=== PATIENT | male | born 1945 | race Caucasian/White ===

== ENCOUNTER 2017-03-16 13:03 | Inpatient (IN) | payer OTHER, MEDICARE ==
[~2017-03-16] VITALS: Ht 172.7 cm; Wt 113.4 kg
[~2017-03-16 13:03] MED LIST: AMARYL 2 MG2 MG PO; ASPIRIN81 M4 PO; COZAAR 100MG T100 MG PO; LANTUS100 U/ML SC; LASIX20 MG PO; LEVEMIR 10100 UNITS/ SC; LEVEMIR FL100 UNIT/1 SC; LIPITOR80 M1 PO; LOPRESSOR 25MG25 MG PO; NOVOLOG100 U/ML SC; PERCOCET 5-3251 EACH PO; PLAVIX 75MG TAB75 MG PO; VANCOMYCIN HCL1 G1 IV
[2017-03-16 14:06] LABS: ABSOLUTE BASOPHIL COUNT 0 /CUMM (0.0-0.2); ABSOLUTE EOSINOPHIL COUNT 0.3 /CUMM (0.0-0.7); ABSOLUTE GRANULOCYTE CT 6.7 /CUMM (1.4-6.5); ABSOLUTE LYMPH COUNT 1.5 /CUMM (1.2-3.4); ABSOLUTE MONOCYTE COUNT 0.6 /CUMM (0.10-0.60); BASOPHIL % 0.2 % (0.0-2.0); EOSINOPHIL % 2.9 % (0-5); GRANULOCYTE % 74.4 % (42.2-75.2); HEMATOCRIT 38.2 % (42-52); MEAN CORPUSCULAR HGB 30.2 PG (27.0-31.0); MEAN CORPUSCULAR HGB CONC 33.9 G/DL (33.0-37.0); MEAN CORPUSCULAR VOLUME 89.2 FL (80.0-94.0); MEAN PLATELET VOLUME 7.7 FL (7.4-10.4); PLATELET COUNT 267 /CUMM (130-400); RBC DISTRIBUTION WIDTH 13.3 % (11.5-14.5); RED BLOOD CELL CT 4.28 /CUMM (4.70-6.10); WHITE BLOOD CELL COUNT 9.1 /CUMM (4.8-10.8)
--- NOTE | 2017-03-16 14:11 | RADIOLOGY REPORT ---
EXAMINATION: XR PORTABLE CHEST CLINICAL INFORMATION: 71-year-old male with hyperglycemia. COMPARISON: Chest radiograph 07/23/2015 TECHNIQUE: Portable frontal view of the chest was obtained. FINDINGS: Cardiac silhouette is borderline enlarged, unchanged. There are low lung volumes. No focal consolidation, pleural effusion or pneumothorax. No acute osseous abnormality. IMPRESSION: No radiographic evidence of acute pulmonary disease.
--- NOTE | 2017-03-16 14:49 | CT SCAN REPORT ---
EXAMINATION: CT HEAD WITHOUT CONTRAST CLINICAL INFORMATION: Headache and hypertension. COMPARISON: 07/23/2015 TECHNIQUE: Contiguous axial imaging was performed from the skull base to vertex without intravenous administration of contrast. DLP: 621 mGy-cm FINDINGS: There is no hemorrhage. An oval 1.3 x 0.8 cm hypoattenuating structure is seen within the periventricular white matter adjacent to the frontal horn of the right lateral ventricle, new from prior. There is no significant mass effect. This may reflect a subacute to chronic area of ischemia. There is moderate generalized prominence of the ventricles, sulci, and extra-axial CSF spaces. There is a chronic infarct in the right basal ganglia with ex vacuo dilatation of the frontal horn of the right lateral ventricle, findings which have developed in the interval since the prior. Mild to moderate periventricular hypoattenuation compatible with chronic microangiopathy. Bilateral punctate chronic lacunar infarcts in the periventricular white matter adjacent to the body of the lateral ventricles. Chronic infarct in the right periventricular matter white matter adjacent to the third ventricle with mild ex vacuo dilatation of the third ventricle. Some of the smaller findings are difficult to compare to the prior due to the extensive motion on the 2014 study. No extra-axial collections. No mass effect or shift the normally midline structures. No acute osseous abnormalities. There is a retention cyst in a posterior left ethmoid air cell. The mastoid air cells and middle ear cavities are clear. There is a thick-walled subcutaneous fluid collection measuring 1.8 x 0.9 cm in the right parasagittal suboccipital region with associated skin thickening and some surrounding stranding. This appears to reflect a sebaceous cyst and is decreased in size from the prior with increased stranding. There may have been an interval procedure or this may have decompressed spontaneously. Correlation with exam is suggested. IMPRESSION: 1. An oval 1.3 x 0.8 cm hypoattenuating focus is seen within the right frontal periventricular white matter without mass effect. This is nonspecific and may reflect a subacute to chronic area of ischemia given attenuation. 2. Chronic infarct in the right basal ganglia with ex vacuo dilatation of the frontal horn of the right lateral ventricle, which has developed in the interval from the prior study. 3. No intracranial hemorrhage is visualized. 4. Decreased size of a subcutaneous cystic structure in the right suboccipital subcutaneous tissues with increased surrounding stranding. This is suspected to reflect a sebaceous cyst status post partial decompression. Correlation with exam is suggested.
--- NOTE | 2017-03-16 15:17 | ED GENERAL ADULT ---
History of Present Illness General Chief Complaint: General Adult Stated Complaint: SIB FOR HIGH BP Source: patient, old records Exam Limitations: poor historian Vital Signs & Intake/Output Vital Signs & Intake/Output Vital Signs Date Time Temp Pulse Resp B/P B/P Pulse O2 O2 Flow FiO2 Mean Ox Delivery Rate 03/16 1639 97.6 65 18 159/85 98 Room Air 03/16 1453 66 18 152/69 94 Room Air 03/16 1416 69 18 149/71 99 Room Air 03/16 1407 69 209/98 03/16 1313 98.2 78 20 193/99 7 Room Air Allergies Coded Allergies: NO KNOWN ALLERGIES (07/23/15) Reconcile Medications Aspirin (Aspirin*) 81 MG TAB.CHEW 1 TAB PO DAILY HEART HEALTH (Reported) Atorvastatin Calcium (Lipitor) 80 MG TABLET 1 TAB PO QPM CHOLESTEROL ( Reported) Clopidogrel Bisulfate (Plavix) 75 MG TAB 1 TAB PO DAILY CARDIAC STENTS ( Reported) Furosemide (Lasix) 20 MG TAB 1 TAB PO DAILY \? CHF (Reported) Insulin Aspart, Recombinant (Novolog) 100 U/ML OMID 1 UNITS SC SEE ADMIN CRITERIA Diabetes Before each meal blood sugar units <80mg -0 units 80-150 - 5units 151-200 -7 units 201-250- 9units 251-300 - 11 units 301-350 - 13 units 351-400 - 15 >400- 17 units Bedtime 80-150 -0 units 251-300- 2 units 301-350- 3units 351-400 - 4 units >400 - 5 units Insulin Detemir (Levemir Flextouch) 100 UNIT/1 ML INSULN.PEN 28 U SC QPM DIABETES (Reported) Losartan (Cozaar) 100 MG TAB 1 TAB PO DAILY HTN (Reported) Metoprolol Tartrate (Lopressor) 25 MG TAB 1 TAB PO BID B/P (Reported) Core Measure Meds Pre-Hospital aspirin Triage Note: SIB DR LE FOR HYPERTENSION. BP 193/99 IN TRIAGE. PT DENIES H/A. STATES DIZZY WHEN WALKING Triage Nurses Notes Reviewed? yes Onset: Just prior to arrival Duration: continues in ED Timing: recent history Injury Environment: home Severity: mild No Modifying Factors: none HPI: Patient reports running out of his meds 3 months prior to admission. He visited PMD for a refills and was found to be hyperglycemic with high blood pressure. He complains of headache and dizziness for an unspecified duration. He denies fever chills nausea vomiting diarrhea abdominal pain chest pain shortness of breath dysuria rash bleeding. Past History Travel History Traveled to [place] past 21 day No Medical History Any Pertinent Medical History? 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 No Review of Systems Review of Systems Constitutional: Reports: see HPI, malaise. EENTM: Reports: no symptoms. Respiratory: Reports: no symptoms. Cardiovascular: Reports: no symptoms. GI: Reports: no symptoms. Genitourinary: Reports: no symptoms. Musculoskeletal: Reports: no symptoms. Skin: Reports: no symptoms. Neurological/Psychological: Reports: see HPI, headache. Hematologic/Endocrine: Reports: no symptoms. Immunologic/Allergic: Reports: no symptoms. All Other Systems: Reviewed and Negative Physical Exam Physical Exam General Appearance: well developed/nourished, alert, awake, anxious, obese Head: atraumatic, normal appearance Eyes: Bilateral: normal appearance, PERRL, EOMI, other (nystagmus). Ears, Nose, Throat: normal pharynx, normal ENT inspection Neck: normal inspection, supple, full range of motion, no midline tenderness Respiratory: normal breath sounds, chest non-tender, no respiratory distress, quiet respiration, lungs clear Cardiovascular: regular rate/rhythm, normal peripheral pulses, norml femoral pulses equa Peripheral Pulses: 4+ carotid (R), 4+ carotid (L) Gastrointestinal: normal bowel sounds, soft, non-tender, no organomegaly Back: normal inspection, normal range of motion, no vertebral tenderness Extremities: normal inspection, normal capillary refill, normal range of motion, no edema Neurologic/Psych: no motor/sensory deficits, awake, alert, oriented x 3, normal gait, normal mood/affect, 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 Skin: intact, normal color, right foot amputation site well-healed, chronic nail changes Lymphatic: no anterior cervical cami Core Measures ACS in differential dx? No CVA/TIA Diagnosis: Yes NIH Stroke Scale: Total 0 Dt/Tm Last Known Well: No Neurological S/S of CVA: Dizziness Reason tPA not ordered: Medical Contraindication Severe Sepsis Present: No Septic Shock Present: No Progress Differential Diagnoses I considered the following diagnoses in my evaluation of the patient: Hypertensive crisis DKA Plan of Care: Orders Procedure Date/time Status MRI-HEAD W/O KATHLEEN 03/17 0800 Active CBC WITHOUT DIFFERENTIAL 03/17 0600 Active BASIC ELECTROLYTES PLUS BUN&CR 03/17 0600 Active Consistent Carbohydrate 2 03/16 D Active TROPONIN LEVEL 03/16 1900 Active Pathway - chart 03/16 1606 Active House Staff 03/16 1606 Active Code Status 03/16 1606 Active Patient Data 03/16 1602 Active COMPREHENSIVE METABOLIC PANEL 03/16 1549 Complete OXYGEN SETUP (GEN) 03/16 1524 Active Saline Lock 03/16 1524 Active Admit to inpatient 03/16 1524 Active Vital Signs 03/16 1524 Active Activity/Ambulation 03/16 1524 Active Code Status 03/16 1524 Complete Intake & Output 03/16 1456 Active FingerStick- Glucose 03/16 1352 Active URINALYSIS 03/16 1347 Complete GLYCOSYLATED HGB 03/16 1347 Active MIXED VENOUS BLOOD GAS (GEN) 03/16 1343 Active TROPONIN LEVEL 03/16 1343 Active LIPASE 03/16 1343 Active COMPREHENSIVE METABOLIC PANEL 03/16 1343 Active CBC WITHOUT DIFFERENTIAL 03/16 1343 Complete ACETONE 03/16 1343 Active EKG 03/16 1343 Active Lab Add-on Test 03/16 UNK Active VTE Mechanical Prophylaxis 03/16 UNK Active FingerStick- Glucose 03/16 UNK Active CMS- Neurovascular Checks 03/16 UNK Active Current Medications Sig/Anna Start time Last Medication Dose Stop Time Status Admin Aspirin 81 MG DAILY 03/17 1000 AC (Aspirin) Clopidogrel Bisulfate 75 MG DAILY 03/17 1000 AC (Plavix) Losartan Potassium 100 MG DAILY 03/17 1000 AC (Cozaar) Atorvastatin Calcium 80 MG QPM 03/16 2200 AC (Lipitor) Heparin Sodium 5,000 UNIT Q8 03/16 2200 UNVr (Porcine) Insulin Detemir 10 UNITS BID 03/16 2200 AC (Levemir) Metoprolol Tartrate 25 MG BID 03/16 2200 UNVr (Lopressor) Insulin Aspart 0 TIDAC 03/16 1700 AC 03/16 (NovoLOG) 1647 Acetaminophen 650 MG Q6P PRN 03/16 161 AC (Tylenol) Acetaminophen 1,000 MG Q6P PRN 03/16 1615 AC (Ofirmev) Laboratory Tests 03/16/17 1603: Urinalysis LIGHT H, Urine Color YEL, Urine Clarity CLEAR, Urine pH 6.0, Ur Specific [place] 1.020, Urine Protein 100 H, Urine Ketones NEG, Urine Nitrite NEG, Urine Bilirubin NEG, Urine Urobilinogen 0.2, Ur Leukocyte Esterase NEG, Ur Microscopic SEDIMENT EXAMINED, Urine RBC RARE, Ur Epithelial Cells RARE, Urine Mucus RARE, Urine Hemoglobin SMALL H, Urine Glucose >=1000 H 03/16/17 1544: Anion Gap 11, Estimated GFR 50 L, BUN/Creatinine Ratio 17.1, Glucose 268 H, Calcium 9.1, Total Bilirubin 0.4, AST 11 L, ALT 29, Alkaline Phosphatase 93, Total Protein 6.4, Albumin 3.6, Globulin 2.8, Albumin/Globulin Ratio 1.3 03/16/17 1541: Glucose Cancelled 03/16/17 1537: Glucose Cancelled 03/16/17 1347: Anion Gap 13, Estimated GFR 50 L, BUN/Creatinine Ratio 19.3, Glucose 544 *H, Hemoglobin A1c Pending, Calcium 8.9, Total Bilirubin 0.4, AST 12 L, ALT 21, Alkaline Phosphatase 103, Troponin I < 0.01, Total Protein 6.5, Albumin 3.7, Globulin 2.8, Albumin/Globulin Ratio 1.3, Lipase 366 H, CBC w Diff NO MAN DIFF REQ, RBC 4.28 L, MCV 89.2, MCH 30.2, RDW 13.3, MPV 7.7, Gran % 74.4, Lymphocytes % 16.1 L, Monocytes % 6.4, Eosinophils % 2.9, Basophils % 0.2, Absolute Granulocytes 6.7 H, Absolute Lymphocytes 1.5, Absolute Monocytes 0.6, Absolute Eosinophils 0.3, Absolute Basophils 0, PUBS MCHC 33.9, Acetone Level NEGATIVE Diagnostic Imaging: Viewed by Me: CT Scan. Discussed w/RAD: CT Scan. Radiology Impression: 1. An oval 1.3 x 0.8 cm hypoattenuating focus is seen within the right frontal periventricular white matter without mass effect. This is nonspecific and may reflect a subacute to chronic area of ischemia given attenuation. 2. Chronic infarct in the right basal ganglia with ex vacuo dilatation of the frontal horn of the right lateral ventricle, which has developed in the interval from the prior study. 3. No intracranial hemorrhage is visualized. 4. Decreased size of a subcutaneous cystic structure in the right suboccipital subcutaneous tissues with increased surrounding stranding. This is suspected to reflect a sebaceous cyst status post partial decompression. Correlation with exam is suggested. CXR Impression: no acute abnormality Initial ED EKG: normal axis, normal intervals, normal p-waves, normal QRS complex, nonspecific ST T wave chg Prior EKG: changed Rhythm Strip: normal sinus rhythm Departure Departure Time of Disposition: 1527 Disposition: STILL A PATIENT Condition: Stable Clinical Impression Primary Impression: Hypertension Qualifiers: Hypertension type: essential hypertension Qualified Code: I10 - Essential (primary) hypertension Secondary Impressions: CVA (cerebral vascular accident) Qualifiers: CVA mechanism: unspecified Qualified Code: I63.9 - Cerebral infarction, unspecified Hyperglycemia Referrals: DOMINIC CAMARA,LEAH Johns (PCP/Family) Departure Forms: Customer Survey General Discharge Information Admission Note Spoke With: EDUARDO CAMARA,SHABBIR Hurd Documentation of Exam: Documentation of any treatments & extenuating circumstances including Concerns Regarding Discharge (functional status, medication knowledge or non-compliance, living conditions, etc.) that warrant an admission rather than observation: Serial lab exam cardiac monitoring serial neurological exam endocrinology evaluation urology evaluation medication adjustment physical therapy continuing care discharge planning Critical Care Note Critical Care Note Critical Care Time: 30-74 min (40)
--- NOTE | 2017-03-16 16:05 | History & Physical ---
DAVID CAMARA,CHERYL 03/16/17 4954: General Information and HPI MD Statement: I have seen and personally examined JOVAN MACEDO and documented this H&P. The patient is a 71 year old M who presented with a patient stated chief complaint of [referred by the primary care physician for hypertension]. 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 after being referred by her primary care physician for essential hypertension. Patient's blood pressure was elevated to 198/100 at the physician's office. A per the patient he was asymptomatic and had no complaints. He has not been taking his home medications for the last 1-1/2 month due to insurance problems. He denied any chest pain palpitations weakness lethargic. He went to his primary care physician for his regular routine office visit. The patient also had a fall 1 week back which he attributes as his knee gave away and he stumbled on the kitchen floor but he did not hit his head. He normally ambulates with a cane since the amputation of the third and the fourth right foot toe. The patient had some mild blurring of vision and mild headache. No palpitations or shortness of breath. Allergies/Medications Allergies: Coded Allergies: NO KNOWN ALLERGIES (07/23/15) Home Med list Aspirin (Aspirin*) 81 MG TAB.CHEW 1 TAB PO DAILY HEART HEALTH (Reported) Atorvastatin Calcium (Lipitor) 80 MG TABLET 1 TAB PO QPM CHOLESTEROL ( Reported) Clopidogrel Bisulfate (Plavix) 75 MG TAB 1 TAB PO DAILY CARDIAC STENTS ( Reported) Furosemide (Lasix) 20 MG TAB 1 TAB PO DAILY \? CHF (Reported) Insulin Aspart, Recombinant (Novolog) 100 U/ML OMID 1 UNITS SC SEE ADMIN CRITERIA Diabetes Before each meal blood sugar units <80mg -0 units 80-150 - 5units 151-200 -7 units 201-250- 9units 251-300 - 11 units 301-350 - 13 units 351-400 - 15 >400- 17 units Bedtime 80-150 -0 units 251-300- 2 units 301-350- 3units 351-400 - 4 units >400 - 5 units Insulin Detemir (Levemir Flextouch) 100 UNIT/1 ML INSULN.PEN 28 U SC QPM DIABETES (Reported) Losartan (Cozaar) 100 MG TAB 1 TAB PO DAILY HTN (Reported) Metoprolol Tartrate (Lopressor) 25 MG TAB 1 TAB PO BID B/P (Reported) Past History Travel History Traveled to [place] past 21 day No Medical History Neurological: AMS EENT: NONE Cardiovascular: hyperlipidemia Respiratory: NONE Gastrointestinal: NONE Hepatic: NONE Renal: NONE Musculoskeletal: MUSCLE WEAKNESS Psychiatric: NONE Endocrine: diabetes Blood Disorders: NONE Cancer(s): NONE 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 spouse, child Services at Home: None Primary Language: Luxembourger Smoking Status: Former Smoker ETOH Use: denies use Illicit Drug Use: denies illicit drug use Review of Systems Review of Systems Constitutional: Reports: see HPI. Cardiovascular: Denies: chest pain, edema, orthopena, palpitations. GI: Denies: abdominal pain, bloating, constipation, distention, bowel incontinence. Genitourinary: Denies: discharge, dysuria, frequency, hematuria. Exam & Diagnostic Data Last 24 Hrs of Vital Signs/I&O Vital Signs Date Time Temp Pulse Resp B/P B/P Pulse O2 O2 Flow FiO2 Mean Ox Delivery Rate 03/16 1639 97.6 65 18 159/85 98 Room Air 03/16 1453 66 18 152/69 94 Room Air 03/16 1416 69 18 149/71 99 Room Air 03/16 1407 69 209/98 03/16 1313 98.2 78 20 193/99 7 Room Air Intake & Output 03/16 1600 03/16 0800 03/16 0000 Intake Total 1000 Output Total Balance 1000 Intake, IV 1000 Patient 215 lb Weight Weight Reported by Patient Measurement Method Physical Exam General Appearance Alert, Oriented X3, Cooperative Skin No Rashes, No Breakdown Skin Temp/Moisture Exam: Warm/Dry Sepsis Skin Exam (color): Normal for Ethnicity, Cyanotic HEENT Atraumatic, PERRLA Neck Supple, No JVD Lymphatic Axillary nl, Cervical nl Cardiovascular Normal S1, Normal S2 Lungs Clear to Auscultation, Normal Air Movement Abdomen Soft, No Tenderness Neurological Normal Speech, Strength at 5/5 X4 Ext, Normal Tone, Sensation Intact, Cranial Nerves 3-12 NL, Reflexes 2+ Extremities No Cyanosis, No Edema, THE STUMP OF THE THIRD AND THE FOURTH TOE LOOKS CLEAN WITH NO DISCHARGE (.) Assessment/Plan Assessment: This is a 71-year-old male with a past medical history of essential hypertension coronary artery disease insulin-dependent diabetes mellitus hyperlipidemia ostium mellitus of the third and the fourth toe in the last year status post debridement to present to the [facility] after being referred by the primary care physician for hypertension Vitals at the time of admission showed Blood pressure of Blood pressure of 159/81, respiration rate of 18, pulse rate of 69, saturation of 99% on room air Labs shows WBC of 12,000, normal hemoglobin and hematocrit, Blood glucose of 544, normal anion gap, slightly elevated creatinine of 1.5 with a baseline of 1.4, no ketones in the urine EKG shows normal sinus rhythm Chest x-ray was negative for any intrapulmonary process Head CT showed acute or subacute infarcts Assessment 1. Hypertensive urgency secondary to noncompliance with the medications(he takes losartan 100 mg and metoprolol 25 mg twice a day) 2. Hyperglycemia in the absence of any anion gap or ketosis(again most likely secondary to noncompliance and not taking any insulin therapy at home) 3. History of Coronary artery disease involving inupiat coronary artery of inupiat heart without angina pectoris the patient is on dual antiplatelet therapy but no documentation of any cardiac stent placement in the electronic medical records. Patient has seen Bird Galloway in the past. 4. History of hyperlipidemia 5. 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 Plan Admit to telemetry floor Neurochecks every 4 hours Accu-Cheks every 4 hours For the patient's blood pressure we will resume his home meds of losartan 100 mg and metoprolol 25 mg twice a day We can check another set of troponins in the later tonight, at this point I don' t think that the patient has any end organ damage Cardiology consult with the [facility](Brad Serrano MD ) Last echo was reviewed from July 2016 which showed an EF of 55% and no wall motion abnormality. 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 We will hold the Lasix dose until kidney function normalizes. DVT prophylaxis with subcutaneous heparin Patient is full code As Ranked By This Provider Problem List: 1. Hypertension Qualifiers Hypertension type: essential hypertension Qualified Code: I10 - Essential ( primary) hypertension 2. Full code status 3. DVT prophylaxis Core Measures/Miscellaneous Acute Coronary Syndrome ACS Diagnosis: No Cerebrovascular Accident CVA/TIA Diagnosis: No Congestive Heart Failure CHF Diagnosis: No Venous Thromboembolism VTE Risk Factors: Acute medical illness, Age > 40 [facility] prophylaxis d/t: VTE low risk, No contraindications No VTE Pharm Prophylaxis d/t: VTE low risk, No contraindications VTE Diagnosis: No VTE Type: NONE VTE Confirmed by (Test): NONE Severe Sepsis Severe Sepsis Present: No Septic Shock Septic Shock Present: No Miscellaneous Documentation Attending Case Discussed With: SHABBIR CLARK MD Primary Care Physician: LEAH ALFARO MD Patient sees these Specialists dr de jesus Level of Patient Care: Telemetry SHABBIR CLARK MD 03/16/17 1724: Attending Review Statement Attending Statement Attending MD Statement: examined this patient, discuss w/resident/PA/KIESELGUHR REGENERATOR OPERATOR, agreed w/resident/PA/KIESELGUHR REGENERATOR OPERATOR, reviewed EMR data (avail), reviewed images Attending Assessment/Plan: See medical brief addendum note
--- NOTE | 2017-03-16 16:43 | PN- Att Addend ---
Attending Addendum Attending Brief Note 71-year-old male with past medical history of diabetes, CAD, hyperlipidemia and gout. The patient ran out of all of his medications a few months ago and showed up at his PCP Mimi Rosales MD's office today where he was found to have a sugar in the 500s and a blood pressure 190/90 and was sent to the emergency room. He is not very reliable informant and its unclear how and why he stopped taking his medications. His med list from his previous admission includes aspirin and Plavix, statin, insulin etc. In the ER he was found to be calm and cooperative but mildly confused and weak. No obvious focality on exam and no obvious evidence of infection. Labs were notable for a glucose of 544 with negative acetone and no anion gap. In addition his CT head showed more than 1 probable subacute area of ischemia. He got IV labetalol in the ER and his pressure has responded very nicely with to 150/70. He is also treated with fluids and insulin and his repeat metabolic panel is pending. Given the stroke of subacute nature will bring him into telemetry. He is alert, oriented and passed a bedside swallow. He's not really an aspirin failure as he hasn't taken his medication so we'll give him the aspirin and statin and control the sugars with subcutaneous insulin long-acting and short- acting. He will need an echocardiogram to make sure there is no LV thrombus with the stroke and will need an MRI to better define the areas on the CT. We will also need to talk to his son and get more information of the home situation and what caused him to stop his medications. We'll put him on DVT prophylaxis and follow closely. PT tim
[2017-03-16 17:50] VITALS: BP 110/80
[2017-03-17 01:00] VITALS: BP 138/80
--- NOTE | 2017-03-17 05:45 | PN- Housestaff ---
See Addendum Subjective Follow-up For: Hypertensive urgency Tele-Events Since Last Visit: SB in high 50s Subjective: Patient seen and examined at bedside. Resting comfortably in bed. Alert, awake and oriented x 3. He reports headache has resolved but still has blurry vision which has been ongoing for 3-4 months. Feeling well otherwise. Denies any dyspnea, chest pain, palpitations, lightheadedness, dizziness, abdominal pain, n /v/c/d. No events reported overnight. Review of Systems Constitutional: Reports: see HPI. Objective Last 24 Hrs of Vital Signs/I&O Vital Signs Date Time Temp Pulse Resp B/P B/P Pulse O2 O2 Flow FiO2 Mean Ox Delivery Rate 03/17 1140 61 142/78 03/17 1140 61 142/78 03/17 0805 98.4 61 18 142/78 94 Room Air 03/17 0100 98.1 62 18 138/80 96 Room Air 03/16 2106 166/82 03/16 1750 98.5 68 18 110/80 98 03/16 1639 97.6 65 18 159/85 98 Room Air 03/16 1453 66 18 152/69 94 Room Air 03/16 1416 69 18 149/71 99 Room Air 03/16 1407 69 209/98 03/16 1313 98.2 78 20 193/99 7 Room Air Intake & Output 03/17 1600 03/17 0800 03/17 0000 Intake Total 600 120 Output Total 175 200 Balance 425 -80 Intake, IV 600 Intake, Oral 120 Number 1 Bowel Movements Output, Urine 175 200 Patient 113.398 kg Weight Weight Reported by Patient Measurement Method Physical Exam General Appearance: Alert, Oriented X3, Cooperative, No Acute Distress Other Physical Findings: Skin No Rashes, No Breakdown Skin Temp/Moisture Exam: Warm/Dry Sepsis Skin Exam (color): Normal for Ethnicity, Cyanotic HEENT Atraumatic, PERRLA Neck Supple, No JVD Lymphatic Axillary nl, Cervical nl Cardiovascular Normal S1, Normal S2 Lungs Clear to Auscultation, Normal Air Movement Abdomen Soft, No Tenderness Neurological Normal Speech, Strength at 5/5 X4 Ext, Normal Tone, Sensation Intact, Cranial Nerves 3-12 NL, Reflexes 2+ Extremities No Cyanosis, No Edema, THE STUMP OF THE THIRD AND THE FOURTH TOE LOOKS CLEAN WITH NO DISCHARGE Current Medications: Current Medications Sig/Anna Start time Last Medication Dose Route Stop Time Status Admin Acetaminophen 650 MG Q6P PRN 03/16 1615 AC PO Acetaminophen 1,000 MG Q6P PRN 03/16 1615 AC IV Aspirin 81 MG DAILY 03/17 1000 AC 03/17 PO 1140 Atorvastatin Calcium 80 MG QPM 03/16 2200 AC 03/16 PO 2106 Clopidogrel Bisulfate 75 MG DAILY 03/17 1000 AC 03/17 PO 1140 Heparin Sodium 5,000 UNIT Q8 03/16 220 AC 03/17 (Porcine) SC 0559 Insulin Aspart 0 TIDAC 03/16 1700 AC 03/17 SC 0903 Insulin Detemir 10 UNITS BID 03/16 2200 AC 03/17 SC 1140 Insulin Human Regular 5 UNITS ONCE ONE 03/16 1430 DC 03/16 IV 03/16 1431 1503 Insulin Human Regular 5 UNITS ONCE ONE 03/16 1400 DC 03/16 IV 03/16 1401 1400 Labetalol HCl 10 MG ONCE ONE 03/16 1400 DC 03/16 IV 03/16 1401 1407 Labetalol HCl 0 .STK-MED ONE 03/16 1359 DC IV Losartan Potassium 100 MG DAILY 03/17 1000 AC 03/17 PO 1140 Metoprolol Tartrate 25 MG BID 03/16 2200 AC 03/17 PO 1140 Sodium Chloride 1,000 ML ONCE ONE 03/16 1730 DC 03/16 IV 03/17 0649 1753 Sodium Chloride 1,000 ML BOLUS ONE 03/16 1400 DC 03/16 IV 03/16 1459 1400 Last 24 Hrs of Lab/Kj Results Last 24 Hrs of Labs/Mics: Laboratory Tests 03/17/17 0616: Anion Gap 9, Estimated GFR 55 L, BUN/Creatinine Ratio 18.5, CBC w Diff NO MAN DIFF REQ, RBC 3.75 L, MCV 87.8, MCH 30.4, RDW 13.5, MPV 8.1, Gran % 69.4, Lymphocytes % 19.0 L, Monocytes % 7.4, Eosinophils % 3.7, Basophils % 0.5, Absolute Granulocytes 6.8 H, Absolute Lymphocytes 1.9, Absolute Monocytes 0.7 H, Absolute Eosinophils 0.4, Absolute Basophils 0, PUBS MCHC 34.5 03/16/17 1900: Troponin I 0.01 03/16/17 1603: Urinalysis LIGHT H, Urine Color YEL, Urine Clarity CLEAR, Urine pH 6.0, Ur Specific [employer] 1.020, Urine Protein 100 H, Urine Ketones NEG, Urine Nitrite NEG, Urine Bilirubin NEG, Urine Urobilinogen 0.2, Ur Leukocyte Esterase NEG, Ur Microscopic SEDIMENT EXAMINED, Urine RBC RARE, Ur Epithelial Cells RARE, Urine Mucus RARE, Urine Hemoglobin SMALL H, Urine Glucose >=1000 H 03/16/17 1544: Anion Gap 11, Estimated GFR 50 L, BUN/Creatinine Ratio 17.1, Glucose 268 H, Calcium 9.1, Total Bilirubin 0.4, AST 11 L, ALT 29, Alkaline Phosphatase 93, Total Protein 6.4, Albumin 3.6, Globulin 2.8, Albumin/Globulin Ratio 1.3 03/16/17 1541: Glucose Cancelled 03/16/17 1537: Glucose Cancelled 03/16/17 1347: Anion Gap 13, Estimated GFR 50 L, BUN/Creatinine Ratio 19.3, Glucose 544 *H, Hemoglobin A1c 13.1 H, Calcium 8.9, Total Bilirubin 0.4, AST 12 L, ALT 21, Alkaline Phosphatase 103, Troponin I < 0.01, Total Protein 6.5, Albumin 3.7, Globulin 2.8, Albumin/Globulin Ratio 1.3, Lipase 366 H, CBC w Diff NO MAN DIFF REQ, RBC 4.28 L, MCV 89.2, MCH 30.2, RDW 13.3, MPV 7.7, Gran % 74.4, Lymphocytes % 16.1 L, Monocytes % 6.4, Eosinophils % 2.9, Basophils % 0.2, Absolute Granulocytes 6.7 H, Absolute Lymphocytes 1.5, Absolute Monocytes 0.6, Absolute Eosinophils 0.3, Absolute Basophils 0, PUBS MCHC 33.9, Acetone Level NEGATIVE Assessment/Plan Assessment: 71-year-old male with a past medical history of essential hypertension coronary artery disease insulin-dependent diabetes mellitus hyperlipidemia ostium mellitus of the third and the fourth toe in the last year status post debridement to present to the [facility] after being referred by the primary care physician for hypertension # Hypertensive urgency Secondary to noncompliance with the medications. * Cont tele monitoring * Neurochecks every 4 hours * Accu-Cheks every 4 hours * Cont his home antihypertensives losartan 100 mg and metoprolol 25 mg BID # JARETT The patient is on 20 mg of Lasix at home. * Hold Lasix dose until kidney function normalizes * Check BEP daily, trend Cr - improving # Acute on subacute infarcts Head CT on admission shows an oval 1.3 x 0.8 cm hypoattenuating focus within the right frontal periventricular white matter without mass effect. This is nonspecific and may reflect a subacute to chronic area of ischemia given attenuation. * Further evaluation with MRI * If concerning, consult neuro depending on MRI results # Hyperglycemia in the absence of any anion gap or ketosis Also likely secondary to noncompliance and not taking any insulin therapy at home * Novolog SSI with accuchecks # History of CAD and HLD Patient carries a h/o coronary artery disease involving [place] coronary artery of [place] heart without angina pectoris. The patient is currently on dual antiplatelet therapy but no documentation of any cardiac stent placement in the electronic medical records. Patient has seen Bird Galloway in the past. * Appreciate cardio recs * Recheck HbA1c - Diabetic diet - Mild pain pathway - DVTppx with SQH - Full code. Problem List: 1. Hypertension 2. Full code status 3. Hyperglycemia Pain Ratin Pain Location: 0 Pain Goal: Remain pain free Pain Plan: Mild pathway Tomorrow's Labs & Rationales: CBC BEP
[2017-03-17 08:05] VITALS: BP 142/78
[2017-03-17 08:09] LABS: ABSOLUTE BASOPHIL COUNT 0 /CUMM (0.0-0.2); ABSOLUTE EOSINOPHIL COUNT 0.4 /CUMM (0.0-0.7); ABSOLUTE GRANULOCYTE CT 6.8 /CUMM (1.4-6.5); ABSOLUTE LYMPH COUNT 1.9 /CUMM (1.2-3.4); ABSOLUTE MONOCYTE COUNT 0.7 /CUMM (0.10-0.60); BASOPHIL % 0.5 % (0.0-2.0); EOSINOPHIL % 3.7 % (0-5); GRANULOCYTE % 69.4 % (42.2-75.2); MEAN CORPUSCULAR HGB 30.4 PG (27.0-31.0); MEAN CORPUSCULAR HGB CONC 34.5 G/DL (33.0-37.0); MEAN CORPUSCULAR VOLUME 87.8 FL (80.0-94.0); MEAN PLATELET VOLUME 8.1 FL (7.4-10.4); PLATELET COUNT 244 /CUMM (130-400); RBC DISTRIBUTION WIDTH 13.5 % (11.5-14.5); RED BLOOD CELL CT 3.75 /CUMM (4.70-6.10); WHITE BLOOD CELL COUNT 9.8 /CUMM (4.8-10.8)
[2017-03-17 08:40] LABS: HEMATOCRIT 32.9 % (42-52)
--- NOTE | 2017-03-17 11:34 | MRI REPORT ---
EXAMINATION: MR BRAIN WITHOUT CONTRAST CLINICAL INFORMATION: Hypertension. Question stroke. COMPARISON: Head CT from 03/16/2017. TECHNIQUE: Multiplanar, multisequence imaging of the brain was performed without contrast. FINDINGS: No diffusion abnormalities are identified to suggest an acute infarct. There is suspected T2 shine through phenomenon in the periventricular white matter from chronic microangiopathy. Generalized parenchymal volume loss is noted. There is a focal area of encephalomalacia in the body of the corpus callosum. There is a chronic infarct in the right basal ganglia with mild ex vacuo dilatation of the right lateral ventricle. There is no hydrocephalus. No mass effect or midline shift is seen. Scattered subcentimeter foci of T2 hyperintense signal change in the cerebral white matter are most indicative for chronic microangiopathic changes. No extra-axial fluid collections are seen. Mild chronic small vessel ischemic changes noted in the brainstem with mild right-sided Wallerian degeneration. There is a small chronic lacunar infarct in the left cerebellar hemisphere. A mild amount of hemosiderin staining is noted in the right basal ganglia facet of the chronic infarct on the gradient acquisition. The craniovertebral junction, marrow signal, and midline structures are normal. The major intracranial flow voids at the level of the [place] of [place] are preserved. The dural venous sinus flow voids are maintained. There is a small 1.1 cm proteinaceous retention cyst in one of the posterior left ethmoid air cells. The mastoid air cells are well aerated. On the sagittal T1-weighted acquisition, there is a 2.5 x 2 cm rounded, homogeneous hyperintense lesion along the undersurface of the anterior oral tongue which is not included on imaging for the additional sequences. IMPRESSION: No acute infarct. Moderate chronic white matter microangiopathy. 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 Generalized parenchymal volume loss. Indeterminate 2.5 cm rounded T1 hyperintensity along the anterior undersurface of the oral tongue which may represent an incidental lipoma or epidermoid cyst. Correlate with direct visual inspection.
--- NOTE | 2017-03-17 11:40 | Cons- Cardiology ---
General Information and HPI Consulting Request Date of Consult: 03/17/17 Requested By: MANDI BENNETT MD Reason for Consult: Coronary artery disease, hypertension Source of Information: patient, old records Exam Limitations: poor historian History of Present Illness: The patient is a 71-year-old gentleman with a past medical history of coronary artery disease (prior stenting; however, not had regular cardiology follow-up), hypertension, his mellitus, hyperlipidemia and poor medication compliance. He was referred to our emergency room following presentation to a care physician's office with severe hypertension and hyperglycemia following several weeks of medication noncompliance. The patient states he has been not taking his medication regimen over a period of approximately 1-1-1/2 months, and upon presentation to his primary care physician's office was noted to have a blood pressure of 198/100. On arrival to the emergency room, the patient complained of symptoms of mild blurred vision mild headache. He denied acute symptoms of chest discomfort, palpitations or shortness of breath. He was noted to be severely hyperglycemic at that time as well IV labetalol for blood pressure control. Of note, the patient does however state having occasional symptoms of chest discomfort which occur on an irregular basis and be correlated to physical activity. The discomfort is described as a mild substernal pressure nonradiating, and not associated with dyspnea nor palpitations. No clear alleviating or exacerbating factors are noted. Allergies/Medications Allergies: Coded Allergies: NO KNOWN ALLERGIES (07/23/15) Home Med List: Aspirin (Aspirin*) 81 MG TAB.CHEW 1 TAB PO DAILY HEART HEALTH (Reported) Atorvastatin Calcium (Lipitor) 80 MG TABLET 1 TAB PO QPM CHOLESTEROL ( Reported) Clopidogrel Bisulfate (Plavix) 75 MG TAB 1 TAB PO DAILY CARDIAC STENTS ( Reported) Furosemide (Lasix) 20 MG TAB 1 TAB PO DAILY \? CHF (Reported) Insulin Aspart, Recombinant (Novolog) 100 U/ML OMID 1 UNITS SC SEE ADMIN CRITERIA Diabetes Before each meal blood sugar units <80mg -0 units 80-150 - 5units 151-200 -7 units 201-250- 9units 251-300 - 11 units 301-350 - 13 units 351-400 - 15 >400- 17 units Bedtime 80-150 -0 units 251-300- 2 units 301-350- 3units 351-400 - 4 units >400 - 5 units Insulin Detemir (Levemir Flextouch) 100 UNIT/1 ML INSULN.PEN 28 U SC QPM DIABETES (Reported) Losartan (Cozaar) 100 MG TAB 1 TAB PO DAILY HTN (Reported) Metoprolol Tartrate (Lopressor) 25 MG TAB 1 TAB PO BID B/P (Reported) Current Medications: Current Medications Sig/Anna Start time Last Medication Dose Route Stop Time Status Admin Acetaminophen 650 MG Q6P PRN 03/16 1615 AC PO Acetaminophen 1,000 MG Q6P PRN 03/16 1615 AC IV Aspirin 81 MG DAILY 03/17 1000 AC PO Atorvastatin Calcium 80 MG QPM 03/16 2200 AC 03/16 PO 2106 Clopidogrel Bisulfate 75 MG DAILY 03/17 1000 AC PO Heparin Sodium 5,000 UNIT Q8 03/16 2200 AC 03/17 (Porcine) SC 0559 Insulin Aspart 0 TIDAC 03/16 1700 AC 03/17 SC 0903 Insulin Detemir 10 UNITS BID 03/16 2200 AC 03/16 SC 2106 Insulin Human Regular 5 UNITS ONCE ONE 03/16 1430 DC 03/16 IV 03/16 1431 1503 Insulin Human Regular 5 UNITS ONCE ONE 03/16 1400 DC 03/16 IV 03/16 1401 1400 Labetalol HCl 10 MG ONCE ONE 03/16 1400 DC 03/16 IV 03/16 1401 1407 Labetalol HCl 0 .STK-MED ONE 03/16 1359 DC IV Losartan Potassium 100 MG DAILY 03/17 1000 AC PO Metoprolol Tartrate 25 MG BID 03/16 2200 AC 03/16 PO 2106 Sodium Chloride 1,000 ML ONCE ONE 03/16 1730 DC 03/16 IV 03/17 0649 1753 Sodium Chloride 1,000 ML BOLUS ONE 03/16 1400 DC 03/16 IV 03/16 1459 1400 Review of Systems Review of Systems: The review of systems is negative for chest pains, palpitations nor lightheadedness. The remainder of the 14 point review of systems is noncontributory with the exception of above. Past History Travel History Traveled to [place] past 21 day No Medical History Blood Transfusion Hx: No Neurological: AMS EENT: NONE Cardiovascular: CAD, hypertension, hyperlipidemia, NE 12YRS AGO Respiratory: NONE Gastrointestinal: NONE Hepatic: NONE Renal: NONE Musculoskeletal: BACK SURGERY Psychiatric: NONE Endocrine: diabetes Blood Disorders: NONE Cancer(s): NONE HAM SMOKER/Reproductive: NONE Surgical History Surgical History: RIGHT FOOT 4/5 TOE AMP BACK SURGERIES CYST REMOVAL Family History Relations & Conditions If Any: MOTHER Psychosocial History Where Do You Live? Home Who Do You Live With? spouse, child Services at Home: None Primary Language: Spanish Smoking Status: Former Smoker ETOH Use: denies use Illicit Drug Use: denies illicit drug use Exam & Diagnostic Data Vital Signs and I&O Vital Signs Date Time Temp Pulse Resp B/P B/P Pulse O2 O2 Flow FiO2 Mean Ox Delivery Rate 03/17 08 98.4 61 18 142/78 94 Room Air 03/17 0100 98.1 62 18 138/80 96 Room Air 03/16 2106 166/82 03/16 1750 98.5 68 18 110/80 98 03/16 1639 97.6 65 18 159/85 98 Room Air 03/16 1453 66 18 152/69 94 Room Air 03/16 1416 69 18 149/71 99 Room Air 03/16 1407 69 209/98 03/16 1313 98.2 78 20 193/99 7 Room Air Intake & Output 03/17 1600 03/17 0800 03/17 0000 03/16 1600 03/16 0800 03/16 0000 Intake Total 837 107 0361 Output Total 175 200 Balance 425 -80 1000 Intake, IV 600 1000 Intake, Oral 120 Number 1 Bowel Movements Output, Urine 175 200 Patient 250 lb 215 lb Weight Weight Reported by Patient Reported by Patient Measurement Method Physical Exam: General: Nontoxic, no apparent distress. HEENT: Sclera and conjunctiva within normal limits, without xanthelasmas. Neck: Carotids 2+ without bruits. Respiratory: Scattered rhonchi, air movement is good, without accessory respiratory muscle use. Heart: Regular rate and rhythm, without murmurs, without JVD. Abdomen: Soft, nontender, no masses, normoactive bowel sounds. Extremities: Without clubbing, cyanosis, without edema. Neuro: Nonfocal exam, strength, 5 out of 5 Skin: Within normal limits without lesions. Psych: Mood and affect: Normal Labs/Kj Results: Laboratory Tests 03/17 03/16 0616 1900 Chemistry Sodium (137 - 145 mmol/L) 140 Potassium (3.5 - 5.1 mmol/L) 3.8 Chloride (98 - 107 mmol/L) 108 H Carbon Dioxide (22 - 30 mmol/L) 23 Anion Gap (5 - 16) 9 BUN (9 - 20 mg/dL) 24 H Creatinine (0.7 - 1.2 mg/dL) 1.3 H Estimated GFR (>60 ml/min) 55 L BUN/Creatinine Ratio (7 - 25 %) 18.5 Troponin I (<0.11 ng/ml) 0.01 Hematology CBC w Diff NO MAN DIFF REQ WBC (4.8 - 10.8 /CUMM) 9.8 RBC (4.70 - 6.10 /CUMM) 3.75 L Hgb (14.0 - 18.0 G/DL) 11.4 L Hct (42 - 52 %) 32.9 L MCV (80.0 - 94.0 FL) 87.8 MCH (27.0 - 31.0 PG) 30.4 RDW (11.5 - 14.5 %) 13.5 Plt Count (130 - 400 /CUMM) 244 MPV (7.4 - 10.4 FL) 8.1 Gran % (42.2 - 75.2 %) 69.4 Lymphocytes % (20.5 - 51.1 %) 19.0 L Monocytes % (1.7 - 9.3 %) 7.4 Eosinophils % (0 - 5 %) 3.7 Basophils % (0.0 - 2.0 %) 0.5 Absolute Granulocytes (1.4 - 6.5 /CUMM) 6.8 H Absolute Lymphocytes (1.2 - 3.4 /CUMM) 1.9 Absolute Monocytes (0.10 - 0.60 /CUMM) 0.7 H Absolute Eosinophils (0.0 - 0.7 /CUMM) 0.4 Absolute Basophils (0.0 - 0.2 /CUMM) 0 PUBS MCHC (33.0 - 37.0 G/DL) 34.5 05/16 05/16 05/16 1603 1544 1541 Chemistry Sodium (137 - 145 mmol/L) 139 Potassium (3.5 - 5.1 mmol/L) 3.6 Chloride (98 - 107 mmol/L) 107 Carbon Dioxide (22 - 30 mmol/L) 20 L Anion Gap (5 - 16) 11 BUN (9 - 20 mg/dL) 24 H Creatinine (0.7 - 1.2 mg/dL) 1.4 H Estimated GFR (>60 ml/min) 50 L BUN/Creatinine Ratio (7 - 25 %) 17.1 Glucose (65 - 99 mg/dL) 268 H Cancelled Calcium (8.4 - 10.2 mg/dL) 9.1 Total Bilirubin (0.2 - 1.3 mg/dL) 0.4 AST (17 - 59 U/L) 11 L ALT (21 - 72 U/L) 29 Alkaline Phosphatase (< 127 U/L) 93 Total Protein (6.3 - 8.2 g/dL) 6.4 Albumin (3.5 - 5.0 g/dL) 3.6 Globulin (1.9 - 4.2 gm/dL) 2.8 Albumin/Globulin Ratio (1.1 - 2.2 %) 1.3 Urines Urinalysis LIGHT H Urine Color (YEL,AMB,STR) YEL Urine Clarity (CLEAR) CLEAR Urine pH (5.0 - 8.0) 6.0 Ur Specific [place] (1.001 - 1.035) 1.020 Urine Protein (NEG,<30 MG/DL) 100 H Urine Ketones (NEG) NEG Urine Nitrite (NEG) NEG Urine Bilirubin (NEG) NEG Urine Urobilinogen (0.1 - 1.0 EU/dl) 0.2 Ur Leukocyte Esterase (NEG) NEG Ur Microscopic SEDIMENT EXAMINED Urine RBC (0 - 5 /HPF) RARE Ur Epithelial Cells (NONE,FEW) RARE Urine Mucus (FEW,NONE) RARE Urine Hemoglobin (NEG) SMALL H Urine Glucose (N MG/DL) >=1000 H 03/16 03/16 1537 1347 Chemistry Sodium (137 - 145 mmol/L) 135 L Potassium (3.5 - 5.1 mmol/L) 4.1 Chloride (98 - 107 mmol/L) 102 Carbon Dioxide (22 - 30 mmol/L) 20 L Anion Gap (5 - 16) 13 BUN (9 - 20 mg/dL) 27 H Creatinine (0.7 - 1.2 mg/dL) 1.4 H Estimated GFR (>60 ml/min) 50 L BUN/Creatinine Ratio (7 - 25 %) 19.3 Glucose (65 - 99 mg/dL) Cancelled 544 *H Hemoglobin A1c (4.2 - 5.8 %) 13.1 H Calcium (8.4 - 10.2 mg/dL) 8.9 Total Bilirubin (0.2 - 1.3 mg/dL) 0.4 AST (17 - 59 U/L) 12 L ALT (21 - 72 U/L) 21 Alkaline Phosphatase (< 127 U/L) 103 Troponin I (<0.11 ng/ml) < 0.01 Total Protein (6.3 - 8.2 g/dL) 6.5 Albumin (3.5 - 5.0 g/dL) 3.7 Globulin (1.9 - 4.2 gm/dL) 2.8 Albumin/Globulin Ratio (1.1 - 2.2 %) 1.3 Lipase (23 - 300 U/L) 366 H Hematology CBC w Diff NO MAN DIFF REQ WBC (4.8 - 10.8 /CUMM) 9.1 RBC (4.70 - 6.10 /CUMM) 4.28 L Hgb (14.0 - 18.0 G/DL) 12.9 L Hct (42 - 52 %) 38.2 L MCV (80.0 - 94.0 FL) 89.2 MCH (27.0 - 31.0 PG) 30.2 RDW (11.5 - 14.5 %) 13.3 Plt Count (130 - 400 /CUMM) 267 MPV (7.4 - 10.4 FL) 7.7 Gran % (42.2 - 75.2 %) 74.4 Lymphocytes % (20.5 - 51.1 %) 16.1 L Monocytes % (1.7 - 9.3 %) 6.4 Eosinophils % (0 - 5 %) 2.9 Basophils % (0.0 - 2.0 %) 0.2 Absolute Granulocytes (1.4 - 6.5 /CUMM) 6.7 H Absolute Lymphocytes (1.2 - 3.4 /CUMM) 1.5 Absolute Monocytes (0.10 - 0.60 /CUMM) 0.6 Absolute Eosinophils (0.0 - 0.7 /CUMM) 0.3 Absolute Basophils (0.0 - 0.2 /CUMM) 0 PUBS MCHC (33.0 - 37.0 G/DL) 33.9 Toxicology Acetone Level (NEGATIVE) NEGATIVE Assessment/Plan Assessment/Plan 71-year-old gentleman with a past medical history of coronary artery disease ( prior stenting; however, not had regular cardiology follow-up), hypertension, his mellitus, hyperlipidemia and poor medication compliance. He was referred to our emergency room following presentation to a care physician's office with severe hypertension and hyperglycemia following several weeks of medication noncompliance. Coronary artery disease: The patient has known coronary artery disease and has been noncompliant with cardiology follow-up. He has somewhat atypical chest discomfort; however, given his risk factors and history, follow-up stress testing prior to discharge would prove beneficial. Further education for the need for compliance will be continued. Hypertension: Exacerbated secondary to medication noncompliance. His blood pressure has had a remarkable control following resumption of his regimen. We'll continue with the same. Diabetes mellitus: Continue follow-up as per hospital team. Education as to the need for compliance will continue. Thank you for allowing us to participate in the care of your patient. Please do not hesitate to contact us further with any questions. Sincerely, Zafar Saez MD [facility] Consult Acknowledgment - Thank you for your consult request.
--- NOTE | 2017-03-17 13:12 | ULTRASOUND REPORT ---
EXAMINATION: DUPLEX BILATERAL CAROTID ULTRASOUND CLINICAL INFORMATION: Subacute infarct COMPARISON: None. TECHNIQUE: Duplex bilateral carotid US was performed using real-time ultrasound and Doppler techniques (integrating B-mode 2D vascular images, Doppler spectral analysis and color flow Doppler imaging). These techniques were utilized to interrogate the extracranial carotid and vertebral arteries bilaterally. The degree of stenosis is based off criteria similar to NASCET. FINDINGS: 1. On the right: Plaque is present at the carotid bifurcation but velocity measurements are normal and do not suggest a stenosis of greater than 50% diameter reduction in the right ICA. The right external carotid artery shows no significant stenosis. The vertebral artery is patent demonstrating antegrade flow. 2. On the left: Plaque is present at the carotid bifurcation but velocity measurements are normal and do not suggest a stenosis of greater than 50% diameter reduction in the left ICA. The left ECA demonstrates a mild stenosis with peak systolic velocity of under 200 cm/s. The vertebral artery is patent demonstrating antegrade flow. IMPRESSION: Plaque is present in the internal carotid arteries but velocity measurements are normal and there is no evidence to suggest a hemodynamically significant stenosis of greater than 50% diameter reduction.
[2017-03-17 16:15] VITALS: BP 150/70
[2017-03-17 23:00] VITALS: BP 138/78
--- NOTE | 2017-03-18 06:52 | PN- Housestaff ---
See Addendum Subjective Follow-up For: Hypertensive urgency Tele-Events Since Last Visit: NSR Subjective: Patient seen and examined. Remains alert, awake and oriented x 3. Resting comfortably in bed with no new complaints. Patient remains pain free with no headache. Denies any dyspnea, chest pain, palpitations, lightheadedness, dizziness, abdominal pain, n/v/c/d. No events reported overnight. Review of Systems Constitutional: Reports: see HPI. Objective Last 24 Hrs of Vital Signs/I&O Vital Signs Date Time Temp Pulse Resp B/P B/P Pulse O2 O2 Flow FiO2 Mean Ox Delivery Rate 03/18 08 97.6 68 20 130/70 98 Room Air 03/18 0000 Room Air 03/17 2300 98.3 62 22 138/78 96 Room Air 03/17 2113 62 138/78 03/17 1615 98.1 58 14 150/70 96 Room Air 03/17 1140 61 142/78 03/17 1140 61 142/78 Intake & Output 03/18 1600 03/18 0800 03/18 0000 Intake Total 400 500 Output Total Balance 400 500 Intake, IV 0 0 Intake, Oral 400 500 Number 0 0 Bowel Movements Physical Exam General Appearance: Alert, Oriented X3, Cooperative, No Acute Distress Other Physical Findings: Skin No Rashes, No Breakdown Skin Temp/Moisture Exam: Warm/Dry Sepsis Skin Exam (color): Normal for Ethnicity, Cyanotic HEENT Atraumatic, PERRLA Neck Supple, No JVD Lymphatic Axillary nl, Cervical nl Cardiovascular Normal S1, Normal S2 Lungs Clear to Auscultation, Normal Air Movement Abdomen Soft, No Tenderness Neurological Normal Speech, Strength at 5/5 X4 Ext, Normal Tone, Sensation Intact, Cranial Nerves 3-12 NL, Reflexes 2+ Extremities No Cyanosis, No Edema, no erythema or active drainage in the toes Current Medications: Current Medications Sig/Anna Start time Last Medication Dose Route Stop Time Status Admin Acetaminophen 650 MG Q6P PRN 03/16 161 AC PO Acetaminophen 1,000 MG Q6P PRN 03/16 1615 AC IV Aspirin 81 MG DAILY 03/17 1000 AC 03/17 PO 1140 Atorvastatin Calcium 80 MG QPM 03/16 2200 AC 03/17 PO 2106 Clopidogrel Bisulfate 75 MG DAILY 03/17 1000 AC 03/17 PO 1140 Heparin Sodium 5,000 UNIT Q8 03/16 2200 AC 03/18 (Porcine) SC 0616 Insulin Aspart 0 TIDAC 03/16 1700 AC 03/17 SC 1710 Insulin Detemir 12 UNITS BID 03/18 1000 UNVr SC Insulin Detemir 10 UNITS BID 03/16 2200 DC 03/17 SC 2106 Losartan Potassium 100 MG DAILY 03/17 1000 AC 03/17 PO 1140 Metoprolol Tartrate 25 MG BID 03/16 2200 AC 03/17 PO 2113 Nystatin 1 DANNY TID 03/17 1753 AC 03/17 [facility] 210 Last 24 Hrs of Lab/Kj Results Last 24 Hrs of Labs/Mics: Laboratory Tests 03/18/17 0635: Anion Gap 9, Estimated GFR 50 L, BUN/Creatinine Ratio 15.7, Magnesium 1.7, CBC w Diff Pending, WBC Pending, RBC Pending, Hgb Pending, Hct Pending, MCV Pending, MCH Pending, RDW Pending, Plt Count Pending, MPV Pending, PUBS MCHC Pending Assessment/Plan Assessment: 71-year-old male with a past medical history of essential hypertension coronary artery disease insulin-dependent diabetes mellitus hyperlipidemia ostium mellitus of the third and the fourth toe in the last year status post debridement to present to the [facility] after being referred by the primary care physician for hypertension # Hypertensive urgency - resolved Secondary to noncompliance with meds at home. * Cont tele monitoring * Neurochecks every 4 hours * Accu-Cheks every 4 hours * Cont his home antihypertensives losartan 100 mg and metoprolol 25 mg BID * Holding Lasix in the setting of JARETT # JARETT His last creatinine priot to this admission was 1.2 in Jul 2016. However his creatinine has been consistently elevated at 1.3-1.4 so far this admission. This may be his new baseline as it is not improving despite receiving 2 liters of IVF on admission. Of note the patient is on 20 mg of Lasix at home. * Keep holding Lasix dose until kidney function normalizes * Check BEP daily, trend Cr - elevated back to 1.4 # Acute on subacute infarcts Head CT on admission shows an oval 1.3 x 0.8 cm hypoattenuating focus within the right frontal periventricular white matter without mass effect. This is nonspecific and may reflect a subacute to chronic area of ischemia given attenuation. * Further evaluation with MRI - no acute infarcts * If concerning, consult neuro depending on MRI results # Hyperglycemia in the absence of any anion gap or ketosis Also likely secondary to noncompliance and not taking any insulin therapy at home. HbA1C in March 2017 was 13.1. * Novolog SSI with accuchecks * Increase Levemir 10U BID to 12U BID. * F/u with endo following discharge # History of CAD and HLD Patient carries a h/o coronary artery disease involving [place] coronary artery of [place] heart without angina pectoris. The patient is currently on dual antiplatelet therapy but no documentation of any cardiac stent placement in the electronic medical records. Patient has seen Bird Galloway in the past. * Cont home med Plavix 75mg PO QD and ASA 81mg QD * Appreciate cardio recs * Consider stress test prior to discharge for his previous atypical chest pain in the setting of extensvie cardiac hx - Diabetic diet - Mild pain pathway - DVTppx with SQ[facility] - Full code. Problem List: 1. Hypertension 2. Hyperglycemia 3. Gout 4. Diabetes mellitus 5. Hypertensive urgency, malignant Pain Ratin Pain Location: 0 Pain Goal: Remain pain free Pain Plan: Mild pathway Tomorrow's Labs & Rationales: CBC - anemia BEP - hypokalemia
[2017-03-18 08:00] VITALS: BP 130/70
[2017-03-18 08:08] LABS: ABSOLUTE BASOPHIL COUNT 0 /CUMM (0.0-0.2); ABSOLUTE EOSINOPHIL COUNT 0.4 /CUMM (0.0-0.7); ABSOLUTE MONOCYTE COUNT 0.8 /CUMM (0.10-0.60); BASOPHIL % 0.3 % (0.0-2.0); EOSINOPHIL % 4.6 % (0-5); GRANULOCYTE % 64.7 % (42.2-75.2); HEMATOCRIT 33.4 % (42-52); MEAN CORPUSCULAR HGB 30.4 PG (27.0-31.0); MEAN CORPUSCULAR HGB CONC 34.9 G/DL (33.0-37.0); MEAN CORPUSCULAR VOLUME 87.3 FL (80.0-94.0); PLATELET COUNT 232 /CUMM (130-400); RBC DISTRIBUTION WIDTH 12.9 % (11.5-14.5); RED BLOOD CELL CT 3.82 /CUMM (4.70-6.10); WHITE BLOOD CELL COUNT 9.3 /CUMM (4.8-10.8)
--- NOTE | 2017-03-18 11:15 | Discharge Summary ---
Visit Information Visit Dates Admission Date: 03/16/17 Discharge Date: 03/19/17 Hospital Course Course Attending Physician: MANDI BENNETT MD Primary Care Physician: LEAH ALFARO MD Hospital Course: 71-year-old male with a past medical history of essential hypertension coronary artery disease insulin-dependent diabetes mellitus hyperlipidemia ostium mellitus of the third and the fourth toe in the last year status post debridement to present to the [facility] after being referred by the primary care physician for hypertension # Hypertensive urgency Patient's blood pressure was reportedly elevated to 198/100 at the physician's office [employer]. Secondary to noncompliance with meds at home. Patient was kept on home antihypertensives losartan 100 mg and metoprolol 25 mg BID with an improvement in his BP. Lasix was discontinued in the setting of JARETT. Patient was instructed to follow up with his primary care provider and pelt grader with regard to monitoring kidney function and discuss resuming diuretics. # Acute renal failure His most recent creatinine prior to this admission was 1.2 in Jul 2016. It was noted taht his creatinine has been consistently elevated at 1.3-1.4 since this admission. This may be his new baseline as it is not improving despite adequate IV hydration. Of note the patient was on 20 mg of Lasix at home. We discontinued Lasix as discussed above. # Acute on subacute infarcts Head CT on admission shows an oval 1.3 x 0.8 cm hypoattenuating focus within the right frontal periventricular white matter without mass effect. This is nonspecific and may reflect a subacute to chronic area of ischemia given attenuation. Further evaluation with MRI showed no acute infarcts # Hyperglycemia in the absence of any anion gap or ketosis Also likely secondary to noncompliance and not taking any insulin therapy at home. HbA1C in March 2017 was 13.1. Patient was kept on Novolog SSI with accuchecks. 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 # History of CAD and HLD Patient carries a h/o coronary artery disease involving [place] coronary artery of [place] heart without angina pectoris. The patient is currently on dual antiplatelet therapy but no documentation of any cardiac stent placement in the electronic medical records. Per records patient has seen Bird Galloway in the past but per Dr. Liriano the patient followed up with him recently. Patient was kept on home meds Plavix 75mg PO QD, ASA 81mg QD and Lipitor 80mg QD. He was instructed to follow up with Dr. Liriano within 1 week for catherization. - Diabetic diet - Mild pain pathway - DVTppx with [facility] - Full code. Allergies: Coded Allergies: NO KNOWN ALLERGIES (07/23/15) Disposition Summary Disposition Principal Diagnosis: Hypertensive urgency Additional Diagnosis: Hyperglycemia Discharge Disposition: home health services Discharge Instructions General Discharge Information Code Status: Full Code Patient's Diet: Diabetic Patient's Activity: As tolerated Follow-Up Instructions/Appts: Please follow up with your pelt grader Dr. Liriano within 1 week for catherization. Please follow up with your primary care provider within 1-2 weeks of discharge. Medications at Discharge Discharge Medications: Stop taking the following medications: Furosemide (Lasix) 20 MG TAB ORAL DAILY Continue taking these medications: Atorvastatin Calcium (Lipitor) 80 MG TABLET 1 Tablet ORAL Every night Comments: Last Taken: 03/18/17 Time: 9:00 PM Clopidogrel Bisulfate (Plavix) 75 MG TAB 1 Tablet ORAL DAILY Comments: Last Taken: 07/26/15 Time: 1000AM Losartan (Cozaar) 100 MG TAB 1 Tablet ORAL DAILY Comments: Last Taken: 07/26/15 Time: 1000AM Metoprolol Tartrate (Lopressor) 25 MG TAB 1 Tablet ORAL TWICE DAILY Comments: Last Taken: 07/26/15 Time: 1000AM Insulin Aspart, Recombinant (Novolog) 100 U/ML OMID 1 Units Inject into fatty tissue SEE INSTRUCTIONS Qty = 1 Instructions: Before each meal blood sugar units <80mg -0 units 80-150 - 5units 151-200 -7 units 201-250- 9units 251-300 - 11 units 301-350 - 13 units 351-400 - 15 >400- 17 units Bedtime 80-150 -0 units 251-300- 2 units 301-350- 3units 351-400 - 4 units >400 - 5 units Comments: Last Taken: 07/26/15 Time: 1200PM Aspirin (Aspirin*) 81 MG TAB.CHEW 1 Tablet ORAL DAILY Comments: Last Taken: 03/19/17 Time: 10:30 AM Insulin Detemir (Levemir Flextouch) 100 UNIT/1 ML INSULN.PEN 28 Units Inject into fatty tissue Every night Qty = 15 Comments: Last Taken: 03/19/17 Time: 10:30 AM Start taking the following new medications: Nitroglycerin (Nitroglycerin Patch) 0.4 MG/HOUR PATCH.TD24 0.4 Milligram On the skin DAILY as needed for CHEST PAIN Qty = 5 No Refills Instructions: Apply one patch a day for 12 hours for chest pain. Comments: Last Taken: 03/19/17 Time: 5:00 PM Copies To: CUONG CAMARA PhD,NETO Johns; DOMINIC CAMARA,LEAH Johns Attending MD Review Statement Documenting Attending: MANDI BENNETT MD Other Findings: The patient was seen and agree with plan of care upon discharge.
--- NOTE | 2017-03-18 15:11 | PN- Cardiology ---
Subjective Subjective: * Patient is more lucid today. He has noted intermittent chest discomfort and had a stress test this year that disclosed inferior ischemia. Objective Vital Signs and I&Os Vital Signs Date Time Temp Pulse Resp B/P B/P Pulse O2 O2 Flow FiO2 Mean Ox Delivery Rate 03/18 0857 68 130/70 03/18 0856 68 130/70 03/18 0800 97.6 68 20 130/70 98 Room Air 03/18 0000 Room Air 03/17 2300 98.3 62 22 138/78 96 Room Air 03/17 2113 62 138/78 03/17 1615 98.1 58 14 150/70 96 Room Air Intake & Output 03/18 1600 03/18 0800 / 0000 03/17 1600 03/17 0800 03/17 0000 Intake Total 400 500 480 600 120 Output Total 600 175 200 Balance 400 500 -120 425 -80 Intake, IV 0 0 600 Intake, Oral 400 500 480 120 Number 0 0 1 Bowel Movements Output, Urine 600 175 200 Patient 250 lb Weight Weight Reported by Patient Measurement Method Physical Exam: General: WD/ WN male in NAD; awake and responsive with decreased memory Neck: no JVD Lungs: clear bilaterally Heart: Regular rate and rhythm, without murmurs Extremities: No edema Assessment/Plan Assessment/Plan * This patient has known coronary artery disease affecting his RCA and inferior wall. This has been treated medically up to this point in time. In consideration of his repeated symptoms of chest discomfort and abnormal stress test we will consider an outpatient cardiac catheterization. For now, I would add a NTG patch at 0.4mg/hr for 12 hours daily. Continue his other cardiac medications including aspirin, Plavix, his ARB, beta [place] and statin. He is stable for discharge from a cardiac standpoint with follow up in the office in one week. Continue telemetry? No
--- NOTE | 2017-03-18 15:57 | Patient Discharge Instructions ---
Discharge Instructions General Discharge Information You were seen/treated for: Hypertensive urgency Special Instructions: Please follow up with your driver courier Dr. Liriano within 1 week for catherization. Please follow up with your primary care provider within 1-2 weeks of discharge. Diet Continue normal diet: Yes Activity Full Activity/No Limits: Yes (as tolerated) Acute Coronary Syndrome Inclusion Criteria At DC or during hospital stay patient has or had the following: ACS DIAGNOSIS No Discharge Core Measures Meds if any: Prescribed or Continued at Discharge Meds if any: NOT Prescribed or Continued at Discharge Congestive Heart Failure Inclusion Criteria At DC or during hospital stay patient has or had the following: CHF DIAGNOSIS No Discharge Core Measures Meds if any: Prescribed or Continued at Discharge Meds if any: NOT Prescribed or Continued at Discharge Cerebrovascular accident Inclusion Criteria At DC or during hospital stay patient has or had the following: CVA/TIA Diagnosis Yes Discharge Core Measures Meds if any: Prescribed or Continued at Discharge Meds if any: NOT Prescribed or Continued at Discharge Venous thromboembolism Inclusion Criteria VTE Diagnosis No VTE Type NONE VTE Confirmed by (Test) NONE Discharge Core Measures - Per Current guidelines, there needs to be overlap - treatment for the first 5 days of Warfarin therapy. - If discharged on Warfarin prior to 5 days of - overlap therapy, the patient will need to be - assessed for post discharge needs including - *Post discharge parental anticoagulation - *Warfarin and/or parental anticoagulation education - *Follow up date to check INR post discharge At least 5 days overlap therapy as Inpatient No Meds if any: Prescribed or Continued at Discharge Note: Overlap Therapy is Warfarin and Anticoagulant Meds if any: NOT Prescribed or Continued at Discharge
[2017-03-18 16:11] VITALS: BP 138/80
[2017-03-18 23:40] VITALS: BP 130/72
--- NOTE | 2017-03-19 06:49 | PN- Housestaff ---
See Addendum Subjective Follow-up For: Hypertensive urgency Tele-Events Since Last Visit: Off tele Subjective: Patient seen and examined. Remains alert, awake and oriented x 3. Resting comfortably in bed with no new complaints. Patient remains pain free with no headache. Denies any dyspnea, chest pain, palpitations, lightheadedness, dizziness, abdominal pain, n/v/c/d. No events reported overnight. Review of Systems Constitutional: Reports: see HPI. Objective Last 24 Hrs of Vital Signs/I&O Vital Signs Date Time Temp Pulse Resp B/P B/P Pulse O2 O2 Flow FiO2 Mean Ox Delivery Rate 03/18 2340 98.0 55 18 130/72 93 Room Air 03/18 2125 66 144/88 03/18 1611 98.6 60 18 138/80 96 Room Air 03/18 0857 68 130/70 03/18 0856 68 130/70 03/18 0800 97.6 68 20 130/70 98 Room Air Intake & Output 03/19 0800 03/19 0000 03/18 1600 Intake Total 240 720 800 Output Total 350 600 Balance -110 720 200 Intake, Oral 240 720 800 Output, Urine 350 600 Physical Exam General Appearance: Alert, Oriented X3, Cooperative, No Acute Distress Other Physical Findings: Skin No Rashes, No Breakdown Skin Temp/Moisture Exam: Warm/Dry Sepsis Skin Exam (color): Normal for Ethnicity, Cyanotic HEENT Atraumatic, PERRLA Neck Supple, No JVD Lymphatic Axillary nl, Cervical nl Cardiovascular Normal S1, Normal S2 Lungs Clear to Auscultation, Normal Air Movement Abdomen Soft, No Tenderness Neurological Normal Speech, Strength at 5/5 X4 Ext, Normal Tone, Sensation Intact, Cranial Nerves 3-12 NL, Reflexes 2+ Extremities No Cyanosis, No Edema, no erythema or active drainage in the toes Current Medications: Current Medications Sig/Anna Start time Last Medication Dose Route Stop Time Status Admin Acetaminophen 650 MG Q6P PRN 03/16 1615 AC PO Acetaminophen 1,000 MG Q6P PRN 03/16 161 AC IV Aspirin 81 MG DAILY 03/17 1000 AC 03/18 PO 0856 Atorvastatin Calcium 80 MG QPM 03/16 2200 AC 03/18 PO 2114 Clopidogrel Bisulfate 75 MG DAILY 03/17 1000 AC 03/18 PO 0857 Heparin Sodium 5,000 UNIT Q8 03/16 2200 AC 03/19 (Porcine) NC 0519 Insulin Aspart 0 TIDAC 03/16 1700 AC 03/18 SC 1814 Insulin Detemir 12 UNITS BID 03/18 1000 AC 03/18 SC 2114 Insulin Detemir 10 UNITS BID 03/16 2200 DC 03/17 SC 2106 Losartan Potassium 100 MG DAILY 03/17 1000 AC 03/18 PO 0856 Magnesium Chloride 64 MG ONCE ONE 03/18 0915 DC 03/18 PO 03/18 0916 1357 Metoprolol Tartrate 25 MG BID 03/16 2200 AC 03/18 PO 2125 Nitroglycerin 0.4 MG DAILY 03/18 1554 AC 03/18 TOP 1814 Nystatin 1 DANNY TID 03/17 1753 03/18 TOP 2114 Patient Medication 1 ED .STK-MED ONE 03/18 1432 IN Teaching ED 03/18 1433 Potassium Chloride 40 MEQ ONCE ONE 03/18 0915 DC 03/18 PO 03/18 0916 1357 Last 24 Hrs of Lab/Kj Results Last 24 Hrs of Labs/Mics: Laboratory Tests 03/19/17 0620: Sodium Pending, Potassium Pending, Chloride Pending, Carbon Dioxide Pending, Anion Gap Pending, BUN Pending, Creatinine Pending, BUN/Creatinine Ratio Pending , Magnesium Pending Assessment/Plan Assessment: 71-year-old male with a past medical history of essential hypertension coronary artery disease insulin-dependent diabetes mellitus hyperlipidemia ostium mellitus of the third and the fourth toe in the last year status post debridement to present to the [facility] after being referred by the primary care physician for hypertension # Hypertensive urgency - resolved Secondary to noncompliance with meds at home. * Cont tele monitoring * Neurochecks every 4 hours * Accu-Cheks every 4 hours * Cont his home antihypertensives losartan 100 mg and metoprolol 25 mg BID * Holding Lasix in the setting of JARETT # JARETT His last creatinine priot to this admission was 1.2 in Jul 2016. However his creatinine has been consistently elevated at 1.3-1.4 so far this admission. This may be his new baseline as it is not improving despite receiving 2 liters of IVF on admission. Of note the patient is on 20 mg of Lasix at home. * Keep holding Lasix dose until kidney function normalizes * Check BEP daily, trend Cr - elevated back to 1.4 # Acute on subacute infarcts Head CT on admission shows an oval 1.3 x 0.8 cm hypoattenuating focus within the right frontal periventricular white matter without mass effect. This is nonspecific and may reflect a subacute to chronic area of ischemia given attenuation. * Further evaluation with MRI - no acute infarcts * If concerning, consult neuro depending on MRI results # Hyperglycemia in the absence of any anion gap or ketosis Also likely secondary to noncompliance and not taking any insulin therapy at home. HbA1C in March 2017 was 13.1. * Novolog SSI with accuchecks * Increase Levemir 10U BID to 12U BID. * F/u with endo following discharge # History of CAD and HLD Patient carries a h/o coronary artery disease involving [place] coronary artery of [place] heart without angina pectoris. The patient is currently on dual antiplatelet therapy but no documentation of any cardiac stent placement in the electronic medical records. Patient has seen Bird Galloway in the past. * Cont home med Plavix 75mg PO QD and ASA 81mg QD * Appreciate cardio recs * Consider stress test prior to discharge for his previous atypical chest pain in the setting of extensvie cardiac hx - Diabetic diet - Mild pain pathway - DVTppx with [facility] - Full code. Problem List: 1. Hypertensive urgency, malignant 2. Hypertension Pain Ratin Pain Location: 0 Pain Goal: Remain pain free Pain Plan: Mild pathway Tomorrow's Labs & Rationales: None - d/c
[2017-03-19 08:00] VITALS: BP 130/80
--- NOTE | 2017-03-19 12:12 | PN- Cardiology ---
Subjective Subjective: * No complaints * creatinine increased to 1.4 Objective Vital Signs and I&Os Vital Signs Date Time Temp Pulse Resp B/P B/P Pulse O2 O2 Flow FiO2 Mean Ox Delivery Rate 03/19 1031 64 124/88 03/19 1031 64 124/88 03/19 0800 98.0 66 20 130/80 97 Room Air 03/18 2340 98.0 55 18 130/72 93 Room Air 03/18 2125 66 144/88 03/18 1611 98.6 60 18 138/80 96 Room Air Intake & Output 03/19 1600 03/19 0800 03/19 0000 03/18 1600 03/18 0800 03/18 0000 Intake Total 240 720 800 400 500 Output Total 350 600 Balance -110 720 200 400 500 Intake, IV 0 0 Intake, Oral 240 720 800 400 500 Number 0 0 Bowel Movements Output, Urine 350 600 Physical Exam: General: WD/ WN male in NAD; awake and responsive with decreased memory Neck: no JVD Lungs: clear bilaterally Heart: Regular rate and rhythm, without murmurs Extremities: No edema Assessment/Plan Assessment/Plan * This patient has known coronary artery disease affecting his RCA and inferior wall. This has been treated medically up to this point in time. In consideration of his repeated symptoms of chest discomfort and abnormal stress test we will consider an outpatient cardiac catheterization. For now, I would add a NTG patch at 0.4mg/hr for 12 hours daily. Continue his other cardiac medications including aspirin, Plavix, his ARB, beta [place] and statin. He is stable for discharge from a cardiac standpoint with follow up in the office in one week. Continue telemetry? No
--- NOTE | 2017-03-19 13:38 | PN- Student ---
Subjective Subjective: Patient was seen and examined this morning. He was resting comfortably with with this breakfast at bedside. Recalls getting up once during the night to use the bathroom however does not recall his last bowel movement. Patient had no other overnight complaints. He currently feels a little "chilly" but otherwise denies any fever, headache, nausea, vomiting, diarrhea, SOB, chest pain, palpitations, numbness or tingling. Objective Objective: Vital Signs Date Time Temp Pulse Resp B/P B/P Pulse O2 O2 Flow FiO2 Mean Ox Delivery Rate 03/19 1031 64 124/88 03/19 1031 64 124/88 03/19 0800 98.0 66 20 130/80 97 Room Air 03/18 2340 98.0 55 18 130/72 93 Room Air 03/18 2125 66 144/88 03/18 1611 98.6 60 18 138/80 96 Room Air Intake & Output 03/19 1600 03/19 0800 03/19 0000 Intake Total 240 720 Output Total 350 Balance -110 720 Intake, Oral 240 720 Output, Urine 350 Physical Exam: General- well-appearing, well-nourished elderly male in no acute distress HEENT- NCAT, PERRL, EOMI Cardio- Normal S1 & S2 with no M/G/R Respiratory- Clear to auscultations bilaterally Abdomen- Soft, non-distended, non-tender with no organomegaly Extremities- no erythema/cyanosis or signs of infection Results Results: Laboratory Tests 03/19/17 0620: Anion Gap 8, Estimated GFR 46 L, BUN/Creatinine Ratio 16.0, Magnesium 1.8 03/18/17 0635: Anion Gap 9, Estimated GFR 50 L, BUN/Creatinine Ratio 15.7, Magnesium 1.7, CBC w Diff NO MAN DIFF REQ, RBC 3.82 L, MCV 87.3, MCH 30.4, RDW 12.9, MPV 8.0, Gran % 64.7, Lymphocytes % 21.4, Monocytes % 9.0, Eosinophils % 4.6, Basophils % 0.3, Absolute Granulocytes 6.0, Absolute Lymphocytes 2.0, Absolute Monocytes 0.8 H, Absolute Eosinophils 0.4, Absolute Basophils 0, PUBS MCHC 34.9 03/17/17 0616: Anion Gap 9, Estimated GFR 55 L, BUN/Creatinine Ratio 18.5, CBC w Diff NO MAN DIFF REQ, RBC 3.75 L, MCV 87.8, MCH 30.4, RDW 13.5, MPV 8.1, Gran % 69.4, Lymphocytes % 19.0 L, Monocytes % 7.4, Eosinophils % 3.7, Basophils % 0.5, Absolute Granulocytes 6.8 H, Absolute Lymphocytes 1.9, Absolute Monocytes 0.7 H, Absolute Eosinophils 0.4, Absolute Basophils 0, PUBS MCHC 34.5 03/16/17 1900: Troponin I 0.01 03/16/17 1603: Urinalysis LIGHT H, Urine Color YEL, Urine Clarity CLEAR, Urine pH 6.0, Ur Specific [place] 1.020, Urine Protein 100 H, Urine Ketones NEG, Urine Nitrite NEG, Urine Bilirubin NEG, Urine Urobilinogen 0.2, Ur Leukocyte Esterase NEG, Ur Microscopic SEDIMENT EXAMINED, Urine RBC RARE, Ur Epithelial Cells RARE, Urine Mucus RARE, Urine Hemoglobin SMALL H, Urine Glucose >=1000 H 03/16/17 1544: Anion Gap 11, Estimated GFR 50 L, BUN/Creatinine Ratio 17.1, Glucose 268 H, Calcium 9.1, Total Bilirubin 0.4, AST 11 L, ALT 29, Alkaline Phosphatase 93, Total Protein 6.4, Albumin 3.6, Globulin 2.8, Albumin/Globulin Ratio 1.3 03/16/17 1541: Glucose Cancelled 03/16/17 1537: Glucose Cancelled 03/16/17 1347: Anion Gap 13, Estimated GFR 50 L, BUN/Creatinine Ratio 19.3, Glucose 544 *H, Hemoglobin A1c 13.1 H, Calcium 8.9, Total Bilirubin 0.4, AST 12 L, ALT 21, Alkaline Phosphatase 103, Troponin I < 0.01, Total Protein 6.5, Albumin 3.7, Globulin 2.8, Albumin/Globulin Ratio 1.3, Lipase 366 H, CBC w Diff NO MAN DIFF REQ, RBC 4.28 L, MCV 89.2, MCH 30.2, RDW 13.3, MPV 7.7, Gran % 74.4, Lymphocytes % 16.1 L, Monocytes % 6.4, Eosinophils % 2.9, Basophils % 0.2, Absolute Granulocytes 6.7 H, Absolute Lymphocytes 1.5, Absolute Monocytes 0.6, Absolute Eosinophils 0.3, Absolute Basophils 0, PUBS MCHC 33.9, Acetone Level NEGATIVE Assessment/Plan Assessment: 71-year-old male with a past medical history of essential hypertension, coronary artery disease, insulin-dependent diabetes mellitus, hyperlipidemia, 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 Consider increasing long- lasting insulin another 2-3 more units. -Sugars decreased from 250-260 to 138 this morning. Continue monitoring until discharge Hypertension -Continue home meds losartan 100 mg and metoprolol 25 mg BID -Follow up with PCP in a week following discharge later today Coronary Artery Disease and Hyperlipidemia -Continue home meds Plavix 75mg PO QD and Aspirin 81mg QD -Recommend stress test with Change Analyst in outpatient setting considering extensive cardiac history DVT ppx- SC Heparin Code status- Full code
[2017-03-19] MEDS ORDERED: NITROGLYCERIN1 EACH TOP ×2 (13:44→13:46)
[2017-03-19 16:12] VITALS: BP 132/70
== END 2017-03-19 19:20 | disposition home health service (06) | DRG 305 ==
LOC: ERH 13:03 → ERHI 15:24 → 1NO 15:24 → ENRESERV 16:11 → 1NO 17:40 → ENPENDDIS 03-19 15:46 → 1NO 03-19 19:20
PROVIDERS: Emergency Medicine; Internal Medicine Nephrology; ADMIT Internal Medicine
DX: I16.0 Hypertensive urgency (principal); E11.65 Type 2 diabetes mellitus with hyperglycemia; I25.10 Atherosclerotic heart disease of native coronary artery without angina pectoris; E78.5 Hyperlipidemia, unspecified; Z87.891 Personal history of nicotine dependence; Z91.14 Patient's other noncompliance with medication regimen; Z79.4 Long term (current) use of insulin; I25.2 Old myocardial infarction; I10 Essential (primary) hypertension; E66.9 Obesity, unspecified; Z68.38 Body mass index [BMI] 38.0-38.9, adult; M10.9 Gout, unspecified
CPT/HCPCS: 1NSP; 70551; 36415; 81001; 82436; 93005; 93010; 96374; 96375; 96376; 97116-GO; 97161-GP; 97530-GO; 99291; J0131; J1644; J3490

== ENCOUNTER 2017-03-26 17:24 | Emergency (ER) | payer OTHER, MEDICARE ==
[~2017-03-26] VITALS: Ht 172.7 cm; Wt 115.7 kg
[~2017-03-26 17:24] MED LIST changes: +NITROGLYCERIN1 EACH TOP
--- NOTE | 2017-03-26 17:59 | ED GENERAL ADULT ---
History of Present Illness General Chief Complaint: General Adult Stated Complaint: HIGH B/P Source: patient, old records Exam Limitations: poor historian Vital Signs & Intake/Output Vital Signs & Intake/Output Vital Signs Date Time Temp Pulse Resp B/P B/P Pulse O2 O2 Flow FiO2 Mean Ox Delivery Rate 03/26 2127 96.3 61 16 172/70 97 Room Air 03/26 2045 97 Room Air 03/26 2011 97.4 65 18 176/88 97 Room Air 03/26 1856 97.1 77 18 220/112 03/26 1856 97.1 77 18 220/112 03/26 1736 97.1 77 18 98 Room Air ED Intake and Output 03/27 0000 03/26 1200 Intake Total 120 Output Total Balance 120 Intake, IV 0 Intake, Oral 120 Patient 255 lb Weight Allergies Coded Allergies: NO KNOWN ALLERGIES (07/23/15) Reconcile Medications Aspirin (Aspirin*) 81 MG TAB.CHEW 1 TAB PO DAILY HEART HEALTH (Reported) Atorvastatin Calcium (Lipitor) 80 MG TABLET 1 TAB PO QPM CHOLESTEROL ( Reported) Cephalexin (Keflex) 500 MG CAPSULE 1 CAP PO Q6H ANTIBIOTIC (Reported) Clopidogrel Bisulfate (Clopidogrel) 75 MG TABLET 1 TAB PO DAILY BLOOD THINNER (Reported) Gabapentin (Neurontin) 300 MG CAPSULE 1 CAP PO QPM UNKNOWN (Reported) Insulin Glargine,Hum.rec.anlog (Lantus Solostar) 100 UNIT/ML (3 ML) INSULN.PEN 20 UNIT SC QPM DM (Reported) Losartan (Cozaar) 100 MG TABLET 1 TAB PO DAILY BP (Reported) Metoprolol Tartrate 25 MG TABLET 1 TAB PO BID HEART/BP (Reported) Nitroglycerin (Nitroglycerin Patch) 0.4 MG/HOUR PATCH.TD24 0.4 MG TOP DAILY PRN CHEST PAIN Apply one patch a day for 12 hours for chest pain. Terbinafine HCl (Lamisil) 250 MG TABLET 1 TAB PO DAILY UNKNOWN (Reported) Triage Note: PT HERE FOR HTN, HAS NOT HAD HIS MEDS IN 3 WEEKS, BP 220/116 MANUAL AT TRIAGE. PT ALSO STATES THAT HE HAS NOT HAD HIS INSULIN, FS 427.PT ALSO STATES THAT HE HAS BEEN HAVING L SIDE CP, NON RADIATING X 2 WEEKS Triage Nurses Notes Reviewed? yes Onset: Gradual Duration: worse persistent since (2-3 WEEKS) Timing: recent history Injury Environment: home Severity: moderate No Modifying Factors: none HPI: Patient is a 71-year-old male with history of hypertension, coronary artery disease, diabetes, insulin-dependent resenting to the emergency department she complaint of hypertension. He states that he was seen and evaluated here about a week and a half ago for hypertension, admitted and discharged and was told to picker and sorter load and unload a bunch of medications. Patient reports he was unable to pick them up and has been without medications for the past week. He reports intermittent in frontal throbbing headaches. Last night he noticed some blurred vision he was watching the television, no current symptoms of blurred vision at this moment. Patient also reports yesterday he had left-sided chest pressure that lasted a few minutes and then resolved on its own. Patient denies any abdominal pain. No nausea or vomiting. Denies any urinary frequency urgency or dysuria. He does report increased thirst over the past couple weeks. He has also been without his insulin. He is not sure what he is supposed to be taking for his high blood pressure, his son manages his medications. Patient came back in today because he cannot afford to picker and sorter load and unload the medications that he was prescribed on discharge. Case management is involved and will provide free medications to this patient. He also reports that he's been off of his Plavix as well. Denies any overt confusion but does feel like he is "OUT OF IT" at times. Nothing seems to make the symptoms worse, patient currently asymptomatic. (BENITO CAMARGO) Past History Travel History Traveled to [place] past 21 day No Medical History Any Pertinent Medical History? see below for history Neurological: AMS EENT: NONE Cardiovascular: CAD, hypertension, hyperlipidemia, [place] 12YRS AGO Respiratory: NONE Gastrointestinal: NONE Hepatic: NONE Renal: NONE Musculoskeletal: BACK SURGERY Psychiatric: NONE Endocrine: diabetes Blood Disorders: NONE Cancer(s): NONE SHOT BLASTER/Reproductive: NONE History of MRSA: No History of VRE: No History of CDIFF: No Surgical History Surgical History: RIGHT FOOT 4/5 TOE AMP BACK SURGERIES CYST REMOVAL Psychosocial History Who do you live with Son Services at Home None What is your primary language Liberian Tobacco Use: Never used ETOH Use: denies use Illicit Drug Use: denies illicit drug use Family History Family History, If Any: MOTHER Hx Contributory? No (BENITO CAMARGO) Review of Systems Review of Systems Constitutional: Reports: no symptoms. Comments Review of systems: See HPI, All other systems negative. Constitutional, no chills fever or weight loss HEENT: No visual changes no sore throat no congestion Cardiovascular: No palpitation , orthopnea or ankle swelling Skin, no jaundice no rashes Respiratory: No dyspnea cough sputum or hemoptysis GI: No nausea no vomiting : No dysuria No hematuria Muscle skeletal: no back pain, no neck pain, Neurologic: No numbness Psych: No stress anxiety or depression,. Heme/endocrine: No bruising no bleeding no polyuria or polydipsia Immunology: No splenectomy or history of AIDS (BENITO CAMARGO) Physical Exam Physical Exam General Appearance: alert, awake, comfortable, obese Comments: Well-developed well-nourished person in no acute distress HEENT: Normal EENT exam, extraocular motion intact, no nystagmus. Pupils equally round and reactive to light and accommodation. Nose is atraumatic. External auditory canal and Tympanic membranes clear. Pharynx normal. No swelling or edema. There appears to be a mass on the left side of the tongue left nontender approximately 2 cm in size. Funduscopic exam is somewhat limited secondary to no dilation prior to exam. There does appear to be cataracts bilaterally that are obstructing vision to the posterior aspect of the eye. Poor dentition. Dry oral mucosa. Neck: Supple, no lymphadenopathy, normal range of motion without pain or tenderness Back: Nontender Cardiovascular: Regular rate and rhythms no murmurs rubs or gallops, normal JVP Respiratory: Chest nontender. No respiratory distress.breath sounds clear to auscultation bilaterally Abdomen: Soft, obese, slightly distended, nontender, no appreciable organomegaly. Normal bowel sounds. Extremity: No edema, no calf tenderness to palpation, normal and equal pulses. Neuro: Alert oriented x3, motor sensory normal, cranial nerves II through XII grossly intact. Cerebellar testing is unremarkable. Able to perform finger to nose testing without difficulty. Skin: No appreciable rash on exposed skin, skin is warm and dry. Psych: Mood and affect is normal, memory and judgment is normal. Core Measures ACS in differential dx? Yes CVA/TIA Diagnosis: No Severe Sepsis Present: No Septic Shock Present: No (BENITO CAMARGO) Progress Differential Diagnoses I considered the following diagnoses in my evaluation of the patient: Medication noncompliance, uncontrolled diabetes, hypertensive urgency, hypertensive crisis, intracranial hemorrhage, ACS DKA, hyperglycemia, intracranial hemorrhage Plan of Care: Orders Procedure Date/time Status Add-on Test (ER Only) 03/26 1817 Active SERUM OSMOLALITY 03/26 1810 Active LIPID PANEL 03/26 1810 Active ACETONE 03/26 1810 Active Add-on Test (ER Only) 03/26 1804 Active Telemetry/Electric Mule Operator 03/26 1804 Active URINE LYTES, SPOT 03/26 1804 Complete URINALYSIS 03/26 1804 Complete TROPONIN LEVEL 03/26 174 Active GLYCOSYLATED HGB 03/26 1742 Active COMPREHENSIVE METABOLIC PANEL 03/26 1742 Active CBC WITHOUT DIFFERENTIAL 03/26 1742 Complete EKG 03/26 1742 Active Current Medications Sig/Anna Start time Last Medication Dose Stop Time Status Admin Hydralazine HCl 10 MG ONCE ONE 03/26 1945 CAN (Apresoline) 03/26 1946 Sodium Chloride 1,000 ML BOLUS ONE 03/26 1830 CAN (Normal Saline 0.9%) 03/26 2029 Laboratory Tests 03/26/172041: Urinalysis LIGHT H, Urine Color YEL, Urine Clarity CLEAR, Urine pH 6.0, Ur Specific [place] 1.020, Urine Protein 100 H, Urine Ketones NEG, Urine Nitrite NEG, Urine Bilirubin NEG, Urine Urobilinogen 0.2, Ur Leukocyte Esterase NEG, Ur Microscopic SEDIMENT EXAMINED, Urine RBC RARE, Urine Hemoglobin TRACE-INTACT H, Urine Glucose >=1000 H 03/26/172041: Ur Random Creatinine 39.4, Ur Random Sodium 107 H, Ur Random Potassium 17.9, Fraction Sodium Excret 3.4 H 03/26/171809: Anion Gap 13, Estimated GFR 40 L, BUN/Creatinine Ratio 13.5, Glucose 410 H, Hemoglobin A1c Pending, Serum Osmolality 308 H, Calcium 8.6, Total Bilirubin 0.4, AST 13 L, ALT 29, Alkaline Phosphatase 102, Troponin I < 0.01, Total Protein 6.5, Albumin 3.8, Globulin 2.7, Albumin/Globulin Ratio 1.4, Triglycerides 345 H, Cholesterol 187, LDL Cholesterol, Calc 83, HDL Cholesterol 35 L, Cholesterol/HDL Ratio 5 H, CBC w Diff NO MAN DIFF REQ, RBC 4.11 L, MCV 88.9, MCH 30.2, RDW 13.3, MPV 7.6, Gran % 67.8, Lymphocytes % 20.3 L, Monocytes % 7.8, Eosinophils % 3.6, Basophils % 0.5, Absolute Granulocytes 5.8, Absolute Lymphocytes 1.7, Absolute Monocytes 0.7 H, Absolute Eosinophils 0.3, Absolute Basophils 0, PUBS MCHC 33.9, Acetone Level NEGATIVE 03/26/17 1804: Serum Osmolality Cancelled, Acetone Level Cancelled Diagnostic Imaging: Viewed by Me: Radiology Read, CT Scan. Discussed w/RAD: Radiology Read, CT Scan. Radiology Impression: PATIENT: JOVAN MACEDO PRESENT AGE: 71 PATIENT ACCOUNT NO: [id number] : 47 LOCATION: [facility] ORDERING PHYSICIAN: BENITO RODRÍGUEZ SERVICE DATE: 03/26/17-1814 EXAM TYPE: CAT - CT HEAD WO IV CONTRAST EXAMINATION: CT HEAD WITHOUT CONTRAST CLINICAL INFORMATION: Headaches. COMPARISON: Brain MRI from 03/17/2017. Head CT from 03/16/2017. TECHNIQUE: Contiguous axial imaging was performed from the skull base to vertex without intravenous administration of contrast. DLP: 805.6 mGy-cm FINDINGS: There is no evidence of acute intracranial hemorrhage or territorial infarction. No abnormal mass effect or midline shift is seen. Arnold to white matter differentiation is well preserved. No extra-axial fluid collections are identified. Moderate chronic white matter microangiopathic changes are again noted with diffuse parenchymal volume loss. There is a chronic right basal ganglia infarct. A small chronic lacunar infarct is noted in the left kapoor radiata. The osseous structures are normal. The mastoid air cells are well aerated. There is a 1 cm retention cyst in the posterior left ethmoid sinus air cells. An ovoid 2.3 x 0.8 cm cystic focus in the right suboccipital soft tissues has decreased in size when compared to the prior study, possibly representing a large sebaceous cyst. IMPRESSION: No acute intracranial hemorrhage or interval change. Chronic right basal ganglia infarct and moderate chronic white matter microangiopathy with generalized parenchymal volume loss. DICTATED BY: SAULO LEHMAN MD DATE/TIME DICTATED:03/26/171852 SENIOR WEB DEVELOPER:ALICIA DATE/TIME TRANSCRIBED:03/26/171852 CONFIDENTIAL, DO NOT COPY WITHOUT APPROPRIATE AUTHORIZATION. <Electronically signed in Other Vendor System> SIGNED BY: SAULO LEHMAN MD 03/26/17 190 CXR Impression: ATIENT: JOVAN MACEDO PRESENT AGE: 71 PATIENT ACCOUNT NO: [id number] : 47 LOCATION: [facility] ORDERING PHYSICIAN: BENITO RODRÍGUEZ SERVICE DATE: 03/26/17 EXAM TYPE: RAD - XRY- PORTABLE CHEST XRAY EXAMINATION: XR PORTABLE CHEST CLINICAL INFORMATION: Cardiomegaly. COMPARISON: Chest x-ray 03/16/2017, 05/24/2017 chest TECHNIQUE: Portable frontal view of the chest was obtained. 6:19 PM FINDINGS: Cardiac size not optimally assessed on portable radiographs. PA lateral view of chest would be better to assess cardiac size. The heart size does appear to be top normal to mildly enlarged. No acute mallet. No pulmonary vascular congestion. Lungs are clear. No pleural effusion or pneumothorax. Small electronic device seen over the cardiac silhouette. IMPRESSION: Top normal to mildly enlarged cardiac silhouette. A PA lateral view of chest not be helpful for further assessment. No acute change of the chest. DICTATED BY: PETTY DELACRUZ MD DATE/TIME DICTATED:03/26 SENIOR WEB DEVELOPER:ALICIA DATE/TIME TRANSCRIBED:03/26/171845 CONFIDENTIAL, DO NOT COPY WITHOUT APPROPRIATE AUTHORIZATION. <Electronically signed in Other Vendor System> SIGNED BY: PETTY DELACRUZ MD 03/26/171851 Initial ED EKG: SINUS RHYTHM AT 75 BPM, NONSPECIFIC INTERVENTRICULAR CONDUCTION DELAY, INFERIOR INFARCT AGE-INDETERMINATE Prior EKG: unchanged Comments: Arrival patient in hypertensive urgency. Patient has been off meds for the past week and a half. He is neurologically intact no focal deficits. Patient not having any chest pain or shortness of breath. No current headache but does report recent headaches. Patient also has hyperglycemia at this time. We'll assess CBC, CMP ensure that patient is not in DKA. We will get an EKG and troponin. Patient will be medicated with by mouth antihypertensive medications, metoprolol and losartan for which she specific daily. Patient seems to be responding to by mouth antihypertensive medications. Repeat blood pressure is 172/70. We do not want to lower blood pressure fasts as this can cause patient to become lightheaded and passed out. Patient will continue taking his daily medications to help lower her blood pressure and follow up with a primary care physician early next week to recheck blood pressure. EKG is unchanged. Head CT is negative for any acute process. Chest x-ray is unchanged. Patient is not in DKA. Her sugar seems to be responding to subcutaneous insulin given. He will continue medication at home and monitor his blood glucose daily. Son was updated with all information, he will help provide care to this patient and help administer medications. Discussed with Dr. Wilson and he agrees with plan. (BENITO CAMARGO) Departure Departure Time of Disposition: 2140 Disposition: HOME OR SELF CARE Condition: Stable Clinical Impression Primary Impression: Hypertension Qualifiers: Hypertension type: essential hypertension Qualified Code: I10 - Essential (primary) hypertension Secondary Impressions: Hyperglycemia, Noncompliance w/medication treatment due to intermit use of medication Referrals: LEAH ALFARO MD (PCP/Family) Additional Instructions: Follow-up with your primary care physician call to make an appointment for early next week. Take medications as prescribed daily as it is very important to have your blood pressure maintained under control as well as her blood glucose level. take all other medications as prescribed. Return for any worsening symptoms, headaches, confusion or concerns. Departure Forms: Customer Survey General Discharge Information (BENITO CAMARGO) PA/[facility] Co-Sign Statement Statement: ED Attending supervision documentation- [] I saw and evaluated the patient. I have also reviewed all the pertinent lab results and diagnostic results. I agree with the findings and the plan of care as documented in the PA's/[employer]'s documentation. [x] I have reviewed the ED Record and agree with the PA's/[employer]'s documentation. [] Additions or exceptions (if any) to the PAs/[employer]'s note and plan are summarized below: [] (SHELBY CAMARA,DARYA Ospina) Critical Care Note Critical Care Note Critical Care Time: 30-74 min (BENITO CAMARGO)
[2017-03-26 18:36] LABS: ABSOLUTE BASOPHIL COUNT 0 /CUMM (0.0-0.2); ABSOLUTE EOSINOPHIL COUNT 0.3 /CUMM (0.0-0.7); ABSOLUTE GRANULOCYTE CT 5.8 /CUMM (1.4-6.5); ABSOLUTE LYMPH COUNT 1.7 /CUMM (1.2-3.4); ABSOLUTE MONOCYTE COUNT 0.7 /CUMM (0.10-0.60); BASOPHIL % 0.5 % (0.0-2.0); EOSINOPHIL % 3.6 % (0-5); GRANULOCYTE % 67.8 % (42.2-75.2); HEMATOCRIT 36.5 % (42-52); MEAN CORPUSCULAR HGB 30.2 PG (27.0-31.0); MEAN CORPUSCULAR HGB CONC 33.9 G/DL (33.0-37.0); MEAN CORPUSCULAR VOLUME 88.9 FL (80.0-94.0); MEAN PLATELET VOLUME 7.6 FL (7.4-10.4); PLATELET COUNT 271 /CUMM (130-400); RBC DISTRIBUTION WIDTH 13.3 % (11.5-14.5); RED BLOOD CELL CT 4.11 /CUMM (4.70-6.10); WHITE BLOOD CELL COUNT 8.6 /CUMM (4.8-10.8)
--- NOTE | 2017-03-26 18:52 | RADIOLOGY REPORT ---
EXAMINATION: XR PORTABLE CHEST CLINICAL INFORMATION: Cardiomegaly. COMPARISON: Chest x-ray 03/16/2017, 05/24/2017 chest TECHNIQUE: Portable frontal view of the chest was obtained. 6:19 PM FINDINGS: Cardiac size not optimally assessed on portable radiographs. PA lateral view of chest would be better to assess cardiac size. The heart size does appear to be top normal to mildly enlarged. No acute mallet. No pulmonary vascular congestion. Lungs are clear. No pleural effusion or pneumothorax. Small electronic device seen over the cardiac silhouette. IMPRESSION: Top normal to mildly enlarged cardiac silhouette. A PA lateral view of chest not be helpful for further assessment. No acute change of the chest.
--- NOTE | 2017-03-26 19:03 | CT SCAN REPORT ---
EXAMINATION: CT HEAD WITHOUT CONTRAST CLINICAL INFORMATION: Headaches. COMPARISON: Brain MRI from 03/17/2017. Head CT from 03/16/2017. TECHNIQUE: Contiguous axial imaging was performed from the skull base to vertex without intravenous administration of contrast. DLP: 805.6 mGy-cm FINDINGS: There is no evidence of acute intracranial hemorrhage or territorial infarction. No abnormal mass effect or midline shift is seen. Arnold to white matter differentiation is well preserved. No extra-axial fluid collections are identified. Moderate chronic white matter microangiopathic changes are again noted with diffuse parenchymal volume loss. There is a chronic right basal ganglia infarct. A small chronic lacunar infarct is noted in the left kapoor radiata. The osseous structures are normal. The mastoid air cells are well aerated. There is a 1 cm retention cyst in the posterior left ethmoid sinus air cells. An ovoid 2.3 x 0.8 cm cystic focus in the right suboccipital soft tissues has decreased in size when compared to the prior study, possibly representing a large sebaceous cyst. IMPRESSION: No acute intracranial hemorrhage or interval change. Chronic right basal ganglia infarct and moderate chronic white matter microangiopathy with generalized parenchymal volume loss.
[2017-03-26] MEDS ORDERED: LANTUS SOL100 UNIT/1 SC (19:27)
[2017-03-26] MEDS ORDERED: NEURONTIN300 M1 PO (19:28)
[2017-03-26] MEDS ORDERED: COZAAR100 M1 PO (19:29)
[2017-03-26] MEDS ORDERED: KEFLEX500 M1 PO (19:29)
[2017-03-26] MEDS ORDERED: LAMISIL250 M1 PO (19:30)
[2017-03-26] MEDS ORDERED: METOPROLOL TART25 M1 PO (19:30)
[2017-03-26] MEDS ORDERED: CLOPIDOGREL75 M1 PO (19:30)
[2017-03-26 21:27] VITALS: BP 172/70
== END 2017-03-26 22:54 ==
LOC: ERH 17:24
PROVIDERS: Emergency Medicine
DX: I10 Essential (primary) hypertension (principal); E11.65 Type 2 diabetes mellitus with hyperglycemia; Z91.14 Patient's other noncompliance with medication regimen; Z79.4 Long term (current) use of insulin; R51 Headache
CPT/HCPCS: 84133; 84300; 81001; 82570; 93005; 93010; 96372; J1815; J3490

== ENCOUNTER 2017-04-08 14:59 | Emergency (ER) | payer OTHER, MEDICARE ==
[~2017-04-08 14:59] MED LIST changes: +CLOPIDOGREL75 M1 PO; +COZAAR100 M1 PO; +KEFLEX500 M1 PO; +LAMISIL250 M1 PO; +LANTUS SOL100 UNIT/1 SC; +METOPROLOL TART25 M1 PO; +NEURONTIN300 M1 PO
[2017-04-08 15:41] LABS: ABSOLUTE BASOPHIL COUNT 0 /CUMM (0.0-0.2); ABSOLUTE EOSINOPHIL COUNT 0.3 /CUMM (0.0-0.7); ABSOLUTE GRANULOCYTE CT 7.3 /CUMM (1.4-6.5); ABSOLUTE LYMPH COUNT 1.3 /CUMM (1.2-3.4); ABSOLUTE MONOCYTE COUNT 0.7 /CUMM (0.10-0.60); BASOPHIL % 0.3 % (0.0-2.0); EOSINOPHIL % 3.1 % (0-5); GRANULOCYTE % 76.1 % (42.2-75.2); HEMATOCRIT 35.8 % (42-52); MEAN CORPUSCULAR HGB 30.4 PG (27.0-31.0); MEAN CORPUSCULAR HGB CONC 33.8 G/DL (33.0-37.0); MEAN CORPUSCULAR VOLUME 90.1 FL (80.0-94.0); MEAN PLATELET VOLUME 8.1 FL (7.4-10.4); PLATELET COUNT 252 /CUMM (130-400); RBC DISTRIBUTION WIDTH 13.2 % (11.5-14.5); RED BLOOD CELL CT 3.98 /CUMM (4.70-6.10); WHITE BLOOD CELL COUNT 9.6 /CUMM (4.8-10.8)
--- NOTE | 2017-04-08 17:05 | ED GENERAL ADULT ---
History of Present Illness General Chief Complaint: General Adult Stated Complaint: BIBA FOR HYPERGLYCEMIA Source: patient, old records, EMS Exam Limitations: no limitations Vital Signs & Intake/Output Vital Signs & Intake/Output Vital Signs Date Time Temp Pulse Resp B/P B/P Pulse O2 O2 Flow FiO2 Mean Ox Delivery Rate 04/08 1914 97.5 69 20 155/86 98 Room Air Room Air 04/08 1748 97.8 52 178/92 97 04/08 1507 97.8 92 22 159/89 96 Allergies Coded Allergies: NO KNOWN ALLERGIES (07/23/15) Reconcile Medications Aspirin (Aspirin*) 81 MG TAB.CHEW 1 TAB PO DAILY HEART HEALTH (Reported) Atorvastatin Calcium (Lipitor) 80 MG TABLET 1 TAB PO QPM CHOLESTEROL ( Reported) Cephalexin (Keflex) 500 MG CAPSULE 1 CAP PO Q6H ANTIBIOTIC (Reported) Clopidogrel Bisulfate (Clopidogrel) 75 MG TABLET 1 TAB PO DAILY BLOOD THINNER (Reported) Gabapentin (Neurontin) 300 MG CAPSULE 1 CAP PO QPM UNKNOWN (Reported) Insulin Glargine,Hum.rec.anlog (Lantus Solostar) 100 UNIT/ML (3 ML) INSULN.PEN 20 UNIT SC QPM DM (Reported) Losartan (Cozaar) 100 MG TABLET 1 TAB PO DAILY BP (Reported) Metoprolol Tartrate 25 MG TABLET 1 TAB PO BID HEART/BP (Reported) Nitroglycerin (Nitroglycerin Patch) 0.4 MG/HOUR PATCH.TD24 0.4 MG TOP DAILY PRN CHEST PAIN Apply one patch a day for 12 hours for chest pain. Terbinafine HCl (Lamisil) 250 MG TABLET 1 TAB PO DAILY UNKNOWN (Reported) Triage Note: PER EMS BROUGHT FOR HYPERGLYCEMIA GLUCOSE 512 PT WITHOUT SYMPTOMS. PT TOOK REPORTED AMT OF INSULIN BUT HAD PANCAKES AND SYRUP FOR BREAKFAST. Triage Nurses Notes Reviewed? yes Onset: Abrupt Duration: day(s): (1), constant Timing: recent history Injury Environment: home Severity: mild Severity Numbers: 1 No Modifying Factors: none Associated Symptoms: DENIES HPI: 71 year old male with past medical history of essential hypertension coronary artery disease insulin-dependent diabetes mellitus hyperlipidemia presents to ER for evaluation after his visiting nurse found that his blood sugar was greater than 500 earlier this morning. The patient on arrival offers no complaints. He states for breakfast prior to having his blood sugar checked he had pancakes and syrup. He denies any chest pain abdominal pain nausea vomiting. No vision changes numbness tingling nausea vomiting. He states that he did take his insulin and other medications this morning however does not know on the unitS he took. (TACOS KEY) Past History Travel History Traveled to [place] past 21 day No Medical History Any Pertinent Medical History? 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 No (TACOS KEY) Review of Systems Review of Systems Constitutional: Reports: see HPI. All Other Systems: Reviewed and Negative Comments Review of systems: See HPI, All other systems negative. Constitutional, no chills no fever, no malaise no weight loss HEENT: no sore throat no congestion Cardiovascular: No chest pain , no palpitation Skin: no rashes, no change in skin Respiratory: No dyspnea no cough no sputum no hemoptysis GI: No nausea no vomiting, no diarrhea, no bloating/constipation : No dysuria No hematuria, no frequency Muscle skeletal: No joint pain, no joint swelling, no back pain, no neck pain, Neurologic: No numbness, no headache Psych: No stress Heme/endocrine: No bruising Immunology: No lymphadenopathy (TACOS KEY) Physical Exam Physical Exam General Appearance: well developed/nourished, no apparent distress, alert, awake , comfortable Comments: Well-developed well-nourished person in no acute distress HEENT: Normal EENT exam; PERRL, EOMI,HEAD is atraumatic. moist mucous membranes. Neck: Supple, no lymphadenopathy, normal range of motion Back: Nontender, no CVA tenderness. Full range of motion Cardiovascular: Regular rate and rhythms no murmurs rubs or gallops, normal JVP Respiratory: Chest nontender.There were no bony deformities, no asymmetry. No respiratory distress. Patient speaking in full complete sentences. Breath sounds clear to auscultation bilaterally: NO W/R/R Abdomen: Soft, nontender nondistended, no appreciable organomegaly. Normal bowel sounds. No rebound/guarding, No ascites. Extremity: No edema, full range of motion of extremities, Neuro: Alert oriented x3, motor sensory normal,There were no obvious focal neurologic abnormalities. Skin: No appreciable rash on exposed skin, skin is warm and dry. Psych: Mood and affect is normal, memory and judgment is normal. Core Measures ACS in differential dx? Yes CVA/TIA Diagnosis: No Severe Sepsis Present: No Septic Shock Present: No (GERA RODRÍGUEZ,TACOS) Progress Differential Diagnoses I considered the following diagnoses in my evaluation of the patient: uncontrolled dm, dka, hhs, electrolyte abnoramlity, dehydration, AMI, infection Plan of Care: Orders Procedure Date/time Status Add-on Test (ER Only) 04/08 1736 Active EKG 04/08 1736 Active TROPONIN LEVEL 04/08 1529 Complete MIXED VENOUS BLOOD GAS (GEN) 04/08 1509 Active COMPREHENSIVE METABOLIC PANEL 04/08 1509 Complete CBC WITHOUT DIFFERENTIAL 04/08 1509 Complete ACETONE 04/08 1509 Complete Laboratory Tests 04/08/17 1529: Bicarbonate Actual 27 H, Mixed VBG pH 7.36, Mixed VBG pCO2 49, Mixed VBG O2 Saturation 29 L, Carboxyhemoglobin 1.2 L, O2 Concentration % R/A, Anion Gap 12 , Estimated GFR 46 L, BUN/Creatinine Ratio 23.3, Glucose 475 H, Calcium 9.5, Total Bilirubin 0.5, AST 16 L, ALT 29, Alkaline Phosphatase 106, Troponin I 0.01, Total Protein 6.2 L, Albumin 3.5, Globulin 2.7, Albumin/Globulin Ratio 1.3, CBC w Diff NO MAN DIFF REQ, RBC 3.98 L, MCV 90.1, MCH 30.4, RDW 13.2, MPV 8.1, Gran % 76.1 H, Lymphocytes % 13.6 L, Monocytes % 6.9, Eosinophils % 3.1, Basophils % 0.3, Absolute Granulocytes 7.3 H, Absolute Lymphocytes 1.3, Absolute Monocytes 0.7 H, Absolute Eosinophils 0.3, Absolute Basophils 0, PUBS MCHC 33.8, Phlebotomy Draw Site VENOUS, Acetone Level NEGATIVE Patient offers no complaints labs ordered from triage case was discussed with Dr. devine PT SEEN and eval by dr devine agrees with plan, PT HAS been asymptomatic throughout er stay, repeat sugar 344, pt requesting to go home. I discussed with the patient at length all of their results. I had an extensive conversation regarding need for close follow up with their primary care physician this week as well as return precautions I discussed with him the harms of elevated blood sugar he is been admitted recently for noncompliance with his blood pressure medication and at the time his blood sugars were elevated as well. The symptoms of his elevated blood sugar were found to be after eating pinky consider this morning. I answered all of their questions, they feel comfortable with the plan and follow-up care. 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 Follow-up with her primary care physician tomorrow. He may need adjustment in her medications. Return to ER anytime sooner if any concerns. Departure Forms: Customer Survey General Discharge Information (TACOS KEY) PA/DERMATOLOGICAL SURGEON Co-Sign Statement Statement: ED Attending supervision documentation- [] I saw and evaluated the patient. I have also reviewed all the pertinent lab results and diagnostic results. I agree with the findings and the plan of care as documented in the PA's/DERMATOLOGICAL SURGEON's documentation. [X] I have reviewed the ED Record and agree with the PA's/DERMATOLOGICAL SURGEON's documentation. [] Additions or exceptions (if any) to the PAs/DERMATOLOGICAL SURGEON's note and plan are summarized below: [] (ANA CRISTINA DEVINE DO) Critical Care Note Critical Care Note Critical Care Time: non-applicable (TACOS KEY)
[2017-04-08 19:14] VITALS: BP 155/86
== END 2017-04-08 19:15 ==
LOC: ERH 14:59
PROVIDERS: Emergency Medicine
DX: E11.65 Type 2 diabetes mellitus with hyperglycemia (principal); Z79.4 Long term (current) use of insulin
CPT/HCPCS: 93005; 93010; 96372; J1815

== ENCOUNTER 2018-01-08 06:51 | Inpatient (IN) | payer OTHER, MEDICARE ==
[~2018-01-08] VITALS: Ht 172.7 cm; Wt 102.2 kg
--- NOTE | 2018-01-08 06:57 | ED GENERAL ADULT ---
History of Present Illness General Chief Complaint: General Adult Stated Complaint: MULTIPLE COMPAINTS.HIGH BLOOD SUGAR Source: patient, EMS Exam Limitations: no limitations Vital Signs & Intake/Output Vital Signs & Intake/Output Vital Signs Date Time Temp Pulse Resp B/P B/P Pulse O2 O2 Flow FiO2 Mean Ox Delivery Rate 01/09 0818 82 20 122/75 98 Room Air 01/08 0750 64 116/55 01/08 0746 120 20 112/70 01/08 0740 120 112/70 01/08 0702 98.3 120 19 156/81 98 Room Air Allergies Coded Allergies: NO KNOWN ALLERGIES (07/23/15) Reconcile Medications Aspirin (Aspirin*) 81 MG TAB.CHEW 1 TAB PO DAILY HEART HEALTH (Reported) Atorvastatin Calcium (Lipitor) 80 MG TABLET 1 TAB PO QPM CHOLESTEROL ( Reported) Cephalexin (Keflex) 500 MG CAPSULE 1 CAP PO Q6H ANTIBIOTIC (Reported) Clopidogrel Bisulfate (Clopidogrel) 75 MG TABLET 1 TAB PO DAILY BLOOD THINNER (Reported) Gabapentin (Neurontin) 300 MG CAPSULE 1 CAP PO QPM UNKNOWN (Reported) Insulin Glargine,Hum.rec.anlog (Lantus Solostar) 100 UNIT/ML (3 ML) INSULN.PEN 20 UNIT SC QPM DM (Reported) Losartan (Cozaar) 100 MG TABLET 1 TAB PO DAILY BP (Reported) Metoprolol Tartrate 25 MG TABLET 1 TAB PO BID HEART/BP (Reported) Nitroglycerin (Nitroglycerin Patch) 0.4 MG/HOUR PATCH.TD24 0.4 MG TOP DAILY PRN CHEST PAIN Apply one patch a day for 12 hours for chest pain. Terbinafine HCl (Lamisil) 250 MG TABLET 1 TAB PO DAILY UNKNOWN (Reported) Triage Nurses Notes Reviewed? yes Onset: Gradual Injury Environment: home Severity: mild, moderate Associated Symptoms: cough HPI: 72 yo gentleman h/o diabetes, s/p toe amputations, h/o cad, mi presents with several issues. He states he felt short of breath for the past several hours, with a mild, dry cough. He states he feels constipated. His last bowel movement was yesterday. He has difficulty urinating. He has a new heel ulcer and recently started a new antibiotics which he doesn't recall. The medics note that his pulse was in the 120's, "and it looked like afib." They also note that his home was very disheveled. He denies chest pain, fever, dizziness, syncopal symptoms. (Lawrence Wilson MD) Past History Travel History Traveled to [place] past 21 day No Medical History Any Pertinent Medical History? 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 No (Lawrence Wilson MD) Review of Systems Review of Systems Constitutional: Reports: no symptoms. EENTM: Reports: no symptoms. Respiratory: Reports: no symptoms. Cardiovascular: Reports: no symptoms. GI: Reports: no symptoms. Genitourinary: Reports: no symptoms. Musculoskeletal: Reports: no symptoms. Skin: Reports: no symptoms. Neurological/Psychological: Reports: no symptoms. Hematologic/Endocrine: Reports: no symptoms. Immunologic/Allergic: Reports: no symptoms. All Other Systems: Reviewed and Negative (Steve CAMARA,Lawrence Ospina) Physical Exam Physical Exam General Appearance: well developed/nourished, no apparent distress Head: atraumatic, normal appearance Eyes: Bilateral: normal appearance. Ears, Nose, Throat: normal pharynx, normal ENT inspection Neck: normal inspection Respiratory: normal breath sounds, chest non-tender Cardiovascular: irregularly irregular Gastrointestinal: normal bowel sounds, soft, non-tender Rectal: normal exam, normal rectal tone, heme negative stool Back: normal inspection, normal range of motion Extremities: right heel with ulceration, no sign of active infection right 4th, 5th digits amputated, w/ clean incisions. left foot is without infection Neurologic/Psych: no motor/sensory deficits, awake, alert, oriented x 3 Skin: intact, normal color, warm/dry Core Measures ACS in differential dx? No CVA/TIA Diagnosis: No Sepsis Present: No Sepsis Focused Exam Completed? No ([place] MD,Lawrence R.) Progress Differential Diagnoses I considered the following diagnoses in my evaluation of the patient: Plan of Care: Orders Procedure Date/time Status Heart Healthy Diet 01/08 L Active ED Holding Orders 01/08 834 Active Admit to inpatient 01/08 834 Active Vital Signs 01/09 0834 Active Code Status 01/09 0834 Active EKG 01/08 0752 Active URINALYSIS 01/09 712 Active TROPONIN LEVEL 01/09 712 Complete LIPASE 01/09 712 Complete HEPATIC FUNCTION PANEL 01/09 712 Complete D-DIMER 01/09 712 Complete CBC WITHOUT DIFFERENTIAL 01/09 712 Active BASIC METABOLIC PANEL 01/09 712 Complete AMYLASE 01/09 712 Complete EKG 01/08 07 Active Current Medications Sig/Anna Start time Last Medication Dose Stop Time Status Admin Heparin Sodium 25,000 UNIT Q24H 01/08 715 UNVr 01/08 (Porcine) 725 (Heparin) Sodium Chloride 500 ML Laboratory Tests 01/08/18 0745: Anion Gap 12, Estimated GFR 55 L, BUN/Creatinine Ratio 24.6, Glucose 347 H, Calcium 8.9, Total Bilirubin 0.7, Direct Bilirubin 0.3, AST 18, ALT 26, Alkaline Phosphatase 117, Troponin I 0.41 *H, Total Protein 5.7 L, Albumin 3.0 L, Amylase 48, Lipase 209, D-Dimer High Sensitivty < 200, CBC w Diff MAN DIFF ORDERED, RBC 4.28 L, MCV 89.3, MCH 29.6, MCHC 33.2, RDW 13.1, MPV 8.2, Gran % 84.0 H, Lymphocytes % 7.0 L, Monocytes % 7.5, Eosinophils % 1.2, Basophils % 0.3, Absolute Granulocytes 10.9 H, Segmented Neutrophils Pending, Absolute Lymphocytes 0.9 L, Absolute Monocytes 1.0 H, Absolute Eosinophils 0.2, Absolute Basophils 0 labs pending, Diagnostic Imaging: Viewed by Me: Radiology Read. Discussed w/RAD: Radiology Read. Initial ED EKG: afib w/ rvr Hand-Off Endorsed To: Kristopher CAMARA,Darian Hernandez Endorsed Time: 709 Pending: labs, Xray (Steve CAMARA,Lawrence Ospina) Initial ED EKG: A FIB AT 115 WITH NSSTT CHANGES WHICH ARE NEW SINCE PRIOR EKG Prior EKG: changed Repeat EKG: unchanged (A FLUTTER, RATE CONTROLLED) Rhythm Strip: atrial fibrillation Comments: DR. HUTCHINS'S NOTE FROM PATIENT'S LAST ADMISSION STATES THAT HE HAD AN ABNORMAL STRESS TEST WITH ISCHEMIC CHANGES TO THE INFERIOR WALL. THE RECOMENDATION WAS TO HAVE A CARDIAC CATH. THE PATIENT STATES THAT HE REFUSED TO HAVE THAT DONE. D/W DR. QUIROZ,RATE CONTROL, ANTICOAGULATION, ADMIT, (Kristopher CAMARA,Darian Hernandez) Departure Departure Disposition: STILL A PATIENT Condition: Stable Referrals: Mango Abdi MD (PCP/Family) Departure Forms: Customer Survey General Discharge Information (Steve CAMARA,Lawrence Ospina) Departure Clinical Impression Primary Impression: Atrial fibrillation Secondary Impressions: ACS (acute coronary syndrome) Admission Note Spoke With: Vincent Yuan MD Documentation of Exam: Documentation of any treatments & extenuating circumstances including Concerns Regarding Discharge (functional status, medication knowledge or non-compliance, living conditions, etc.) that warrant an admission rather than observation: [ TELE ADMISSION, ANTICOAGULATION, RATE CONTROL, CARDIOLOGY EVALUATION (DR. HUTCHINS AWARE), MAY REQUIRE CARDIAC CATH IN SETTING OF POSITIVE TROPONIN AND ISCHEMIC CHANGES TO INFERIOR WALL ON PRIOR STRESS.] (Kristopher CAMARA,Darian Hernandez) Critical Care Note Critical Care Note Critical Care Time: 30-74 min (Steve CAMARA,Lawrence Ospina)
[2018-01-08 08:03] LABS: ABSOLUTE BASOPHIL COUNT 0 /CUMM (0.0-0.2); ABSOLUTE EOSINOPHIL COUNT 0.2 /CUMM (0.0-0.7); ABSOLUTE GRANULOCYTE CT 10.9 /CUMM (1.4-6.5); ABSOLUTE LYMPH COUNT 0.9 /CUMM (1.2-3.4); BASOPHIL % 0.3 % (0.0-2.0); EOSINOPHIL % 1.2 % (0-5); HEMATOCRIT 38.3 % (42-52); MEAN CORPUSCULAR HGB 29.6 PG (27.0-31.0); MEAN CORPUSCULAR HGB CONC 33.2 G/DL (33.0-37.0); MEAN CORPUSCULAR VOLUME 89.3 FL (80.0-94.0); MEAN PLATELET VOLUME 8.2 FL (7.4-10.4); PLATELET COUNT 237 /CUMM (130-400); RBC DISTRIBUTION WIDTH 13.1 % (11.5-14.5); RED BLOOD CELL CT 4.28 /CUMM (4.70-6.10)
--- NOTE | 2018-01-08 08:28 | RADIOLOGY REPORT ---
EXAMINATION: XR PORTABLE CHEST CLINICAL INFORMATION: Palpitations COMPARISON: Portable chest 03/26/2017, 03/16/2017, 07/23/2015. TECHNIQUE: Portable upright AP view of the chest was obtained. FINDINGS: There are low lung volumes with inspiration to the eighth posterior intercostal spaces. Heart is within limits of normal size. The vascularity is normal. There is no airspace consolidation or visible effusion. The hilar and mediastinal contours and bony structures are unremarkable. IMPRESSION: Lungs clear.
--- NOTE | 2018-01-08 09:06 | History & Physical ---
Primitivo CAMARA,[facility] 01/08/18 0905: General Information and HPI MD Statement: I have seen and personally examined BRANDO MACEDO and documented this H&P. The patient is a 72 year old M who presented with a patient stated chief complaint of []. 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 The patient is a poor historian and some of the clinical history had to be obtained from the patient's son Brando ([phone]). This morning patient awoke his son and stated that he did not feel well prompting EMS to be called. Once EMS arrived, they found the patient to be in Atrial Fibrillation. He recently saw the leadership program associate Dr. Ayon on 01/04/2017. It was reported that the patient was started on Cefadroxil 500 mg twice a day for an infection of his right heel. Patient's son stated that he took his first pill on the evening of 01/07/2018. Apart from recent visit to the leadership program associate, the patient son reports that Mr Macedo has been in his normal state of health. During our clinical interaction he was comfortable and did not endorse any chest pain, palpiations or weakness. States that he feels that he is constipated and has not had a bowel movement since yesterday. States that he is poorly compliant on medications and rarely checks finger stick glucose.He also endorses some right vision abnormalities, states that his vision looks "blurry" and this has been going on for may weeks. He denies any fever, chills, nausea, vomiting. Patient's primary care physician is Mimi Rosales MD. Patient's leadership program associate Dr. Ayon. Patient's podiatry teacher is Dr. Hall. Allergies/Medications Allergies: Coded Allergies: NO KNOWN ALLERGIES (07/23/15) Home Med list Ampicillin Sodium/Sulbactam Na (Unasyn 1.5 Gm Vial) 1.5 GRAM VIAL 1.5 GM IV Q6 diabetic foot ulcer Aspirin (Aspirin*) 81 MG TAB.CHEW 1 TAB PO DAILY HEART HEALTH (Reported) Atorvastatin Calcium (Lipitor) 80 MG TABLET 1 TAB PO QPM CHOLESTEROL ( Reported) Clopidogrel Bisulfate (Clopidogrel) 75 MG TABLET 1 TAB PO DAILY BLOOD THINNER (Reported) Gabapentin (Neurontin) 300 MG CAPSULE 1 CAP PO QPM UNKNOWN (Reported) Heparin Sod,Pork in 0.45% NaCl (Heparin-1/2NS 25,000 Units/250) 25,000 UNIT/250 ML (100 UNIT/ML) IV.SOLN 0 IV CONTINOUS INFUSION atrial fibrillation as per heparin protocol. 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 Home Who Do You Live With? spouse, child Services at Home: None Primary Language: Tamazight Smoking Status: Former Smoker ETOH Use: occasional use Illicit Drug Use: denies illicit drug use Living Will? unknown Power of Curriculum And Instruction Specialist/HCP? no Functional Ability ADLs Independent: dressing, eating, toileting, bathing. Ambulation: cane, walker IADLs Independent: shopping, housework, finances, food prep, telephone, transportation , medication admin. Review of Systems Review of Systems Constitutional: Reports: see HPI, chills. Cardiovascular: Denies: chest pain, edema, orthopena, palpitations, peripheral edema, syncope. Respiratory: Denies: cough, hemoptysis, orthopnea, short of breath, sputum production. GI: Reports: constipation. Denies: bloating, diarrhea, distention. Genitourinary: Denies: discharge, dysuria, frequency, hematuria. Musculoskeletal: Denies: back pain, gout, joint pain, joint swelling. Skin: Reports: change in hair/nails. Neurological/Psychological: Denies: anxiety, ataxia, cognitive dysfunction, confusion, depressed, dementia. Exam & Diagnostic Data Last 24 Hrs of Vital Signs/I&O Vital Signs Date Time Temp Pulse Resp B/P B/P Pulse O2 O2 Flow FiO2 Mean Ox Delivery Rate 01/08 1051 97.6 113 20 124/70 97 Room Air 01/08 0907 98.0 90 20 121/84 98 Room Air 01/08 0830 98 Room Air 01/08 0818 82 20 122/75 98 Room Air 01/08 0750 64 116/55 01/08 0746 120 20 112/70 01/08 0740 120 112/70 01/08 0702 98.3 120 19 156/81 98 Room Air Intake & Output 01/08 1600 01/08 0800 01/08 0000 Intake Total Output Total Balance Patient 108.862 kg Weight Weight Reported by Patient Measurement Method Physical Exam General Appearance Alert, Cooperative, Mild Distress Skin Temp/Moisture Exam: Warm/Dry Sepsis Skin Exam (color): Normal for Ethnicity HEENT Mucous membranes dry Neck Supple Lymphatic Cervical nl Cardiovascular Irregularly Irregular Lungs Clear to Auscultation, Normal Air Movement Abdomen Normal Bowel Sounds, Soft, No Tenderness, Distended Neurological Strength at 5/5 X4 Ext Extremities Cold Extremities. Foot Ulcer, Right Heel: 3.5 cm X 3.5 cm Vascular Normal Pulses Body Front and Back (Adult) 1) Foot ulcer. 3.5 cm X 3.5 cm. Discharge present. Non foul smelling. Erythema Noted. No necrosis. Last 24 Hrs of Labs/Kj: Laboratory Tests 01/08/18 0745: Anion Gap 12, Estimated GFR 55 L, BUN/Creatinine Ratio 24.6, Glucose 347 H, Hemoglobin A1c Pending, Calcium 8.9, Phosphorus 3.8, Magnesium 1.5 L, Total Bilirubin 0.7, Direct Bilirubin 0.3, AST 18, ALT 26, Alkaline Phosphatase 117, Troponin I 0.41 *H, Total Protein 5.7 L, Albumin 3.0 L, Amylase 48, Lipase 209 , D-Dimer High Sensitivty < 200, CBC w Diff MAN DIFF ORDERED, RBC 4.28 L, MCV 89.3, MCH 29.6, MCHC 33.2, RDW 13.1, MPV 8.2, Gran % 84.0 H, Lymphocytes % 7.0 L, Monocytes % 7.5, Eosinophils % 1.2, Basophils % 0.3, Absolute Granulocytes 10.9 H, Absolute Lymphocytes 0.9 L, Absolute Monocytes 1.0 H, Absolute Eosinophils 0.2, Absolute Basophils 0, Platelet Estimate VERIFIED BY SMEAR, Normocytic RBCs VERIFIED, Normochromic RBCs VERIFIED Diagnostic Data EKG Results Atrial Flutter Rate 115. W[place]: 165. 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 While in the emergency department the patient was given Cardizem 10 mg IV push and started on IV heparin. His initial troponin was elevated to 0.41. #New onset A Fib #Type II [place] #Right foot ulcer, rule out osteomylitis vs necrotic heel #History of Hypertension #Hyperglycemia, no evidence of AG or ketosis. #HLD # Constipation #New onset A FiB Obtain formal cardiology consultation. If patient endorses any chest pain, may consider cath. May consider anticoagulation as an outpatient (CHADVASC score of 4, Stroke risk 4.8%) Continue metoprolol 100 mg twice a day. #Type II [place] Initial Troponin 0.41. Serial Troponins and EKG. If patient endorses any chest pain, may consider cath. Continue aspirin. #Right foot ulcer, rule out osteomylitis vs necrotic heel Formal podiatry consultation obtained. Right foot x-ray to rule out osteomyelitis. IV Unasyn 3000 Q 6. Follow up blood cultures. #History of Hypertension Continue Losartan 100 mg. #Hyperglycemia, no evidence of AG or ketosis. Fingersticks and sliding scale NovoLog. Administer Levemir 25 units every p.m. Hold off on endocrinology consultation amount. Hemoglobin A1c pending. If elevated above 12.1 consider endocrinology consultation. #HLD Continue Lipitor for now. Follow-up with those outpatient. DVT prophylaxis with ALP S and heparin drip for now. Consistent carbohydrate diet. Full code. As Ranked By This Provider Problem List: 1. ACS (acute coronary syndrome) 2. Atrial fibrillation Core Measures/Misc (07/18) Acute Coronary Syndrome ACS Diagnosis: No Congestive Heart Failure Congestive Heart Failure Diagnosis No Cerebrovascular Accident CVA/TIA Diagnosis: No VTE (View Protocol) VTE Risk Factors Age>40 No Mechanical VTE Prophylaxis d/t N/A MechProphylax Ordered No VTE Pharm Prophylaxis d/t NA PharmProphylax ordered Sepsis (View protocol) Sepsis Present: No Vincent Yuan 01/08/18 1314: Attending MD Review Statement Attending Statement Attending MD Statement: examined this patient, discuss w/resident/PA/BUSINESS STRATEGIST, agreed w/resident/PA/BUSINESS STRATEGIST, discussed with family, reviewed EMR data (avail), discussed with nursing, discussed with case mgmt, reviewed images, amended to note Attending Assessment/Plan: 72 o/m with pmh of vasculopathy, CAD comes with new onset afib with RVR with NSTEMI type 2 r/o ACS started on anticoagulation possible cellultiis rule out osteomyelitis and necrotic ulcer at right foot. Patient is admitted to telemetry monitoring. Obtain serial cardiac enzymes, Anticoagulation as per cardiology, antiplatelet therapy, iv antibiotics, send cultures, xray r foot ankle. Podaitry and cardiology consult. gi/dvt prophyalxis full code. plan of care dwed patient bedside.
[2018-01-08] MEDS ORDERED: LOPRESSOR100 M1 PO (09:58)
[2018-01-08 10:51] VITALS: BP 124/70
--- NOTE | 2018-01-08 14:46 | Cons- Cardiology ---
General Information and HPI Consulting Request Date of Consult: 01/08/18 Requested By: Heri CAMARA PHD,Oumar Johns History of Present Illness: Brando is a 72 year old male with history of hypertension, dyslipidemia, diabetes and coronary artery disease status post angioplasty. 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 At the time of his last hospital admission he had inferior ischemia as documanted by a stress test but refused a cardiac catheterization and has not followed up. This patient typically has mild and non-radiating chest pressure that is exacerbated by physical activity. He was brought to the ER for evaluation of nausea and abdominal discomfort as well as general weakness and debilitation. He also reports an inability to void or have bowel movements although his creatinine is only mildly elevated and is improved compared with some prior measurements. Finally, this patient has some poorly healing lower extremity lesions. He denies shortness of breath, lightheadedness or palpitations but is a very poor historian. In the ER this patient was found to be in atrial fibrillation with increased heart rate and has a mildly increased troponin of 0.41. Allergies/Medications Allergies: Coded Allergies: NO KNOWN ALLERGIES (07/23/15) Home Med List: Aspirin (Aspirin*) 81 MG TAB.CHEW 1 TAB PO DAILY HEART HEALTH (Reported) Atorvastatin Calcium (Lipitor) 80 MG TABLET 1 TAB PO QPM CHOLESTEROL ( Reported) Clopidogrel Bisulfate (Clopidogrel) 75 MG TABLET 1 TAB PO DAILY BLOOD THINNER (Reported) Gabapentin (Neurontin) 300 MG CAPSULE 1 CAP PO QPM UNKNOWN (Reported) Insulin Glargine,Hum.rec.anlog (Lantus Solostar) 100 UNIT/ML (3 ML) INSULN.PEN 50 UNIT SC QPM DM (Reported) Losartan (Cozaar) 100 MG TABLET 1 TAB PO DAILY BP (Reported) Metoprolol Tartrate (Lopressor) 100 MG TABLET 1 TAB PO BID htn (Reported) Nitroglycerin (Nitroglycerin Patch) 0.4 MG/HOUR PATCH.TD24 0.4 MG TOP DAILY PRN CHEST PAIN Apply one patch a day for 12 hours for chest pain. 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 Home Who Do You Live With? spouse, child Services at Home: None Primary Language: French Smoking Status: Former Smoker ETOH Use: occasional use Illicit Drug Use: denies illicit drug use Living Will? unknown Power of Outboard Motor Assembler/HCP? no Functional Ability ADLs Independent: dressing, eating, toileting, bathing. Ambulation: cane, walker IADLs Independent: shopping, housework, finances, food prep, telephone, transportation , medication admin. Exam & Diagnostic Data Vital Signs and I&O Vital Signs Date Time Temp Pulse Resp B/P B/P Pulse O2 O2 Flow FiO2 Mean Ox Delivery Rate 01/08 1051 97.6 113 20 124/70 97 Room Air 01/08 0907 98.0 90 20 121/84 98 Room Air 01/08 0830 98 Room Air 01/08 0818 82 20 122/75 98 Room Air 01/08 0750 64 116/55 01/08 0746 120 20 112/70 01/08 0740 120 112/70 01/08 0702 98.3 120 19 156/81 98 Room Air Intake & Output 01/08 1600 01/08 0800 01/08 0000 / 1600 01/07 0800 01/07 0000 Intake Total 340 Output Total Balance 340 Intake, IV 100 Intake, Oral 240 Patient 228 lb 240 lb Weight Weight Bed scale Reported by Patient Measurement Method Physical Exam: General: WD/ obese male in NAD; awake and responsive with decreased memory HEENT: NC/AT, PERRL, EOMI Neck: no JVD, no carotid bruit Lungs: clear bilaterally Heart: irregularly irregular without murmurs Abdomen: soft, obese, NT, +ve bowel sounds Extremities: No edema Assessment/Plan Assessment/Plan * This patient has atrial fibrillation with rapid heart rate. In consideration of his positive cardiac enyzmes we will anticoagulate with IV heparin since it is possible that he may end up needing an urgent cardiac catheterization. The patient will continue on Metoprolol 100mg BID and we will begin Cardizem 30mg TID for better rate control. Check a TSH, free T4 and obtain an echocardigoram. * This patient has known coronary artery disease. In the setting of his rapid heart rate he has brought out this ischemia and ruled in for a type 2 [place]. We will control his heart rate and continue aspirin 81mg daily, Plavix 75mg daily, Lipitor, Losartan and beta [place]. Begin NTG paste 1/2 inch Q 6 hours. Follow cardiac enzymes until they peak. We will treat his underlying issus of poorly controlled diabetes and possible infection and will consider a cardiac cath when more stable. Obtain an endocrinology consult. Consult Acknowledgment - Thank you for your consult request.
[2018-01-08 14:52] VITALS: BP 110/62; BP 112/78
[2018-01-08 15:13] LABS: PTT 29 SEC (25-37)
--- NOTE | 2018-01-08 17:00 | RADIOLOGY REPORT ---
EXAMINATION: XR FOOT, RIGHT CLINICAL INFORMATION: Rule out acute pathology versus osteomyelitis. Evidence of foot ulcer. Recent the started on antibiotics. COMPARISON: Right foot films dated 04/04/2007. TECHNIQUE: AP, lateral, and oblique views of the right foot. FINDINGS: The patient has undergone transmetatarsal amputations of the fourth and fifth digits and phalanges. There is deformity of the third toe with probable partial resection of the distal third metatarsal head and the third proximal phalanx. No definite focal lytic or destructive bone lesion is seen. No acute fracture or dislocation is seen. There is diffuse osteopenia and moderate degenerative change at the first metatarsophalangeal joint and mild degenerative changes in the intertarsal joints. No ankle joint effusion is seen. Prominent plantar calcaneal spur is seen. There is flattening of the plantar arch. Extensive arterial calcifications are seen in the soft tissues of the ankle and foot. IMPRESSION: 1. Deformity of the foot related to prior amputations seen. No definite plain film evidence of osteomyelitis. 2. No acute fracture or dislocation. 3. Mild to moderate degenerative changes in the foot as discussed above. 4. Extensive peripheral vascular atherosclerotic disease.
--- NOTE | 2018-01-08 18:21 | Cons- Podiatry ---
General Information and HPI Consulting Request Date of Consult: 01/08/18 Requested By: Heri CAMARA PHD,Oumar Johns History of Present Illness: Brando is a 72-year-old diabetic male with an extensive past medical history including insulin-dependent diabetes, who was admitted after complaining of weakness and abdominal pain. The patient was noted to admission to the in atrial fibrillation and is being followed on the telemetry floor. Patient is also noted on physical exam to have an ulceration at the plantar right heel. The patient states that he has had the lesion since August and has been undergoing local wound care, however the patient is unsure of what precisely has been done. He is also unable to recall who he sees for his foot lesion. Denies any specific complaints associated with the right heel. Allergies/Medications Allergies: Coded Allergies: NO KNOWN ALLERGIES (07/23/15) Home Med List: Aspirin (Aspirin*) 81 MG TAB.CHEW 1 TAB PO DAILY HEART HEALTH (Reported) Atorvastatin Calcium (Lipitor) 80 MG TABLET 1 TAB PO QPM CHOLESTEROL ( Reported) Clopidogrel Bisulfate (Clopidogrel) 75 MG TABLET 1 TAB PO DAILY BLOOD THINNER (Reported) Gabapentin (Neurontin) 300 MG CAPSULE 1 CAP PO QPM UNKNOWN (Reported) Insulin Glargine,Hum.rec.anlog (Lantus Solostar) 100 UNIT/ML (3 ML) INSULN.PEN 50 UNIT SC QPM DM (Reported) Losartan (Cozaar) 100 MG TABLET 1 TAB PO DAILY BP (Reported) Metoprolol Tartrate (Lopressor) 100 MG TABLET 1 TAB PO BID htn (Reported) Nitroglycerin (Nitroglycerin Patch) 0.4 MG/HOUR PATCH.TD24 0.4 MG TOP DAILY PRN CHEST PAIN Apply one patch a day for 12 hours for chest pain. 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 Home Who Do You Live With? spouse, child Services at Home: None Primary Language: Lebanese Smoking Status: Former Smoker ETOH Use: occasional use Illicit Drug Use: denies illicit drug use Living Will? unknown Power of Customer Experience Analyst/HCP? no Functional Ability ADLs Independent: dressing, eating, toileting, bathing. Ambulation: cane, walker IADLs Independent: shopping, housework, finances, food prep, telephone, transportation , medication admin. Review of Systems Review of Systems: Unremarkable except noted history patient is Exam & Diagnostic Data Vital Signs and I&O Vital Signs Date Time Temp Pulse Resp B/P B/P Pulse O2 O2 Flow FiO2 Mean Ox Delivery Rate 01/08 1633 90 126/80 01/08 1452 97.8 118 20 110/62 97 Room Air 01/08 1051 97.6 113 20 124/70 97 Room Air 01/08 0907 98.0 90 20 121/84 98 Room Air 01/08 0830 98 Room Air 01/08 0818 82 20 122/75 98 Room Air 01/08 0750 64 116/55 01/08 0746 120 20 112/70 01/08 0740 120 112/70 01/08 0702 98.3 120 19 156/81 98 Room Air Intake & Output 01/08 1600 01/08 0800 / 0000 / 1600 01/07 0800 01/07 0000 Intake Total 340 Output Total Balance 340 Intake, IV 100 Intake, Oral 240 Patient 228 lb 240 lb Weight Weight Bed scale Reported by Patient Measurement Method Physical Exam: 2 discrete areas of necrotic eschar noted to the plantar aspect of the right heel measuring 2 cm x 0.5 cm. There is an area of desquamated skin around the plantar heel pad. No probing identified. No undermining. No fluctuance or crepitus identified. There is an area of erythema extending about the lesions by 2-3 cm. Some serous drainage noted. Assessment/Plan Assessment/Plan Diabetic ulcer right heel. Recommend a routine heel x-ray to rule out any deep infection infectious process. For now, Xeroform and dry sterile dressing both lesions. X-rays negative, recommend continuing his local wound care as an outpatient. Consult Acknowledgment - Thank you for your consult request. Attending MD Review Statement Attending Statement Attending MD Statement: examined this patient
[2018-01-08 22:10] LABS: PTT 29 SEC (25-37)
[2018-01-08 22:34] VITALS: BP 118/72
--- NOTE | 2018-01-09 01:07 | Event Note ---
Event Note Event Note: Baldemar note- 1st call: trops elevated @ 7.32. Originally informed Dr. Liriano that the EKG for 8pm looked similar to the one done at 2pm. Assessed patient who was asymptomatic. Aox2 (but not to time) and knew president was [place]. Had senior resident relook at EKG who thought lead III, AVF had worsening ST elevations. Dr. Liriano recontacted at 12:15AM with concerns of worsening ST elevation. Faxed'ed Dr. Liriano the EKGs. Also informed him that the patient's BP was 82/[address] Liriano recommended giving the patient fluids due to concerns of RV infarct. Arijeet follow up: Called and informed the family that he will be monitored in the ICU. Discussed w / Dr. Liriano. Disconttinued NTG, Morphine, cardizem and beta-[place]. Reassess in the am, and restart. 330 AM- notified weakness of LUE. Unsure duration, as per the nurses which could be before 11 PM. No aphasia, or drooping of face noticed. On examination, he had weakness in LUE, strength 4/5 LUE, with 5/5 in other extremities. Cranial nerves exam wnl. He appeared lethargic which has been an ongoing concern. Plantars downgoing. RUE seemed swolled compared to the left, which is not new. No erythema noted. Stroke alert called, and discussed the examination findings w/ Dr. Muniz who did not think this could be ischemic stroke w/ NIHSS < 2. Since she was on anticoagulation, which is contraindication no tpa was to be administered. Received a phone call from the radiologist that a possible infarct was seen in left cerebellar area which could be acute versus subacute. Discussed the CAT scan findings with Dr. Muniz, who could not comment on these neurological findings based on CAT scan results. These CAT scan findings could just be an incidental findings, and currently no TPA is indicated. Plan to supportively treat him, and continue IV heparin. MRI to be obtained in the a.m. Discussed with them, if he would need neuro ICU care, since this could be a left cerebellar stroke, and since he is not convinced that this is a stroke, he did not feel that he should be transferred to a higher center. Also discussed these findings with Dr. Liriano. As per Dr. Muniz, he is not able to make any recommendations for whether he can get cardiac cath or not based on these neurological findings until he sees the patient in the next 24 hours.
[2018-01-09 03:50] LABS: ABSOLUTE BASOPHIL COUNT 0 /CUMM (0.0-0.2); ABSOLUTE EOSINOPHIL COUNT 0.2 /CUMM (0.0-0.7); ABSOLUTE GRANULOCYTE CT 8.8 /CUMM (1.4-6.5); ABSOLUTE MONOCYTE COUNT 1.2 /CUMM (0.10-0.60); BASOPHIL % 0.3 % (0.0-2.0); EOSINOPHIL % 1.8 % (0-5); GRANULOCYTE % 71.4 % (42.2-75.2); MEAN CORPUSCULAR HGB 30.3 PG (27.0-31.0); MEAN CORPUSCULAR HGB CONC 33.9 G/DL (33.0-37.0); MEAN CORPUSCULAR VOLUME 89.5 FL (80.0-94.0); MEAN PLATELET VOLUME 7.9 FL (7.4-10.4); PLATELET COUNT 267 /CUMM (130-400); RBC DISTRIBUTION WIDTH 13.2 % (11.5-14.5); RED BLOOD CELL CT 3.66 /CUMM (4.70-6.10); WHITE BLOOD CELL COUNT 12.3 /CUMM (4.8-10.8)
[2018-01-09 03:55] LABS: PTT 58 SEC (25-37)
[2018-01-09 04:00] LABS: HEMATOCRIT 32.7 % (42-52)
--- NOTE | 2018-01-09 04:47 | CT SCAN REPORT ---
EXAMINATION: CT HEAD WITHOUT CONTRAST CLINICAL INFORMATION: Left upper extremity weakness COMPARISON: 03/26/2017 TECHNIQUE: Contiguous axial imaging was performed from the skull base to vertex without intravenous administration of contrast. DLP: 647.92 mGy-cm FINDINGS: There is no evidence of acute intracranial hemorrhage. There is a region of hypoattenuation in the inferior left cerebellar hemisphere which appears new from prior, raising concern for acute to subacute infarct in the proper clinical setting. No abnormal mass effect or midline shift is seen. Arnold to white matter differentiation is well preserved. No extra-axial fluid collections are identified. The ventricles are normal in size. There is moderate periventricular white matter hypoattenuation consistent with chronic small vessel ischemic disease. Chronic lacunar infarcts are noted in the right basal ganglia and thalamus as well as the left kapoor radiata. Mild volume loss is noted. The osseous structures and soft tissues are normal. Mucous retention cysts are noted in the posterior left ethmoid air cells and left maxillary sinus. The mastoid air cells are well aerated. IMPRESSION: 1. Region of hypoattenuation in the inferior left cerebellar hemisphere is concerning for acute to subacute infarct in the proper clinical setting; this would be best further assessed with MRI. 2. Chronic changes including small vessel ischemic disease, volume loss, and chronic lacunar infarcts. These chronic findings limit assessment for subtle acute pathology in the cerebral hemispheres. This critical result was discussed with zAiza Walker on 01/09/2018 4:41 AM, and it was ascertained that the content and urgency of the report was understood at the time of direct communication.
--- NOTE | 2018-01-09 06:39 | Patient Discharge Instructions ---
Discharge Instructions General Discharge Information You were seen/treated for: Chest pain, altered mental status Special Instructions: #1 please follow up with her primary care provider within a week of discharge #2 please follow-up with your freight router within a week of discharge. Acute Coronary Syndrome Inclusion Criteria At DC or during hospital stay patient has or had the following: ACS DIAGNOSIS Yes Discharge Core Measures Meds if any: Prescribed or Continued at Discharge FRANNIE/ARB if EF <40% Yes (Parminderzaar a) Meds if any: NOT Prescribed or Continued at Discharge Congestive Heart Failure Inclusion Criteria At DC or during hospital stay patient has or had the following: CHF DIAGNOSIS No Discharge Core Measures Meds if any: Prescribed or Continued at Discharge Meds if any: NOT Prescribed or Continued at Discharge Cerebrovascular accident Inclusion Criteria At DC or during hospital stay patient has or had the following: CVA/TIA Diagnosis No Discharge Core Measures Meds if any: Prescribed or Continued at Discharge Meds if any: NOT Prescribed or Continued at Discharge Venous thromboembolism Inclusion Criteria VTE Diagnosis No VTE Type NONE VTE Confirmed by (Test) NONE Discharge Core Measures - Per Current guidelines, there needs to be overlap - treatment for the first 5 days of Warfarin therapy. - If discharged on Warfarin prior to 5 days of - overlap therapy, the patient will need to be - assessed for post discharge needs including - *Post discharge parental anticoagulation - *Warfarin and/or parental anticoagulation education - *Follow up date to check INR post discharge At least 5 days overlap therapy as Inpatient No Meds if any: Prescribed or Continued at Discharge Note: Overlap Therapy is Warfarin and Anticoagulant Meds if any: NOT Prescribed or Continued at Discharge
--- NOTE | 2018-01-09 07:08 | Discharge Summary ---
Visit Information Visit Dates Admission Date: 01/08/18 Discharge Date: 01/09/17 Hospital Course Course Attending Physician: Heri CAMARA PHD,Oumar Johns Primary Care Physician: Mango Abdi MD Hospital Course: Mr Ulloa is a 72-year-old gentleman with a past medical history of essential hypertension, diabetes mellitus, insulin-dependent, coronary artery disease ( prior PCI does not follow up with the clinical laboratory science professor), hyperlipidemia, right foot toe amputations (?2016), diabetic ulcer right heel who was brought in by ambulance and early childhood coordinator of 01/08/2018 with a chief concern of weakness, inability to void and abdominal pain in the last few days prior to admission. He was found to be in atrial fibrillation, at the time of admission. He did not have any chest pain, shortness of breath, palpitations prior to admission. On examination at the time of admission, he was alert, Cooperative, Mild Distress;Skin Temp/Moisture Exam: Warm/Dry;Sepsis Skin Exam (color): Normal for Ethnicity;HEENT Mucous membranes dry;Neck Supple;Lymphatic Cervical nl; Cardiovascular Irregularly Irregular ;Lungs Clear to Auscultation, Normal Air Movement;Abdomen Normal Bowel Sounds, Soft, No Tenderness, Distended;; Neurological Strength at 5/5 X4 Ext ;Extremities Cold Extremities. Foot Ulcer, Right Heel: 3.5 cm X 3.5 cm ;Vascular Normal Pulses EKG revealed Atrial Flutter Rate 115, QTC 460. Pertinent lab findings: WBC 13.0, hemoglobin 12.7, hematocrit 38.3, sodium 138, potassium 4.4, bicarbonate 21, BUN 32, serum creatinine 1.3, magnesium 1.5. Cardiac enzymes-troponin I: 0.41--> 3.76--> 7.32--> 8.99. He was initially admitted to cardiology floor for the treatment of new onset atrial fibrillation, cardiac enzymes were trended while in monitoring EKG changes. Problem list: #1 atrial fibrillation-new onset #2 elevated cardiac enzymes #3 inferior wall KS #4 diabetes #5 diabetic foot ulcer #6 electrolyte abnormalities #7 acute/subacute cerebellar infarct #1 atrial fibrillation-new onset: He was started on adequate ventilation- intravenous heparin. He was rate controlled while he was monitored on cardiology floor. He did not have any chest pain or shortness of breath, but EKG revealed worsening elevation of ST in inferior leads. He also had an episode of hypotension after which she was transferred to intensive care unit for monitoring his blood pressure closely. #2 inferior wall KS-which could be worsening. Since his blood pressure was low, he was started on intravenous fluids. The plan was to start Francis-Synephrine, but since her blood pressure remained in systolic 100 to 110s, pressors were not started. The plan was to do a cardiac catheterization emergently. #3 acute/subacute cerebellar infarct-as per the history, the patient had pain in his left upper extremity for the last 4-5 days. He did not have any neurological symptoms at the time of admission. A CAT scan had revealed acute/ subacute cerebellar infarct, after which the neurologist was consulted for advice. As per the neurologist, there was no indication for TPA since he has been on intravenous heparin. An MRI was indicated for further diagnosis. He was to be transferred to intensive care/neuro ICU at a higher center. #4 diabetes-continued on NovoLog sliding scale, and monitor closely in ICU. He was continued on Unasyn for diabetic foot ulcer. Allergies: Coded Allergies: NO KNOWN ALLERGIES (07/23/15) Pertinent Lab Results: RAD - XRY-FOOT COMPLETE, R 1. Deformity of the foot related to prior amputations seen. No definite plain film evidence of osteomyelitis. 2. No acute fracture or dislocation. 3. Mild to moderate degenerative changes in the foot as discussed above. 4. Extensive peripheral vascular atherosclerotic disease. CAT - CT HEAD WO IV CONTRAST 1. Region of hypoattenuation in the inferior left cerebellar hemisphere is concerning for acute to subacute infarct in the proper clinical setting; this would be best further assessed with MRI. 2. Chronic changes including small vessel ischemic disease, volume loss, and chronic lacunar infarcts. These chronic findings limit assessment for subtle acute pathology in the cerebral hemispheres. RAD - XRY-PORTABLE CHEST XRAY Lungs clear. Disposition Summary Disposition Principal Diagnosis: Inferior wall KS Additional Diagnosis: Subacute/acute cerebellar infarct Discharge Disposition: other general hospital Discharge Instructions General Discharge Information Code Status: Full Code Patient's Diet: Nothing by mouth Patient's Activity: Bedrest Follow-Up Instructions/Appts: Please follow up with her primary care provider within the week of discharge. Medications at Discharge Discharge Medications: Stop taking the following medications: Nitroglycerin (Nitroglycerin Patch) 0.4 MG/HOUR PATCH.TD24 On the skin DAILY as needed for CHEST PAIN Qty = 5 Losartan (Cozaar) 100 MG TABLET ORAL DAILY Metoprolol Tartrate (Lopressor) 100 MG TABLET ORAL TWICE DAILY Continue taking these medications: Atorvastatin Calcium (Lipitor) 80 MG TABLET 1 Tablet ORAL Every night Comments: Last Taken: 03/18/17 Time: 9:00 PM Aspirin (Aspirin*) 81 MG TAB.CHEW 1 Tablet ORAL DAILY Comments: Last Taken: 03/19/17 Time: 10:30 AM Insulin Glargine,Hum.rec.anlog (Lantus Solostar) 100 UNIT/ML (3 ML) INSULN.PEN 50 Unit Inject into fatty tissue Every night Gabapentin (Neurontin) 300 MG CAPSULE 1 Capsule ORAL Every night Clopidogrel Bisulfate (Clopidogrel) 75 MG TABLET 1 Tablet ORAL DAILY Terbinafine HCl (Lamisil) 250 MG TABLET 1 Tablet ORAL DAILY Start taking the following new medications: Heparin Sod,Pork in 0.45% NaCl (Heparin-1/2NS 25,000 Units/250) 25,000 UNIT/250 ML (100 UNIT/ML) IV.SOLN 0 INTRAVEN CONTINUOUS INFUSION Qty = 30 No Refills Instructions: as per heparin protocol. Ampicillin Sodium/Sulbactam Na (Unasyn 1.5 Gm Vial) 1.5 GRAM VIAL 1.5 Gram INTRAVEN EVERY SIX HOURS Qty = 14 No Refills Copies To: Heri CAMARA,Jimbo Gallagher MD Review Statement Documenting Attending: Heri CAMARA PHD,Oumar Johns
[2018-01-09] MEDS ORDERED: HEPARIN-1/25000 UNIT IV (07:34)
[2018-01-09] MEDS ORDERED: UNASYN 1.5 GM1.5 GM IV (07:36)
--- NOTE | 2018-01-09 08:17 | PN- Cardiology ---
Subjective Subjective: * Patient is obtunded but responds appropriately for a few seconds after painful stimuli. No reported chest discomfort. * Atrial fibrillation * head CT showing acute to subacute cerebellar infarct with additional lacunar infarcts * Intermittently hypotensive overnight with response to saline * acutely increased creatinine of 2.2 (up from 1.3) * Increasing troponin up to 8.99 * On Unasyn for osteomyelitis with increased WBC count Objective Vital Signs and I&Os Vital Signs Date Time Temp Pulse Resp B/P B/P Pulse O2 O2 Flow FiO2 Mean Ox Delivery Rate 01/084 98.8 129 20 118/72 96 Room Air 01/08 2126 129 118/72 01/08 1633 90 126/80 01/08 1452 97.8 118 20 110/62 97 Room Air 01/08 1051 97.6 113 20 124/70 97 Room Air 01/08 0907 98.0 90 20 121/84 98 Room Air 01/08 0830 98 Room Air 01/08 0818 82 20 122/75 98 Room Air Intake & Output 01/09 0800 01/09 0000 01/08 1600 01/08 0800 01/08 0000 01/07 1600 Intake Total 325 340 Output Total Balance 325 340 Intake, IV 225 100 Intake, Oral 100 240 Patient 232 lb 228 lb 240 lb Weight Weight Bed scale Bed scale Reported by Patient Measurement Method Physical Exam: General: WD/obese male in NAD; obtunded HEENT: NC/AT, PERRL, right sided cataract, EOMI Neck: no obvious JVD, no carotid bruit Heart: irregularly irregular w/o murmur Lungs: clear bilaterally Abdomen: soft, obese, NT, +ve bowel sounds Extremities: 1+ leg edema bilaterally, right heel eschar Assessment/Plan Assessment/Plan * 1) Cardiac. This patient has known myocardial ischemia affecting the inferior wall as per a stress test but had refused a cardiac cath recommended in March 2017. He has not followed up with office visits and has been non-compliant with medications. His ECG shows chronic inferior ST elevations with Q waves. The patient presented to the ER with nausea, weakness and abdominal discomfort and was found to be in newly discovered atrial fibrillation with increased heart rate with a mildly elevated troponin and no complaints of chest pain. He was rate controlled and anticoagulated. Overnight he was noted to be hypotensive with increasing troponin but no chest pain. It was felt that he had RV dysfunction although sepsis could not be excluded considering an increased WBC count and osteomyelitis which could be a source of infection. He was thought to most likely have an RV infarction and was given IV fluids which his BP responded to. Antibiotics had already been started earlier in the day. Due to a rising troponin an emergent cardiac cath was contemplated but the patient was noted to be obtunded, with evidence of acute to subacute stroke and his creatinine had risen from 1.3 to 2.2, presumably due to hypotension induced ATN. In consideration of these factors and his being pain free and with Q waves inferiorly an urgent cath was cancelled. He remains on anticoagulation. * 2) Renal. Baseline renal insufficiency. He has an acutely increased creatinine that is likely related to ATN from transient hypotension overnight. * 3) Neurology. Acute to subacute infact likely related to his atrial fibrillation. * ID. On unasyn as recommended by podiatry for his osteomyelitis. Continue telemetry? Yes
== END 2018-01-09 08:32 | disposition short-term general hospital (02) | DRG 280 ==
LOC: ERH 06:51 → ERHI 08:34 → ENRESERV 09:25 → ENTRNSPT 09:49 → EDTRNSPT 09:52 → EDTRNSPTSTS 09:52 → CRI 10:09 → 1NO 10:10 → CMPTRNSPT 10:15 → CRI 01-09 01:45
PROVIDERS: Internal Medicine Endocrinology, Diabetes & Metabolism; Internal Medicine Interventional Cardiology; Pediatrics; Student in an Organized Health Care Education/Training Program
DX: I21.A1 Myocardial infarction type 2 (principal); I63.9 Cerebral infarction, unspecified; E11.621 Type 2 diabetes mellitus with foot ulcer; E11.65 Type 2 diabetes mellitus with hyperglycemia; E87.8 Other disorders of electrolyte and fluid balance, not elsewhere classified; M86.9 Osteomyelitis, unspecified; I48.91 Unspecified atrial fibrillation; I10 Essential (primary) hypertension; E78.5 Hyperlipidemia, unspecified; K59.00 Constipation, unspecified; I25.10 Atherosclerotic heart disease of native coronary artery without angina pectoris; Z98.61 Coronary angioplasty status; Z79.4 Long term (current) use of insulin; L89.619 Pressure ulcer of right heel, unspecified stage; Z89.421 Acquired absence of other right toe(s)
CPT/HCPCS: 1NP; 36415; 36592; 71045; 73630-RT; 82436; 87040; 87086; 93005; 93010; 96374; 96375; 99291; J1644; J3490; J7040

== ENCOUNTER 2018-04-03 11:00 | Inpatient (IN) | payer OTHER, MEDICARE ==
[~2018-04-03] VITALS: Ht 172.7 cm; Wt 114.1 kg
[~2018-04-03 11:00] MED LIST changes: +HEPARIN-1/25000 UNIT IV; +LOPRESSOR100 M1 PO; +UNASYN 1.5 GM1.5 GM IV
[2018-04-03 12:46] LABS: ABSOLUTE BASOPHIL COUNT 0 /CUMM (0.0-0.2); ABSOLUTE EOSINOPHIL COUNT 0 /CUMM (0.0-0.7); ABSOLUTE GRANULOCYTE CT 31.1 /CUMM (1.4-6.5); ABSOLUTE LYMPH COUNT 0.5 /CUMM (1.2-3.4); ABSOLUTE MONOCYTE COUNT 1.2 /CUMM (0.10-0.60); BASOPHIL % 0 % (0.0-2.0); EOSINOPHIL % 0 % (0-5); GRANULOCYTE % 94.9 % (42.2-75.2); HEMATOCRIT 30.8 % (42-52); MEAN CORPUSCULAR HGB 29.4 PG (27.0-31.0); MEAN CORPUSCULAR HGB CONC 33.5 G/DL (33.0-37.0); MEAN CORPUSCULAR VOLUME 87.8 FL (80.0-94.0); MEAN PLATELET VOLUME 7.6 FL (7.4-10.4); PLATELET COUNT 317 /CUMM (130-400); RBC DISTRIBUTION WIDTH 15.4 % (11.5-14.5); RED BLOOD CELL CT 3.51 /CUMM (4.70-6.10)
[2018-04-03 12:47] LABS: PT 18.7 SEC (9.4-12.5); PTT 32 SEC (25-37)
--- NOTE | 2018-04-03 12:51 | ED GENERAL ADULT ---
History of Present Illness General Chief Complaint: Altered Mental Status Stated Complaint: BIBA, AMS Source: patient, family, old records Exam Limitations: clinical condition Vital Signs & Intake/Output Vital Signs & Intake/Output Vital Signs Date Time Temp Pulse Resp B/P B/P Pulse O2 O2 Flow FiO2 Mean Ox Delivery Rate 04/03 1439 97 24 103/57 97 Nasal 2.0L Cannula 04/03 1407 97.1 100 22 99/62 98 Nasal 2.0L Cannula / 1404 99.0 102 20 103/56 99 Nasal 3.0L Cannula / 1304 99.2 126 22 116/51 97 Nasal 2.0L Cannula / 1252 128 78/58 95 Nasal 2.0L Cannula / 1243 96 Nasal 2.0L Cannula 04/03 1237 100.6 130 22 77/52 94 Nasal 2.0L Cannula / 1227 100.3 130 20 141/68 95 Nasal 3.0L Cannula /03 1200 101.6 / 1118 101.6 137 22 141/68 95 Nasal 3.0L Cannula Allergies Coded Allergies: NO KNOWN ALLERGIES (07/23/15) Reconcile Medications Ampicillin Sodium/Sulbactam Na (Unasyn 1.5 Gm Vial) 1.5 GRAM VIAL 1.5 GM IV Q6 diabetic foot ulcer Aspirin (Aspirin*) 81 MG TAB.CHEW 1 TAB PO DAILY HEART HEALTH (Reported) Atorvastatin Calcium (Lipitor) 80 MG TABLET 1 TAB PO QPM CHOLESTEROL ( Reported) Clopidogrel Bisulfate (Clopidogrel) 75 MG TABLET 1 TAB PO DAILY BLOOD THINNER (Reported) Gabapentin (Neurontin) 300 MG CAPSULE 1 CAP PO QPM UNKNOWN (Reported) Heparin Sod,Pork in 0.45% NaCl (Heparin-1/2NS 25,000 Units/250) 25,000 UNIT/250 ML (100 UNIT/ML) IV.SOLN 0 IV CONTINOUS INFUSION atrial fibrillation as per heparin protocol. Insulin Glargine,Hum.rec.anlog (Lantus Solostar) 100 UNIT/ML (3 ML) INSULN.PEN 50 UNIT SC QPM DM (Reported) Terbinafine HCl (Lamisil) 250 MG TABLET 1 TAB PO DAILY UNKNOWN (Reported) Core Measure Meds Pre-Hospital coumadin Triage Note: 72 YEAR OLD MALE TO ER VIA AMBULANCE FROM HIS HOME FOR AMS, ON ARRIVAL STRONG URINE ODOR NOTED, PT MOANS WITH ANY MOVEMENT , PT OPENS EYES TO LOUD VERBAL STIMULI, PER MEDIC THEY WERE CALLED TO HOME BY AND EDGE STAINER MACHINE TO TO PTS MENTAL STATUS, STATED THAT PT WAS OK YESTERDAY AND THIS AM HE WAS FOUND TO BE CONFUSED, EMS STATES THAT THEY WERE TOLD THAT PT WAS JUST DISCHARGED FROM [facility] 5 DAYS AGO AND HAS BEEN OK UP TO THIS AM . PT FEBRILE TEMP OF 101.6, NOTED TO BE SOAKED WITH URINE UP HIS BACK, SINUS TACH ON MONITOR HR 138, PER MEDIC ON THERE ARRIVAL O2 SAT FOUND TO BE 88 % ON RA AND THEY PLACED HIM ON NON REBREATHER 15L AND O2 SAT 100 % , PT PLACED ON NC 3L PT 95 % AT THIS TIME. ABG COMPLETED . PRESSLEY PLACED BY RN SUMMER DRAINED OF THICK YELLOW URINE. Triage Nurses Notes Reviewed? yes Onset: Just prior to arrival Duration: minute(s):, constant, continues in ED Timing: recent history Injury Environment: home Severity: severe No Modifying Factors: none HPI: 4 days prior to admission the patient was discharged from short-term rehabilitation reportedly still weak unable to walk without assistance. Several reports he fell last week 3 times. 3 days prior to admission he was able to complete physical therapy. After this time is remained bedridden sleeping without appetite. Prior to admission he was extremely weak with difficulty arousing with shortnes of breath so EMS was called. There's been no fever chills nausea vomiting diarrhea chest pain cough headache dysuria rash bleeding noted. Past History Travel History Traveled to [place] past 21 day No Medical History Any Pertinent Medical History? see below for history Neurological: AMS EENT: NONE Cardiovascular: CAD, hypertension, hyperlipidemia, [place] 12YRS AGO Respiratory: NONE Gastrointestinal: NONE Hepatic: NONE Renal: NONE Musculoskeletal: BACK SURGERY Psychiatric: NONE Endocrine: diabetes Blood Disorders: NONE Cancer(s): NONE LOAN DOCUMENTS CLOSER/Reproductive: NONE History of MRSA: Yes History of VRE: No History of CDIFF: No Surgical History Surgical History: RIGHT FOOT 4/5 TOE AMP BACK SURGERIES CYST REMOVAL Psychosocial History Who do you live with Son Services at Home None What is your primary language Russian Tobacco Use: Never used ETOH Use: denies use Illicit Drug Use: denies illicit drug use Family History Family History, If Any: MOTHER Hx Contributory? No Review of Systems Review of Systems Constitutional: Reports: see HPI, fever (In ED), weakness. EENTM: Reports: no symptoms. Respiratory: Reports: see HPI, short of breath. Cardiovascular: Reports: no symptoms. GI: Reports: no symptoms. Genitourinary: Reports: no symptoms. Musculoskeletal: Reports: no symptoms. Skin: Reports: no symptoms. Neurological/Psychological: Reports: see HPI, cognitive dysfunction, weakness. Hematologic/Endocrine: Reports: no symptoms. Immunologic/Allergic: Reports: no symptoms. All Other Systems: Reviewed and Negative Physical Exam Physical Exam General Appearance: well developed/nourished, lethargic, severe distress, obese Head: atraumatic, normal appearance Eyes: Bilateral: normal appearance, PERRL, EOMI. Ears, Nose, Throat: normal pharynx, dry mucous membranes Neck: normal inspection, supple, full range of motion, no midline tenderness Respiratory: chest non-tender, decreased breath sounds, accessory muscle use, crackles Cardiovascular: normal peripheral pulses, tachycardia, irregularly irregular, norml femoral pulses equa Peripheral Pulses: 4+ carotid (R), 4+ carotid (L) Gastrointestinal: normal bowel sounds, soft, non-tender, no organomegaly Back: normal inspection Extremities: normal range of motion, slow capillary refill Neurologic/Psych: food service specialist II-XII nml as tested, depressed affect, disoriented x 3, motor weakness Reflexes: 2+: bicep (R), bicep (L). Skin: intact, normal color, warm/dry Lymphatic: no anterior cervical cami Core Measures ACS in differential dx? Yes No ASA d/t Pharmacological CI CVA/TIA Diagnosis: No Sepsis Present: Yes Sepsis Focused Exam Completed? Yes Progress Differential Diagnoses I considered the following diagnoses in my evaluation of the patient: Pneumonia UTI sepsis pyelonephritis bacteremia Plan of Care: Orders Procedure Date/time Status Consistent Carbohydrate 2 04/03 D Active Patient Data 04/03 1414 Active LACTIC ACID 04/03 1408 Active OXYGEN SETUP (GEN) 04/03 1403 Active Saline Lock 04/03 1403 Active Admit to inpatient 04/03 1403 Active Vital Signs 04/03 1403 Active Activity/Ambulation 04/03 1403 Active Code Status 04/03 1403 Active FingerStick- Glucose 04/03 1252 Active Intake & Output 04/03 1240 Active URINALYSIS 04/03 1112 Complete ARTERIAL BLOOD GAS (GEN) 04/03 1108 Complete [place], Insertion/Removal/Asses 04/03 1108 Active CULTURE,URINE 04/03 1108 Active BLOOD CULTURE 04/03 1108 Active TROPONIN LEVEL 04/03 1108 Complete PARTIAL THROMBOPLASTIN TIME 04/03 1108 Complete PROTHROMBIN TIME 04/03 1108 Complete LACTIC ACID 04/03 1108 Complete COMPREHENSIVE METABOLIC PANEL 04/03 1108 Complete CBC WITHOUT DIFFERENTIAL 04/03 1108 Complete ACETONE 04/03 1108 Complete EKG 04/03 1101 Active Laboratory Tests 04/03/18 1210: Anion Gap 13, Estimated GFR 30 L, BUN/Creatinine Ratio 15.9, Glucose 135 H, Lactic Acid 3.6 H, Calcium 8.5, Total Bilirubin 0.7, AST 19, ALT 25, Alkaline Phosphatase 94, Troponin I 0.08, Total Protein 6.2 L, Albumin 2.7 L, Globulin 3.5, Albumin/Globulin Ratio 0.8 L, PT 18.7 H, INR 1.71 H, APTT 32, CBC w Diff MAN DIFF ORDERED, RBC 3.51 L, MCV 87.8, MCH 29.4, MCHC 33.5, RDW 15.4 H, MPV 7.6, Gran % 94.9 H, Lymphocytes % 1.5 L, Monocytes % 3.6, Eosinophils % 0, Basophils % 0, Absolute Granulocytes 31.1 H, Segmented Neutrophils 77 H, Band Neutrophils 19 H, Absolute Lymphocytes 0.5 L, Lymphocytes 2 L, Monocytes 2, Absolute Monocytes 1.2 H, Absolute Eosinophils 0, Absolute Basophils 0, Platelet Estimate VERIFIED BY SMEAR, Polychromasia 1+, Poikilocytosis 1+, Anisocytosis 1+, Clendenin Cells 1+, Acetone Level NEGATIVE 04/03/18 1114: Urine Color YEL, Urine Clarity CLDY H, Urine pH 6.0, Ur Specific [place] 1.020, Urine Protein 100 H, Urine Ketones NEG, Urine Nitrite NEG, Urine Bilirubin NEG, Urine Urobilinogen 0.2, Ur Leukocyte Esterase LARGE H, Ur Microscopic SEDIMENT EXAMINED, Urine RBC 3-5, Urine WBC PACKD H, Urine Bacteria MANY H, Urine Hemoglobin MOD H, Urine Glucose NEG 04/03/18 1110: pH 7.52 H, pCO2 26 L, pO2 66 L, HCO3 21, ABG O2 Sat (Measured) 93.0 L, Carboxyhemoglobin 0.4 L, O2 Concentration % 3L, O2 Delivery Method NC, Phlebotomy Draw Site RIGHT RADIAL Microbiology 04/03 1200 BLOOD: Blood Culture - RECD 04/03 1150 BLOOD: Blood Culture - RECD 04/03 1114 URINE ROUT: Urine Culture - RECD Diagnostic Imaging: Viewed by Me: Radiology Read. Discussed w/RAD: Radiology Read. Radiology Impression: No acute intracranial hemorrhage or territorial infarction. Chronic lacunar infarcts and small vessel ischemic changes in the cerebral white matter with parenchymal volume loss. CXR Impression: Limited study. Low lung volumes with hypoventilatory changes. Mild bibasilar opacities may be due to subsegmental atelectasis. Initial ED EKG: AFIB, nonspecific ST T wave chg, ST elevation Prior EKG: unchanged Rhythm Strip: atrial fibrillation Comments: Prognosis and diagnostics discussed with son. He reports that his father did not want to live like this and was decided that no heroic intervention would be used to prolong his life such as CPR intubation pressors. Departure Departure Time of Disposition: 1316 Disposition: STILL A PATIENT Condition: Stable Clinical Impression Primary Impression: Sepsis Secondary Impressions: Acute kidney injury, Atrial fibrillation with rapid ventricular response, Leukocytosis, Pneumonia Referrals: Mimi Rosales MD (PCP/Family) Departure Forms: Customer Survey General Discharge Information Admission Note Spoke With: Avani Hall MD Documentation of Exam: Documentation of any treatments & extenuating circumstances including Concerns Regarding Discharge (functional status, medication knowledge or non-compliance, living conditions, etc.) that warrant an admission rather than observation: IV fluids IV antibiotics serial lab exams follow cultures renal evaluation Pressley catheter physical therapy cardiac monitoring medication adjustment continuing care discharge planning ED Sepsis Exam Date of Focused Sepsis Exam: 04/03/18 Time of Focused Sepsis Exam: 1526 Sepsis Cardiac Exam: irregularly irregular Sepsis Resp Exam: Rales Sepsis Cap Refill Exam: >2 sec Sepsis Peripheral Pulse Exam: Normal Sepsis Peripheral Pulse Location: Radial Sepsis Skin Color Exam: Pale Skin Temp/Moisture Exam: Warm/Dry Critical Care Note Critical Care Note Critical Care Time: 30-74 min (45)
[2018-04-03 13:01] LABS: WHITE BLOOD CELL COUNT 32.8 /CUMM (4.8-10.8)
--- NOTE | 2018-04-03 13:23 | RADIOLOGY REPORT ---
EXAMINATION: XR PORTABLE CHEST CLINICAL INFORMATION: Hypoxia and fever. Altered mental status. COMPARISON: Chest x-ray from 01/08/2018. TECHNIQUE: Portable frontal view of the chest was obtained. FINDINGS: Low lung volumes limit assessment. Mild right basilar opacities may be due to subsegmental atelectasis. Evaluation of the cardiomediastinal silhouette is also limited due to patient head positioning, lordotic technique, and low lung volumes. No definite pleural effusions are seen. The mid and upper lungs are clear. No acute osseous abnormality is seen. IMPRESSION: Limited study. Low lung volumes with hypoventilatory changes. Mild bibasilar opacities may be due to subsegmental atelectasis.
--- NOTE | 2018-04-03 14:52 | CT SCAN REPORT ---
EXAMINATION: CT HEAD WITHOUT CONTRAST CLINICAL INFORMATION: Fall and weakness. Rule out intracranial hemorrhage. COMPARISON: Head CT from 01/09/2018. TECHNIQUE: Contiguous axial imaging was performed from the skull base to vertex without intravenous administration of contrast. DLP: 698.5 mGy-cm FINDINGS: There is no evidence of acute intracranial hemorrhage or territorial infarction. No abnormal mass effect or midline shift is seen. Arnold to white matter differentiation is well preserved. No extra-axial fluid collections are identified. Diffuse parenchymal volume loss noted. Small vessel ischemic changes are present throughout the cerebral white matter, as previously noted. There are multiple small chronic-appearing infarcts in the right basal ganglia, right thalamus, and left kapoor radiata also visible on the previous examination. There is ex vacuo dilatation of the right lateral ventricle. No hydrocephalus is evident. The osseous structures and soft tissues are normal. The mastoid air cells are well aerated. There are a few scattered retention cysts in the maxillary and left ethmoid sinuses. IMPRESSION: No acute intracranial hemorrhage or territorial infarction. Chronic lacunar infarcts and small vessel ischemic changes in the cerebral white matter with parenchymal volume loss.
--- NOTE | 2018-04-03 15:08 | Admission Certification ---
Admission Certification Certification Statement - As attending physician, I certify that at the time of - admission, based on clinical presentation, severity of - symptoms, need for further diagnostic testing and - therapeutic interventions, and risk of adverse outcomes - without in-hospital treatment, in my clinical assessment, - this patient requires an acute hospital stay for a minimum - of two nights or longer. I have also considered psychsocial - factors such as support system, advanced age, financial - issues, cognitive issues, and failed out-patient treatments, - past re-admission history, safety of patient, and lack of - compliance as applicable. Specific rationale supporting this admission is: Sepsis of urological origin, infectious encephalopathy, AJRETT and dehydration
--- NOTE | 2018-04-03 15:11 | PN- Att Addend ---
Attending Addendum Attending Brief Note 72-year-old male multiple comorbidities including diabetes, hypertension, CKD, CAD and previous strokes. He was recently here earlier this year and was transferred after he made positive troponin and had an acute to subacute cerebellar infarct for PCI and intervention. Most of the history is obtained from the chart and the patient's son. Patient apparently went to rehabilitation from [facility] initially followed by [facility]re[facility] for STR and has only been home for the last few days. At home he's been getting progressively weak, with inability to walk around, poor by mouth intake and lethargy. He comes in today with what appears to be septic shock as evidenced by a fever 101.6, hypotension, tachycardia and leukocytosis of 32,000. When he was catheterized there was derrell pus in the urine as per the ED staff so I think the source is his urine although I can't rule out a pneumonia as well. The patient's son is explicitly clear that the patient is DNR/DNI, doesn't want central line or pressors. At this point will bring him into telemetry and treat him with broad-spectrum antibiotics. Given his recent hospitalization and the pus in the urine I would favor giving him Vanco, ceftaz to cover for the possibility of MRSA and Pseudomonas and Azithro for the possibility of an atypical pneumonia. Will hydrate him aggressively, he is lethargic and I think this is all an infectious and metabolic encephalopathy given the sepsis and Bridget with CKD. We'll keep him nothing by mouth for now, hold all of his medications, check fingersticks with regular insulin sliding scale and follow closely. The patient's son clearly understands that the patient is critically ill and prognosis is poor.
--- NOTE | 2018-04-03 15:36 | History & Physical ---
Fred CAMARA,Leo 04/03/18 1534: General Information and HPI MD Statement: I have seen and personally examined JOVAN MACEDO and documented this H&P. The patient is a 72 year old M who BIBA for FEVER, AMS. Source of Information: family (Son named Quinten), friend (named Quinten as well) Exam Limitations: clinical condition History of Present Illness: 72 yo M who has HTN, IDDM, CAD s/p PCI, HLD, Right toe amputations for osteomyelitis, diabetic ulcer of rt heel, recent admission at [facility] from till 01/09/18 for new onset afib, and was found to have an inferior wall MT and stroke (cerebellar), and was sent for catheterization to [facility], from where he was sent to [facility], was discharged to acute rehab and an STR. He was recently discharged to his home and was appearantly walking with his walker and speaking without any difficulty, carrying out his daily activities until yesterday when he expressed that he was tired and felt that he had "lived enough, and wanted to ", after which since this morning, his visiting nurse saw him with urinary incontinence, foul smelling urine, febrile, and lethargic. He was brought to the ED then and was foudn to be minimally responsive to verbal commands. According to family members and his nurse, patient did not have any fever, and his vitals were normal yesterday, was responding well, did not complain of any pain abdomen, urinary problems, constipation/diarrhea, chest pain, shortness of breath, chest heaviness/tightness, headache, dizziness, confusion, sick contacts , and he did not have any recent long distance travel. In the ED, he was found to be in severe sepsis, and thus received aggressive IV fluid resuscitation 4L NS, IV antibiotics azithromycin and ceftriaxone, as a Garcia was placed which drained purulent urine (low amount). He was found to be tachycardic, tachypneic, hypotensive, febrile, had leukocytosis, making less urine, and minimally responsive. His family is his son also name Quinten who makes decisions for patient's behalf, and a family friend also named Quinten who helps in decision-making appearantly. We had a detailed conversation about patient's history, current condition, and goals of care in the ED and in the family room in conference call as well (tele floor). [see A&P note below]. Allergies/Medications Allergies: Coded Allergies: NO KNOWN ALLERGIES (07/23/15) Home Med list Amlodipine Besylate 5 MG TABLET 1 TAB PO DAILY BP (Reported) Aspirin (Aspirin*) 81 MG TAB.CHEW 1 TAB PO DAILY HEART HEALTH (Reported) Atorvastatin Calcium (Lipitor) 80 MG TABLET 1 TAB PO QPM CHOLESTEROL ( Reported) Furosemide 20 MG TABLET 1 TAB PO DAILY DIURETIC (Reported) Gabapentin (Neurontin) 300 MG CAPSULE 1 CAP PO BID UNKNOWN (Reported) Insulin Aspart (Novolog) 100 UNIT/ML VIAL 5 UNITS SC TIDAC DM (Reported) Insulin Aspart (Novolog) 100 UNIT/ML VIAL DM (Reported) Insulin Glargine,Hum.rec.anlog (Lantus Solostar) 100 UNIT/ML (3 ML) INSULN.PEN 24 UNIT SC QPM DM (Reported) Lisinopril 20 MG TABLET 1 TAB PO DAILY BP (Reported) Metoprolol Succinate 200 MG TAB.ER.24H 1 TAB PO DAILY HEART/BP (Reported) Polyethylene Glycol 3350 (Miralax) 17 GRAM POWD.PACK 1 PAC PO Q12H PRN GI ( Reported) dissolve in water Warfarin Sodium 3 MG TABLET 1 TAB PO DAILY BLOOD THINNER (Reported) Compliance With Home Meds: UNKNOWN Past History Travel History Traveled to [place] past 21 day No Medical History Neurological: AMS EENT: NONE Cardiovascular: CAD, hypertension, hyperlipidemia, MT 12YRS AGO Respiratory: NONE Gastrointestinal: NONE Hepatic: NONE Renal: NONE Musculoskeletal: BACK SURGERY Psychiatric: NONE Endocrine: diabetes Blood Disorders: NONE Cancer(s): NONE SOAP WORKER/Reproductive: NONE History of MRSA: Yes History of VRE: No History of CDIFF: No Surgical History Surgical History: RIGHT FOOT 4/5 TOE AMP BACK SURGERIES CYST REMOVAL Past Family/Social History Family History Relations & Conditions if any MOTHER Psychosocial History Where do you live? Home Who Do You Live With? spouse, child Services at Home: None Primary Language: Uzbek Smoking Status: Former Smoker ETOH Use: occasional use Illicit Drug Use: denies illicit drug use Living Will? unknown Power of Procedure Manager/HCP? no Other Social History: Son Quinten makes decisions for him on his [facility] Functional Ability ADLs Independent: dressing, eating, toileting, bathing. Ambulation: cane, walker IADLs Independent: shopping, housework, finances, food prep, telephone, transportation , medication admin. Review of Systems Review of Systems Constitutional: Reports: no symptoms. EENTM: Reports: no symptoms. Cardiovascular: Reports: no symptoms. Respiratory: Reports: no symptoms. GI: Reports: no symptoms. Genitourinary: Reports: no symptoms. Musculoskeletal: Reports: no symptoms. Skin: Reports: no symptoms. Neurological/Psychological: Reports: no symptoms. Hematologic/Endocrine: Reports: no symptoms. All Other Systems: Reviewed and Negative Exam & Diagnostic Data Last 24 Hrs of Vital Signs/I&O Vital Signs Date Time Temp Pulse Resp B/P B/P Pulse O2 O2 Flow FiO2 Mean Ox Delivery Rate 04/03 1439 97 24 103/57 97 Nasal 2.0L Cannula 04/03 1407 97.1 100 22 99/62 98 Nasal 2.0L Cannula 04/03 1404 99.0 102 20 103/56 99 Nasal 3.0L Cannula 04/03 1304 99.2 126 22 116/51 97 Nasal 2.0L Cannula 04/03 1252 128 78/58 95 Nasal 2.0L Cannula 04/03 1243 96 Nasal 2.0L Cannula 04/03 1237 100.6 130 22 77/52 94 Nasal 2.0L Cannula / 1227 100.3 130 20 141/68 95 Nasal 3.0L Cannula /03 1200 101.6 /03 1118 101.6 137 22 141/68 95 Nasal 3.0L Cannula Intake & Output 04/03 1600 06/03 0800 06/03 0000 Intake Total 1000 Output Total 300 Balance 700 Intake, IV 1000 Output, Urine 300 Patient 108.862 kg Weight Physical Exam General Appearance Mild Distress, Moderate Distress, patient is minimally responsive on loud verbal instructions like "opening eyes", or "opening mouth" ", obese, ALL EXAMINATION FINDINGS BELOW ARE AFTER 4 L OF NORMAL SALINE RESUSCITATION Skin No Rashes, Left 3rd toe has scab Skin Temp/Moisture Exam: Warm/Dry Sepsis Skin Exam (color): Normal for Ethnicity HEENT Mucous Membr. moist/pink, rt cornea is partially clouded ?old Neck Supple, No JVD Lymphatic Cervical nl Cardiovascular Normal S1, Normal S2, irregular HR Lungs decreased breath sounds heard b/l Abdomen Normal Bowel Sounds, Soft, No Tenderness, abd appeared bloated Neurological not fully assessed due to clinical condition, pupils b/l reactive, not following command so power assessment is difficult Extremities No Clubbing, No Cyanosis, No Edema Vascular pulses are sluggish Sepsis Peripheral Pulse Location: Dorsalis Pedis Sepsis Peripheral Pulse Exam: Weak Sepsis Cap Refill Exam: <2 Sec Last 24 Hrs of Labs/Kj: Laboratory Tests 04/03/18 1210: Anion Gap 13, Estimated GFR 30 L, BUN/Creatinine Ratio 15.9, Glucose 135 H, Lactic Acid 3.6 H, Calcium 8.5, Total Bilirubin 0.7, AST 19, ALT 25, Alkaline Phosphatase 94, Troponin I 0.08, Total Protein 6.2 L, Albumin 2.7 L, Globulin 3.5, Albumin/Globulin Ratio 0.8 L, PT 18.7 H, INR 1.71 H, APTT 32, CBC w Diff MAN DIFF ORDERED, RBC 3.51 L, MCV 87.8, MCH 29.4, MCHC 33.5, RDW 15.4 H, MPV 7.6, Gran % 94.9 H, Lymphocytes % 1.5 L, Monocytes % 3.6, Eosinophils % 0, Basophils % 0, Absolute Granulocytes 31.1 H, Segmented Neutrophils 77 H, Band Neutrophils 19 H, Absolute Lymphocytes 0.5 L, Lymphocytes 2 L, Monocytes 2, Absolute Monocytes 1.2 H, Absolute Eosinophils 0, Absolute Basophils 0, Platelet Estimate VERIFIED BY SMEAR, Polychromasia 1+, Poikilocytosis 1+, Anisocytosis 1+, Sanjeev Cells 1+, Acetone Level NEGATIVE 04/03/18 1114: Urine Color YEL, Urine Clarity CLDY H, Urine pH 6.0, Ur Specific [place] 1.020, Urine Protein 100 H, Urine Ketones NEG, Urine Nitrite NEG, Urine Bilirubin NEG, Urine Urobilinogen 0.2, Ur Leukocyte Esterase LARGE H, Ur Microscopic SEDIMENT EXAMINED, Urine RBC 3-5, Urine WBC PACKD H, Urine Bacteria MANY H, Urine Hemoglobin MOD H, Urine Glucose NEG 04/03/18 1110: pH 7.52 H, pCO2 26 L, pO2 66 L, HCO3 21, ABG O2 Sat (Measured) 93.0 L, Carboxyhemoglobin 0.4 L, O2 Concentration % 3L, O2 Delivery Method NC, Phlebotomy Draw Site RIGHT RADIAL Microbiology 06/03 1200 BLOOD: Blood Culture - RECD 04/03 1150 BLOOD: Blood Culture - RECD 04/03 1114 URINE ROUT: Urine Culture - RECD Assessment/Plan Assessment: 72 yo M who has HTN, IDDM, CAD s/p PCI, HLD, Right toe amputations for osteomyelitis, diabetic ulcer of rt heel, recent admission at [facility] from till 01/09/18 for new onset afib, and was found to have an inferior wall MT and stroke (cerebellar), and was sent for catheterization to [facility] from where he was sent to [facility], was discharged to acute rehab and an STR. He comes in via ambulance for lethargy, fever, and altered mental status. He had temperature of 101.6, was tachycardic at 137, tachypneic at 22, blood pressure initially was 141/68 which later dropped to 77/52, saturation 95% at 2 L/m oxygen, with leukocytosis at 32,800 with bandemia at 19, derrell pus out of the Garcia catheter/packed WBC in UA, but her mentation, and a worsened kidney function with creatinine of 2.2, lactic acid of 3.6. With all this, he clearly has severe sepsis of urologic origin. GOALS OF CARE DISCUSSION: Given his condition of severe sepsis with organ failure, his prognosis is poor ( as of now), as we consider his wishes that he had expressed to his son and his friend to DO NOT RESUSCITATE or DO NOT INTUBATE, if he were to have any cardiopulmonary failure. I had an extensive conversation with his family members and family friends together, and later over conference call with patient 's son (Akhil turner) in presence of patient's family members regarding patient's current medical condition, his prognosis, treatment options, and its foreseeable consequences, to which point, the patient's son clearly mentioned that the patient would not have wanted any escalation of care given his current condition and prognosis. To clarify it further, he clearly mentioned, that if patient's clinical condition were to deteriorate, do not transfer to the ICU, do not place a central line, no IV pressors, DO NOT RESUSCITATE, and DO NOT INTUBATE. These techical terms were all explained in simple words as well. Essentially, if his clinical condition worsens, he (the son) needs to be called and would explore options regarding comfort measures only/hospice at that point of time. But as of now, we are admitting him in telemetry for the management of following issues: # Severe sepsis, secondary to urologic origin The patient will be taking care in the telemetry floor, and IV fluids resuscitation will be continued, while watching for fluid overload. Broad- spectrum IV antibiotics has been started including azithromycin, vancomycin, ceftaz edema, to cover Pseudomonas as well as MRSA and atypical organisms. Will wait for cultures to narrow down on the antibiotics. In case patient's condition deteriorates, will inform family members and discuss about goals of care regarding comfort measures only for hospice, else we will continue as mentioned above. # Diabetes mellitus Patient is currently nothing by mouth, and after his fluid resuscitation we plan to start him on IV fluids with dextrose, and Accu-Cheks every 6 hours, Insulin R q6h #We are holding rest of his PO meds for now. #Diet: NPO #DVT ppx: ALPS and SQ Heparin #Code status: DNR/DNI As Ranked By This Provider Problem List: 1. Severe sepsis 2. UTI (urinary tract infection) Core Measures/Misc (07/18) Acute Coronary Syndrome ACS Diagnosis: No Congestive Heart Failure Congestive Heart Failure Diagnosis No Cerebrovascular Accident CVA/TIA Diagnosis: No VTE (View Protocol) VTE Risk Factors Age>40 No Mechanical VTE Prophylaxis d/t N/A MechProphylax Ordered No VTE Pharm Prophylaxis d/t NA PharmProphylax ordered Sepsis (View protocol) Sepsis Present: Yes If YES complete Sepsis Event Note If YES complete Sepsis Event Note Rafael CAMARA,Avani 04/04/18 0753: Core Measures/Misc (07/18) Sepsis (View protocol) If YES complete Sepsis Event Note If YES complete Sepsis Event Note Attending MD Review Statement Attending Statement Attending MD Statement: examined this patient, discuss w/resident/PA/ROTARY HELPER, agreed w/resident/PA/ROTARY HELPER, discussed with family, reviewed EMR data (avail), discussed with nursing, reviewed images Attending Assessment/Plan: See medical brief addendum note dated 04/03/18
--- NOTE | 2018-04-03 15:38 | Sepsis Event Note ---
Sepsis Event Note Severe Sepsis Severe Sepsis Present: Yes Severe Sepsis Actions Taken: Blood Cultures x2, Lactic Acid x2, IV Broad Spectrum Abx, IV Fluids- NS or LR Septic Shock Septic Shock Present: No (BP IMPROVED WITH IV FLUIDS) Event Note Event Note: Patient had a temperature of 101.6, was tachycardic at 137, tachypneic at 22, blood pressure initially was 141/68 which later dropped to 77/52, saturation 95% at 2 L/m oxygen, with leukocytosis at 32,800 with bandemia at 19, derrell pus out of the Garcia catheter/packed WBC in UA, but her mentation, and a worsened kidney function with creatinine of 2.2, lactic acid of 3.6. With all this, he clearly has severe sepsis of urologic origin. He received IV fluids aggressively in the ED, and is still getting IV fluids. He received IV antibiotics in the ED, which has now been broadened to cover more bacteria, i.e. IV Vancomycin, IV Ceftazidime, IV Azithromycin. Blood and urine cultures have been sent, and results pending. Lactic acid trending until it normalizes. Sepsis Focused Exam Sepsis Cardiac Exam: Tachycardia Sepsis Resp Exam: crackles b/l, low BS b/l Sepsis Cap Refill Exam: <2 Sec Sepsis Peripheral Pulse Exam: Weak Sepsis Peripheral Pulse Location: Dorsalis Pedis Sepsis Skin Exam (color): Normal for Ethnicity Skin Temp/Moisture Exam: Warm/Dry (upto feet, distal feet cool)
[2018-04-03] MEDS ORDERED: FUROSEMIDE20 M1 PO (17:38)
[2018-04-03] MEDS ORDERED: AMLODIPINE BESYL5 M1 PO (17:39)
[2018-04-03] MEDS ORDERED: METOPROLOL SUC200 M2 PO (17:39)
[2018-04-03] MEDS ORDERED: LISINOPRIL20 M1 PO (17:39)
[2018-04-03] MEDS ORDERED: NOVOLOG100 UNIT/2 SC ×2 (17:40)
[2018-04-03] MEDS ORDERED: WARFARIN SODIUM3 M1 PO (17:40)
[2018-04-03] MEDS ORDERED: MIRALAX17 G1 PO (17:41)
[2018-04-03 20:00] VITALS: BP 102/60
[2018-04-04] VITALS: BP 90/60
[2018-04-04 05:45] LABS: ABSOLUTE BASOPHIL COUNT 0 /CUMM (0.0-0.2); ABSOLUTE EOSINOPHIL COUNT 0 /CUMM (0.0-0.7); ABSOLUTE MONOCYTE COUNT 1.2 /CUMM (0.10-0.60); BASOPHIL % 0 % (0.0-2.0); EOSINOPHIL % 0 % (0-5); MEAN CORPUSCULAR HGB 29.6 PG (27.0-31.0); RED BLOOD CELL CT 2.89 /CUMM (4.70-6.10)
[2018-04-04 05:50] LABS: ABSOLUTE GRANULOCYTE CT 32.1 /CUMM (1.4-6.5); GRANULOCYTE % 93.7 % (42.2-75.2); MEAN CORPUSCULAR HGB CONC 33.3 G/DL (33.0-37.0); MEAN CORPUSCULAR VOLUME 88.8 FL (80.0-94.0); MEAN PLATELET VOLUME 7.7 FL (7.4-10.4); PLATELET COUNT 195 /CUMM (130-400); RBC DISTRIBUTION WIDTH 16.2 % (11.5-14.5)
[2018-04-04 05:54] LABS: HEMATOCRIT 25.7 % (42-52); WHITE BLOOD CELL COUNT 34.3 /CUMM (4.8-10.8)
--- NOTE | 2018-04-04 07:01 | PN- Housestaff ---
See Addendum Subjective Follow-up For: Sepsis of urological origin History of CAD Subjective: Seen and examined at bedside. Even though patient is awake he appears disoriented, minimally verbal and not able to follow commands other than opening his eyes when prompted verbally. He remained afebrile overnight, last MAXIMUM TEMPERATURE was 100.6. No Acute telemetry event reported. Review of Systems Constitutional: Reports: see HPI. Objective Last 24 Hrs of Vital Signs/I&O Vital Signs Date Time Temp Pulse Resp B/P B/P Pulse O2 O2 Flow FiO2 Mean Ox Delivery Rate 04/04 0800 99 Nasal 2.0L Cannula 04/04 08 98.4 127 18 100/68 100 Nasal 2.0L Cannula 04/04 0000 96 Nasal 2.0L Cannula 04/04 0000 98.2 123 22 90/60 96 Nasal 2.0L Cannula 04/03 2019 97 Nasal 2.0L Cannula 04/03 2000 97 Nasal 2.0L Cannula 04/03 2000 98.6 122 20 102/60 97 Nasal 2.0L Cannula 04/03 1829 99.4 / 1829 99.4 / 1812 99.4 117 24 84/60 100 Nasal 2.0L Cannula / 1730 118 22 84/40 100 Nasal 2.0L Cannula / 1635 100.6 126 26 86/40 97 Nasal 2.0L Cannula / 1633 100.6 06/03 1607 99.1 100 24 97 Nasal 2.0L Cannula / 1439 97 24 103/57 97 Nasal 2.0L Cannula / 1407 97.1 100 22 99/62 98 Nasal 2.0L Cannula / 1404 99.0 102 20 103/56 99 Nasal 3.0L Cannula /03 1304 99.2 126 22 116/51 97 Nasal 2.0L Cannula /03 1252 128 78/58 95 Nasal 2.0L Cannula Intake & Output / 1600 /04 0800 04/04 0000 Intake Total 300 6956 Output Total 250 150 Balance 50 6806 Intake, IV 300 6956 Intake, Oral 0 Output, Urine 250 150 Patient 112.491 kg Weight Physical Exam General Appearance: awake, disoriented and minimally verbal, appears in moderate distress Skin: No Significant Lesion Neck: Supple, No JVD Lymphatic: Cervical nl Lungs: crackles heard b/l Abdomen: Normal Bowel Sounds, Soft Extremities: No Edema Current Medications: Current Medications Sig/Anna Start time Last Medication Dose Route Stop Time Status Admin Acetaminophen 0 .STK-MED ONE 04/03 1633 DC IV Acetaminophen 650 MG Q6P PRN 04/03 1600 DC PO Acetaminophen 1,000 MG Q6P PRN / 1600 AC 04/03 IV 1633 Azithromycin 500 MG DAILY@1500 / 1500 CAN Sodium Chloride 250 ML IV Azithromycin 500 MG ONCE ONE 04/03 1345 DC 06 Sodium Chloride 250 ML IV 04/03 1444 1451 Ceftazidime 2,000 MG Q12H 04/04 0630 DC 04/04 IV 0608 Ceftazidime 0 .STK-MED ONE 04/03 1823 DC .ROUTE Ceftazidime 2,000 MG Q12 04/03 1745 DC 04/03 IV 1829 Ceftriaxone Sodium 1,000 MG DAILY 04/05 0900 AC IV Insulin Human Regular 4 UNITS .STK-MED ONE 04/04 0039 DC IV 04/04 0040 Insulin Human Regular 0 Q6 / 2359 AC 04/04 SC 1244 Lactated Ringer's 1,000 ML ONCE ONE 04/04 0745 AC / IV / 2104 0801 Magnesium Sulfate 1 GM ONCE ONE 04/04 0830 DC 04/04 Dextrose/Water 100 ML IV 04/04 1229 1029 Polyethylene Glycol 17 GM AT BEDTIME PRN 04/03 1600 DC PO Sodium Chloride 1,000 ML Q13H 04/03 2015 DC /03 IV / 2214 2055 Sodium Chloride 1,000 ML BOLUS ONE 04/03 1645 DC 06/03 IV 06/ 1744 1651 Sodium Chloride 1,000 ML BOLUS ONE / 1645 DC 06/03 IV 06/ 1744 1651 Sodium Chloride 1,000 ML BOLUS ONE / 1245 DC 06/03 IV 06/ 1344 1236 Sodium Chloride 1,000 ML BOLUS ONE / 1245 DC 06/03 IV 06/ 1344 1327 Sodium Chloride 1,000 ML BOLUS ONE / 1245 DC 06/03 IV 06/ 1344 1327 Sodium Chloride 1,000 ML BOLUS ONE 04/03 1245 DC 06/03 IV / 1344 1451 Vancomycin HCl 1,000 MG DAILY@1830 04/04 1830 CAN Sodium Chloride 250 ML IV Vancomycin HCl 1,000 MG DAILY 04/03 1745 DC 04/03 Sodium Chloride 250 ML IV 1829 Last 24 Hrs of Lab/Kj Results Last 24 Hrs of Labs/Mics: Laboratory Tests 04/04/18 0520: CBC w Diff MAN DIFF ORDERED, RBC 2.89 L, MCV 88.8, MCH 29.6, MCHC 33.3, RDW 16.2 H, MPV 7.7, Gran % 93.7 H, Lymphocytes % 2.8 L, Monocytes % 3.5, Eosinophils % 0, Basophils % 0, Absolute Granulocytes 32.1 H, Segmented Neutrophils 90 H, Band Neutrophils 7 H, Absolute Lymphocytes 1.0 L, Lymphocytes 3 L, Absolute Monocytes 1.2 H, Absolute Eosinophils 0, Absolute Basophils 0, Platelet Estimate ADEQUATE, Polychromasia 1+ 04/04/18 0415: Anion Gap 14, Estimated GFR 27 L, Glucose 158 H, Calcium 7.5 L, Phosphorus 5.4 H, Magnesium 1.6, Total Bilirubin 0.4, AST 18, ALT 23, Albumin 2.5 L, PT 22.0 H, INR 2.00 H, CBC w Diff Cancelled, WBC Cancelled, RBC Cancelled, Hgb Cancelled, Hct Cancelled, MCV Cancelled, MCH Cancelled, MCHC Cancelled, RDW Cancelled, Plt Count Cancelled, MPV Cancelled 04/04/18 0140: Lactic Acid Cancelled 04/03/18 2320: Lactic Acid 2.0 04/03/18 2211: Lactic Acid Cancelled 04/03/18 1945: Lactic Acid 2.8 H 04/03/18 1532: Lactic Acid 3.3 H Microbiology 04/03 1905 UPPER RESP: Surveillance Culture - RECD 04/03 1905 GI: Surveillance Culture - RECD Assessment/Plan Assessment: 72-year-old gentleman with extensive multiple comorbidities including hypertension, sick daily, diabetes, previous CVA, recent cath in december then sent to rehab and then discharge home few days ago presents in a septic clinical condition (fevers, leukocytosis, hypotension and lactic acidosis) in the setting of positive gram-negative rods in urine and blood. Impression * Sepsis of urological origin with gram-negative rods isolated in urine. * Bacteremia 2 with gram-negative rods, with source being . * Hypertension. Secondary to sepsis * Hypomagnesemia * History of chronic diseases: CAD, diabetes, hypertension, COPD, CVA(?). Plan * Will switch normal saline to lactated Ringer's in the setting of developing iatrogenic hyponatremia and hyperchloremic metabolic acidosis. * His persistent worsening leukocytosis is concerning, however he has been afebrile overnight and his WC differential shows a drastic improvement in reduction of bands. Given that he is now growing gram-negative rods which is most likely wither Escherichia coli or Klebsiella, will switch from ceftaz to ceftriaxone (I personally called lab and verify that the patient was not likely to be growing Pseudomonas based on preliminary analysis). * Will request ID consult for further guidance * Continue IV fluids at a very conservative rate (75ml/hr) given that we do not know his recent EF and is a CAD patient. * Patient continues to be in sinus tachycardia, this is more likely secondary to the sepsis. However PE is given consideration, given the respiratory alkalosis and some EKG changes (there is S1Q3T3 on EKG, even though the Q wave in lead 3 accounted by the previous inferior wall WV that the patient recently had). Patient is on Coumadin with a herpetic INR today but the admission INR was subtherapeutic. * Patient has expressed his wishes which are also in line with his son's. They do not want any heroic measures including no central line placement or pressors. In the event that the patient deteriorates their wishes are to start the process of comfort measures. Will call patient's son to schedule a meeting as the patient's prognosis is guarded. Problem List: 1. Severe sepsis Pain Ratin Pain Location: none Pain Goal: Remain pain free Pain Plan: per pathway Tomorrow's Labs & Rationales: bep
[2018-04-04 08:00] VITALS: BP 100/68
[2018-04-04 16:00] VITALS: BP 98/58
--- NOTE | 2018-04-04 17:15 | Cons- Infect Disease ---
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 intake. On admission he was febrile to 101.6, with an O2 sat of 88% on room air. His initial blood pressure was 141/68 but, after an hour, it dropped to 77/52. Laboratory data revealed a white blood cell count of 33,000, with 77 segs and 19 bands, with vacuolated polys noted, BUN/creatinine 35 and 2.2, lactic acid 3.6, with normal liver enzymes, troponin 0.08, INR 1.71/PTT 32, ABG 7.5 12/27/65 on 3 L/min. Urinalysis 3-5 RBC/packed WBCs. Chest x-ray revealed mild bibasilar opacities. CT the head was negative for any acute process. He was given 7 liters of fluid in the emergency room. He was also begun on Ceftriaxone and Azithromycin but was changed to Vancomycin and Ceftazidime later in the day. He appears to have defervesced overnight and his blood pressure has stabilized. This morning blood cultures 2 were reported positive for gram-negative rods and his antibiotics were changed to Ceftriaxone. He is unable to provide a reliable history at this time. Allergies/Medications Allergies: Coded Allergies: NO KNOWN ALLERGIES (07/23/15) Home Med List: Amlodipine Besylate 5 MG TABLET 1 TAB PO DAILY BP (Reported) Aspirin (Aspirin*) 81 MG TAB.CHEW 1 TAB PO DAILY HEART HEALTH (Reported) Atorvastatin Calcium (Lipitor) 80 MG TABLET 1 TAB PO QPM CHOLESTEROL ( Reported) Furosemide 20 MG TABLET 1 TAB PO DAILY DIURETIC (Reported) Gabapentin (Neurontin) 300 MG CAPSULE 1 CAP PO BID UNKNOWN (Reported) Insulin Aspart (Novolog) 100 UNIT/ML VIAL 5 UNITS SC TIDAC DM (Reported) Insulin Aspart (Novolog) 100 UNIT/ML VIAL DM (Reported) Insulin Glargine,Hum.rec.anlog (Lantus Solostar) 100 UNIT/ML (3 ML) INSULN.PEN 24 UNIT SC QPM DM (Reported) Lisinopril 20 MG TABLET 1 TAB PO DAILY BP (Reported) Metoprolol Succinate 200 MG TAB.ER.24H 1 TAB PO DAILY HEART/BP (Reported) Polyethylene Glycol 3350 (Miralax) 17 GRAM POWD.PACK 1 PAC PO Q12H PRN GI ( Reported) dissolve in water Warfarin Sodium 3 MG TABLET 1 TAB PO DAILY BLOOD THINNER (Reported) Past History Travel History Traveled to [facility] past 21 day No Medical History Neurological: AMS EENT: NONE Cardiovascular: CAD, hypertension, hyperlipidemia, WI 12YRS AGO WI 01/16 Respiratory: NONE Gastrointestinal: NONE Hepatic: NONE Renal: NONE Musculoskeletal: BACK SURGERY, s/p amputation of the right 3rd and 5th toes Psychiatric: NONE Endocrine: diabetes Blood Disorders: NONE Cancer(s): NONE DAMPENER/Reproductive: NONE History of MRSA: Yes History of VRE: No History of CDIFF: No Isolation History: Contact Surgical History Surgical History: RIGHT FOOT 4/5 TOE AMP BACK SURGERIES CYST REMOVAL Family History Relations & Conditions If Any: MOTHER Psychosocial History Where Do You Live? Home Who Do You Live With? spouse, child Services at Home: None Primary Language: Tamazight Smoking Status: Former Smoker ETOH Use: occasional use Illicit Drug Use: denies illicit drug use Living Will? unknown Power of Machine Bunch Maker/HCP? no Other Social History: [facility] Quinten [facility] Functional Ability ADLs Independent: dressing, eating, toileting, bathing. Ambulation: cane, walker IADLs Independent: shopping, housework, finances, food prep, telephone, transportation , medication admin. Review of Systems Comments Unobtainable Exam & Diagnostic Data Last 24 Hrs of Vital Signs/I&O Vital Signs Date Time Temp Pulse Resp B/P B/P Pulse O2 O2 Flow FiO2 Mean Ox Delivery Rate 04/04 1600 98.4 98 20 98/58 98 Nasal 2.0L Cannula 06/04 1600 98 Nasal 2.0L Cannula 04/04 800 99 Nasal 2.0L Cannula 04/04 800 98.4 127 18 100/68 100 Nasal 2.0L Cannula 04/04 0000 96 Nasal 2.0L Cannula 04/04 0000 98.2 123 22 90/60 96 Nasal 2.0L Cannula 04/03 2019 97 Nasal 2.0L Cannula 04/03 2000 97 Nasal 2.0L Cannula 04/03 2000 98.6 122 20 102/60 97 Nasal 2.0L Cannula 04/03 1829 99.4 04/03 1829 99.4 04/03 181 99.4 117 24 84/60 100 Nasal 2.0L Cannula 04/03 1730 118 22 84/40 100 Nasal 2.0L Cannula Intake & Output 04/04 1600 04/04 0804/04 0000 Intake Total 052 484 4399 Output Total 350 250 150 Balance 728 09 4220 Intake, IV 422 141 1112 Intake, Oral 0 Number 0 Bowel Movements Output, Urine 350 250 150 Patient 248 lb Weight Physical Exam Other Physical Findings: He is lethargic but arousable, oriented to place but unable to provide a reliable history. T-max 101.6. Skin reveals no rash. HEENT exam is negative. Neck is supple with no adenopathy. Lungs are clear anteriorly. Heart regular rhythm with no murmur. Abdomen is soft, tender to palpation diffusely, with no obvious guarding or rebound, with positive bowel sounds. Back no CVA tenderness. Extremities no cyanosis, clubbing or edema. Neuro weakness of all extremities. Garcia catheter is in place. Last 24 Hours of Lab Results: Laboratory Tests 04/04 04/04 1504 0520 Blood Gas Bicarbonate Actual (22 - 26 MEQ/L) 9 L Mixed VBG pH (7.31 - 7.41 PH) 7.41 Mixed VBG pCO2 (41 - 51 TORR) 14 L Mixed VBG O2 Saturation (35 - 45 TORR) 77 H P-50 (Temp Corrected) N Carboxyhemoglobin (1.5 - 5.0 %) 0.3 L O2 Concentration % 2L Temperature (97.0 - 100.0 FARH) 98.4 O2 Delivery Method N/C Hematology CBC w Diff MAN DIFF ORDERED WBC (4.8 - 10.8 /CUMM) 34.3 *H RBC (4.70 - 6.10 /CUMM) 2.89 L Hgb (14.0 - 18.0 G/DL) 8.6 L Hct (42 - 52 %) 25.7 L MCV (80.0 - 94.0 FL) 88.8 MCH (27.0 - 31.0 PG) 29.6 MCHC (33.0 - 37.0 G/DL) 33.3 RDW (11.5 - 14.5 %) 16.2 H Plt Count (130 - 400 /CUMM) 195 MPV (7.4 - 10.4 FL) 7.7 Gran % (42.2 - 75.2 %) 93.7 H Lymphocytes % (20.5 - 51.1 %) 2.8 L Monocytes % (1.7 - 9.3 %) 3.5 Eosinophils % (0 - 5 %) 0 Basophils % (0.0 - 2.0 %) 0 Absolute Granulocytes (1.4 - 6.5 /CUMM) 32.1 H Segmented Neutrophils (42.2 - 75.2 %) 90 H Band Neutrophils (0.0 - 5.0 %) 7 H Absolute Lymphocytes (1.2 - 3.4 /CUMM) 1.0 L Lymphocytes (20.5 - 51.1 %) 3 L Absolute Monocytes (0.10 - 0.60 /CUMM) 1.2 H Absolute Eosinophils (0.0 - 0.7 /CUMM) 0 Absolute Basophils (0.0 - 0.2 /CUMM) 0 Platelet Estimate (ADEQUATE) ADEQUATE Polychromasia 1+ Miscellaneous Phlebotomy Draw Site LEFT HAND PIVO 04/04 04/04 04/03 04/03 0412 4044 9711 2214 Chemistry Sodium (137 - 145 mmol/L) 148 H Potassium (3.5 - 5.1 mmol/L) 4.6 Chloride (98 - 107 mmol/L) 115 H Carbon Dioxide (22 - 30 mmol/L) 19 L Anion Gap (5 - 16) 14 BUN (9 - 20 mg/dL) 37 H Creatinine (0.7 - 1.2 mg/dL) 2.4 H Estimated GFR (>60 ml/min) 27 L Glucose (65 - 99 mg/dL) 158 H Lactic Acid (0.7 - 2.1 mmol/L) Cancelled 2.0 Cancelled Calcium (8.4 - 10.2 mg/dL) 7.5 L Phosphorus (2.5 - 4.5 mg/dL) 5.4 H Magnesium (1.6 - 2.3 mg/dL) 1.6 Total Bilirubin (0.2 - 1.3 mg/dL) 0.4 AST (17 - 59 U/L) 18 ALT (21 - 72 U/L) 23 [id number] Pept (<125 pg/mL) 13961 H Albumin (3.5 - 5.0 g/dL) 2.5 L Coagulation PT (9.4 - 12.5 SEC) 22.0 H INR (0.90 - 1.17) 2.00 H Hematology CBC w Diff Cancelled WBC Cancelled RBC Cancelled Hgb Cancelled Hct Cancelled MCV Cancelled MCH Cancelled MCHC Cancelled RDW Cancelled Plt Count Cancelled MPV Cancelled 04/03 1945 Chemistry Lactic Acid (0.7 - 2.1 mmol/L) 2.8 H Last 24 Hours of Kj Results: Blood cultures 2 April 03 positive for gram-negative rods Urine culture April 03 greater than 100,000 colonies of gram-negative rods Diagnostic Data Recent Imaging Findings: Chest x-ray April [address] of the head April 03 no acute process Assessment/Plan Assessment/Plan Impression: This is a 72-year-old man with a history of diabetes, last hospitalized at [place] 3-1/2 months prior to admission with new onset of atrial fibrillation, an inferior wall WI and a cerebellar CVA, transferred to [place] for PCI, then to [facility] and, subsequently, to [facility] for short-term rehab, with discharge home just 5 days prior to admission, admitted on April 03 with progressive weakness, lethargy, confusion and decreased p.o. intake, found to be febrile, hypoxic and hypotensive with a marked leukocytosis and bandemia, renal insufficiency and pyuria, with blood and urine cultures reported positive today for gram-negative rods. His clinical picture is consistent with sepsis of urologic origin. His recent prolonged hospital stay at [facility] increases his risk for resistant organisms and, pending final cultures, feel that his antibiotics should be adjusted. He does appear to have stabilized, with defervescence and resolution of his bandemia, though his white blood cell count has increased. His renal insufficiency appears to have worsened, likely secondary to the sepsis, but urinary obstruction should be ruled out. He has apparently expressed wishes for no heroic measures, which may affect the overall level of intervention, but he is apparently to be continued on antibiotics at this time. Suggestion: 1. Follow-up final cultures 2. Renal ultrasound 3. Discontinue Ceftriaxone 4. Begin Meropenem 1 g IV every 12 hours pending above Consult Acknowledgment - Thank you for your consult request.
--- NOTE | 2018-04-04 20:06 | Cons- Cardiology ---
General Information and HPI Consulting Request Date of Consult: 04/04/18 Requested By: Derrek Gamble MD History of Present Illness: Brando is a 72 year old male with history of hypertension, dyslipidemia, diabetes and coronary artery disease status post angioplasty in 2006. 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 A recent hospital admission this past December was remarkable for a new cerebellar infarct in the setting of newly discovered atrial fibrillation and positive troponins consistent with an ND. A cardiac catheteriztion was not done at the [facility] at that time due to his recent stroke and the feeling that he had completed his ND with little residual ischemia. It should be noted that this patient had documented inferior ischemia a couple years ago but refused a cardaic catheterization and failed to follow up. The patient was again brought to the ER for evaluation of weakness, lethargy and mental status changes. He had a low blood pressure and findings consistent with sepsis. History is limnited but he currently denies any chest discomfort, shortness of breath or lightheadedness. At his baseline, this patient typically has mild and non-radiating chest pressure that is exacerbated by physical activity. The patient's latest echo shows a decreased EF of 40-45% with inferior akinesis and inferiolateral wall hypokinesis, mild left ventricular hypertrophy and moderate left atrial enlargement. In 2006 the patient underwent and cardiac catheterization showing a 20% ostial left main stenosis, a 40-50% mid LAD stenosis at the takeoff of the first diagonal branch and a 50% distal LAD lesion. A large septal branch has a 50% ostial and 60% mid stenosis. The LCX has a 30% AV groove lesion. The RCA was a dominant vessel with a long proximal dissection with an 80% stenosis at the crux. The posterolateral branch has a 70% ostial stenosis. Allergies/Medications Allergies: Coded Allergies: NO KNOWN ALLERGIES (07/23/15) Home Med List: Amlodipine Besylate 5 MG TABLET 1 TAB PO DAILY BP (Reported) Aspirin (Aspirin*) 81 MG TAB.CHEW 1 TAB PO DAILY HEART HEALTH (Reported) Atorvastatin Calcium (Lipitor) 80 MG TABLET 1 TAB PO QPM CHOLESTEROL ( Reported) Furosemide 20 MG TABLET 1 TAB PO DAILY DIURETIC (Reported) Gabapentin (Neurontin) 300 MG CAPSULE 1 CAP PO BID UNKNOWN (Reported) Insulin Aspart (Novolog) 100 UNIT/ML VIAL 5 UNITS SC TIDAC DM (Reported) Insulin Aspart (Novolog) 100 UNIT/ML VIAL DM (Reported) Insulin Glargine,Hum.rec.anlog (Lantus Solostar) 100 UNIT/ML (3 ML) INSULN.PEN 24 UNIT SC QPM DM (Reported) Lisinopril 20 MG TABLET 1 TAB PO DAILY BP (Reported) Metoprolol Succinate 200 MG TAB.ER.24H 1 TAB PO DAILY HEART/BP (Reported) Polyethylene Glycol 3350 (Miralax) 17 GRAM POWD.PACK 1 PAC PO Q12H PRN GI ( Reported) dissolve in water Warfarin Sodium 3 MG TABLET 1 TAB PO DAILY BLOOD THINNER (Reported) Review of Systems Review of Systems: A review of systems is unremarkable. Past History Travel History Traveled to [place] past 21 day No Medical History Neurological: AMS EENT: NONE Cardiovascular: CAD, hypertension, hyperlipidemia, [place] 12YRS AGO ND 01/16 Respiratory: NONE Gastrointestinal: NONE Hepatic: NONE Renal: NONE Musculoskeletal: BACK SURGERY s/p amputation of the right 3rd and 5th toes Psychiatric: NONE Endocrine: diabetes Blood Disorders: NONE Cancer(s): NONE WIRE ROLLER/Reproductive: NONE Surgical History Surgical History: RIGHT FOOT 4/5 TOE AMP BACK SURGERIES CYST REMOVAL Family History Relations & Conditions If Any: MOTHER Psychosocial History Where Do You Live? Home Who Do You Live With? spouse, child Services at Home: None Primary Language: Guinean Smoking Status: Former Smoker ETOH Use: occasional use Illicit Drug Use: denies illicit drug use Living Will? unknown Power of Weatherization Operations Manager/HCP? no Other Social History: Son Quinten makes decisions for him [facility] Functional Ability ADLs Independent: dressing, eating, toileting, bathing. Ambulation: cane, walker IADLs Independent: shopping, housework, finances, food prep, telephone, transportation , medication admin. Exam & Diagnostic Data Vital Signs and I&O Vital Signs Date Time Temp Pulse Resp B/P B/P Pulse O2 O2 Flow FiO2 Mean Ox Delivery Rate 04/04 1600 98.4 98 20 98/58 98 Nasal 2.0L Cannula 04/04 1600 98 Nasal 2.0L Cannula 04/04 0800 99 Nasal 2.0L Cannula 04/04 0800 98.4 127 18 100/68 100 Nasal 2.0L Cannula 04/04 0000 96 Nasal 2.0L Cannula 04/04 0000 98.2 123 22 90/60 96 Nasal 2.0L Cannula 04/03 2019 97 Nasal 2.0L Cannula 04/03 2000 97 Nasal 2.0L Cannula 04/03 2000 98.6 122 20 102/60 97 Nasal 2.0L Cannula Intake & Output 04/04 1600 04/04 0800 06/ 0000 04/03 1600 04/03 0800 04/03 0000 Intake Total 830 788 3733 1000 Output Total 350 250 150 300 Balance 218 56 9004 700 Intake, IV 167 723 5861 1000 Intake, Oral 0 Number 0 Bowel Movements Output, Urine 350 250 150 300 Patient 248 lb 240 lb Weight Physical Exam: General: WD/WN male in NAD; awake an minimally responsive. HEENT:: NC/AT, PERRL, EOMI Neck: no JVD, no carotid bruit Heart: irregularly irregular Lungs: clear bilaterally Abdomen: soft, NT, +ve bowel sounds Extremities: no edema, right toe amputations Assessment/Plan Assessment/Plan * This patient has atrial fibrillation with rapid heart rate. He is on chronic anticoagulation although his INR was subtherapeutic. Ideally, this patient will need beta blockade for rate control but with his borderline blood pressure no antihypertensive medications can be given. His tachycardia is likely related to his atrial fibrillation but a PE cannot be completely excluded especially considering his abnormal ABG. My strongest suspicion is that his tachycardia and hypotension is related to his atrial fibrillation and sepsis but a PE cannot be excluded. Keep his INR in the therapeutic range, check a D-dimer and if abnormal consider a V/Q scan. * This patient has known coronary artery disease. On last visit, in the setting of his rapid heart rate he had ruled in for a type 2 ND. A cardaic catheterization was not pursued at the time and invasive treatment is being refused by the patient at this time. Continue aspirin 81mg daily and Lipitor. Continue antibiotic therapy. Consult Acknowledgment - Thank you for your consult request.
--- NOTE | 2018-04-04 22:03 | ULTRASOUND REPORT ---
EXAMINATION: US RETROPERITONEAL COMPLETE (RENAL) CLINICAL INFORMATION: Elevated creatinine. Sepsis. Evaluate for hydronephrosis.. COMPARISON: Abdomen and pelvic CT of 04/10/2013. TECHNIQUE: Real-time imaging of the kidneys and bladder. Evaluation is limited by patient's body habitus and limited mobility. Patient was unable to suspend respiration during the examination. FINDINGS: RIGHT KIDNEY: 11.6 x 5.2 x 4.5 cm (SAG x AP x TRV). The kidney is normal in size and echogenicity. Normal cortical thickness. Portions of the upper pole of the kidney are obscured and not well delineated. No calculi, hydronephrosis or focal parenchymal lesion. LEFT KIDNEY: 11.5 x 5.9 x 5.5 cm (SAG x AP x TRV). The kidney is normal in size, contour, and echogenicity. Renal cortical thickness is normal. No calculi or focal parenchymal lesions. Mild hydronephrosis. BLADDER: Decompressed by indwelling Garcia catheter. IMPRESSION: Mild left renal hydronephrosis. No renal calculi. Normal renal parenchymal echogenicity and renal cortical thickness. Limited evaluation of the upper to mid right kidney.
[2018-04-05] VITALS: BP 110/70
[2018-04-05 06:15] LABS: ABSOLUTE BASOPHIL COUNT 0 /CUMM (0.0-0.2); ABSOLUTE EOSINOPHIL COUNT 0 /CUMM (0.0-0.7); ABSOLUTE GRANULOCYTE CT 1.5 /CUMM (1.4-6.5); ABSOLUTE MONOCYTE COUNT 0 /CUMM (0.10-0.60); BASOPHIL % 0.2 % (0.0-2.0); EOSINOPHIL % 1.4 % (0-5); GRANULOCYTE % 57.5 % (42.2-75.2); HEMATOCRIT 28.2 % (42-52); MEAN CORPUSCULAR HGB 29.3 PG (27.0-31.0); MEAN CORPUSCULAR HGB CONC 33.4 G/DL (33.0-37.0); MEAN CORPUSCULAR VOLUME 87.8 FL (80.0-94.0); MEAN PLATELET VOLUME 8.3 FL (7.4-10.4); PLATELET COUNT 196 /CUMM (130-400); RBC DISTRIBUTION WIDTH 16.3 % (11.5-14.5); RED BLOOD CELL CT 3.21 /CUMM (4.70-6.10)
[2018-04-05 06:29] LABS: WHITE BLOOD CELL COUNT 2.6 /CUMM (4.8-10.8)
[2018-04-05 06:50] LABS: PT 28.9 SEC (9.4-12.5)
--- NOTE | 2018-04-05 07:18 | PN- Housestaff ---
Ramírez CAMARA,Nathaniel 04/05/18 0718: Subjective Follow-up For: Sepsis of urological origin Hypotension Subjective: And is seen and examined at bedside. He is awake but moderately lethargic he is however able to follow simple commands. Overall he appears to have improved compared to previous days. No acute elevated temperatures reported. Review of Systems Constitutional: Reports: see HPI. Objective Last 24 Hrs of Vital Signs/I&O Vital Signs Date Time Temp Pulse Resp B/P B/P Pulse O2 O2 Flow FiO2 Mean Ox Delivery Rate 04/05 1600 95 Room Air / 1540 98.2 111 20 122/74 95 Room Air / 1149 94/60 / 0800 99 Nasal 3.0L Cannula 04/05 0800 99.5 124 20 88/60 100 Nasal 3.0L Cannula 04/05 0648 999.0 04/05 0555 100.0 / 0000 98 Nasal 3.0L Cannula / 0000 98.7 115 20 110/70 98 Nasal 3.0L Cannula Intake & Output 04/05 1600 04/05 0800 / 0000 Intake Total 800 100 600 Output Total 350 500 550 Balance 450 -400 50 Intake, IV 800 100 600 Intake, Oral 0 Output, Urine 350 500 550 Patient 112.945 kg 113.398 kg Weight Weight Bed scale Measurement Method Physical Exam General Appearance: Alert, Oriented X3, Cooperative Current Medications: Current Medications Sig/Anna Start time Last Medication Dose Route Stop Time Status Admin Acetaminophen 1,000 MG .STK-MED ONE 04/05 0544 DC IV 04/05 0545 Acetaminophen 1,000 MG Q6P PRN 04/03 1600 AC 04/05 IV 0555 Cefazolin Sodium 1,000 MG Q12H 04/05 1600 AC 04/05 IV 1613 Insulin Aspart 0 TIDAC 04/06 0800 AC SC Insulin Human Regular 2 UNITS .STK-MED ONE 04/05 0641 DC IV 04/05 0642 Insulin Human Regular 2 UNITS .STK-MED ONE 04/04 2324 DC IV 04/04 2325 Insulin Human Regular 0 Q6 04/03 2359 DC / SC 1747 Lactated Ringer's 1,000 ML ONCE ONE 04/04 0745 DC / IV 04/04 2104 0801 Meropenem 1 GM Q12 04/04 2100 DC 04/05 IV 0820 Sodium Chloride 1,000 ML Q6H / 1115 AC 06/05 IV 1735 Sodium Chloride 500 ML BOLUS ONE / 1045 DC 06/05 IV 06/05 1144 1044 Sodium Chloride 1,000 ML Q6H / 0830 DC 06/ IV 0846 Warfarin Sodium 3 MG COUMADIN 1700 ONE 04/05 1700 DC 06/ PO / 1701 1735 Last 24 Hrs of Lab/Kj Results Last 24 Hrs of Labs/Mics: Laboratory Tests 04/05/18 1633: CBC w Diff MAN DIFF ORDERED, RBC 2.78 L, MCV 87.6, MCH 29.8, MCHC 34.0, RDW 15.6 H, MPV 8.2, Gran % 92.9 H, Lymphocytes % 4.7 L, Monocytes % 2.4, Eosinophils % 0, Basophils % 0, Absolute Granulocytes 19.2 H, Segmented Neutrophils 90 H, Band Neutrophils 4, Absolute Lymphocytes 1.0 L, Lymphocytes 3 L, Monocytes 3, Absolute Monocytes 0.5, Absolute Eosinophils 0, Absolute Basophils 0, Platelet Estimate ADEQUATE, Poikilocytosis FEW, Anisocytosis 1+ 04/05/18 0530: Anion Gap 17 H, Estimated GFR 31 L, Glucose 113 H, Calcium 7.8 L, Phosphorus 4.4, Magnesium 2.1, Total Bilirubin 0.5, AST 21, ALT 21, Albumin 2.7 L, PT 28.9 H, INR 2.63 H, D-Dimer High Sensitivty 1469 H, CBC w Diff NO MAN DIFF REQ, RBC 3.21 L, MCV 87.8, MCH 29.3, MCHC 33.4, RDW 16.3 H, MPV 8.3, Gran % 57.5, Lymphocytes % 39.9, Monocytes % 1.0 L, Eosinophils % 1.4, Basophils % 0.2, Absolute Granulocytes 1.5, Absolute Lymphocytes 1.0 L, Absolute Monocytes 0 L, Absolute Eosinophils 0, Absolute Basophils 0 Lines/Diet/Fluids Garcia Still Needed? Yes Central Line Type/Location: IJ Assessment/Plan Assessment: 72-year-old gentleman with extensive multiple comorbidities including hypertension, sick daily, diabetes, previous CVA, recent cath in december then sent to rehab and then discharge home few days ago presents in a septic clinical condition (fevers, leukocytosis, hypotension and lactic acidosis) in the setting of positive gram-negative rods in urine and blood. Impression * Sepsis of urological origin with gram-negative rods isolated in urine. * Bacteremia 2 with gram-negative rods, with source being . * Hypertension. Secondary to sepsis * Hypomagnesemia * History of chronic diseases: CAD, diabetes, hypertension, COPD, CVA(?). Plan * SIGNIFICANT drop of white blood count most likely's spurious, consider CBC. Weekly patient appears to be slowly but progressively defervescing has not had any temperature overnight. Based on todays susceptibility results in ID recommendation will switch from meropenem to cefazolin gram every 12 (renally adjusted dose). * Will do a 500 mL normal saline bolus for the blood pressure currently around 86 systolic * for his atrial fibrillation will continue with INR based Coumadin dosing * Patient for possible PE during the first 2 days of admission, however CTA was not feasible given his creatinine and was doing the patient not tolerate a VQ scan.Lower extremity Doppler bilateral was negative. Pt is already on Coumadin. * Diet: Puree with nector thick * Patient has expressed his wishes which are also in line with his son's. They do not want any heroic measures including no central line placement or pressors. In the event that the patient deteriorates their wishes are to start the process of comfort measures. Will call patient's son to schedule a meeting as the patient's prognosis is guarded. Problem List: 1. Severe sepsis 2. Atrial fibrillation 3. UTI (urinary tract infection) Pain Ratin Pain Location: none Pain Goal: Remain pain free Pain Plan: per pathway Tomorrow's Labs & Rationales: bep, cbc Derrek Gamble MD 04/05/18 1533: Attending MD Review Statement Attending Statement Attending MD Statement: examined this patient, discuss w/resident/PA/PREVENTIVE MEDICINE PHYSICIAN, agreed w/resident/PA/PREVENTIVE MEDICINE PHYSICIAN, reviewed EMR data (avail), reviewed images, amended to note Attending Assessment/Plan: The patient was seen and discussed with house staff. Mental status improved and taking po now (modified diet). Concern with leukopenia (?secondary to Abx). Venous Duplex neg for DVT LE. Appreciate ID follow-up changed to cefazolin. Family involved with level of care. OK to transfer to telemetry.
[2018-04-05 08:00] VITALS: BP 88/60
--- NOTE | 2018-04-05 11:10 | PN- Infect Dx ---
Subjective Subjective: T-max 100. His blood pressure remains borderline. He is unable to provide any reliable history. Objective Last 24 Hrs of Vital Signs/I&O Vital Signs Date Time Temp Pulse Resp B/P B/P Pulse O2 O2 Flow FiO2 Mean Ox Delivery Rate 04/05 800 99 Nasal 3.0L Cannula 04/05 800 99.5 124 20 88/60 100 Nasal 3.0L Cannula 04/05 0648 999.0 04/05 0555 100.0 04/05 0000 98 Nasal 3.0L Cannula 04/05 0000 98.7 115 20 110/70 98 Nasal 3.0L Cannula 04/04 1600 98.4 98 20 98/58 98 Nasal 2.0L Cannula 04/04 1600 98 Nasal 2.0L Cannula Intake & Output 04/05 0000 Intake Total 100 600 Output Total 500 550 Balance -400 50 Intake, IV 100 600 Output, Urine 500 550 Patient 249 lb 250 lb Weight Weight Bed scale Measurement Method Physical Exam Other Physical Findings: He is lethargic but responsive, appearing in no acute distress Lungs are clear anteriorly Heart regular rhythm with no murmur Abdomen is soft, tender on palpation diffusely, with no obvious guarding or rebound, positive bowel sounds Back possible CVA tenderness Extremities no cyanosis, clubbing or edema Garcia catheter remains in place Results Last 24 Hours of Lab Results: Laboratory Tests 04/05 04/04 0530 1504 Blood Gas Bicarbonate Actual (22 - 26 MEQ/L) 9 L Mixed VBG pH (7.31 - 7.41 PH) 7.41 Mixed VBG pCO2 (41 - 51 TORR) 14 L Mixed VBG O2 Saturation (35 - 45 TORR) 77 H P-50 (Temp Corrected) N Carboxyhemoglobin (1.5 - 5.0 %) 0.3 L O2 Concentration % 2L Temperature (97.0 - 100.0 FARH) 98.4 O2 Delivery Method N/C Chemistry Sodium (137 - 145 mmol/L) 153 H Potassium (3.5 - 5.1 mmol/L) 4.6 Chloride (98 - 107 mmol/L) 117 H Carbon Dioxide (22 - 30 mmol/L) 19 L Anion Gap (5 - 16) 17 H BUN (9 - 20 mg/dL) 41 H Creatinine (0.7 - 1.2 mg/dL) 2.1 H Estimated GFR (>60 ml/min) 31 L Glucose (65 - 99 mg/dL) 113 H Calcium (8.4 - 10.2 mg/dL) 7.8 L Phosphorus (2.5 - 4.5 mg/dL) 4.4 Magnesium (1.6 - 2.3 mg/dL) 2.1 Total Bilirubin (0.2 - 1.3 mg/dL) 0.5 AST (17 - 59 U/L) 21 ALT (21 - 72 U/L) 21 Albumin (3.5 - 5.0 g/dL) 2.7 L Coagulation PT (9.4 - 12.5 SEC) 28.9 H INR (0.90 - 1.17) 2.63 H D-Dimer High Sensitivty (0 - 243 ng/ml) 1469 H Hematology CBC w Diff NO MAN DIFF REQ WBC (4.8 - 10.8 /CUMM) 2.6 L RBC (4.70 - 6.10 /CUMM) 3.21 L Hgb (14.0 - 18.0 G/DL) 9.4 L Hct (42 - 52 %) 28.2 L MCV (80.0 - 94.0 FL) 87.8 MCH (27.0 - 31.0 PG) 29.3 MCHC (33.0 - 37.0 G/DL) 33.4 RDW (11.5 - 14.5 %) 16.3 H Plt Count (130 - 400 /CUMM) 196 MPV (7.4 - 10.4 FL) 8.3 Gran % (42.2 - 75.2 %) 57.5 Lymphocytes % (20.5 - 51.1 %) 39.9 Monocytes % (1.7 - 9.3 %) 1.0 L Eosinophils % (0 - 5 %) 1.4 Basophils % (0.0 - 2.0 %) 0.2 Absolute Granulocytes (1.4 - 6.5 /CUMM) 1.5 Absolute Lymphocytes (1.2 - 3.4 /CUMM) 1.0 L Absolute Monocytes (0.10 - 0.60 /CUMM) 0 L Absolute Eosinophils (0.0 - 0.7 /CUMM) 0 Absolute Basophils (0.0 - 0.2 /CUMM) 0 Miscellaneous Phlebotomy Draw Site LEFT HAND PIVO Last 24 Hours of Kj Results: Blood cultures April 03 positive for Klebsiella pneumoniae resistant to Ampicillin Urine culture April 03 greater than 100,000 colonies of Klebsiella pneumonia resistant to Ampicillin Recent Imaging Studies: Renal ultrasound April 04 reveals mild left hydronephrosis with no renal calculi Assessment/Plan ID Impression: Condition poor, with borderline hypotension, on Meropenem, Day 2 of treatment for Klebsiella sepsis of urologic origin, with a low-grade fever this morning and with his white blood cell count today 2.6, suggesting a spurious value, as his white blood cell count yesterday was 34,000. His renal function is slightly improved, with the renal ultrasound revealing a mild left hydronephrosis, of unclear etiology, but, given the decision to avoid any heroic measures, further evaluation may not be warranted. Suggestion: 1. Repeat CBC today 2. Await decision regarding overall level of care 3. Consider further evaluation, including CT of the abdomen and Urology input, based on above 4. Discontinue Meropenem 5. Begin Cefazolin 1 g IV every 8 hours
--- NOTE | 2018-04-05 11:45 | ULTRASOUND REPORT ---
EXAMINATION: US TRIPLEX OF LOWER EXTREMITIES, BILATERAL CLINICAL INFORMATION: Shortness of breath with bilateral lower extremity swelling COMPARISON: None TECHNIQUE: Color-flow triplex imaging with spectral analysis and compression Doppler were performed on the lower extremities. FINDINGS: Respiratory variation, normal compression and augmented flow are noted throughout the lower extremities. The visualized common femoral vein, superficial femoral vein, profunda femoral vein, popliteal vein and visualized tibial venous segments show no evidence of deep venous thrombosis. Should be noted at the tibial veins were not optimally visualized. There is no Jones's cyst. IMPRESSION: No evidence of deep venous thrombosis involving the bilateral lower extremities.
[2018-04-05 11:49] VITALS: BP 94/60
[2018-04-05 15:40] VITALS: BP 122/74
[2018-04-05 17:21] LABS: ABSOLUTE BASOPHIL COUNT 0 /CUMM (0.0-0.2); ABSOLUTE EOSINOPHIL COUNT 0 /CUMM (0.0-0.7); ABSOLUTE GRANULOCYTE CT 19.2 /CUMM (1.4-6.5); ABSOLUTE MONOCYTE COUNT 0.5 /CUMM (0.10-0.60); BASOPHIL % 0 % (0.0-2.0); EOSINOPHIL % 0 % (0-5); HEMATOCRIT 24.4 % (42-52); MEAN CORPUSCULAR HGB 29.8 PG (27.0-31.0); MEAN CORPUSCULAR VOLUME 87.6 FL (80.0-94.0); MEAN PLATELET VOLUME 8.2 FL (7.4-10.4); PLATELET COUNT 167 /CUMM (130-400); RBC DISTRIBUTION WIDTH 15.6 % (11.5-14.5); RED BLOOD CELL CT 2.78 /CUMM (4.70-6.10)
[2018-04-05 17:31] LABS: GRANULOCYTE % 92.9 % (42.2-75.2); WHITE BLOOD CELL COUNT 20.7 /CUMM (4.8-10.8)
--- NOTE | 2018-04-05 18:32 | PN- Cardiology ---
Subjective Subjective: * No complaints. * atrial fibrillation with increased heart rate. * head CT showing acute to subacute cerebellar infarct with additional lacunar infarcts * creatinine is 2.1 with sodium 153 * INR is 2.63 * Increased WBC and moderate anemia Objective Vital Signs and I&Os Vital Signs Date Time Temp Pulse Resp B/P B/P Pulse O2 O2 Flow FiO2 Mean Ox Delivery Rate 04/05 1600 95 Room Air 06/ 1540 98.2 111 20 122/74 95 Room Air / 1149 94/60 / 0800 99 Nasal 3.0L Cannula 04/05 0800 99.5 124 20 88/60 100 Nasal 3.0L Cannula 04/05 0648 999.0 / 0555 100.0 / 0000 98 Nasal 3.0L Cannula / 0000 98.7 115 20 110/70 98 Nasal 3.0L Cannula Intake & Output / 1600 06/05 0800 06/05 0000 06/04 1600 06/04 0800 06/04 0000 Intake Total 800 100 600 288 240 0782 Output Total 350 500 550 350 250 150 Balance 450 -400 50 851 74 1062 Intake, IV 800 100 600 355 963 6567 Intake, Oral 0 0 Number 0 Bowel Movements Output, Urine 350 500 550 350 250 150 Patient 249 lb 250 lb 248 lb Weight Weight Bed scale Measurement Method Physical Exam: General: WD/WN male in NAD; awake an minimally responsive. HEENT:: NC/AT, PERRL, EOMI Neck: no JVD, no carotid bruit Heart: irregularly irregular Lungs: clear bilaterally Abdomen: soft, NT, +ve bowel sounds Extremities: no edema, right toe amputations Assessment/Plan Assessment/Plan * This patient has atrial fibrillation with rapid heart rate. His INR is now therapeutic but his heart rate is elevated. Begin Metoprolol 25mg BID. His tachycardia is likely related to his atrial fibrillation but a PE cannot be completely excluded especially considering his abnormal ABG. My strongest suspicion is that his tachycardia and hypotension is related to his atrial fibrillation and sepsis but a PE cannot be excluded. Consider a V/Q scan. * This patient has known coronary artery disease. On last visit, in the setting of his rapid heart rate he had ruled in for a type 2 OR. A cardaic catheterization was not pursued at the time and invasive treatment is being refused by the patient at this time. Continue aspirin 81mg daily and Lipitor. Continue antibiotic therapy. Continue telemetry? Yes
[2018-04-05 22:35] VITALS: BP 136/72
[2018-04-06 06:50] VITALS: BP 144/70
--- NOTE | 2018-04-06 07:32 | PN- Housestaff ---
Reagan CAMARA,[facility] 04/06/18 0731: Subjective Follow-up For: Sepsis of urological origin History of CAD Tele-Events Since Last Visit: No acute telemetry events overnight. Patient remained in atrial fibrillation with rate between 130s-120s Subjective: Patient seen and examined. Lying in the bed. Oriented to place not oriented to time does not remember who the president is. Reports feeling better than yesterday. Does not appear to be in any acute distress. T-max 99.5 Review of Systems Constitutional: Reports: see HPI. Objective Last 24 Hrs of Vital Signs/I&O Vital Signs Date Time Temp Pulse Resp B/P B/P Pulse O2 O2 Flow FiO2 Mean Ox Delivery Rate 04/06 0650 98.9 112 20 144/70 95 Room Air / 0013 125 136/72 04/05 2235 98.2 128 20 136/72 96 Room Air / 2115 Room Air / 1600 95 Room Air / 1540 98.2 111 20 122/74 95 Room Air /05 1149 94/60 Intake & Output 04/06 1600 04/06 0800 04/06 0000 Intake Total 840 780 Output Total 400 Balance 440 780 Intake, IV 600 300 Intake, Oral 240 480 Number 1 Bowel Movements Output, Urine 400 Patient 249 lb Weight Weight Bed scale Measurement Method Physical Exam General Appearance: Cooperative, No Acute Distress Cardiovascular: Normal S1, Normal S2 Lungs: Clear to Auscultation, ant feilds Abdomen: Normal Bowel Sounds, Soft, No Tenderness Neurological: mumbling speech Other Physical Findings: Garcia catheter in place Current Medications: Current Medications Sig/Nana Start time Last Medication Dose Route Stop Time Status Admin Acetaminophen 1,000 MG Q6P PRN 04/03 1600 AC 04/05 IV 0555 Cefazolin Sodium 1,000 MG Q12H 04/05 1600 AC 04/06 IV 0349 Insulin Aspart 0 TIDAC 04/06 0800 SC Insulin Human Regular 6 UNITS .STK-MED ONE 04/05 1745 DC IV 04/05 1746 Insulin Human Regular 0 Q6 04/03 2359 DC 04/05 SC 1747 Lactated Ringer's 1,000 ML .[id number] 04/05 2245 DC IV Meropenem 1 GM Q12 04/04 2100 DC 04/05 IV 0820 Metoprolol Tartrate 25 MG BID 04/05 2248 AC 04/06 PO 0013 Sodium Chloride 1,000 ML Q10H 04/05 2300 AC 04/06 IV 0357 Sodium Chloride 1,000 ML Q10H 04/05 2030 DC 04/05 IV 2109 Sodium Chloride 1,000 ML Q6H 04/05 1115 DC 04/05 IV 1735 Sodium Chloride 500 ML BOLUS ONE 04/05 1045 DC 06/ IV 04/05 1144 1044 Sodium Chloride 1,000 ML Q6H 04/05 0830 DC 04/05 IV 0846 Warfarin Sodium 3 MG COUMADIN 1700 ONE 04/05 1700 DC / PO 04/05 1701 1735 Last 24 Hrs of Lab/Kj Results Last 24 Hrs of Labs/Mics: Laboratory Tests 04/05/182109: Anion Gap 12, Estimated GFR 37 L, BUN/Creatinine Ratio 25.6 H 04/05/18 1633: CBC w Diff MAN DIFF ORDERED, RBC 2.78 L, MCV 87.6, MCH 29.8, MCHC 34.0, RDW 15.6 H, MPV 8.2, Gran % 92.9 H, Lymphocytes % 4.7 L, Monocytes % 2.4, Eosinophils % 0, Basophils % 0, Absolute Granulocytes 19.2 H, Segmented Neutrophils 90 H, Band Neutrophils 4, Absolute Lymphocytes 1.0 L, Lymphocytes 3 L, Monocytes 3, Absolute Monocytes 0.5, Absolute Eosinophils 0, Absolute Basophils 0, Platelet Estimate ADEQUATE, Poikilocytosis FEW, Anisocytosis 1+ Assessment/Plan Assessment: 72-year-old gentleman with extensive multiple comorbidities including hypertension, sick daily, diabetes, previous CVA, recent cath in december then sent to rehab and then discharge home few days ago presents in a septic clinical condition (fevers, leukocytosis, hypotension and lactic acidosis) in the setting of positive gram-negative rods in urine and blood. Which was later identified to be Klebsiella species He has been transferred out of the ICU to to telemetry floor for treatment and evaluation for following conditions #Klebsiella sepsis of urologic origin There is overall improvement in patient's status with blood pressure running in normal limits, afebrile, white count improving today. -Currently on cefazolin day 3, will continue for now -His renal ultrasound revealed a mild left hydronephrosis, we will proceed with CT scan of abdomen pelvis for further evaluation to rule out obstruction -Based on CAT scan results will proceed with urological evaluation #History of atrial fibrillation Patient is tachycardic which is likely secondary to atrial fibrillation but PE cannot be completely excluded especially considering his abnormal ABG as per cardiology evaluation. -We are going to proceed with VQ scan to rule it out because CTA is not an option in setting of elevated creatinine -His INR is supratherapeutic likely secondary to interaction with antibiotics. we will hold today's dose of Coumadin. As per cardiology recommendation his metoprolol dose has been increased to 25 mg twice daily #JARETT on CKD Likely secondary to multiorgan failure in setting of sepsis -His creatinine is stable at 1.8 today we will continue gentle IV hydration for now #Non-anion gap metabolic acidosis Most likely secondary to aggressive saline hydration -Fluids have been changed to Ringer lactate #Anemia H/H remained stable Diet: Puree with nector thick/DVT prophylaxis with Alps and Coumadin/DNR/DNI I talked to patient's son Brando Ulloa Junior on 04/07 11:30 AM. He stated that he is father should be worked up looking for any infectious/pathological process. He is not opposed to getting CAT scans or VQ scan. However in case of deterioration they should not be any heroic measures. No central line placement or pressors. Patient status is DNR/DNI. If there is further deterioration he will consider comfort care for him. Problem List: 1. 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 Patient is reportedly markedly improved from yesterday. He is confused today though, does not know the month or president. He is hemodynamically stable. HR is still in 110's and in afib. Renal function is improving. 1. Sepsis secondary to Klebsiella UTI and bacteremia 2. JARETT 3. Rapid atrial fibrillation 4. Metabolic encephalopathy Plan - Continue on telemetry - Continue Cefazolin - Obtain V/Q scan per cardiology recommendations - Will speak with son about working up potential hydronephrosis with imaging and urology - Hold Coumadin tonight - Monitor renal function and sodium - Per patient and family, no central lines or pressors, no heroic measures, DNR/ DNI. Will continue current management. If decompensation will have further goals of care discussions. - DVT PPx
[2018-04-06 09:16] LABS: ABSOLUTE BASOPHIL COUNT 0 /CUMM (0.0-0.2); ABSOLUTE EOSINOPHIL COUNT 0 /CUMM (0.0-0.7); ABSOLUTE GRANULOCYTE CT 16.6 /CUMM (1.4-6.5); ABSOLUTE LYMPH COUNT 1.3 /CUMM (1.2-3.4); ABSOLUTE MONOCYTE COUNT 0.8 /CUMM (0.10-0.60); BASOPHIL % 0 % (0.0-2.0); EOSINOPHIL % 0.2 % (0-5); MEAN CORPUSCULAR HGB 29.7 PG (27.0-31.0); MEAN CORPUSCULAR HGB CONC 33.7 G/DL (33.0-37.0); MEAN CORPUSCULAR VOLUME 88.1 FL (80.0-94.0); MEAN PLATELET VOLUME 8.5 FL (7.4-10.4); PLATELET COUNT 170 /CUMM (130-400); RBC DISTRIBUTION WIDTH 16.1 % (11.5-14.5); RED BLOOD CELL CT 2.95 /CUMM (4.70-6.10); WHITE BLOOD CELL COUNT 18.7 /CUMM (4.8-10.8)
[2018-04-06 09:52] LABS: GRANULOCYTE % 88.7 % (42.2-75.2)
--- NOTE | 2018-04-06 10:35 | PN- Cardiology ---
Subjective Subjective: * Patient is non-communicative today. No reported problems. * Atrial fibrillation with increased heart rate. * creatinine 1.8 with sodium 150 * head CT showing acute to subacute cerebellar infarct with additional lacunar infarcts * INR is 4.43 * Increased WBC and moderate anemia Objective Vital Signs and I&Os Vital Signs Date Time Temp Pulse Resp B/P B/P Pulse O2 O2 Flow FiO2 Mean Ox Delivery Rate 04/06 0845 112 144/70 /06 0650 98.9 112 20 144/70 95 Room Air /06 0013 125 136/72 06/05 2235 98.2 128 20 136/72 96 Room Air 04/05 2115 Room Air 04/05 1600 95 Room Air 04/05 1540 98.2 111 20 122/74 95 Room Air 04/05 1149 94/60 Intake & Output 04/06 1600 04/06 0800 04/06 0000 / 1600 04/05 0800 04/05 0000 Intake Total 840 780 800 100 600 Output Total 400 350 500 550 Balance 440 780 450 -400 50 Intake, IV 600 300 800 100 600 Intake, Oral 240 480 0 Number 1 Bowel Movements Output, Urine 400 350 500 550 Patient 249 lb 249 lb 250 lb Weight Weight Bed scale Bed scale Measurement Method Physical Exam: General: WD/WN male in NAD; awake an minimally responsive. HEENT:: NC/AT, PERRL, EOMI Neck: no JVD, no carotid bruit Heart: irregularly irregular and tachycardic Lungs: clear bilaterally Abdomen: soft, NT, +ve bowel sounds Extremities: no edema, right toe amputations Assessment/Plan Assessment/Plan * This patient has atrial fibrillation with rapid heart rate. His INR is again supratherapeutic and he has normal LFT's. This is likely due to interaction with his antibiotics. Hold Coumadin. Begin Metoprolol at 25mg BID and increased as needed to control his heart rate. His tachycardia is likely related to his atrial fibrillation but a PE cannot be completely excluded especially considering his abnormal ABG. My strongest suspicion is that his tachycardia and hypotension is related to his atrial fibrillation and sepsis but a PE cannot be excluded. Consider a V/Q scan. * This patient has known coronary artery disease. On last visit, in the setting of his rapid heart rate he had ruled in for a type 2 TN. A cardaic catheterization was not pursued at the time and invasive treatment is being refused by the patient at this time. Continue aspirin 81mg daily and Lipitor. Continue antibiotic therapy. Continue telemetry? Yes
--- NOTE | 2018-04-06 11:19 | PN- Infect Dx ---
Subjective Subjective: Afebrile without complaints Objective Last 24 Hrs of Vital Signs/I&O Vital Signs Date Time Temp Pulse Resp B/P B/P Pulse O2 O2 Flow FiO2 Mean Ox Delivery Rate 04/06 0845 112 144/70 04/06 0650 98.9 112 20 144/70 95 Room Air 04/06 0013 125 136/72 /05 2235 98.2 128 20 136/72 96 Room Air 04/05 2115 Room Air 04/05 1600 95 Room Air 04/05 1540 98.2 111 20 122/74 95 Room Air 04/05 1149 94/60 Intake & Output 04/06 1600 04/06 0800 04/06 0000 Intake Total 840 780 Output Total 400 Balance 440 780 Intake, IV 600 300 Intake, Oral 240 480 Number 1 Bowel Movements Output, Urine 400 Patient 249 lb Weight Weight Bed scale Measurement Method Physical Exam Other Physical Findings: He is more awake and alert in no acute distress Lungs are clear Heart irregular rhythm with no murmur Abdomen is soft, nontender with positive bowel sounds Back no CVA tenderness Extremities no cyanosis, clubbing or edema Garcia catheter remains in place Results Last 24 Hours of Lab Results: Laboratory Tests 04/06 04/05 080 Chemistry Sodium (137 - 145 mmol/L) 150 H 147 H Potassium (3.5 - 5.1 mmol/L) 4.3 4.3 Chloride (98 - 107 mmol/L) 117 H 115 H Carbon Dioxide (22 - 30 mmol/L) 21 L 21 L Anion Gap (5 - 16) 11 12 BUN (9 - 20 mg/dL) 45 H 46 H Creatinine (0.7 - 1.2 mg/dL) 1.8 H 1.8 H Estimated GFR (>60 ml/min) 37 L 37 L BUN/Creatinine Ratio (7 - 25 %) 25.0 25.6 H Coagulation PT (9.4 - 12.5 SEC) 49.0 *H INR (0.90 - 1.17) 4.43 *H Hematology CBC w Diff NO MAN DIFF REQ WBC (4.8 - 10.8 /CUMM) 18.7 H RBC (4.70 - 6.10 /CUMM) 2.95 L Hgb (14.0 - 18.0 G/DL) 8.8 L Hct (42 - 52 %) 26.0 L MCV (80.0 - 94.0 FL) 88.1 MCH (27.0 - 31.0 PG) 29.7 MCHC (33.0 - 37.0 G/DL) 33.7 RDW (11.5 - 14.5 %) 16.1 H Plt Count (130 - 400 /CUMM) 170 MPV (7.4 - 10.4 FL) 8.5 Gran % (42.2 - 75.2 %) 88.7 H Lymphocytes % (20.5 - 51.1 %) 6.7 L Monocytes % (1.7 - 9.3 %) 4.4 Eosinophils % (0 - 5 %) 0.2 Basophils % (0.0 - 2.0 %) 0 Absolute Granulocytes (1.4 - 6.5 /CUMM) 16.6 H Absolute Lymphocytes (1.2 - 3.4 /CUMM) 1.3 Absolute Monocytes (0.10 - 0.60 /CUMM) 0.8 H Absolute Eosinophils (0.0 - 0.7 /CUMM) 0 Absolute Basophils (0.0 - 0.2 /CUMM) 0 06/05 1633 Hematology CBC w Diff MAN DIFF ORDERED WBC (4.8 - 10.8 /CUMM) 20.7 H RBC (4.70 - 6.10 /CUMM) 2.78 L Hgb (14.0 - 18.0 G/DL) 8.3 L Hct (42 - 52 %) 24.4 L MCV (80.0 - 94.0 FL) 87.6 MCH (27.0 - 31.0 PG) 29.8 MCHC (33.0 - 37.0 G/DL) 34.0 RDW (11.5 - 14.5 %) 15.6 H Plt Count (130 - 400 /CUMM) 167 MPV (7.4 - 10.4 FL) 8.2 Gran % (42.2 - 75.2 %) 92.9 H Lymphocytes % (20.5 - 51.1 %) 4.7 L Monocytes % (1.7 - 9.3 %) 2.4 Eosinophils % (0 - 5 %) 0 Basophils % (0.0 - 2.0 %) 0 Absolute Granulocytes (1.4 - 6.5 /CUMM) 19.2 H Segmented Neutrophils (42.2 - 75.2 %) 90 H Band Neutrophils (0.0 - 5.0 %) 4 Absolute Lymphocytes (1.2 - 3.4 /CUMM) 1.0 L Lymphocytes (20.5 - 51.1 %) 3 L Monocytes (1.7 - 9.3 %) 3 Absolute Monocytes (0.10 - 0.60 /CUMM) 0.5 Absolute Eosinophils (0.0 - 0.7 /CUMM) 0 Absolute Basophils (0.0 - 0.2 /CUMM) 0 Platelet Estimate (ADEQUATE) ADEQUATE Poikilocytosis FEW Anisocytosis 1+ Last 24 Hours of Kj Results: No recent cultures Recent Imaging Studies: Dopplers of both lower extremities April 05 negative Assessment/Plan ID Impression: Improvement overall, with blood pressure stable, temperatures normal, white blood cell count gradually decreasing and renal function also improving, now on Cefazolin, Day 3 of treatment for Klebsiella sepsis of urologic origin. His renal ultrasound revealed a mild left hydronephrosis and further evaluation to rule out obstruction could be considered if aggressive management is to be continued. Suggestion: 1. Would pursue a CT of the abdomen and pelvis and Urology evaluation if aggressive management is to be continued 2. Remove Garcia catheter based on above 3. Continue Cefazolin
--- NOTE | 2018-04-06 13:57 | CT SCAN REPORT ---
EXAMINATION: CT ABDOMEN AND PELVIS WITHOUT CONTRAST CLINICAL INFORMATION: Mild left-sided hydronephrosis. Sepsis of urologic origin. COMPARISON: Renal ultrasound from 04/04/2018. CT of the abdomen and pelvis from 04/10/2013 TECHNIQUE: Multidetector volumetric imaging was performed from the superior aspect of the liver through the pubic symphysis. Sagittal and coronal reformatted images were obtained on the technologist's workstation. DLP: 1452 mGy-cm FINDINGS: LUNG BASES: There are bilateral pleural effusions larger on the right than the left with associated compressive atelectasis in the lower lobes. There is cardiomegaly with coronary calcifications. No pericardial effusion. No significant hiatal hernia. LIVER, GALLBLADDER, AND BILIARY TREE: The liver is normal in size, shape, and attenuation. No focal hepatic lesion or biliary ductal dilatation is present. A few gallstones are visualized within a nondistended gallbladder. PANCREAS: Unremarkable. SPLEEN: Unremarkable. ADRENAL GLANDS: Unremarkable. KIDNEYS AND URETERS: There is left-sided hydronephrosis extending to an obstructing stone at the left ureteropelvic junction measuring 8 mm. Skin to stone distance is approximately 18.4 cm. Attenuation within the stone is difficult to accurately measure, but mean Hounsfield unit value is 296. There is left greater than right mild perinephric stranding. No right-sided hydronephrosis is visualized. There are punctate stones in the right kidney upper, mid, and lower pole, faintly visualized. BLADDER: There is a Garcia catheter within the bladder lumen. The bladder is decompressed. GASTROINTESTINAL TRACT: There is moderate stool in the colon. There are scattered colonic diverticuli without evidence of diverticulitis. Loops of small bowel appear normal in caliber. ABDOMINAL WALL: There is anasarca. There is nonspecific stranding and a trace amount of fluid along the paracolic gutters. There is a trace amount of ascites surrounding the liver. No free intraperitoneal air. LYMPH NODES: No evidence of adenopathy. VASCULAR: The caliber of the aorta appears normal with scattered calcification. PELVIC VISCERA: There is a coarse calcification along the posterior margin of the prostate. OSSEOUS STRUCTURES: No compression deformities. There is multilevel lumbar spondylosis most notable at L4-L5 and L5-S1. No acute osseous abnormalities are evident. IMPRESSION: 1. Obstructing 8 mm stone at the left ureteropelvic junction with mild left-sided hydronephrosis. There is left greater than right perinephric stranding. 2. Faint punctate nonobstructing stones in the right kidney. 3. Cholelithiasis without CT evidence of cholecystitis. 4. Colonic diverticuli without evidence of diverticulitis. 5. There are bilateral pleural effusions, right greater than left, a small amount of ascites, and fat stranding in the peritoneal cavity and subcutaneous tissues compatible with anasarca.
[2018-04-06 14:00] VITALS: BP 130/90
--- NOTE | 2018-04-06 14:39 | NUCLEAR MEDICINE REPORT ---
EXAMINATION: PULMONARY VENTILATION PERFUSION STUDY CLINICAL INFORMATION: Persistent tachycardia, abnormal arterial blood gases. COMPARISON: No previous lung scan is available for comparison. The diagnostic CT scan of the abdomen and pelvis, dated 04/06/2018, the same date as this bone scan, is available for comparison. Chest radiograph dated 04/03/2018 is available for comparison. TECHNIQUE: Serial gamma scintillation camera images were obtained over the posterior chest during the single breath, equilibrium rebreathing and washout of 21 mCi Xe 133 gas. The patient then received 4.4 mCi Tc-99m MAA intravenously and a 6-view perfusion study was performed. FINDINGS: Ventilation images: On the single breath and equilibrium images there is homogeneous distribution of gas bilaterally. During the washout phase there is a small focus of abnormal retention in the left perihilar region. Perfusion images: No segmental perfusion defects are present. There is homogeneous distribution of activity bilaterally. There are no focal anatomic appearing perfusion defects present. The cardiac silhouette and mediastinum appear moderately dilated. IMPRESSION: Very low probability of pulmonary embolism. A small focus of obstructive airway disease is present in the left perihilar region on the ventilation images.
--- NOTE | 2018-04-06 18:42 | Cons- Urology ---
General Information and HPI Consulting Request Date of Consult: 04/06/18 Requested By: Derrek Gamble MD Reason for Consult: LEFT HYDRO WITH SEPSIS Source of Information: patient, family, old records Exam Limitations: poor historian History of Present Illness: 72 YR OLD ADMITTED FOR SEPSIS. cT REVEALED LEFT URETER STONE WITH HYDRO, AND I WAS CONTACTED TODAY TO SEE PT. pT STATES HE ATE RECENTLY AND FELT SLEEPY BUT OK OVERALL. 72 yo M who has HTN, IDDM, CAD s/p PCI, HLD, Right toe amputations for osteomyelitis, diabetic ulcer of rt heel, recent admission at [facility] from till 01/09/18 for new onset afib, and was found to have an inferior wall CA and stroke (cerebellar), and was sent for catheterization to [facility], from where he was sent to [facility], was discharged to acute rehab and an STR. He was recently discharged to his home and was appearantly walking with his walker and speaking without any difficulty, carrying out his daily activities until yesterday when he expressed that he was tired and felt that he had "lived enough, and wanted to ", after which since this morning, his visiting nurse saw him with urinary incontinence, foul smelling urine, febrile, and lethargic. He was brought to the ED then and was foudn to be minimally responsive to verbal commands. According to family members and his nurse, patient did not have any fever, and his vitals were normal yesterday, was responding well, did not complain of any pain abdomen, urinary problems, constipation/diarrhea, chest pain, shortness of breath, chest heaviness/tightness, headache, dizziness, confusion, sick contacts , and he did not have any recent long distance travel. In the ED, he was found to be in severe sepsis, and thus received aggressive IV fluid resuscitation 4L NS, IV antibiotics azithromycin and ceftriaxone, as a Garcia was placed which drained purulent urine (low amount). He was found to be tachycardic, tachypneic, hypotensive, febrile, had leukocytosis, making less urine, and minimally responsive. His family is his son also name Quinten who makes decisions for patient's behalf, and a family friend also named Quinten who helps in decision-making appearantly. We had a detailed conversation about patient's history, current condition, and goals of care in the ED and in the family room in conference call as well (tele floor). [see A&P note below]. Allergies/Medications Allergies: Coded Allergies: NO KNOWN ALLERGIES (07/23/15) Home Med List: Amlodipine Besylate 5 MG TABLET 1 TAB PO DAILY BP (Reported) Aspirin (Aspirin*) 81 MG TAB.CHEW 1 TAB PO DAILY HEART HEALTH (Reported) Atorvastatin Calcium (Lipitor) 80 MG TABLET 1 TAB PO QPM CHOLESTEROL ( Reported) Furosemide 20 MG TABLET 1 TAB PO DAILY DIURETIC (Reported) Gabapentin (Neurontin) 300 MG CAPSULE 1 CAP PO BID UNKNOWN (Reported) Insulin Aspart (Novolog) 100 UNIT/ML VIAL 5 UNITS SC TIDAC DM (Reported) Insulin Aspart (Novolog) 100 UNIT/ML VIAL DM (Reported) Insulin Glargine,Hum.rec.anlog (Lantus Solostar) 100 UNIT/ML (3 ML) INSULN.PEN 24 UNIT SC QPM DM (Reported) Lisinopril 20 MG TABLET 1 TAB PO DAILY BP (Reported) Metoprolol Succinate 200 MG TAB.ER.24H 1 TAB PO DAILY HEART/BP (Reported) Polyethylene Glycol 3350 (Miralax) 17 GRAM POWD.PACK 1 PAC PO Q12H PRN GI ( Reported) dissolve in water Warfarin Sodium 3 MG TABLET 1 TAB PO DAILY BLOOD THINNER (Reported) Current Medications: Current Medications Sig/Anna Start time Last Medication Dose Route Stop Time Status Admin Acetaminophen 1,000 MG Q6P PRN / 1600 AC 04/05 IV 0555 Aspirin 81 MG DAILY 04/06 1150 AC 04/06 PO 1547 Atorvastatin Calcium 40 MG 1700 04/06 1700 AC 04/06 PO 1548 Cefazolin Sodium 1,000 MG Q12H /05 1600 AC / IV 1548 Insulin Aspart 0 TIDAC 04/06 0800 AC 04/06 SC 1715 Lactated Ringer's 1,000 ML .[id number] 04/06 1145 AC 04/06 IV 04/07 0104 1514 Lactated Ringer's 1,000 ML .[id number] 04/05 2245 DC IV Metoprolol Tartrate 25 MG BID 04/05 2248 AC 04/06 PO 0845 Sodium Chloride 1,000 ML Q10H 04/05 2300 DC / IV 0357 Sodium Chloride 1,000 ML Q10H 06/05 2030 DC 06/05 IV 2109 Sodium Chloride 1,000 ML Q6H 06/05 1115 DC 06/05 IV 1735 Past History Medical History Neurological: AMS EENT: NONE Cardiovascular: CAD, hypertension, hyperlipidemia, CA 12YRS AGO CA 01/16 Respiratory: NONE Gastrointestinal: NONE Hepatic: NONE Renal: NONE Musculoskeletal: BACK SURGERY s/p amputation of the right 3rd and 5th toes Psychiatric: NONE Endocrine: diabetes Blood Disorders: NONE Cancer(s): NONE 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 Home Who Do You Live With? spouse, child Services at Home: None Primary Language: Taiwanese Smoking Status: Former Smoker ETOH Use: occasional use Illicit Drug Use: denies illicit drug use Living Will? unknown Power of Extractor Tender Raw Stock/HCP? no Other Social History: Son Quinten makes decisions for him on his [facility] Functional Ability ADLs Independent: dressing, eating, toileting, bathing. Ambulation: cane, walker IADLs Independent: shopping, housework, finances, food prep, telephone, transportation , medication admin. Review of Systems Review of Systems Constitutional: Denies: see HPI. EENTM: Denies: no symptoms. Cardiovascular: Denies: no symptoms. Respiratory: Denies: no symptoms. GI: Reports: abdominal pain, bloating. Genitourinary: Denies: no symptoms. Musculoskeletal: Reports: see HPI. Exam & Diagnostic Data Vital Signs and I&O Vital Signs Date Time Temp Pulse Resp B/P B/P Pulse O2 O2 Flow FiO2 Mean Ox Delivery Rate 04/06 1400 98.0 121 20 130/90 97 Room Air / 0845 112 144/70 06/06 0650 98.9 112 20 144/70 95 Room Air / 0013 125 136/72 / 2235 98.2 128 20 136/72 96 Room Air /05 2115 Room Air Intake & Output 04/06 1600 06/06 0800 06/06 0000 06/ 1600 06/ 0800 06/05 0000 Intake Total 120 840 780 800 100 600 Output Total 450 400 350 500 550 Balance -330 440 780 450 -400 50 Intake, IV 600 300 800 100 600 Intake, Oral 120 240 480 0 Number 1 Bowel Movements Output, Urine 450 400 350 500 550 Patient 249 lb 249 lb 250 lb Weight Weight Bed scale Bed scale Measurement Method Physical Exam General Appearance: well developed/nourished, lethargic Head: atraumatic Neck: normal inspection Respiratory: normal breath sounds Cardiovascular: regular rate/rhythm Gastrointestinal: soft Back: CVA tenderness (L) Skin: normal color, warm/dry Last 24 Hours of Labs: Laboratory Tests 04/06 06/05 0820 2110 Chemistry Sodium (137 - 145 mmol/L) 150 H 147 H Potassium (3.5 - 5.1 mmol/L) 4.3 4.3 Chloride (98 - 107 mmol/L) 117 H 115 H Carbon Dioxide (22 - 30 mmol/L) 21 L 21 L Anion Gap (5 - 16) 11 12 BUN (9 - 20 mg/dL) 45 H 46 H Creatinine (0.7 - 1.2 mg/dL) 1.8 H 1.8 H Estimated GFR (>60 ml/min) 37 L 37 L BUN/Creatinine Ratio (7 - 25 %) 25.0 25.6 H Coagulation PT (9.4 - 12.5 SEC) 49.0 *H INR (0.90 - 1.17) 4.43 *H Hematology CBC w Diff NO MAN DIFF REQ WBC (4.8 - 10.8 /CUMM) 18.7 H RBC (4.70 - 6.10 /CUMM) 2.95 L Hgb (14.0 - 18.0 G/DL) 8.8 L Hct (42 - 52 %) 26.0 L MCV (80.0 - 94.0 FL) 88.1 MCH (27.0 - 31.0 PG) 29.7 MCHC (33.0 - 37.0 G/DL) 33.7 RDW (11.5 - 14.5 %) 16.1 H Plt Count (130 - 400 /CUMM) 170 MPV (7.4 - 10.4 FL) 8.5 Gran % (42.2 - 75.2 %) 88.7 H Lymphocytes % (20.5 - 51.1 %) 6.7 L Monocytes % (1.7 - 9.3 %) 4.4 Eosinophils % (0 - 5 %) 0.2 Basophils % (0.0 - 2.0 %) 0 Absolute Granulocytes (1.4 - 6.5 /CUMM) 16.6 H Absolute Lymphocytes (1.2 - 3.4 /CUMM) 1.3 Absolute Monocytes (0.10 - 0.60 /CUMM) 0.8 H Absolute Eosinophils (0.0 - 0.7 /CUMM) 0 Absolute Basophils (0.0 - 0.2 /CUMM) 0 Imaging Results: EXAM TYPE: CAT - CT ABD & PELVIS W/O IV CONTRAS EXAMINATION: CT ABDOMEN AND PELVIS WITHOUT CONTRAST CLINICAL INFORMATION: Mild left-sided hydronephrosis. Sepsis of urologic origin. COMPARISON: Renal ultrasound from 04/04/2018. CT of the abdomen and pelvis from 04/10/2013 TECHNIQUE: Multidetector volumetric imaging was performed from the superior aspect of the liver through the pubic symphysis. Sagittal and coronal reformatted images were obtained on the technologist's workstation. DLP: 1452 mGy-cm FINDINGS: LUNG BASES: There are bilateral pleural effusions larger on the right than the left with associated compressive atelectasis in the lower lobes. There is cardiomegaly with coronary calcifications. No pericardial effusion. No significant hiatal hernia. LIVER, GALLBLADDER, AND BILIARY TREE: The liver is normal in size, shape, and attenuation. No focal hepatic lesion or biliary ductal dilatation is present. A few gallstones are visualized within a nondistended gallbladder. PANCREAS: Unremarkable. SPLEEN: Unremarkable. ADRENAL GLANDS: Unremarkable. KIDNEYS AND URETERS: There is left-sided hydronephrosis extending to an obstructing stone at the left ureteropelvic junction measuring 8 mm. Skin to stone distance is approximately 18.4 cm. Attenuation within the stone is difficult to accurately measure, but mean Hounsfield unit value is 296. There is left greater than right mild perinephric stranding. No right-sided hydronephrosis is visualized. There are punctate stones in the right kidney upper, mid, and lower pole, faintly visualized. BLADDER: There is a Garcia catheter within the bladder lumen. The bladder is decompressed. GASTROINTESTINAL TRACT: There is moderate stool in the colon. There are scattered colonic diverticuli without evidence of diverticulitis. Loops of small bowel appear normal in caliber. ABDOMINAL WALL: There is anasarca. There is nonspecific stranding and a trace amount of fluid along the paracolic gutters. There is a trace amount of ascites surrounding the liver. No free intraperitoneal air. LYMPH NODES: No evidence of adenopathy. VASCULAR: The caliber of the aorta appears normal with scattered calcification. PELVIC VISCERA: There is a coarse calcification along the posterior margin of the prostate. OSSEOUS STRUCTURES: No compression deformities. There is multilevel lumbar spondylosis most notable at L4-L5 and L5-S1. No acute osseous abnormalities are evident. IMPRESSION: 1. Obstructing 8 mm stone at the left ureteropelvic junction with mild left-sided hydronephrosis. There is left greater than right perinephric stranding. 2. Faint punctate nonobstructing stones in the right kidney. 3. Cholelithiasis without CT evidence of cholecystitis. 4. Colonic diverticuli without evidence of diverticulitis. 5. There are bilateral pleural effusions, right greater than left, a small amount of ascites, and fat stranding in the peritoneal cavity and Assessment/Plan Assessment/Plan LEFT OBSTRUCTIN STONE WITH SEPSIS/MAKE NPO NOW FOR OR IN AM FOR STENT: I TRIED TO REACH FAMILY BY PHONE NOW-LEFT MESSAGE. Copies To: Wellington Thomas MD Consult Acknowledgment - Thank you for your consult request. Attending MD Review Statement Attending Statement Attending MD Statement: examined this patient, discuss w/resident/PA/FOX RAISER Attending Assessment/Plan: LEFT URETER STONE WITH SEPSIS-NEEDS LEFT STENT -MAKE NPO FOR TOMORROW AM
[2018-04-06 21:34] VITALS: BP 140/82
--- NOTE | 2018-04-07 07:51 | PN- Housestaff ---
See Addendum Subjective Follow-up For: Sepsis of urological origin History of CAD Tele-Events Since Last Visit: Atrial fibrillation heart rate ranging in 110s-130s. Received 12.5 mg dose of metoprolol. Subjective: Patient seen and examined. Overall improvement in clinical condition. Oriented to place, knows that he is in April 2018 however does not remember the current date. Remembers his son's name, remembers his birthday. He informed me that he has a stone in his kidneys and a doctor or he will will take care of it. Does not appear to be any acute distress. Asking about his . Afebrile overnight. Review of Systems Constitutional: Reports: see HPI. Objective Last 24 Hrs of Vital Signs/I&O Vital Signs Date Time Temp Pulse Resp B/P B/P Pulse O2 O2 Flow FiO2 Mean Ox Delivery Rate 04/07 0547 132 146/84 04/06 2134 98.8 132 20 140/82 93 Room Air 04/064 Room Air 04/06 2034 134 136/88 04/06 1400 98.0 121 20 130/90 97 Room Air 04/06 0845 112 144/70 Intake & Output 04/07 0800 04/07 0000 04/06 1600 Intake Total 560 120 Output Total 850 450 Balance -290 -330 Intake, IV 500 Intake, Oral 60 120 Output, Urine 850 450 Patient 252 lb Weight Weight Bed scale Measurement Method Physical Exam General Appearance: Alert, Cooperative, No Acute Distress Other Physical Findings: Cardiovascular: Normal S1, Normal S2 Lungs: Clear to Auscultation, ant feilds Abdomen: Normal Bowel Sounds, Soft, No Tenderness Neurological: mumbling speech, making much more sense today. Garcia catheter in place Current Medications: Current Medications Sig/Anna Start time Last Medication Dose Route Stop Time Status Admin Acetaminophen 1,000 MG Q6P PRN / 1600 AC 04/05 IV 0555 Aspirin 81 MG DAILY 04/06 1150 AC 04/06 PO 1547 Atorvastatin Calcium 40 MG 1700 04/06 1700 AC 04/06 PO 1548 Cefazolin Sodium 1,000 MG Q12H / 1600 AC 04/07 IV 0404 Dextrose/Sodium 1,000 ML Q13H / 0415 AC 04/07 Chloride IV 0412 Insulin Aspart 0 TIDAC 04/06 0800 DC 04/06 SC 1715 Insulin Human Regular 0 Q6 06/07 0600 AC 04/07 SC 0543 Lactated Ringer's 1,000 ML .[id number] 04/06 1145 DC 04/06 IV 04/07 0104 1514 Metoprolol Tartrate 12.5 MG ONCE ONE 04/07 0545 DC 04/07 PO 04/07 0546 0547 Metoprolol Tartrate 25 MG BID 04/05 2248 AC 04/06 PO 2034 Sodium Chloride 1,000 ML Q10H 04/05 2300 DC 04/06 IV 0357 Last 24 Hrs of Lab/Kj Results Last 24 Hrs of Labs/Mics: Laboratory Tests 04/07/18 0622: Sodium Pending, Potassium Pending, Chloride Pending, Carbon Dioxide Pending, Anion Gap Pending, BUN Pending, Creatinine Pending, BUN/Creatinine Ratio Pending , PT Pending, INR Pending, CBC w Diff Pending, WBC Pending, RBC Pending, Hgb Pending, Hct Pending, MCV Pending, MCH Pending, MCHC Pending, RDW Pending, Plt Count Pending, MPV Pending 04/06/18 0820: Anion Gap 11, Estimated GFR 37 L, BUN/Creatinine Ratio 25.0, PT 49.0 *H, INR 4.43 *H, CBC w Diff NO MAN DIFF REQ, RBC 2.95 L, MCV 88.1, MCH 29.7, MCHC 33.7, RDW 16.1 H, MPV 8.5, Gran % 88.7 H, Lymphocytes % 6.7 L, Monocytes % 4.4, Eosinophils % 0.2, Basophils % 0, Absolute Granulocytes 16.6 H, Absolute Lymphocytes 1.3, Absolute Monocytes 0.8 H, Absolute Eosinophils 0, Absolute Basophils 0 Assessment/Plan Assessment: 72-year-old gentleman with extensive multiple comorbidities including hypertension, sick daily, diabetes, previous CVA, recent cath in december then sent to rehab and then discharge home few days ago presents in a septic clinical condition (fevers, leukocytosis, hypotension and lactic acidosis) in the setting of positive gram-negative rods in urine and blood. Which was later identified to be Klebsiella species He has been transferred out of the ICU to to telemetry floor for treatment and evaluation for following conditions #Klebsiella sepsis of urologic origin There is overall improvement in patient's status with blood pressure running in normal limits, afebrile, white count improving today. -Currently on cefazolin day 4, will continue for now -His renal ultrasound revealed a mild left hydronephrosis, we proceeded with CT scan yesterday which showed obstructing 8 mm stone at left ureteropelvic junction with mild left-sided hydronephrosis. -Has been evaluated by urology and currently he is n.p.o. for stent placement to relieve the obstruction. -We are going to reach out to patient's son who is power of attorney recruiter regarding the consent for procedure #History of atrial fibrillation Patient is tachycardic which is likely secondary to atrial fibrillation but PE cannot be completely excluded especially considering his abnormal ABG as per cardiology evaluation. -V/Q scan showed low probability of pulmonary embolism. His INR yesterday was supratherapeutic likely secondary to interaction with cefazolin. And his dose of Coumadin was held. We will dose his Coumadin as per today's INR. -Patient is presently added metoprolol 25 twice daily, overnight patient was in atrial fibrillation with heart rate ranging in 110s-130s. And received 12.5 mg of metoprolol in the morning as well. -He remains on aspirin and statin. #JARETT on CKD Likely secondary to multiorgan failure in setting of sepsis -His creatinine is stable at 1.8 today, will resolve with relief of obstruction #Non-anion gap metabolic acidosis Most likely secondary to aggressive saline hydration -Fluids have been changed to Ringer lactate #Anemia H/H remained stable Currently n.p.o. his diet will be advanced to Puree with nector thick after the procedure./DVT prophylaxis with Alps and Coumadin/DNR/DNI I talked to patient's son Brando Ulloa Junior on 04/07 11:30 AM. He stated that he is father should be worked up looking for any infectious/pathological process. He is not opposed to getting CAT scans or VQ scan. However in case of deterioration they should not be any heroic measures. No central line placement or pressors. Patient status is DNR/DNI. If there is further deterioration he will consider comfort care for him. Problem List: 1. Severe sepsis Pain Ratin Pain Location: NA Pain Goal: Pain 4 or less Pain Plan: PRN Tomorrow's Labs & Rationales: CBC BEP
--- NOTE | 2018-04-07 07:52 | Discharge Summary ---
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 The patient presented to the ED complaining of lethargy, fever, and altered mental status. Vitals at the time of presentation: T: 101.6, was tachycardic at 137, tachypneic at 22, blood pressure initially was 141/68 which later dropped to 77/52. Labs: WBC: 32,800 with 19 bands. BUN/creatinine 35 and 2.2, lactic acid 3.6, with normal liver enzymes, troponin 0.08, INR 1.71/PTT 32, ABG 7.5 12/27/65 on 3 L/min. Urinalysis 3-5 RBC/packed WBCs. He received 7 L of fluid in the emergency department and was started on ceftriaxone and azithromycin which was later changed to vancomycin and ceftazidime. Initially admitted to the [facility] (as a tele hold) and subsequently transferred to the telemetry service once more stable. Below is a problem list and summary of the care he received under us. Sepsis of urological origin with gram-negative rods isolated in urine. Bacteremia 2 with gram-negative rods, with source being . Mild Left Hydronephrosis Hypertension. Secondary to sepsis Hypomagnesemia History of chronic diseases: CAD, diabetes, hypertension, COPD, CVA(?). Sepsis of urological origin with gram-negative rods isolated in urine. The patient was initially on Vancomycin and Ceftazidime. Blood cultures were positive for Gram Negative Rods. On 04/04/2018 we obtained an infectious diseases consultation who recommended the patient should be started on meropenem 1 g every 12 hours. On 04/05/2018 the patient was begun on cefazolin 1 g every 8 hours. A renal Ultrasound was also ordered. At the time of discharge the patient was sent home on Keflex 500 mg. He was scheduled to receive a total of 14 days of antibiotic coverage. Mild left hydronephrosis. After renal ultrasound showed left hydronephrosis, CT of the abdomen was also ordered. A urology consult was obtained. Urology recommended that due to left obstruction and 8mm stone at the left ureteropelvic junction a stent should be placed. Mr Ulloa tolerated this procedure well. patient initially had a villasenor, this was removed on 04/11/2018. It was recommended that the patient should be bladder scanned every 6 hours to rule out urinary retention. Supra-therapeutic INR. Patient is on chronic anticoagulation. During the course of the admission,the patient did have supratherapeutic INR and so his coumadin was held. On 2017, the patients INR was 2.85. It was recommended that the patient should start his coumadin again. Advised to check an INR in 5 days. Owing to persistent tachycardia a VQ scan was done to rule the patient out for a PE. He was continued on aspirin and Lipitor. Patient was also started on metoprolol 25 mg twice a day. Owing to continued tachycardia, this was increased to 50 mg BID, this was then increased to 100 mg BID. On 04/10/2018, the patient was also started on diltiazem 30 mg TID. Diabetes mellitus Once the patient was able to tolerate by mouth intake he was started on a consistent carbohydrate diet. Blood sugar was maintained on tight control with NovoLog Sliding Scale. Diet: Consistent Carbohydrate diet (mechanical soft and nectar). Code status: Patient was a DNR/DNI over the course of the admission. Allergies: Coded Allergies: NO KNOWN ALLERGIES (07/23/15) Pertinent Lab Results: SERVICE DATE: 04/03/18 EXAM TYPE: RAD - XRY-PORTABLE CHEST XRAY EXAMINATION: XR PORTABLE CHEST CLINICAL INFORMATION: Hypoxia and fever. Altered mental status. COMPARISON: Chest x-ray from 01/08/2018. TECHNIQUE: Portable frontal view of the chest was obtained. FINDINGS: Low lung volumes limit assessment. Mild right basilar opacities may be due to subsegmental atelectasis. Evaluation of the cardiomediastinal silhouette is also limited due to patient head positioning, lordotic technique, and low lung volumes. No definite pleural effusions are seen. The mid and upper lungs are clear. No acute osseous abnormality is seen. IMPRESSION: Limited study. Low lung volumes with hypoventilatory changes. Mild bibasilar opacities may be due to subsegmental atelectasis. SERVICE DATE: 04/03/18-1408 EXAM TYPE: CAT - CT HEAD WO IV CONTRAST EXAMINATION: CT HEAD WITHOUT CONTRAST CLINICAL INFORMATION: Fall and weakness. Rule out intracranial hemorrhage. COMPARISON: Head CT from 01/09/2018. TECHNIQUE: Contiguous axial imaging was performed from the skull base to vertex without intravenous administration of contrast. DLP: 698.5 mGy-cm FINDINGS: There is no evidence of acute intracranial hemorrhage or territorial infarction. No abnormal mass effect or midline shift is seen. Arnold to white matter differentiation is well preserved. No extra-axial fluid collections are identified. Diffuse parenchymal volume loss noted. Small vessel ischemic changes are present throughout the cerebral white matter, as previously noted. There are multiple small chronic-appearing infarcts in the right basal ganglia, right thalamus, and left kapoor radiata also visible on the previous examination. There is ex vacuo dilatation of the right lateral ventricle. No hydrocephalus is evident. The osseous structures and soft tissues are normal. The mastoid air cells are well aerated. There are a few scattered retention cysts in the maxillary and left ethmoid sinuses. IMPRESSION: No acute intracranial hemorrhage or territorial infarction. Chronic lacunar infarcts and small vessel ischemic changes in the cerebral white matter with parenchymal volume loss. DICTATED BY: Darian Ybarra MD SERVICE DATE: 04/04/18- EXAM TYPE: US - US-RENAL/KIDNEY EXAMINATION: US RETROPERITONEAL COMPLETE (RENAL) CLINICAL INFORMATION: Elevated creatinine. Sepsis. Evaluate for hydronephrosis.. COMPARISON: Abdomen and pelvic CT of 04/10/2013. TECHNIQUE: Real-time imaging of the kidneys and bladder. Evaluation is limited by patient's body habitus and limited mobility. Patient was unable to suspend respiration during the examination. FINDINGS: RIGHT KIDNEY: 11.6 x 5.2 x 4.5 cm (SAG x AP x TRV). The kidney is normal in size and echogenicity. Normal cortical thickness. Portions of the upper pole of the kidney are obscured and not well delineated. No calculi, hydronephrosis or focal parenchymal lesion. LEFT KIDNEY: 11.5 x 5.9 x 5.5 cm (SAG x AP x TRV). The kidney is normal in size, contour, and echogenicity. Renal cortical thickness is normal. No calculi or focal parenchymal lesions. Mild hydronephrosis. BLADDER: Decompressed by indwelling Villasenor catheter. IMPRESSION: Mild left renal hydronephrosis. No renal calculi. Normal renal parenchymal echogenicity and renal cortical thickness. Limited evaluation of the upper to mid right kidney. DICTATED BY: Ck Golden MD SERVICE DATE: 04/05/18- EXAM TYPE: US - US-EXT BILAT VENOUS DOPPLER EXAMINATION: US TRIPLEX OF LOWER EXTREMITIES, BILATERAL CLINICAL INFORMATION: Shortness of breath with bilateral lower extremity swelling COMPARISON: None TECHNIQUE: Color-flow triplex imaging with spectral analysis and compression Doppler were performed on the lower extremities. FINDINGS: Respiratory variation, normal compression and augmented flow are noted throughout the lower extremities. The visualized common femoral vein, superficial femoral vein, profunda femoral vein, popliteal vein and visualized tibial venous segments show no evidence of deep venous thrombosis. Should be noted at the tibial veins were not optimally visualized. There is no Jones's cyst. IMPRESSION: No evidence of deep venous thrombosis involving the bilateral lower extremities. DICTATED BY: Anil Lares MD SERVICE DATE: 04/06/18- EXAM TYPE: CAT - CT ABD & PELVIS W/O IV CONTRAS EXAMINATION: CT ABDOMEN AND PELVIS WITHOUT CONTRAST CLINICAL INFORMATION: Mild left-sided hydronephrosis. Sepsis of urologic origin. COMPARISON: Renal ultrasound from 04/04/2018. CT of the abdomen and pelvis from 04/10/2013 TECHNIQUE: Multidetector volumetric imaging was performed from the superior aspect of the liver through the pubic symphysis. Sagittal and coronal reformatted images were obtained on the technologist's workstation. DLP: 1452 mGy-cm FINDINGS: LUNG BASES: There are bilateral pleural effusions larger on the right than the left with associated compressive atelectasis in the lower lobes. There is cardiomegaly with coronary calcifications. No pericardial effusion. No significant hiatal hernia. LIVER, GALLBLADDER, AND BILIARY TREE: The liver is normal in size, shape, and attenuation. No focal hepatic lesion or biliary ductal dilatation is present. A few gallstones are visualized within a nondistended gallbladder. PANCREAS: Unremarkable. SPLEEN: Unremarkable. ADRENAL GLANDS: Unremarkable. KIDNEYS AND URETERS: There is left-sided hydronephrosis extending to an obstructing stone at the left ureteropelvic junction measuring 8 mm. Skin to stone distance is approximately 18.4 cm. Attenuation within the stone is difficult to accurately measure, but mean Hounsfield unit value is 296. There is left greater than right mild perinephric stranding. No right-sided hydronephrosis is visualized. There are punctate stones in the right kidney upper, mid, and lower pole, faintly visualized. BLADDER: There is a Villasenor catheter within the bladder lumen. The bladder is decompressed. GASTROINTESTINAL TRACT: There is moderate stool in the colon. There are scattered colonic diverticuli without evidence of diverticulitis. Loops of small bowel appear normal in caliber. ABDOMINAL WALL: There is anasarca. There is nonspecific stranding and a trace amount of fluid along the paracolic gutters. There is a trace amount of ascites surrounding the liver. No free intraperitoneal air. LYMPH NODES: No evidence of adenopathy. VASCULAR: The caliber of the aorta appears normal with scattered calcification. PELVIC VISCERA: There is a coarse calcification along the posterior margin of the prostate. OSSEOUS STRUCTURES: No compression deformities. There is multilevel lumbar spondylosis most notable at L4-L5 and L5-S1. No acute osseous abnormalities are evident. IMPRESSION: 1. Obstructing 8 mm stone at the left ureteropelvic junction with mild left-sided hydronephrosis. There is left greater than right perinephric stranding. 2. Faint punctate nonobstructing stones in the right kidney. 3. Cholelithiasis without CT evidence of cholecystitis. 4. Colonic diverticuli without evidence of diverticulitis. 5. There are bilateral pleural effusions, right greater than left, a small amount of ascites, and fat stranding in the peritoneal cavity and subcutaneous tissues compatible with anasarca. DICTATED BY: Jannie Quezada MD SERVICE DATE: 04/06/188530 EXAM TYPE: NUC - LUNG SCAN (V/Q) EXAMINATION: PULMONARY VENTILATION PERFUSION STUDY CLINICAL INFORMATION: Persistent tachycardia, abnormal arterial blood gases. COMPARISON: No previous lung scan is available for comparison. The diagnostic CT scan of the abdomen and pelvis, dated 04/06/2018, the same date as this bone scan, is available for comparison. Chest radiograph dated 04/03/2018 is available for comparison. TECHNIQUE: Serial gamma scintillation camera images were obtained over the posterior chest during the single breath, equilibrium rebreathing and washout of 21 mCi Xe 133 gas. The patient then received 4.4 mCi Tc-99m MAA intravenously and a 6-view perfusion study was performed. FINDINGS: Ventilation images: On the single breath and equilibrium images there is homogeneous distribution of gas bilaterally. During the washout phase there is a small focus of abnormal retention in the left perihilar region. Perfusion images: No segmental perfusion defects are present. There is homogeneous distribution of activity bilaterally. There are no focal anatomic appearing perfusion defects present. The cardiac silhouette and mediastinum appear moderately dilated. IMPRESSION: Very low probability of pulmonary embolism. A small focus of obstructive airway disease is present in the left perihilar region on the ventilation images. DICTATED BY: Serge Rueda MD SERVICE DATE: 04/07/18- EXAM TYPE: RAD - [id number]-OUENNR VIEW EXAMINATION: CR ABDOMEN/INTRAOPERATIVE FLUOROSCOPY CLINICAL INDICATION: Left ureteroscopy. COMPARISON: None TECHNIQUE/FINDINGS: Fluoroscopic equipment was dedicated to the operating room for the performance of an intraoperative procedure. Several (4) spot films were acquired and are archived in PACS. Please refer to operative notes for procedural detail. FLUOROSCOPY TIME: 1 minute 5 seconds. IMPRESSION: Administrative dictation for intraoperative fluoroscopy and image archiving in PACS. Please refer to operative notes for details. DICTATED BY: Mahamed CAMARA,Macy Lee Disposition Summary Disposition Principal Diagnosis: Sepsis of urological origin with gram-negative rods isolated in urine. Additional Diagnosis: Bacteremia 2 with gram-negative rods, with source being . Hypertension. Secondary to sepsis Hypomagnesemia History of chronic diseases: CAD, diabetes, hypertension, COPD, CVA(?). Discharge Disposition: SNF Discharge Instructions General Discharge Information Code Status: Do Not Resucitate/Intubat Patient's Diet: Regular Diet: mechanical soft and nectar. Patient's Activity: As Tolerated Follow-Up Instructions/Appts: -Please follow-up with your primary care doctor within 1 week after discharge -You will need ESWL and stent removal about 6 weeks after discharge, which will be done by Dr. Thomas -You will require straight cath intermittently -Please monitor your INR. INR should be checked at the facility and Coumadin should be dosed accordingly with goal INR of 2-3. -We have started 1 of her blood pressure medications. If your blood pressure is running >140/90, please resume other 2 as well, one at a time. -A new medication diltiazem has been added for rate control Medications at Discharge Discharge Medications: Stop taking the following medications: Furosemide (Furosemide) 20 MG TABLET ORAL DAILY Qty = 30 Amlodipine Besylate (Amlodipine Besylate) 5 MG TABLET ORAL DAILY Qty = 30 Continue taking these medications: Atorvastatin Calcium (Lipitor) 80 MG TABLET 1 Tablet ORAL Every night Comments: Last Taken: 03/18/17 Time: 9:00 PM Aspirin (Aspirin*) 81 MG TAB.CHEW 1 Tablet ORAL DAILY Comments: Last Taken: 03/19/17 Time: 10:30 AM Insulin Glargine,Hum.rec.anlog (Lantus Solostar) 100 UNIT/ML (3 ML) INSULN.PEN 24 Unit Inject into fatty tissue Every night Gabapentin (Neurontin) 300 MG CAPSULE 1 Capsule ORAL TWICE DAILY Metoprolol Succinate (Metoprolol Succinate) 200 MG TAB.ER.24H 1 Tablet ORAL DAILY Qty = 30 Lisinopril (Lisinopril) 20 MG TABLET 1 Tablet ORAL DAILY Qty = 30 Insulin Aspart (Novolog) 100 UNIT/ML VIAL 5 Units Inject into fatty tissue 3 TIMES DAILY BEFORE MEALS Insulin Aspart (Novolog) 100 UNIT/ML VIAL Units Inject into fatty tissue BEFORE MEALS AND AT BEDTIME Warfarin Sodium (Warfarin Sodium) 3 MG TABLET 1 Tablet ORAL DAILY Polyethylene Glycol 3350 (Miralax) 17 GRAM POWD.PACK 1 Packet ORAL Q12H as needed for GI Instructions: dissolve in water Start taking the following new medications: Cephalexin (Keflex) 500 MG CAPSULE 1 Capsule ORAL THREE TIMES DAILY Qty = 19 No Refills Diltiazem HCl (Cardizem) 30 MG TABLET 1 Tablet ORAL EVERY 8 HOURS Qty = 30 No Refills Copies To: Bobby CAMARA,Mimi; Skip CAMARA,Dalton Mota; William CAMARA,Will Liriano MD PHD, Oumar Johns
[2018-04-07 08:00] VITALS: BP 140/66
[2018-04-07 08:03] LABS: ABSOLUTE BASOPHIL COUNT 0 /CUMM (0.0-0.2); ABSOLUTE EOSINOPHIL COUNT 0.1 /CUMM (0.0-0.7); ABSOLUTE GRANULOCYTE CT 13.4 /CUMM (1.4-6.5); ABSOLUTE LYMPH COUNT 1.2 /CUMM (1.2-3.4); ABSOLUTE MONOCYTE COUNT 0.9 /CUMM (0.10-0.60); BASOPHIL % 0 % (0.0-2.0); EOSINOPHIL % 0.5 % (0-5); HEMATOCRIT 28.1 % (42-52); MEAN CORPUSCULAR HGB 29.6 PG (27.0-31.0); MEAN CORPUSCULAR HGB CONC 33.6 G/DL (33.0-37.0); MEAN PLATELET VOLUME 8.7 FL (7.4-10.4); PLATELET COUNT 186 /CUMM (130-400); RBC DISTRIBUTION WIDTH 15.9 % (11.5-14.5); RED BLOOD CELL CT 3.19 /CUMM (4.70-6.10); WHITE BLOOD CELL COUNT 15.5 /CUMM (4.8-10.8)
[2018-04-07 09:35] LABS: GRANULOCYTE % 86.2 % (42.2-75.2)
--- NOTE | 2018-04-07 13:23 | RADIOLOGY REPORT ---
EXAMINATION: CR ABDOMEN/INTRAOPERATIVE FLUOROSCOPY CLINICAL INDICATION: Left ureteroscopy. COMPARISON: None TECHNIQUE/FINDINGS: Fluoroscopic equipment was dedicated to the operating room for the performance of an intraoperative procedure. Several (4) spot films were acquired and are archived in PACS. Please refer to operative notes for procedural detail. FLUOROSCOPY TIME: 1 minute 5 seconds. IMPRESSION: Administrative dictation for intraoperative fluoroscopy and image archiving in PACS. Please refer to operative notes for details.
--- NOTE | 2018-04-07 14:21 | PN- Infect Dx ---
Subjective Subjective: Afebrile without complaints Objective Last 24 Hrs of Vital Signs/I&O Vital Signs Date Time Temp Pulse Resp B/P B/P Pulse O2 O2 Flow FiO2 Mean Ox Delivery Rate 04/07 0910 146/84 04/07 08 Room Air 04/07 08 98.0 122 22 140/66 94 Room Air 04/07 0547 132 146/84 04/06 2134 98.8 132 20 140/82 93 Room Air 04/06 2054 Room Air 04/06 2034 134 136/88 Intake & Output 04/07 1600 04/07 0804/07 0000 Intake Total 560 Output Total 850 Balance -290 Intake, IV 500 Intake, Oral 60 Output, Urine 850 Patient 252 lb Weight Weight Bed scale Measurement Method Physical Exam Other Physical Findings: He is more awake and alert, appearing comfortable and in no acute distress Lungs are clear Heart irregular rhythm with no murmur Abdomen is soft, nontender with positive bowel sounds Back no CVA tenderness Extremities no cyanosis, clubbing or edema Garcia catheter remains in place Results Last 24 Hours of Lab Results: Laboratory Tests 04/07 622 Chemistry Sodium (137 - 145 mmol/L) 151 H Potassium (3.5 - 5.1 mmol/L) 4.2 Chloride (98 - 107 mmol/L) 118 H Carbon Dioxide (22 - 30 mmol/L) 21 L Anion Gap (5 - 16) 13 BUN (9 - 20 mg/dL) 43 H Creatinine (0.7 - 1.2 mg/dL) 1.8 H Estimated GFR (>60 ml/min) 37 L BUN/Creatinine Ratio (7 - 25 %) 23.9 Coagulation PT (9.4 - 12.5 SEC) 58.0 *H INR (0.90 - 1.17) 5.23 *H Hematology CBC w Diff NO MAN DIFF REQ WBC (4.8 - 10.8 /CUMM) 15.5 H RBC (4.70 - 6.10 /CUMM) 3.19 L Hgb (14.0 - 18.0 G/DL) 9.4 L Hct (42 - 52 %) 28.1 L MCV (80.0 - 94.0 FL) 88.0 MCH (27.0 - 31.0 PG) 29.6 MCHC (33.0 - 37.0 G/DL) 33.6 RDW (11.5 - 14.5 %) 15.9 H Plt Count (130 - 400 /CUMM) 186 MPV (7.4 - 10.4 FL) 8.7 Gran % (42.2 - 75.2 %) 86.2 H Lymphocytes % (20.5 - 51.1 %) 7.5 L Monocytes % (1.7 - 9.3 %) 5.8 Eosinophils % (0 - 5 %) 0.5 Basophils % (0.0 - 2.0 %) 0 Absolute Granulocytes (1.4 - 6.5 /CUMM) 13.4 H Absolute Lymphocytes (1.2 - 3.4 /CUMM) 1.2 Absolute Monocytes (0.10 - 0.60 /CUMM) 0.9 H Absolute Eosinophils (0.0 - 0.7 /CUMM) 0.1 Absolute Basophils (0.0 - 0.2 /CUMM) 0 Last 24 Hours of Kj Results: OR culture April 07 labeled left kidney fluid pending Recent Imaging Studies: CT of the abdomen and pelvis April 06 reveals an obstructing 8 mm stone at the left ureteropelvic junction with mild left-sided hydronephrosis and with bilateral, left greater than right, perinephric stranding VQ scan April 06 very low probability of pulmonary embolism Assessment/Plan ID Impression: Continues to improve, with temperatures remaining normal and white blood cell count decreasing, on Cefazolin, Day 4 of treatment for Klebsiella sepsis of urologic origin, status post cystoscopy with placement of a left ureteral stent earlier today for an obstructing left kidney stone. Suggestion: 1. Remove Garcia catheter if okay with Urology 2. Continue Cefazolin
[2018-04-07 14:34] VITALS: BP 156/82
--- NOTE | 2018-04-07 14:36 | Patient Discharge Instructions ---
Discharge Instructions General Discharge Information You were seen/treated for: Secondary to urinary tract infection (kidney) You had these procedures: Cystoscopy with stent placement Special Instructions: -Please follow-up with your primary care doctor within 1 week after discharge -You will need ESWL and stent removal about 6 weeks after discharge, which will be done by Dr. Thomas -You will require straight cath intermittently -Please monitor your INR. INR should be checked at the facility and Coumadin should be dosed accordingly with goal INR of 2-3. -We have started 1 of her blood pressure medications. If your blood pressure is running >140/90, please resume other 2 as well, one at a time. -A new medication diltiazem has been added for rate control Diet Additional DIET Information: mechanical soft and nectar Activity Activity Self Limited: Yes Acute Coronary Syndrome Inclusion Criteria At DC or during hospital stay patient has or had the following: ACS DIAGNOSIS No Discharge Core Measures Meds if any: Prescribed or Continued at Discharge Meds if any: NOT Prescribed or Continued at Discharge Congestive Heart Failure Inclusion Criteria At DC or during hospital stay patient has or had the following: CHF DIAGNOSIS No Discharge Core Measures Meds if any: Prescribed or Continued at Discharge Meds if any: NOT Prescribed or Continued at Discharge Cerebrovascular accident Inclusion Criteria At DC or during hospital stay patient has or had the following: CVA/TIA Diagnosis No Discharge Core Measures Meds if any: Prescribed or Continued at Discharge Meds if any: NOT Prescribed or Continued at Discharge Venous thromboembolism Inclusion Criteria VTE Diagnosis No VTE Type NONE VTE Confirmed by (Test) NONE Discharge Core Measures - Per Current guidelines, there needs to be overlap - treatment for the first 5 days of Warfarin therapy. - If discharged on Warfarin prior to 5 days of - overlap therapy, the patient will need to be - assessed for post discharge needs including - *Post discharge parental anticoagulation - *Warfarin and/or parental anticoagulation education - *Follow up date to check INR post discharge At least 5 days overlap therapy as Inpatient No Meds if any: Prescribed or Continued at Discharge Note: Overlap Therapy is Warfarin and Anticoagulant Meds if any: NOT Prescribed or Continued at Discharge
--- NOTE | 2018-04-07 18:37 | Operative Report ---
Operative/Inv Procedure Report Surgery Date: 04/07/18 Name of Procedure: cystoscopy: manipulation of left ureter stone into left renal pelvis: left flexible ureteroscopy with laser standby, and left stent insertion with flouroscopy Pre-Operative Diagnosis: left hydro with sepsis and obstructing ureter stone. Post-Operative Diagnosis: same: large amount of pus in left renal pelvis Estimated Blood Loss: scant Surgeon/Telecommunications Engineer: MD William[facility] Anesthesia: laryngeal mask airway Drains: 18fr villasenor Specimens: left renal pelvis purulent fluid Complications: none Operative/Procedure Note Note: The patient was taken to the operating room and placed on the OR table in supine position. Timeout was performed, with the patient awake, in order to confirm correct identity, procedure, laterality, and other pertinent katina-operative information. After adequate anesthesia and antibiotics, the old villasenor was removed, and the patient was then placed in lithotomy stirrups, draped and prepped in the usual surgical fashion. The Holmium Yag Laser was confirmed in the room and on standby. A 22 Luxembourger cystoscope sheath with 30 angle lens was inserted into the bladder without difficulty. Upon entering the bladder, the bladder was noted to be free of tumor , and free of stone. Both orifices were in their orthotopic position, with clear efflux of urine from the right. The left ureter orifice was intubated with an 8fr cone-tip catheter and a retrograde pyelogram with fluoroscopy was performed revealing hydronephrosis, and a 6mm filling defect c/w stone which was flushed into the left renal pelvis. The cone-tipped catheter was removed, followed by insertion of a 0.035 Glidewire, which was advanced into the left renal pelvis without difficulty, confirmed with fluoroscopic visualization. Leaving the Glidewire in place, the cystoscope was removed. The Flexible ureteroscope was railroaded over the gluidewire, following it with fluoroscopic visualization, into the bladder, up the left ureter, and into the left renal pelvis, with fluoroscopy visualization. LARGE amount of purulent fluid was aspirated out of the left kidney and sent for culture. Pyeloscopy/calyxoscopy of the upper, middle, and lower poles reveal no evidence of tumor, and a stone in the left LP. At this point the standby laser was disengaged. The entire length of the ureter was also visualized carefully on the way out. The 22 Luxembourger cystoscope sheath with a 30 angle lens was then reinserted and the bladder. The left orifice was intubated with a 0.035 Glidewire, which advanced into left renal pelvis. A 6 x 22 on lay Bard ureteral stent was railroaded over the guidewire. The stent was inserted without difficulty. With the proximal coil in the left renal pelvis, and the distal coil in the bladder seen cystoscopically, the Glidewire was removed, and the left stent remained in proper place. The bladder was left full, and the cystoscope was removed. A new 18 Luxembourger Villasenor catheter was then inserted into the bladder without difficulty. All sponge needle and instrument count were correct at the end of the case. The bladder was then drained after the ureteroscope was removed. The patient tolerated the procedure well was then taken to the recovery room in satisfactory condition. Findings: large amount purulent fluid in left kidney Discharge Disposition: PACU Additional Comments: Pt outcome with findings discussed with pt's son via phone CC: Wellington Thomas MD
--- NOTE | 2018-04-07 20:13 | PN- Cardiology ---
Subjective Subjective: * Patient is more alert and communicative today. No complaints. * atrial fibrillation with increased heart rate. * INR is 5.23 * creatinine 1.8 with sodium 151 * anemia is improving and WBC count is trending down Objective Vital Signs and I&Os Vital Signs Date Time Temp Pulse Resp B/P B/P Pulse O2 O2 Flow FiO2 Mean Ox Delivery Rate 04/07 2003 128 148/86 04/07 1600 Room Air 04/07 1434 98.5 117 20 156/82 94 Room Air 04/07 0910 146/84 04/07 0800 Room Air 04/07 0800 98.0 122 22 140/66 94 Room Air 04/07 0547 132 146/84 04/06 2134 98.8 132 20 140/82 93 Room Air 04/064 Room Air 04/06 2034 134 136/88 Intake & Output 04/07 1600 04/07 0800 04/07 0000 04/06 1600 04/06 0800 04/06 0000 Intake Total 560 120 840 780 Output Total 225 850 450 400 Balance -225 -290 -330 440 780 Intake, IV 500 600 300 Intake, Oral 60 120 240 480 Number 1 Bowel Movements Output, Urine 225 850 450 400 Patient 252 lb 249 lb Weight Weight Bed scale Bed scale Measurement Method Physical Exam: General: WD/WN male in NAD; awake and responsive. HEENT:: NC/AT, PERRL, EOMI Neck: no JVD, no carotid bruit Heart: irregularly irregular and tachycardic Lungs: clear bilaterally Abdomen: soft, NT, +ve bowel sounds Extremities: no edema, right toe amputations Assessment/Plan Assessment/Plan * This patient has atrial fibrillation with rapid heart rate. His INR is again supratherapeutic and he has normal LFT's. This is likely due to interaction with his antibiotics. Hold Coumadin. Increase Metoprolol to 50mg BID and increased as needed to control his heart rate. His tachycardia is likely related to his atrial fibrillation but a PE cannot be completely excluded especially considering his abnormal ABG. My strongest suspicion is that his tachycardia and hypotension is related to his atrial fibrillation and sepsis but a PE cannot be excluded. Consider a V/Q scan. * This patient has known coronary artery disease. On last visit, in the setting of his rapid heart rate he had ruled in for a type 2 [place]. A cardaic catheterization was not pursued at the time and invasive treatment is being refused by the patient at this time. Continue aspirin 81mg daily and Lipitor. Continue antibiotic therapy. Continue telemetry? Yes
[2018-04-07 22:43] VITALS: BP 154/88
[2018-04-08 06:33] VITALS: BP 162/90
--- NOTE | 2018-04-08 07:19 | PN- Urology ---
Surgical Brief Attending Note Brief Attending Note: Pt overall stable overnight: improving wbc. DC plan per medicine WITH [facility], and pt to return in 6-8 weeks for left renal ESWL of stone and stent removal (as long as sepsis improved). Will sign out for now.
[2018-04-08 07:26] LABS: ABSOLUTE BASOPHIL COUNT 0 /CUMM (0.0-0.2); ABSOLUTE EOSINOPHIL COUNT 0.2 /CUMM (0.0-0.7); ABSOLUTE GRANULOCYTE CT 10.8 /CUMM (1.4-6.5); ABSOLUTE LYMPH COUNT 1.5 /CUMM (1.2-3.4); ABSOLUTE MONOCYTE COUNT 0.7 /CUMM (0.10-0.60); BASOPHIL % 0.1 % (0.0-2.0); EOSINOPHIL % 1.3 % (0-5); GRANULOCYTE % 81.7 % (42.2-75.2); HEMATOCRIT 28.5 % (42-52); MEAN CORPUSCULAR HGB 29.6 PG (27.0-31.0); MEAN CORPUSCULAR HGB CONC 33.8 G/DL (33.0-37.0); MEAN CORPUSCULAR VOLUME 87.7 FL (80.0-94.0); MEAN PLATELET VOLUME 8.6 FL (7.4-10.4); PLATELET COUNT 198 /CUMM (130-400); RBC DISTRIBUTION WIDTH 15.6 % (11.5-14.5); RED BLOOD CELL CT 3.25 /CUMM (4.70-6.10); WHITE BLOOD CELL COUNT 13.2 /CUMM (4.8-10.8)
--- NOTE | 2018-04-08 07:49 | PN- Housestaff ---
See Addendum Subjective Follow-up For: Sepsis secondary to pyelonephrosis with obstructive stone at left ureteropelvic junction Tele-Events Since Last Visit: Atrial fibrillation with heart rate ranging in 110s-120s, metoprolol dose was increased yesterday Subjective: Patient seen and examined. Appears to be more alert today. Oriented to place no stent month and the year does not remember the date. Remembers his birthday. He told me that he had stone removed yesterday. He was requesting to drink water currently patient is on nectar pure diet. He was also stating that he has been lying in the bed since he came and would like to sit in the chair Afebrile without any complaints. Does not report pain or chills Review of Systems Constitutional: Reports: see HPI. Objective Last 24 Hrs of Vital Signs/I&O Vital Signs Date Time Temp Pulse Resp B/P B/P Pulse O2 O2 Flow FiO2 Mean Ox Delivery Rate 04/08 0633 98.4 112 18 162/90 95 Room Air 04/08 0408 124 146/78 / 2243 98.2 123 18 154/88 96 Room Air /07 2159 Room Air / 2146 134 / 2003 128 148/86 /07 1600 Room Air /07 1434 98.5 117 20 156/82 94 Room Air 06/07 0910 146/84 06/07 0800 Room Air 06/07 0800 98.0 122 22 140/66 94 Room Air Intake & Output /08 0800 06/08 0000 06/07 1600 Intake Total 400 240 Output Total 750 225 Balance -350 240 -225 Intake, Oral 400 240 Output, Urine 750 225 Patient 253 lb Weight Weight Bed scale Measurement Method Physical Exam General Appearance: Alert, Cooperative, No Acute Distress Cardiovascular: Normal S1, Normal S2, irregular Lungs: Clear to Auscultation, anterior fileds Abdomen: Normal Bowel Sounds, Soft, No Tenderness Extremities: No Edema Current Medications: Current Medications Sig/Anna Start time Last Medication Dose Route Stop Time Status Admin Acetaminophen 1,000 MG Q6P PRN / 1600 AC 04/05 IV 0555 Aspirin 81 MG DAILY 04/06 1150 AC 06/ PO 1547 Atorvastatin Calcium 40 MG 1700 04/06 1700 AC 04/07 PO 1731 Cefazolin Sodium 1,000 MG Q12H 04/05 1600 AC 04/08 IV 0402 Dextrose/Sodium 1,000 ML Q13H 04/07 0415 DC 04/07 Chloride IV 0412 Insulin Aspart 0 TIDAC 04/07 1700 AC 04/07 SC 1833 Insulin Human Regular 0 Q6 04/07 0600 DC 04/07 SC 0543 Metoprolol Tartrate 50 MG BID 04/08 0900 AC PO Metoprolol Tartrate 25 MG ONCE ONE 04/08 0400 DC 04/08 PO 04/08 0401 0408 Metoprolol Tartrate 25 MG ONCE ONE 04/07 2115 DC 04/07 PO 04/07 2116 214 Metoprolol Tartrate 25 MG BID 04/058 DC 04/07 PO 2002 Last 24 Hrs of Lab/Kj Results Last 24 Hrs of Labs/Mics: Laboratory Tests 04/08/18 0630: Sodium Pending, Potassium Pending, Chloride Pending, Carbon Dioxide Pending, Anion Gap Pending, BUN Pending, Creatinine Pending, BUN/Creatinine Ratio Pending , PT Pending, INR Pending, CBC w Diff Pending, WBC Pending, RBC Pending, Hgb Pending, Hct Pending, MCV Pending, MCH Pending, MCHC Pending, RDW Pending, Plt Count Pending, MPV Pending Microbiology 04/07 1030 MISC O.R.: Miscellaneous Culture - CAN Cancelled: [facility] 04/07 1030 MISC O.R.: Gram Stain - CAN Cancelled: [facility] 04/07 1000 BODY FLUID: Body Fluid Culture - [facility] 04/07 1000 BODY FLUID: Gram Stain - RE[facility] Assessment/Plan Assessment: 72-year-old gentleman with extensive multiple comorbidities including hypertension, sick daily, diabetes, previous CVA, recent cath in december then sent to rehab and then discharge home few days ago presents in a septic clinical condition (fevers, leukocytosis, hypotension and lactic acidosis) in the setting of positive gram-negative rods in urine and blood. Which was later identified to be Klebsiella species He is currently being treated and evaluated for following conditions #Klebsiella sepsis of urologic origin There is overall improvement in patient's status with blood pressure running in normal limits, afebrile, white count improving today. -Currently on cefazolin day 5, will continue for now, can switch to p.o. Augmentin on discharge to complete a course of 14 days -Patient is status post cystoscopy with placement of a left ureteral stent an obstructing left kidney stone. During the procedure large amount of pus was noted in left renal pelvis. -As per urology recommendations we will continue the Garcia, he will require left -sided ESWL and stent removal after 6 weeks. #History of atrial fibrillation Patient has been running tachycardic likely secondary to atrial fibrillation worsened by ongoing sepsis. VQ scan showed low probability of pulmonary embolism. His INR continues to be supratherapeutic secondary to interaction and cefazolin however hence we will continue to hold Coumadin for now -Metoprolol has been increased by the assisted living coordinator from 25 to 50 mg twice daily. -We can titrate the metoprolol dosage up patient was on 200 mg once a day. #History of hypertension Patient was on amlodipine, lisinopril and Lasix at home. His blood pressure is running towards the higher range now initially however he initially he came with hypotension in setting of sepsis -If it continues to trend up we can start patient on amlodipine -I discontinued the fluid yesterday -We will start Lasix and lisinopril on the basis of patient's creatinine as he presented with JARETT on CKD #History of CAD -He remains on aspirin and statin. #JARETT on CKD Likely secondary to multiorgan failure in setting of sepsis -His creatinine is stable at 1.8 today, will resolve with relief of obstruction #Non-anion gap metabolic acidosis Most likely secondary to aggressive saline hydration #History of diabetes mellitus Accu-Cheks with insulin sliding scale #Anemia H/H remained stable #We will get a PT evaluation today and will also ask for a formal speech and swallow evaluation to advance patient's diet anticipated discharge over the weekend Diet has been advanced to nectar and pure after the procedure/DVT prophylaxis with Coumadin and alps/DNR/DNI #Will get a repeat speech evaluation today on patient's request I talked to patient's son Brando Ulloa Junior on 04/07 11:30 AM. He stated that he is father should be worked up looking for any infectious/pathological process. However in case of deterioration they should not be any heroic measures. No central line placement or pressors. Patient status is DNR/DNI. If there is further deterioration he will consider comfort care for him. Problem List: 1. Severe sepsis Pain Ratin Pain Location: na Pain Goal: Pain 4 or less Pain Plan: prn Tomorrow's Labs & Rationales: cbc bep inr
[2018-04-08] MEDS ORDERED: AUGMENTIN 875-1 EACH PO (11:34)
--- NOTE | 2018-04-08 12:45 | PN- Infect Dx ---
Subjective Subjective: Afebrile without complaints Objective Last 24 Hrs of Vital Signs/I&O Vital Signs Date Time Temp Pulse Resp B/P B/P Pulse O2 O2 Flow FiO2 Mean Ox Delivery Rate 04/08 1122 135 140/96 04/08 0752 125 140/96 04/08 0633 98.4 112 18 162/90 95 Room Air 04/08 0408 124 146/78 04/07 2243 98.2 123 18 154/88 96 Room Air 04/07 2159 Room Air 04/07 2146 134 04/07 2003 128 148/86 04/07 1600 Room Air 04/07 1434 98.5 117 20 156/82 94 Room Air Intake & Output 04/08 1600 04/08 0800 04/08 0000 Intake Total 400 240 Output Total 750 Balance -350 240 Intake, Oral 400 240 Output, Urine 750 Patient 253 lb Weight Weight Bed scale Measurement Method Physical Exam Other Physical Findings: He appears comfortable in no acute distress Lungs are clear Heart irregular rhythm with no murmur Back no CVA tenderness Garcia catheter remains in place Results Last 24 Hours of Lab Results: Laboratory Tests 04/08 0630 Chemistry Sodium (137 - 145 mmol/L) 151 H Potassium (3.5 - 5.1 mmol/L) 4.5 Chloride (98 - 107 mmol/L) 119 H Carbon Dioxide (22 - 30 mmol/L) 22 Anion Gap (5 - 16) 11 BUN (9 - 20 mg/dL) 40 H Creatinine (0.7 - 1.2 mg/dL) 1.6 H Estimated GFR (>60 ml/min) 43 L BUN/Creatinine Ratio (7 - 25 %) 25.0 Coagulation PT (9.4 - 12.5 SEC) 61.0 *H INR (0.90 - 1.17) 5.50 *H Hematology CBC w Diff MAN DIFF ORDERED WBC (4.8 - 10.8 /CUMM) 13.2 H RBC (4.70 - 6.10 /CUMM) 3.25 L Hgb (14.0 - 18.0 G/DL) 9.6 L Hct (42 - 52 %) 28.5 L MCV (80.0 - 94.0 FL) 87.7 MCH (27.0 - 31.0 PG) 29.6 MCHC (33.0 - 37.0 G/DL) 33.8 RDW (11.5 - 14.5 %) 15.6 H Plt Count (130 - 400 /CUMM) 198 MPV (7.4 - 10.4 FL) 8.6 Gran % (42.2 - 75.2 %) 81.7 H Lymphocytes % (20.5 - 51.1 %) 11.2 L Monocytes % (1.7 - 9.3 %) 5.7 Eosinophils % (0 - 5 %) 1.3 Basophils % (0.0 - 2.0 %) 0.1 Absolute Granulocytes (1.4 - 6.5 /CUMM) 10.8 H Absolute Lymphocytes (1.2 - 3.4 /CUMM) 1.5 Absolute Monocytes (0.10 - 0.60 /CUMM) 0.7 H Absolute Eosinophils (0.0 - 0.7 /CUMM) 0.2 Absolute Basophils (0.0 - 0.2 /CUMM) 0 Platelet Estimate (ADEQUATE) ADEQUATE Hypochromic-Microcytic 1+ Poikilocytosis 2+ Anisocytosis 1+ Last 24 Hours of Kj Results: OR culture April 07 labeled left kidney fluid positive for gram-negative rods Assessment/Plan ID Impression: Continues to do well, with temperatures remaining normal and white blood cell count continuing to decrease, on Cefazolin, Day 5 of treatment for Klebsiella sepsis of urologic origin, status post cystoscopy with placement of a left ureteral stent yesterday for an obstructing left kidney stone. Have discussed with Urology, who recommends that the Garcia catheter be removed upon discharge, after which he can be catheterized intermittently if necessary. Suggestion: 1. Remove Garcia catheter upon discharge and straight cath intermittently if necessary 2. Increase Cefazolin to 1 g IV every 8 hours but, if he continues to improve and white blood cell count continues to decrease, can change to Keflex 500 mg p.o. every 8 hours to complete a 14 day course of treatment (until April 17) Dr. Lang is covering over the weekend
[2018-04-08] MEDS ORDERED: KEFLEX500 M1 PO (13:21)
[2018-04-08 14:26] VITALS: BP 110/70
[2018-04-08 20:25] VITALS: BP 140/100
[2018-04-08 22:30] VITALS: BP 120/80
--- NOTE | 2018-04-09 06:18 | PN- Cardiology ---
Subjective Subjective: * Awake, responsive and without complaints. * atrial fibrillation with increased heart rate. * creatine 1.6 * INR 5.5 Objective Vital Signs and I&Os Vital Signs Date Time Temp Pulse Resp B/P B/P Pulse O2 O2 Flow FiO2 Mean Ox Delivery Rate 04/09 0111 133 126/84 04/09 0000 94 04/08 2251 136 120/80 04/08 2230 98.0 129 20 120/80 95 Room Air 04/08 2025 118 140/100 04/08 1543 Room Air Room Air 04/08 1426 98.0 122 20 110/70 96 Room Air 04/08 1122 135 140/96 04/08 0752 125 140/96 04/08 0633 98.4 112 18 162/90 95 Room Air Intake & Output 04/09 0800 04/09 0000 04/08 1600 04/08 0800 04/08 0000 04/07 1600 Intake Total 120 700 400 240 Output Total 600 750 225 Balance 120 100 -350 240 -225 Intake, Oral 120 700 400 240 Output, Urine 600 750 225 Patient 253 lb Weight Weight Bed scale Measurement Method Physical Exam: General: WD/WN male in NAD; awake and responsive. HEENT:: NC/AT, PERRL, EOMI Neck: no JVD, no carotid bruit Heart: irregularly irregular and tachycardic Lungs: clear bilaterally Abdomen: soft, NT, +ve bowel sounds Extremities: no edema, right toe amputations Assessment/Plan Assessment/Plan * This patient has atrial fibrillation with rapid heart rate. Increase Metoprolol as needed to control his heart rate. This patient needs an echocardiogram to assess his EF. If low add digoxin for both ionotrophy and to lower his heart rate. * This patient has a very high INR with normal LFT's. At this point I would consider a nutritional deficiency and would give vitamin K. Some interaction with his antibiotics is also a likely contributor. * This patient has known coronary artery disease. On last visit, in the setting of his rapid heart rate he had ruled in for a type 2 [place]. A cardaic catheterization was not pursued at the time and invasive treatment is being refused by the patient at this time. Continue aspirin 81mg daily and Lipitor. Continue antibiotic therapy. Continue telemetry? Yes
[2018-04-09 06:45] VITALS: BP 126/74
[2018-04-09 08:24] LABS: ABSOLUTE BASOPHIL COUNT 0 /CUMM (0.0-0.2); ABSOLUTE EOSINOPHIL COUNT 0.2 /CUMM (0.0-0.7); ABSOLUTE GRANULOCYTE CT 13.1 /CUMM (1.4-6.5); BASOPHIL % 0.2 % (0.0-2.0); EOSINOPHIL % 1.4 % (0-5); GRANULOCYTE % 79.9 % (42.2-75.2); HEMATOCRIT 28.7 % (42-52); MEAN CORPUSCULAR HGB 29.6 PG (27.0-31.0); MEAN CORPUSCULAR HGB CONC 33.5 G/DL (33.0-37.0); MEAN CORPUSCULAR VOLUME 88.4 FL (80.0-94.0); MEAN PLATELET VOLUME 8.7 FL (7.4-10.4); PLATELET COUNT 220 /CUMM (130-400); RBC DISTRIBUTION WIDTH 15.7 % (11.5-14.5); RED BLOOD CELL CT 3.24 /CUMM (4.70-6.10); WHITE BLOOD CELL COUNT 16.3 /CUMM (4.8-10.8)
--- NOTE | 2018-04-09 08:31 | PN- Housestaff ---
Mahi CAMARA,Radha 04/09/18 0831: Subjective Follow-up For: Sepsis secondary to pyelonephrosis with obstructive stone at left ureteropelvic junction Tele-Events Since Last Visit: A. fib/flutter, heart rate 136, QRS 0.1, Subjective: Patient was seen and examined at bedside, he denies any complaints, was noticed to be in A. fib with RVR this morning. He was having an echo cardiogram this morning Review of Systems Constitutional: Reports: see HPI. Objective Last 24 Hrs of Vital Signs/I&O Vital Signs Date Time Temp Pulse Resp B/P B/P Pulse O2 O2 Flow FiO2 Mean Ox Delivery Rate 04/09 0748 132 126/74 04/09 0748 132 126/74 04/09 0645 98.3 105 20 126/74 95 Room Air 04/09 0111 133 126/84 04/09 0000 94 04/08 2251 136 120/80 04/08 2230 98.0 129 20 120/80 95 Room Air 04/08 2025 118 140/100 04/08 1543 Room Air Room Air 04/08 1426 98.0 122 20 110/70 96 Room Air Intake & Output 04/09 1600 04/09 0800 06/ 0000 Intake Total 120 Output Total 675 725 Balance -675 -605 Intake, Oral 120 Output, Urine 675 725 Physical Exam General Appearance: Alert, Oriented X3, Cooperative HEENT: Atraumatic, PERRLA, EOMI Neck: Supple, No JVD Cardiovascular: Normal S1, Normal S2 Lungs: Normal Air Movement Abdomen: Normal Bowel Sounds, Soft, No Tenderness Extremities: No Clubbing, No Cyanosis, No Edema Assessment/Plan Assessment: 72-year-old gentleman with extensive multiple comorbidities including hypertension, sick daily, diabetes, previous CVA, recent cath in december then sent to rehab and then discharge home few days ago presents in a septic clinical condition (fevers, leukocytosis, hypotension and lactic acidosis) in the setting of positive gram-negative rods in urine and blood. Which was later identified to be Klebsiella species He is currently being treated and evaluated for following conditions #Klebsiella sepsis of urologic origin There is overall improvement in patient's status with blood pressure running in normal limits, afebrile, white count improving today. -Currently on cefazolin day 6, will continue for now, can switch to p.o. Augmentin on discharge to complete a course of 14 days -Patient is status post cystoscopy with placement of a left ureteral stent an obstructing left kidney stone. During the procedure large amount of pus was noted in left renal pelvis. -As per urology recommendations we will continue the Garcia, he will require left -sided ESWL and stent removal after 6 weeks. #History of atrial fibrillation Patient has been running tachycardic likely secondary to atrial fibrillation worsened by ongoing sepsis. VQ scan showed low probability of pulmonary embolism. His INR continues to be supratherapeutic secondary to interaction and cefazolin however hence we will continue to hold Coumadin for now -Metoprolol has been increased TO 100 bid -Follow-up on echo for ejection fraction, if the patient has low ejection fraction will start him on digoxin for rate control, if normal ejection fraction can increase the metoprolol dose if the patient is still tachycardic #History of hypertension Patient was on amlodipine, lisinopril and Lasix at home. His blood pressure is running towards the higher range now initially however he initially he came with hypotension in setting of sepsis -If it continues to trend up we can start patient on amlodipine -I discontinued the fluid yesterday -Continue Lasix and lisinopril on the basis of patient's creatinine as he presented with JARETT on CKD #History of CAD -He remains on aspirin and statin. #JARETT on CKD Likely secondary to multiorgan failure in setting of sepsis -His creatinine is stable at 1.4 today, will resolve with relief of obstruction #Non-anion gap metabolic acidosis Most likely secondary to aggressive saline hydration #History of diabetes mellitus Accu-Cheks with insulin sliding scale #Anemia H/H remained stable formal speech and swallow evaluation: recommended to continue with his diet of mechanical soft ground and nectar thick and today will follow to advance patient 's diet anticipated discharge over the weekend Diet has been advanced to nectar and pure after the procedure/DVT prophylaxis with Coumadin and alps/DNR/DNI #Will get a repeat speech evaluation today on patient's request Conversation with the patient's son Brando Ulloa Junior on 04/07 11:30 AM. He stated that he is father should be worked up looking for any infectious/ pathological process. However in case of deterioration they should not be any heroic measures. No central line placement or pressors. Patient status is DNR/ DNI. If there is further deterioration he will consider comfort care for him. Problem List: 1. 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 Underwent left ureteral stent placement on without complication. Appears much better today, no complaints. WBC improving, remains afebrile, Garcia in place. HR still uncontrolled, afib 90-120. INR still supratherapeutic , no signs of bleeding, CBC stable. 1. Sepsis secondary to Klebsiella UTI and bacteremia 2. JARETT 3. Rapid atrial fibrillation 4. Metabolic encephalopathy 5. Left ureterolithiasis with obstructive uropathy Plan - Continue on telemetry - Continue Cefazolin - V/Q scan negative - Increase Metoprolol to 100mg BID - Hold Coumadin tonight - Monitor renal function and sodium - Per patient and family, no central lines or pressors, no heroic measures, DNR/ DNI. Will continue current management. If decompensation will have further goals of care discussions. - Once HR is controlled, can be discharged, likely tomorrow morning. Will coordinate with case management regarding safe discharge plan. Will be seen by PT today.
[2018-04-09 08:34] LABS: PT 43.8 SEC (9.4-12.5)
--- NOTE | 2018-04-09 12:38 | PN- Infect Dx ---
Subjective Subjective: This patient is a 72-year-old white male with Klebsiella sepsis of urologic origin. The patient is afebrile however his white blood cell count increased to 16,000 overnight. The patient is lethargic and offers no additional information. He does deny that he is in pain. Review of Systems Comments: Limited review secondary to patient condition Objective Last 24 Hrs of Vital Signs/I&O Vital Signs Date Time Temp Pulse Resp B/P B/P Pulse O2 O2 Flow FiO2 Mean Ox Delivery Rate 04/09 0748 132 126/74 04/09 0748 132 126/74 04/09 0645 98.3 105 20 126/74 95 Room Air 04/09 0111 133 126/84 / 0000 94 04/08 2251 136 120/80 04/08 2230 98.0 129 20 120/80 95 Room Air 04/08 2025 118 140/100 04/08 1543 Room Air Room Air 04/08 1426 98.0 122 20 110/70 96 Room Air Intake & Output 04/09 1600 04/09 0800 04/09 0000 Intake Total 120 Output Total 675 725 Balance -675 -605 Intake, Oral 120 Output, Urine 675 725 Physical Exam Other Physical Findings: Arousable minimally verbal Pupils are equal and reactive to light and accommodation he has equal ocular motion Neck is supple no JVD Heart is regular rate and rhythm S1-S2 Lungs are clear to auscultation bilaterally Abdomen is soft nontender nondistended Moving all extremities Results Last 24 Hours of Lab Results: Laboratory Tests 04/09 04/08 0640 2220 Chemistry Sodium (137 - 145 mmol/L) 150 H Potassium (3.5 - 5.1 mmol/L) 4.4 Chloride (98 - 107 mmol/L) 116 H Carbon Dioxide (22 - 30 mmol/L) 24 Anion Gap (5 - 16) 9 BUN (9 - 20 mg/dL) 34 H Creatinine (0.7 - 1.2 mg/dL) 1.4 H Estimated GFR (>60 ml/min) 50 L BUN/Creatinine Ratio (7 - 25 %) 24.3 Glucose (65 - 99 mg/dL) 258 H Coagulation PT (9.4 - 12.5 SEC) 43.8 *H INR (0.90 - 1.17) 3.96 H Hematology CBC w Diff NO MAN DIFF REQ WBC (4.8 - 10.8 /CUMM) 16.3 H RBC (4.70 - 6.10 /CUMM) 3.24 L Hgb (14.0 - 18.0 G/DL) 9.6 L Hct (42 - 52 %) 28.7 L MCV (80.0 - 94.0 FL) 88.4 MCH (27.0 - 31.0 PG) 29.6 MCHC (33.0 - 37.0 G/DL) 33.5 RDW (11.5 - 14.5 %) 15.7 H Plt Count (130 - 400 /CUMM) 220 MPV (7.4 - 10.4 FL) 8.7 Gran % (42.2 - 75.2 %) 79.9 H Lymphocytes % (20.5 - 51.1 %) 12.2 L Monocytes % (1.7 - 9.3 %) 6.3 Eosinophils % (0 - 5 %) 1.4 Basophils % (0.0 - 2.0 %) 0.2 Absolute Granulocytes (1.4 - 6.5 /CUMM) 13.1 H Absolute Lymphocytes (1.2 - 3.4 /CUMM) 2.0 Absolute Monocytes (0.10 - 0.60 /CUMM) 1.0 H Absolute Eosinophils (0.0 - 0.7 /CUMM) 0.2 Absolute Basophils (0.0 - 0.2 /CUMM) 0 Last 24 Hours of Kj Results: Microbiology Date/Time Procedure - Status Source Growth 04/07 1030 Miscellaneous Culture - CAN [facility]30 Gram Stain - CAN MISC O.R. Cancelled: [facility] 04/07 1000 Body Fluid Culture - COMP BODY FLUID KLEBSIELLA PNEUMONIAE 04/07 1000 Gram Stain - COMP BODY FLUID Recent Imaging Studies: Reviewed No recent studies Assessment/Plan ID Impression: This patient is a 72-year-old white male with a Klebsiella sepsis of urologic origin. The patient is lethargic but afebrile. His white blood cell count increased to 16,000 overnight. While on cefazolin day 6. Suggestion: 1. Continue cefazolin 2. Repeat blood cultures 2 3. Repeat white blood cell count in a.m. 4. Monitor for temperatures. 5. Monitor for signs and symptoms of sepsis.
[2018-04-09 13:50] VITALS: BP 138/92
[2018-04-09 21:57] VITALS: BP 130/74
[2018-04-10 07:08] VITALS: BP 130/76
[2018-04-10 07:58] LABS: ABSOLUTE BASOPHIL COUNT 0.1 /CUMM (0.0-0.2); ABSOLUTE EOSINOPHIL COUNT 0.5 /CUMM (0.0-0.7); ABSOLUTE LYMPH COUNT 1.9 /CUMM (1.2-3.4); BASOPHIL % 0.4 % (0.0-2.0); EOSINOPHIL % 3.3 % (0-5); GRANULOCYTE % 76.2 % (42.2-75.2); HEMATOCRIT 27.7 % (42-52); MEAN CORPUSCULAR HGB 29.7 PG (27.0-31.0); MEAN CORPUSCULAR HGB CONC 33.9 G/DL (33.0-37.0); MEAN CORPUSCULAR VOLUME 87.7 FL (80.0-94.0); MEAN PLATELET VOLUME 8.7 FL (7.4-10.4); PLATELET COUNT 232 /CUMM (130-400); RBC DISTRIBUTION WIDTH 15.4 % (11.5-14.5); RED BLOOD CELL CT 3.16 /CUMM (4.70-6.10); WHITE BLOOD CELL COUNT 14.4 /CUMM (4.8-10.8)
[2018-04-10 08:24] LABS: PT 33.1 SEC (9.4-12.5)
--- NOTE | 2018-04-10 09:15 | PN- Att Addend ---
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 Underwent left ureteral stent placement on without complication. Appears much better today, no complaints. WBC improving, remains afebrile, Garcia in place. HR still uncontrolled, afib 90-120. INR improved. 1. Sepsis secondary to Klebsiella UTI and bacteremia 2. JARETT 3. Rapid atrial fibrillation 4. Metabolic encephalopathy 5. Left ureterolithiasis with obstructive uropathy Plan - Continue on telemetry - Continue Cefazolin - V/Q scan negative - Metoprolol 100mg BID, input from cardiology - Hold Coumadin tonight - Monitor renal function and sodium - Per patient and family, no central lines or pressors, no heroic measures, DNR/ DNI. Will continue current management. If decompensation will have further goals of care discussions. - Once HR is controlled, can be discharged, likely tomorrow morning. Will coordinate with case management regarding safe discharge plan. Will be seen by PT today.
--- NOTE | 2018-04-10 09:16 | PN- Housestaff ---
Subjective Follow-up For: Sepsis secondary to UTI Tele-Events Since Last Visit: Atrial fibrillation, 100-110s Subjective: No overnight events. Patient has no complaints this morning including no chest pain, shortness of breath, abdominal pain, cough or other issues. Review of Systems Constitutional: Reports: no symptoms. EENTM: Reports: no symptoms. Cardiovascular: Reports: no symptoms. Respiratory: Reports: no symptoms. Gastrointestinal: Reports: no symptoms. Genitourinary: Reports: no symptoms. Musculoskeletal: Reports: no symptoms. Skin: Reports: no symptoms. Neurological/Psychological: Reports: no symptoms. Hematologic/Endocrine: Reports: no symptoms. Immunologic/Allergic: Reports: no symptoms. Objective Last 24 Hrs of Vital Signs/I&O Vital Signs Date Time Temp Pulse Resp B/P B/P Pulse O2 O2 Flow FiO2 Mean Ox Delivery Rate 04/10 0855 118 130/76 04/10 0855 133 130/76 04/10 0708 98.3 118 16 130/76 93 Room Air 06 0000 94 Room Air 04/09 2157 99.0 110 16 130/74 93 Room Air 04/09 2131 128 04/09 1350 98.5 104 18 138/92 95 Room Air Intake & Output 04/10 1600 04/10 0800 06 0000 Intake Total 600 600 Output Total 750 350 Balance -150 250 Intake, Oral 600 600 Output, Urine 750 350 Patient 117.112 kg Weight Weight Bed scale Measurement Method Physical Exam General Appearance: Alert, Cooperative, No Acute Distress Cardiovascular: Regular Rate, Normal S1, Normal S2 Lungs: Clear to Auscultation Abdomen: Normal Bowel Sounds, Soft, No Tenderness Current Medications: Current Medications Sig/Anna Start time Last Medication Dose Route Stop Time Status Admin Acetaminophen 650 MG .STK-MED ONE 04/09 1147 DC PO 04/09 1148 Acetaminophen 1,000 MG Q6P PRN 04/03 1600 AC 04/05 IV 0555 Aspirin 81 MG DAILY 04/06 1150 AC 04/10 PO 0854 Atorvastatin Calcium 40 MG 1700 04/06 1700 AC 04/09 PO 1652 Cefazolin Sodium 1,000 MG Q8 04/08 1400 AC 04/10 IV 0606 Insulin Aspart 0 TIDAC 04/08 1200 AC 04/10 SC 0854 Lisinopril 20 MG DAILY 04/08 1121 AC 04/10 PO 0855 Metoprolol Tartrate 100 MG BID 04/09 0900 AC 04/10 PO 0855 Last 24 Hrs of Lab/Kj Results Last 24 Hrs of Labs/Mics: Laboratory Tests 04/10/18 0605: Anion Gap 10, Estimated GFR 55 L, BUN/Creatinine Ratio 20.8, PT 33.1 H, INR 3.00 H, CBC w Diff NO MAN DIFF REQ, RBC 3.16 L, MCV 87.7, MCH 29.7, MCHC 33.9, RDW 15.4 H, MPV 8.7, Gran % 76.2 H, Lymphocytes % 13.1 L, Monocytes % 7.0, Eosinophils % 3.3, Basophils % 0.4, Absolute Granulocytes 11.0 H, Absolute Lymphocytes 1.9, Absolute Monocytes 1.0 H, Absolute Eosinophils 0.5, Absolute Basophils 0.1 Microbiology 04/09 1615 BLOOD: Blood Culture - RECD 04/09 143 BLOOD: Blood Culture - RECD Assessment/Plan Assessment: 72-year-old gentleman with extensive multiple comorbidities including hypertension, sick daily, diabetes, previous CVA, recent cath in december then sent to rehab and then discharge home few days ago presents in a septic clinical condition (fevers, leukocytosis, hypotension and lactic acidosis) in the setting of positive gram-negative rods in urine and blood. Which was later identified to be Klebsiella species He is currently being treated and evaluated for following conditions #Klebsiella sepsis of urologic origin There is overall improvement in patient's status with blood pressure running in normal limits, afebrile, white count improving today. -Currently on cefazolin day 7, will continue for now, can switch to p.o. Augmentin on discharge to complete a course of 14 days -Patient is status post cystoscopy with placement of a left ureteral stent an obstructing left kidney stone. During the procedure large amount of pus was noted in left renal pelvis. -As per urology recommendations we will continue the Garcia, he will require left -sided ESWL and stent removal after 6 weeks. #History of atrial fibrillation Patient has been running tachycardic likely secondary to atrial fibrillation worsened by ongoing sepsis. VQ scan showed low probability of pulmonary embolism. His INR continues to be supratherapeutic secondary to interaction and cefazolin however hence we will continue to hold Coumadin for now -Metoprolol has been increased TO 100 bid -Follow-up on echo for ejection fraction, if the patient has low ejection fraction will start him on digoxin for rate control, if normal ejection fraction can increase the metoprolol dose if the patient is still tachycardic #History of hypertension Patient was on amlodipine, lisinopril and Lasix at home. His blood pressure is running towards the higher range now initially however he initially he came with hypotension in setting of sepsis -If it continues to trend up we can start patient on amlodipine -Continue Lasix and lisinopril on the basis of patient's creatinine as he presented with JARETT on CKD #History of CAD -He remains on aspirin and statin. #JARETT on CKD Likely secondary to multiorgan failure in setting of sepsis -His creatinine is stable at 1.3 today, will resolve with relief of obstruction #Non-anion gap metabolic acidosis Most likely secondary to aggressive saline hydration #History of diabetes mellitus Accu-Cheks with insulin sliding scale #Anemia H/H remained stable formal speech and swallow evaluation: recommended to continue with his diet of mechanical soft ground and nectar thick and today will follow to advance patient 's diet anticipated discharge over the weekend Diet has been advanced to nectar and pure after the procedure/DVT prophylaxis with Coumadin and alps/DNR/DNI Conversation with the patient's son Brando Ulloa Junior on 04/07 11:30 AM. He stated that he is father should be worked up looking for any infectious/ pathological process. However in case of deterioration they should not be any heroic measures. No central line placement or pressors. Patient status is DNR/ DNI. If there is further deterioration he will consider comfort care for him. Problem List: 1. Severe sepsis Pain Ratin Pain Location: no Pain Goal: Remain pain free Pain Plan: see a/p Tomorrow's Labs & Rationales: cbc, bep
[2018-04-10 15:10] VITALS: BP 118/60
--- NOTE | 2018-04-10 17:00 | PN- Cardiology ---
Subjective Subjective: No complaints. Denies any chest discomfort, palpitations, shortness of breath, etc. Telemetry reveals atrial fibrillation with a rapid mean ventricular response in the 120 bpm range. Objective Vital Signs and I&Os Vital Signs Date Time Temp Pulse Resp B/P B/P Pulse O2 O2 Flow FiO2 Mean Ox Delivery Rate 04/10 1510 97.9 112 18 118/60 98 Room Air 04/10 0855 118 130/76 04/10 0855 133 130/76 04/10 0800 Room Air Room Air 04/10 0708 98.3 118 16 130/76 93 Room Air 04/10 0000 94 Room Air 04/09 2157 99.0 110 16 130/74 93 Room Air 04/09 2131 128 Intake & Output 04/10 1600 04/10 0800 04/10 0000 04/09 1600 04/09 0800 04/09 0000 Intake Total 1216 600 600 480 120 Output Total 650 750 350 550 675 725 Balance 566 -150 250 -70 -675 -605 Intake, IV 16 Intake, Oral 1200 600 600 480 120 Number 1 1 Bowel Movements Output, Urine 650 750 350 550 675 725 Patient 258 lb Weight Weight Bed scale Measurement Method Physical Exam: Well-developed, overweight elderly male in no acute distress. Vital signs: See above. Neck: No JVD, no bruits. Lungs: Clear to auscultation bilaterally. Heart: S1, S2 (irregularly, irregular). Extremities: No edema. Current Medications: Current Medications Sig/Anna Start time Last Medication Dose Route Stop Time Status Admin Acetaminophen 1,000 MG Q6P PRN 04/03 1600 AC 04/05 IV 0555 Aspirin 81 MG DAILY 04/06 1150 AC 04/10 PO 0854 Atorvastatin Calcium 40 MG 1700 04/06 1700 AC 04/09 PO 1652 Cefazolin Sodium 1,000 MG Q8 04/08 1400 AC 04/10 IV 1422 Insulin Aspart 0 TIDAC 04/08 1200 AC 04/10 SC 1221 Lisinopril 20 MG DAILY 04/08 1121 AC 04/10 PO 0855 Metoprolol Tartrate 100 MG BID 04/09 0900 AC 04/10 PO 0855 Results Last 48 Hrs of Labs/Mics: Laboratory Tests 04/10/18 0605: Anion Gap 10, Estimated GFR 55 L, BUN/Creatinine Ratio 20.8, PT 33.1 H, INR 3.00 H, CBC w Diff NO MAN DIFF REQ, RBC 3.16 L, MCV 87.7, MCH 29.7, MCHC 33.9, RDW 15.4 H, MPV 8.7, Gran % 76.2 H, Lymphocytes % 13.1 L, Monocytes % 7.0, Eosinophils % 3.3, Basophils % 0.4, Absolute Granulocytes 11.0 H, Absolute Lymphocytes 1.9, Absolute Monocytes 1.0 H, Absolute Eosinophils 0.5, Absolute Basophils 0.1 04/09/18 0640: Anion Gap 9, Estimated GFR 50 L, BUN/Creatinine Ratio 24.3, PT 43.8 *H, INR 3.96 H, CBC w Diff NO MAN DIFF REQ, RBC 3.24 L, MCV 88.4, MCH 29.6, MCHC 33.5, RDW 15.7 H, MPV 8.7, Gran % 79.9 H, Lymphocytes % 12.2 L, Monocytes % 6.3, Eosinophils % 1.4, Basophils % 0.2, Absolute Granulocytes 13.1 H, Absolute Lymphocytes 2.0, Absolute Monocytes 1.0 H, Absolute Eosinophils 0.2, Absolute Basophils 0 04/08/18 2220: Glucose 258 H Assessment/Plan Assessment/Plan [id number]-m w/ hx HTN, HLD, DM, CKD, previous strokes (basal ganglia, more recent cerebellar) CAD (s/p angioplasty in 2006; NSTEMI w/o cath 2/2 recent stroke), and atrial fibrillation discovered at the time of his cerebellar stroke who presented with atrial fibrillation and a rapid ventricular response. Recommendations: * Echocardiogram to assess left ventricular function. * Start diltiazem 30 mg 3 times daily, if acceptable LV function. * DVT prophylaxis. Assessment/Plan Assessment/Plan * This patient has atrial fibrillation with rapid heart rate. Increase Metoprolol as needed to control his heart rate. This patient needs an echocardiogram to assess his EF. If low add digoxin for both ionotrophy and to lower his heart rate. * This patient has a very high INR with normal LFT's. At this point I would consider a nutritional deficiency and would give vitamin K. Some interaction with his antibiotics is also a likely contributor. * This patient has known coronary artery disease. On last visit, in the setting of his rapid heart rate he had ruled in for a type 2 NV. A cardaic catheterization was not pursued at the time and invasive treatment is being refused by the patient at this time. Continue aspirin 81mg daily and Lipitor. Continue antibiotic therapy. Continue telemetry? Yes Continue telemetry? Yes
[2018-04-10 22:29] VITALS: BP 120/80
[2018-04-11 06:56] VITALS: BP 114/70
[2018-04-11 06:57] VITALS: BP 120/64
[2018-04-11 06:58] VITALS: BP 116/66
--- NOTE | 2018-04-11 07:36 | PN- Housestaff ---
See Addendum Subjective Follow-up For: sepsis of urological origin Tele-Events Since Last Visit: Atrial fibrillation with heart rate ranging 90s-100 Subjective: seen and examined. No active complaints. Denies chest pain, shortness of breath, abdominal pain, cough. Oriented to place. Not oriented to time and also the president is. Remembers his own birthday Review of Systems Constitutional: Reports: see HPI. Objective Last 24 Hrs of Vital Signs/I&O Vital Signs Date Time Temp Pulse Resp B/P B/P Pulse O2 O2 Flow FiO2 Mean Ox Delivery Rate 04/11 0656 97.7 106 18 114/70 95 Room Air 04/11 0556 105 126/82 04/10 2229 99.1 124 18 120/80 95 Room Air 04/10 2212 108 124/86 04/10 2043 132 136/90 04/10 2026 Room Air 04/10 1812 121 124/88 04/10 1510 97.9 112 18 118/60 98 Room Air 04/10 0855 118 130/76 04/10 0855 133 130/76 Intake & Output 04/11 1600 04/11 0800 04/11 0000 Intake Total 360 240 Output Total 900 550 Balance -540 -310 Intake, Oral 360 240 Output, Urine 900 550 Patient 252 lb Weight Weight Bed scale Measurement Method Physical Exam General Appearance: Alert Cardiovascular: Normal S1, Normal S2 Lungs: Clear to Auscultation Abdomen: Normal Bowel Sounds, Soft, No Tenderness Neurological: Normal Speech Current Medications: Current Medications Sig/Anna Start time Last Medication Dose Route Stop Time Status Admin Acetaminophen 1,000 MG Q6P PRN 04/03 1600 AC 04/05 IV 0555 Aspirin 81 MG DAILY 04/06 1150 AC 04/10 PO 0854 Atorvastatin Calcium 40 MG 1700 04/06 1700 AC 04/10 PO 1713 Cefazolin Sodium 1,000 MG Q8 04/08 1400 AC 04/11 IV 0550 Diltiazem HCl 30 MG Q8 04/10 1716 AC 04/11 PO 0556 Insulin Aspart 0 TIDAC 04/08 1200 AC 04/10 SC 1713 Lisinopril 20 MG DAILY 04/08 1121 AC 04/10 PO 0855 Metoprolol Tartrate 100 MG BID 04/09 0900 AC 04/10 PO 2043 Last 24 Hrs of Lab/Kj Results Last 24 Hrs of Labs/Mics: Laboratory Tests 04/11/18 0623: Anion Gap 8, Estimated GFR 60, BUN/Creatinine Ratio 20.0, CBC w Diff Pending, WBC Pending, RBC Pending, Hgb Pending, Hct Pending, MCV Pending, MCH Pending, MCHC Pending, RDW Pending, Plt Count Pending, MPV Pending Assessment/Plan Assessment: 72-year-old gentleman with extensive multiple comorbidities including hypertension, sick daily, diabetes, previous CVA, recent cath in december then sent to rehab and then discharge home few days ago presents in a septic clinical condition (fevers, leukocytosis, hypotension and lactic acidosis) in the setting of positive gram-negative rods in urine and blood. Which was later identified to be Klebsiella species He is currently being treated and evaluated for following conditions #Klebsiella sepsis of urologic origin There is overall improvement in patient's status with blood pressure running in normal limits, afebrile, white count improving today. -Currently on cefazolin day 8, will continue for now, can switch to p.o. Augmentin on discharge to complete a course of 14 days -Patient is status post cystoscopy with placement of a left ureteral stent an obstructing left kidney stone. During the procedure large amount of pus was noted in left renal pelvis. -As per urology recommendations we will continue the Garcia, he will require left -sided ESWL and stent removal after 6 weeks. #History of atrial fibrillation Patient has been running tachycardic likely secondary to atrial fibrillation worsened by ongoing sepsis. VQ scan showed low probability of pulmonary embolism. His INR was supratherapeutic secondary to interaction with cefazolin however it is now improving. -Metoprolol has been increased to 100 bid -Ejection fraction was within normal limits has been started on Cardizem 30 mg Q8 -We will dose the Coumadin as per patient's INR readings #History of hypertension Patient was on amlodipine, lisinopril and Lasix at home. His blood pressure is running towards the higher range now initially however he initially he came with hypotension in setting of sepsis -He has been started on lisinopril -Amlodipine and #History of CAD -He remains on aspirin and statin. #JARETT on CKD Likely secondary to multiorgan failure in setting of sepsis -His creatinine has normalized #Non-anion gap metabolic acidosis-improving Most likely secondary to aggressive saline hydration #History of diabetes mellitus Accu-Cheks with insulin sliding scale #Anemia H/H remained stable Formal speech and swallow evaluation: recommended to continue with his diet of mechanical soft ground and nectar thick #DVT prophylaxis with Coumadin and alps/DNR/DNI Conversation with the patient's son Brando Ulloa Junior on 04/07 11:30 AM. He stated that he is father should be worked up looking for any infectious/ pathological process. However in case of deterioration they should not be any heroic measures. No central line placement or pressors. Patient status is DNR/ DNI. If there is further deterioration he will consider comfort care for him. Problem List: 1. Severe sepsis Pain Ratin Pain Location: na Pain Goal: Pain 4 or less Pain Plan: prn Tomorrow's Labs & Rationales: cbc bep inr
[2018-04-11 07:48] LABS: ABSOLUTE BASOPHIL COUNT 0 /CUMM (0.0-0.2); ABSOLUTE EOSINOPHIL COUNT 0.7 /CUMM (0.0-0.7); ABSOLUTE GRANULOCYTE CT 8.2 /CUMM (1.4-6.5); ABSOLUTE LYMPH COUNT 2.1 /CUMM (1.2-3.4); ABSOLUTE MONOCYTE COUNT 0.6 /CUMM (0.10-0.60); BASOPHIL % 0.4 % (0.0-2.0); EOSINOPHIL % 5.7 % (0-5); GRANULOCYTE % 70.4 % (42.2-75.2); HEMATOCRIT 27.6 % (42-52); MEAN CORPUSCULAR HGB 29.3 PG (27.0-31.0); MEAN CORPUSCULAR HGB CONC 33.3 G/DL (33.0-37.0); MEAN PLATELET VOLUME 8.8 FL (7.4-10.4); PLATELET COUNT 242 /CUMM (130-400); RBC DISTRIBUTION WIDTH 15.4 % (11.5-14.5); RED BLOOD CELL CT 3.13 /CUMM (4.70-6.10); WHITE BLOOD CELL COUNT 11.6 /CUMM (4.8-10.8)
--- NOTE | 2018-04-11 07:52 | ECHOCARDIOGRAM REPORT ---
JOVAN MACEDO Age: 72 : 1945 Gender: M Exam Date: 04/09/2018 09:25 Exam Location: [address] Ht (in): 68 Wt (lb): 253 BSA: 2.40 BP: 126 / 74 Ordering Physician: Baldemar Early MD Referring Physician: Baldemar Early MD Technologist: Caridad Rico [facility] Room Number: 172 Indications: Rhythm: Atrial fibrillation Technical Quality: fair FINDINGS Left Ventricle Normal left ventricular size with mild left ventricular hypertrophy. Mildly decreased systolic function with no obvious regional wall motion abnormalities. The ejection fraction is visually estimated at 40%. Right Ventricle The right ventricle is normal in size and function. Right Atrium The right atrium is normal in size. Left Atrium The left atrium is top normal in size. The interatrial septum is intact. Mitral Valve The mitral valve is normal in structure and function. There is trace mitral regurgitation. Aortic Valve Mildly sclerotic aortic valve without significant stenosis. There is no aortic regurgitation. Tricuspid Valve The tricuspid valve is normal in structure and function. There is trace to mild tricuspid regurgitation. Pulmonary artery systolic pressure is normal. Pulmonic Valve Structurally normal pulmonic valve. There is mild pulmonic regurgitation. Pericardium Normal pericardium without effusion. No pleural effusion. Great Vessels Normal aortic root dimension. The aortic arch and great vessels are not well seen. CONCLUSIONS 1. Mildly decreased EF of 40%. 2. Mild left ventricular hypertrophy. 3. Left atrial is top normal in size. 4. Trace mitral regurgitation. 5. Trace to mild tricuspid regurgitation. 6. Mild pulmonic regurgitation. Oumar Liriano M.D. (Electronically Signed) Final Date: 11 April 2018 07:51 MEASUREMENTS (Male / Female) Normal Values 2D ECHO LV Diastolic Diameter PLAX 4.4 cm 4.2 - 5.9 / 3.9 - 5.3 cm LV Systolic Diameter PLAX 3.2 cm 2.1 - 4.0 cm LV Fractional Shortening PLAX 27.3 % 25 - 46 % LV Ejection Fraction 2D Teich 53.3 % IVS Diastolic Thickness 1.6 cm LVPW Diastolic Thickness 1.2 cm LV Relative Wall Thickness 0.6 LVOT Diameter 2.0 cm Aortic Root Diameter 3.6 cm LA Systolic Diameter LX 4.0 cm 3.0 - 4.0 / 2.7 - 3.8 cm DOPPLER AV Peak Velocity 129.0 cm/s AV Peak Gradient 6.7 mmHg LVOT Peak Velocity 72.6 cm/s LVOT Peak Gradient 2.1 mmHg AV Area Cont Eq pk 1.8 cm Mitral E Point Velocity 110.0 cm/s TV Peak Velocity 266.6 cm/s PV Peak Velocity 121.0 cm/s PV Peak Gradient 5.9 mmHg LV E' Lateral Velocity 10.3 cm/s Mitral E to LV E' Lateral Ratio 10.7 LV E' Septal Velocity 6.9 cm/s Mitral E to LV E' Septal Ratio 15.9
[2018-04-11 08:56] LABS: PT 31.4 SEC (9.4-12.5)
[2018-04-11] MEDS ORDERED: KEFLEX500 M1 PO (09:07)
--- NOTE | 2018-04-11 10:52 | PN- Infect Dx ---
Subjective Subjective: Afebrile without complaints Objective Last 24 Hrs of Vital Signs/I&O Vital Signs Date Time Temp Pulse Resp B/P B/P Pulse O2 O2 Flow FiO2 Mean Ox Delivery Rate 04/11 0656 97.7 106 18 114/70 95 Room Air 04/11 0556 105 126/82 04/10 2229 99.1 124 18 120/80 95 Room Air 04/10 2212 108 124/86 04/10 2043 132 136/90 04/10 2026 Room Air 04/10 1812 121 124/88 04/10 1510 97.9 112 18 118/60 98 Room Air Intake & Output 04/11 1600 04/11 0800 04/11 0000 Intake Total 360 240 Output Total 900 550 Balance -540 -310 Intake, Oral 360 240 Output, Urine 900 550 Patient 252 lb Weight Weight Bed scale Measurement Method Physical Exam Other Physical Findings: He appears comfortable in no acute distress Lungs crackles at the left base Heart irregular rhythm without murmur Extremities no cyanosis, clubbing or edema Garcia catheter remains in place Results Last 24 Hours of Lab Results: Laboratory Tests 04/11 04/11 0825 0623 Chemistry Sodium (137 - 145 mmol/L) 147 H Potassium (3.5 - 5.1 mmol/L) 4.4 Chloride (98 - 107 mmol/L) 112 H Carbon Dioxide (22 - 30 mmol/L) 26 Anion Gap (5 - 16) 8 BUN (9 - 20 mg/dL) 24 H Creatinine (0.7 - 1.2 mg/dL) 1.2 Estimated GFR (>60 ml/min) 60 BUN/Creatinine Ratio (7 - 25 %) 20.0 Coagulation PT (9.4 - 12.5 SEC) 31.4 H INR (0.90 - 1.17) 2.85 H Hematology CBC w Diff NO MAN DIFF REQ WBC (4.8 - 10.8 /CUMM) 11.6 H RBC (4.70 - 6.10 /CUMM) 3.13 L Hgb (14.0 - 18.0 G/DL) 9.2 L Hct (42 - 52 %) 27.6 L MCV (80.0 - 94.0 FL) 88.0 MCH (27.0 - 31.0 PG) 29.3 MCHC (33.0 - 37.0 G/DL) 33.3 RDW (11.5 - 14.5 %) 15.4 H Plt Count (130 - 400 /CUMM) 242 MPV (7.4 - 10.4 FL) 8.8 Gran % (42.2 - 75.2 %) 70.4 Lymphocytes % (20.5 - 51.1 %) 18.1 L Monocytes % (1.7 - 9.3 %) 5.4 Eosinophils % (0 - 5 %) 5.7 H Basophils % (0.0 - 2.0 %) 0.4 Absolute Granulocytes (1.4 - 6.5 /CUMM) 8.2 H Absolute Lymphocytes (1.2 - 3.4 /CUMM) 2.1 Absolute Monocytes (0.10 - 0.60 /CUMM) 0.6 Absolute Eosinophils (0.0 - 0.7 /CUMM) 0.7 Absolute Basophils (0.0 - 0.2 /CUMM) 0 Last 24 Hours of Kj Results: Blood cultures 2 April 09 negative Assessment/Plan ID Impression: Stable, with temperatures remaining normal and white blood cell count continuing to decrease, after an increase 2 days ago of unclear etiology, on Cefazolin, Day 8 of treatment for Klebsiella sepsis of urologic origin, status post cystoscopy with placement of a left ureteral stent 4 days ago for an obstructing left kidney stone, with continued improvement in his renal function. Suggestion: 1. Remove Garcia catheter and bladder scan after 6 hours to rule out urinary retention 2. Continue Cefazolin but, if his white blood cell count continues to decrease, can change to Keflex 500 mg p.o. every 8 hours to complete a 14 day course of treatment (until April 17)
[2018-04-11] MEDS ORDERED: CARDIZEM30 M1 PO (11:19)
[2018-04-11 16:26] VITALS: BP 114/70
== END 2018-04-11 17:30 | DRG 871 ==
LOC: ERH 11:00 → ERHI 14:03 → 1NO 14:03 → CRI 14:03 → 1NO 14:03 → ENRESERV 15:10 → CANRESERV 15:10 → ENRESERV 18:03 → EDTRNSPTSTS 18:57 → ENTRNSPT 18:57 → EDTRNSPT 18:57 → CMPTRNSPT 19:15 → CRI 19:18 → ENTRNSPT 04-05 14:36 → EDTRNSPTSTS 04-05 15:01 → EDTRNSPT 04-05 15:01 → 1NO 04-05 15:06 → CMPTRNSPT 04-05 15:17 → 1NO 04-07 07:04 → ENTRNSPT 04-07 11:16 → EDTRNSPTSTS 04-07 11:38 → EDTRNSPT 04-07 11:38 → CMPTRNSPT 04-07 12:06 → ENPENDDIS 04-11 15:49 → 1NO 04-11 17:30
PROVIDERS: Dermatology; Emergency Medicine; Internal Medicine; Student in an Organized Health Care Education/Training Program
PROC: 0T778DZ Dilation of Left Ureter with Intraluminal Device, Via Natural or Artificial Opening Endoscopic (ICD-10-PCS; principal; 2018-04-07)
DX: A41.89 Other specified sepsis (principal); R65.21 Severe sepsis with septic shock; G93.41 Metabolic encephalopathy; N39.0 Urinary tract infection, site not specified; N17.9 Acute kidney failure, unspecified; N13.2 Hydronephrosis with renal and ureteral calculous obstruction; R65.20 Severe sepsis without septic shock; Z79.4 Long term (current) use of insulin; I25.10 Atherosclerotic heart disease of native coronary artery without angina pectoris; E78.5 Hyperlipidemia, unspecified; I25.2 Old myocardial infarction; Z89.421 Acquired absence of other right toe(s); Z87.891 Personal history of nicotine dependence; E11.9 Type 2 diabetes mellitus without complications; I48.91 Unspecified atrial fibrillation; Z66 Do not resuscitate; D64.9 Anemia, unspecified; Z95.5 Presence of coronary angioplasty implant and graft; E83.42 Hypomagnesemia; I12.9 Hypertensive chronic kidney disease with stage 1 through stage 4 chronic kidney disease, or unspecified chronic kidney disease; N18.9 Chronic kidney disease, unspecified
CPT/HCPCS: 1NP; 87070; 87075; CCU; 36415; 36592; 71045; 74018; 74176; 76775; 78582; 81001; 82436; 87040; 87086; 93005; 93010; 93306; 93970; 94799; 96360; 96361; 96365; 96375; 97161-GP; 97530-GO; 99291; A9540; A9558; C2617; J0131; J0456; J0690; J0696; J0713; J1815; J2185; J3490; J7040; J7042; J7120

== ENCOUNTER 2018-05-04 22:58 | Inpatient (IN) | payer OTHER, MEDICARE ==
[~2018-05-04] VITALS: Ht 172.7 cm; Wt 105.4 kg
[~2018-05-04 22:58] MED LIST changes: +AMLODIPINE BESYL5 M1 PO; +AUGMENTIN 875-1 EACH PO; +CARDIZEM30 M1 PO; +FUROSEMIDE20 M1 PO; +LISINOPRIL20 M1 PO; +METOPROLOL SUC200 M2 PO; +MIRALAX17 G1 PO; +NOVOLOG100 UNIT/2 SC; +WARFARIN SODIUM3 M1 PO
--- NOTE | 2018-05-04 23:14 | ED GENERAL ADULT ---
History of Present Illness General Chief Complaint: Fever Stated Complaint: BIBA TONGUE ABSCESS Source: patient Exam Limitations: no limitations Vital Signs & Intake/Output Vital Signs & Intake/Output Vital Signs Date Time Temp Pulse Resp B/P B/P Pulse O2 O2 Flow FiO2 Mean Ox Delivery Rate 05/05 0344 97.8 101 18 138/96 95 05/05 0232 95 Room Air 05/05 0120 98.2 93 20 145/97 97 Room Air 05/04 2304 97.9 101 16 144/80 94 Room Air ED Intake and Output 05/05 0000 05/04 1200 Intake Total Output Total Balance Patient 242 lb Weight Weight Estimated Measurement Method Allergies Coded Allergies: NO KNOWN ALLERGIES (07/23/15) Reconcile Medications Aspirin (Aspirin*) 81 MG TAB.CHEW 1 TAB PO DAILY HEART HEALTH (Reported) Atorvastatin Calcium (Lipitor) 80 MG TABLET 1 TAB PO QPM CHOLESTEROL ( Reported) Cephalexin (Keflex) 500 MG CAPSULE 1 CAP PO TID kidney infection Diltiazem HCl (Cardizem) 30 MG TABLET 1 TAB PO Q8 Heart rate Gabapentin (Neurontin) 300 MG CAPSULE 1 CAP PO BID UNKNOWN (Reported) Insulin Aspart (Novolog) 100 UNIT/ML VIAL 5 UNITS SC TIDAC DM (Reported) Insulin Aspart (Novolog) 100 UNIT/ML VIAL DM (Reported) Insulin Glargine,Hum.rec.anlog (Lantus Solostar) 100 UNIT/ML (3 ML) INSULN.PEN 24 UNIT SC QPM DM (Reported) Lisinopril 20 MG TABLET 1 TAB PO DAILY BP (Reported) Metoprolol Succinate 200 MG TAB.ER.24H 1 TAB PO DAILY HEART/BP (Reported) Polyethylene Glycol 3350 (Miralax) 17 GRAM POWD.PACK 1 PAC PO Q12H PRN GI ( Reported) dissolve in water Warfarin Sodium 3 MG TABLET 1 TAB PO DAILY BLOOD THINNER (Reported) Triage Note: PT TO ER C/C LEFT SIDED TONGUE ?ABSCESS WHICH HAS BEEN THERE "SINCE I WAS A KID". PAINLESS. PER EMS PT'S DAUGHTER WHO CALLED [phone] STATED THE MASS DEVELOPED THIS AM. PER EMS PT HAS BEEN HAVING FEVER/CHILLS. AFEBRILE PRESENTLY. Triage Nurses Notes Reviewed? yes Onset: Gradual Duration: day(s): Timing: recent history Injury Environment: home Severity: moderate Modifying Factors: Improves With: rest. Associated Symptoms: left tongue swelling, weakness, subjective fevers HPI: 72 yo gentleman, h/o afib, h/o left sided hemiparesis from cva's, h/o urosepsis, discharged from [facility] yesterday to home, presents with chills, weakness, lethargy that began yesterday. He notes also that he developed left lateral tongue swelling, without pain or discharge, within the past 1-2 days. He notes decreased oral intake, dyspnea without cough or phelgm. He has no abdominal pain, diarrhea, chest pain. Pt has indwelling villasenor. Past History Travel History Traveled to [place] past 21 day No Medical History Any Pertinent Medical History? 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 No Review of Systems Review of Systems Constitutional: Reports: no symptoms. EENTM: Reports: no symptoms. Respiratory: Reports: no symptoms. Cardiovascular: Reports: no symptoms. GI: Reports: no symptoms. Genitourinary: Reports: no symptoms. Musculoskeletal: Reports: no symptoms. Skin: Reports: no symptoms. Neurological/Psychological: Reports: no symptoms. Hematologic/Endocrine: Reports: no symptoms. Immunologic/Allergic: Reports: no symptoms. All Other Systems: Reviewed and Negative Physical Exam Physical Exam General Appearance: well developed/nourished, mild distress Head: atraumatic, normal appearance Eyes: Bilateral: normal appearance. Ears, Nose, Throat: left lateral tongue with fluctuant swelling 1x2cm, nontender Neck: normal inspection, supple, full range of motion Respiratory: diminished breath sounds Cardiovascular: irregularly irregular Gastrointestinal: normal bowel sounds, soft, non-tender Back: normal inspection, normal range of motion Extremities: normal inspection, normal capillary refill, no edema Neurologic/Psych: awake, alert, oriented x 3, left arm 0/5 strength. left leg 3/ 5 strength Skin: intact, normal color, warm/dry Core Measures ACS in differential dx? No CVA/TIA Diagnosis: No Sepsis Present: No Sepsis Focused Exam Completed? No Progress Differential Diagnoses I considered the following diagnoses in my evaluation of the patient: dehydration, uti, sepsis, tongue abscess. Plan of Care: Orders Procedure Date/time Status Nothing by Mouth 05/05 B Active PROTHROMBIN TIME 05/05 600 Active CBC WITHOUT DIFFERENTIAL 05/05 600 Active BASIC ELECTROLYTES PLUS BUN&CR 05/05 600 Active Vital Signs 05/05 438 Active Teach/Educate 05/05 438 Active Pain Treatment and Response 05/05 438 Active Nutritional Intake, Monitor 05/05 438 Active Isolation 05/05 438 Active Intake & Output 05/05 438 Active Patient Care Conference 05/05 438 Active Activity/Ambulation 05/05 438 Active Pathway - chart 05/05 0254 Active House Staff 05/05 0254 Active Intake & Output 05/05 0221 Active Patient Data 05/05 0215 Active Saline Lock 05/[address] in observation 05/05 015 Active Misc Message 05/05 015 Active ED Holding Orders 05/05 158 Active Vital Signs 05/05 0158 Active Code Status 05/05 158 Active Add-on Test (ER Only) 05/05 0140 Active CULTURE,URINE 05/05 0043 Active VTE Mechanical Prophylaxis 05/05 UNK Active Vital Signs 05/05 UNK Active Intake & Output 05/05 UNK Active BLOOD CULTURE 05/04 2320 Active BLOOD CULTURE 05/04 2315 Active URINALYSIS 05/04 2315 Complete TROPONIN LEVEL 05/04 2315 Complete PARTIAL THROMBOPLASTIN TIME 05/04 2315 Complete PROTHROMBIN TIME 05/04 231 Complete LIPASE 05/04 2315 Complete HEPATIC FUNCTION PANEL 05/04 2315 Complete CBC WITHOUT DIFFERENTIAL 05/04 2315 Complete BASIC METABOLIC PANEL 05/04 2315 Complete AMYLASE 05/04 231 Complete EKG 05/04 2301 Active Current Medications Sig/Anna Start time Last Medication Dose Stop Time Status Admin Zinc Oxide 1 DANNY BID PRN 05/05 0400 UNVr (Desitin) Acetaminophen 650 MG Q6PRN PRN 05/05 0300 AC (Tylenol) Laboratory Tests 05/05/18 0043: Urinalysis LIGHT H, Urine Color YEL, Urine Clarity CLDY H, Urine pH 6.5, Ur Specific [place] 1.020, Urine Protein 100 H, Urine Ketones NEG, Urine Nitrite POS H, Urine Bilirubin NEG, Urine Urobilinogen 0.2, Ur Leukocyte Esterase LARGE H, Ur Microscopic SEDIMENT EXAMINED, Urine RBC 5-10 H, Urine WBC 50-75 H, Ur Epithelial Cells FEW, Urine Bacteria MOD H, Urine Mucus FEW, Micro UA Comment [place] H, Urine Hemoglobin SMALL H, Urine Glucose NEG 05/04/188: Anion Gap 13, Estimated GFR 55 L, BUN/Creatinine Ratio 16.9, Glucose 129 H, Calcium 8.5, Total Bilirubin 0.4, Direct Bilirubin 0.2, AST 13 L, ALT 26, Alkaline Phosphatase 109, Troponin I < 0.01, Total Protein 6.6, Albumin 3.0 L, Amylase 51, Lipase 136, PT 37.8 H, INR 3.43 H, APTT 43 H, CBC w Diff NO MAN DIFF REQ, RBC 3.25 L, MCV 85.5, MCH 28.3, MCHC 33.1, RDW 15.4 H, MPV 6.9 L, Gran % 69.4, Lymphocytes % 19.3 L, Monocytes % 7.6, Eosinophils % 3.3, Basophils % 0.4, Absolute Granulocytes 7.1 H, Absolute Lymphocytes 2.0, Absolute Monocytes 0.8 H, Absolute Eosinophils 0.3, Absolute Basophils 0 Microbiology 05/05 213 BLOOD: Blood Culture - RECD 05/05 43 URINE ROUT: Urine Culture - RECD 05/04 2358 BLOOD: Blood Culture - RECD Diagnostic Imaging: Viewed by Me: Radiology Read. Discussed w/RAD: Radiology Read. CXR Impression: PATIENT: JOVAN MACEDO PRESENT AGE : 72 PATIENT ACCOUNT NO: [id number] : 47 LOCATION: [facility] ORDERING PHYSICIAN: Lawrence Wilson MD SERVICE DATE: 05/04/18 EXAM TYPE: RAD - XRY-PORTABLE CHEST XRAY EXAMINATION: XR PORTABLE CHEST CLINICAL INFORMATION: Chest pain COMPARISON: Chest x-ray April 03, 2018 TECHNIQUE: Portable frontal view of the chest was obtained. 11:38 PM FINDINGS: No significant abnormality is noted involving the heart, lungs, mediastinum, bony thorax or soft tissues. IMPRESSION: No acute abnormality of the chest. DICTATED BY: Ayaan Monsalve MD DATE/TIME DICTATED:05/04/182357 ANDROID DEVELOPER:ALICIA DATE/ TIME TRANSCRIBED:05/04/182357 CONFIDENTIAL, DO NOT COPY WITHOUT APPROPRIATE AUTHORIZATION. <Electronically signed in Other Vendor System> SIGNED BY: Ayaan Monsalve MD 05/05/18 0002 Initial ED EKG: afib no changes from prior. Departure Departure Disposition: STILL A PATIENT Condition: Stable Clinical Impression Primary Impression: Weakness Secondary Impressions: Urinary tract infection Referrals: Mimi Rosales MD (PCP/Family) Departure Forms: Customer Survey General Discharge Information Observation Note Spoke With: Rickey CAMARA,[facility] Patient In: Non-ED OBS Care Area Rationale for Observation: My rational for observation is as follows . pt with 3 issues: 1. uti, with indwelling villasenor... merits iv abx, follow cultures 2. tongue abscess... will need ENT evaluation in AM... pt on coumadin for rate controlled afib, would recheck inr prior to lancing abscess 3. clinically pt appears dehydration... gentle iv fluids 4. dispo- discharged from [facility]... may require adjunct faculty for medical terminology care. Critical Care Note Critical Care Note Critical Care Time: non-applicable
--- NOTE | 2018-05-05 00:02 | RADIOLOGY REPORT ---
EXAMINATION: XR PORTABLE CHEST CLINICAL INFORMATION: Chest pain COMPARISON: Chest x-ray April 03, 2018 TECHNIQUE: Portable frontal view of the chest was obtained. 11:38 PM FINDINGS: No significant abnormality is noted involving the heart, lungs, mediastinum, bony thorax or soft tissues. IMPRESSION: No acute abnormality of the chest.
[2018-05-05 00:16] LABS: ABSOLUTE BASOPHIL COUNT 0 /CUMM (0.0-0.2); ABSOLUTE EOSINOPHIL COUNT 0.3 /CUMM (0.0-0.7); ABSOLUTE GRANULOCYTE CT 7.1 /CUMM (1.4-6.5); ABSOLUTE MONOCYTE COUNT 0.8 /CUMM (0.10-0.60); BASOPHIL % 0.4 % (0.0-2.0); EOSINOPHIL % 3.3 % (0-5); GRANULOCYTE % 69.4 % (42.2-75.2); HEMATOCRIT 27.8 % (42-52); MEAN CORPUSCULAR HGB 28.3 PG (27.0-31.0); MEAN CORPUSCULAR HGB CONC 33.1 G/DL (33.0-37.0); MEAN CORPUSCULAR VOLUME 85.5 FL (80.0-94.0); MEAN PLATELET VOLUME 6.9 FL (7.4-10.4); PLATELET COUNT 364 /CUMM (130-400); RBC DISTRIBUTION WIDTH 15.4 % (11.5-14.5); RED BLOOD CELL CT 3.25 /CUMM (4.70-6.10); WHITE BLOOD CELL COUNT 10.2 /CUMM (4.8-10.8)
[2018-05-05 00:30] LABS: PT 37.8 SEC (9.4-12.5); PTT 43 SEC (25-37)
[2018-05-05 03:44] VITALS: BP 138/96
--- NOTE | 2018-05-05 04:07 | History & Physical ---
Adan Royal 05/05/18 0406: General Information and HPI MD Statement: I have seen and personally examined JOVAN MACEDO and documented this H&P. The patient is a 72 year old M who presented with a patient stated chief complaint of [Complicated UTI]. Source of Information: family, old records Exam Limitations: unable to give history, poor historian History of Present Illness: Mr. Perry is a 72 yo male. He is a poor historian. Hx was obtained via old records and by talking to his son over the phone. Pt has a PMHx significant for Afib (on coumadin) HTN, DM, CAD s/p PCI, HLD, Right toe amputation, diabetic ulcer or rt heel, CVA. He was recently admitted to [facility] 04/03/18 04/11/18 for urosepsis and hyronephorsis s/p stent. He was discharged to [facility] and came home (to his son's house) for one day and now presents back at [facility] with fever, lethargy, and weakness. His son reports that his father is alert and oreinted x 3 at baseline. Patient is AOx1 (unable to orient to time, place, or setting). Patient has a villasenor in place, that son says was put in at [facility]. Son also mentions an abscess on the tongue that he noticed when coming back from [facility]. Allergies/Medications Allergies: Coded Allergies: NO KNOWN ALLERGIES (07/23/15) Past History Travel History Traveled to [place] past 21 day No Medical History Neurological: AMS EENT: NONE Cardiovascular: CAD, hypertension, hyperlipidemia, [place] 12YRS AGO [place] 01/16 Respiratory: NONE Gastrointestinal: NONE Hepatic: NONE Renal: NONE Musculoskeletal: BACK SURGERY s/p amputation of the right 3rd and 5th toes Psychiatric: NONE Endocrine: diabetes Blood Disorders: NONE Cancer(s): NONE CELLULAR EQUIPMENT REPAIRER/Reproductive: NONE History of MRSA: Yes History of VRE: No History of CDIFF: No Surgical History Surgical History: RIGHT FOOT 4/5 TOE AMP BACK SURGERIES CYST REMOVAL Past Family/Social History Family History Relations & Conditions if any MOTHER Psychosocial History Who Do You Live With? spouse, child Services at Home: None Primary Language: Arabic Living Will? unknown Power of Pharmacy Technician Assistant/HCP? no Functional Ability ADLs Independent: dressing, eating, toileting, bathing. Ambulation: cane, walker IADLs Independent: shopping, housework, finances, food prep, telephone, transportation , medication admin. Review of Systems Review of Systems Constitutional: Reports: no symptoms (unable to attain). EENTM: Reports: no symptoms. Cardiovascular: Reports: no symptoms. Respiratory: Reports: no symptoms. GI: Reports: no symptoms. Genitourinary: Reports: no symptoms. Musculoskeletal: Reports: no symptoms. Skin: Reports: no symptoms. Neurological/Psychological: Reports: no symptoms. Hematologic/Endocrine: Reports: no symptoms. Immunologic/Allergic: Reports: no symptoms. All Other Systems: Reviewed and Negative (Unable to Attain) Exam & Diagnostic Data Last 24 Hrs of Vital Signs/I&O Vital Signs Date Time Temp Pulse Resp B/P B/P Pulse O2 O2 Flow FiO2 Mean Ox Delivery Rate 05/05 1724 98.0 66 18 142/72 07/05 1400 98.0 66 18 142/72 94 Room Air 07/05 0958 128 132/60 07/05 0958 128 132/60 07/05 0903 126 132/60 07/05 0846 98.5 126 16 132/60 94 Room Air 07/05 0439 Room Air 07/05 0344 97.8 101 18 138/96 95 07/05 0232 95 Room Air 07/05 0120 98.2 93 20 145/97 97 Room Air 07/04 2304 97.9 101 16 144/80 94 Room Air Intake & Output 07/05 1600 07/05 0800 07/05 0000 Intake Total 300 50 Output Total 1 450 Balance 299 -400 Intake, IV 300 50 Number 1 Bowel Movements Output, Stool 1 Output, Urine 450 Patient 230 lb 242 lb Weight Weight Estimated Measurement Method Physical Exam General Appearance No Acute Distress Skin No Rashes Skin Temp/Moisture Exam: Warm/Dry HEENT Atraumatic, PERRLA, EOMI Neck Supple Cardiovascular Normal S1, Normal S2 Lungs Clear to Auscultation Abdomen Normal Bowel Sounds, Soft Assessment/Plan Assessment: Mr. perry is a 72 yo gentleman with PMH significant for HTN, IDDM, CAD s/p PCI, HLD, Right toe amputations for osteomyelitis, diabetic ulcer of rt heel,A. Fib on coumadin, CVA and recent admission at [facility] from 04/03/18 till 04/11/18 for Urosepsis and Hydronephrosis 2/2 nephrolithiasis s/p stent placement. He now presents with low grade fever, lethargy and Weakness. Vitals on admission were stable except for HR of 101. He had a WBC count of 10.2, creatinine 1.3, INR 3.43 and positive UA. Problem list: 1. UTI in the setting of indwelling Villasenor - [facility] - Follow-up blood and urine cx 2. Tongue abscess - ENT consult for tongue abscess. - Keep the patient NPO 3. Supratherapeutic INR - Continue Levemir and Novolin sliding scale. - Accu-Cheks every 6 hours 4. Chronic medical conditions - Continue home medications As Ranked By This Provider Problem List: 1. Diabetes mellitus 2. UTI (urinary tract infection) 3. Atrial fibrillation Core Measures/Misc (07/18) Acute Coronary Syndrome ACS Diagnosis: No Congestive Heart Failure Congestive Heart Failure Diagnosis No Cerebrovascular Accident CVA/TIA Diagnosis: No VTE (View Protocol) VTE Risk Factors Age>40 No Mechanical VTE Prophylaxis d/t N/A MechProphylax Ordered No VTE Pharm Prophylaxis d/t NA PharmProphylax ordered Sepsis (View protocol) Sepsis Present: Yes If YES complete Sepsis Event Note If YES complete Sepsis Event Note Rickey CAMARACleveland 05/05/18 0439: General Information and HPI MD Statement: I have seen and personally examined JOVAN MACEDO and documented this H&P. The patient is a 72 year old M who presented with a patient stated chief complaint of []. Core Measures/Misc (07/18) Sepsis (View protocol) If YES complete Sepsis Event Note If YES complete Sepsis Event Note Attending MD Review Statement Attending Statement Attending MD Statement: examined this patient, discuss w/resident/PA/SOILED LINEN DISTRIBUTOR Attending Assessment/Plan: This patient is a 72-year-old white male with multiple medical problems including hypertension, insulin-dependent diabetes mellitus, coronary artery disease, hyperlipidemia diabetes and stroke. The patient presents to the emergency department with chills, weakness and lethargy. He was also noted to have a left lateral tongue swelling. He is a very poor historian and information was obtained from the chart and my previous experience. Allergiesno known allergies Home meds reviewed Past medical history: Change in mental status Coronary artery disease Hypertension Hyperlipidemia Coronary artery disease status post [place] Diabetes Osteomyelitis status post amputation Social history: Retired, former smoker and former alcohol user Family history is noncontributory Review of systems unobtainable Physical exam Vital signs: Temperature is 97.8 pulse 101 respirations 18 pressure 138/96 pulse ox 95% on room air Awake and alert nose where he is and does not appear to be in any distress Pupils are equal and reactive Neck is supple no JVD Heart is regular rate and rhythm S1-S2 Lungs have diffuse rhonchi gurgling Abdomen soft nontender nondistended Moving all extremities Hemoglobin 9.2 INR 3.43 UA positive with Villasenor catheter in place Blood and urine cultures pending Chest x-ray shows no acute abnormalities This patient is a 72-year-old white male who is well-known to the hospital for several admissions related to his underlying diabetes and osteomyelitis. The patient presents with a tongue abscess but is found to have a urinary tract infection and increasing renal insufficiency. The patient does have multiple medical problems but would focus on the 3 hand. Tongue abscess- currently on ceftriaxone awaiting ENT evaluation Urinary tract infection - currently on ceftriaxone for cultures to return to make any modifications history of Klebsiella which was sensitive to cephalosporins Gentle rehydration Continue current outpatient meds. Emilie CAMARA,[facility] 05/05/18 0737: General Information and HPI Allergies/Medications Home Med list Aspirin (Aspirin*) 81 MG TAB.CHEW 1 TAB PO DAILY HEART HEALTH (Reported) Atorvastatin Calcium (Lipitor) 80 MG TABLET 1 TAB PO QPM CHOLESTEROL ( Reported) Cephalexin (Keflex) 500 MG CAPSULE 1 CAP PO TID kidney infection Diltiazem HCl (Cardizem) 30 MG TABLET 1 TAB PO Q8 Heart rate Gabapentin (Neurontin) 300 MG CAPSULE 1 CAP PO BID UNKNOWN (Reported) Insulin Aspart (Novolog) 100 UNIT/ML VIAL 5 UNITS SC TIDAC DM (Reported) Insulin Aspart (Novolog) 100 UNIT/ML VIAL DM (Reported) Insulin Glargine,Hum.rec.anlog (Lantus Solostar) 100 UNIT/ML (3 ML) INSULN.PEN 24 UNIT SC QPM DM (Reported) Lisinopril 20 MG TABLET 1 TAB PO DAILY BP (Reported) Metoprolol Succinate 200 MG TAB.ER.24H 1 TAB PO DAILY HEART/BP (Reported) Pantoprazole Sodium 20 MG TABLET.DR 1 TAB PO DAILY gerd (Reported) Polyethylene Glycol 3350 (Miralax) 17 GRAM POWD.PACK 1 PAC PO Q12H PRN GI ( Reported) dissolve in water Warfarin Sodium 3 MG TABLET 1 TAB PO DAILY BLOOD THINNER (Reported) Core Measures/Misc (07/18) Sepsis (View protocol) If YES complete Sepsis Event Note If YES complete Sepsis Event Note Resident Review Statement Resident Statement: examined this patient, discussed with international trade compliance manager, agreed with international trade compliance manager, discussed with family, discussed with nursing Other Findings: Mr. perry is a 72 yo gentleman with PMH significant for HTN, IDDM, CAD s/p PCI, HLD, Right toe amputations for osteomyelitis, diabetic ulcer of rt heel,A. Fib on coumadin, CVA and recent admission at [facility] from 04/03/18 till 04/11/18 for Urosepsis and Hydronephrosis 2/2 nephrolithiasis s/p stent placement, he was discharged home from [facility] yesterday now presents with low grade fever, lethargy and Weakness. Hx confirmed over the Phone with son. Reports his father is Ax O at his baseline and is currently at his baseline but Patient is not able to provide any Hx, says he does not remember why he is in the hospital. Patient has a villasenor in place, unsure when it was put in. He also mentioned an abscess on his tongue that he noticed 1-2 weeks ago. Patient has an apt with Dr. Thomas on 05/10 for stent removal. Vitals on admission were stable except for HR of 101. He had a WBC count of 10.2, creatinine 1.3, INR 3.43 and positive UA. Problem list; 1. UTI in the setting of indwelling Villasenor 2. Tongue abscess 3. Supratherapeutic INR 4. Chronic medical conditions - Observe patient on [facility] floor for 24-48 hours. - Patient was given 1 dose of IV ceftriaxone in the ER, will continue. - Follow-up blood cultures and urine culture. - ENT consult for tongue abscess. - Keep the patient nothing by mouth. - Hold Coumadin and repeat INR in a.m. - Hold aspirin. - Continue Levemir and Novolin sliding scale. - Accu-Cheks every 6 hours - Continue rest of his home medications. DVT prophylaxis; Alps only (patient has supratherapeutic INR) Patient is DNR/DNI Start on pure/mechanical soft and regular thins when resuming diet
--- NOTE | 2018-05-05 07:22 | PN- Housestaff ---
Kev Corrales 05/05/18 0721: Subjective Follow-up For: Lethargy and fever Complaints: no complaints Subjective: Hospital day 1. Patient was seen and examined at the bedside. Patient had decreased responsiveness due to lethargy. When asked, voiced no complaints. Review of Systems Constitutional: Reports: see HPI. Objective Last 24 Hrs of Vital Signs/I&O Vital Signs Date Time Temp Pulse Resp B/P B/P Pulse O2 O2 Flow FiO2 Mean Ox Delivery Rate 05/05 0958 128 132/60 / 0958 128 132/60 / 0903 126 132/60 / 0846 98.5 126 16 132/60 94 Room Air 05/05 0439 Room Air / 0344 97.8 101 18 138/96 95 / 0232 95 Room Air / 0120 98.2 93 20 145/97 97 Room Air 05/04 2304 97.9 101 16 144/80 94 Room Air Intake & Output 05/05 1600 05/05 0800 05/05 0000 Intake Total 50 Output Total 450 Balance -400 Intake, IV 50 Number 1 Bowel Movements Output, Urine 450 Patient 230 lb 242 lb Weight Weight Estimated Measurement Method Physical Exam General Appearance: Cooperative, No Acute Distress, lethargic Skin: No Rashes Skin Temp/Moisture Exam: Warm/Dry Sepsis Skin Exam (color): Normal for Ethnicity HEENT: Atraumatic, PERRLA, notable mass on left side of tongue Neck: Supple, No thryomegaly Cardiovascular: Regular Rate, Normal S1, Normal S2, No Murmurs Lungs: Clear to Auscultation, increased work of breathing Abdomen: Normal Bowel Sounds, Soft, No Tenderness Neurological: slurred speech, due to lethargy Extremities: No Edema Current Medications: Current Medications Sig/Anna Start time Last Medication Dose Route Stop Time Status Admin Acetaminophen 650 MG Q6PRN PRN 05/05 0300 AC PO Atorvastatin Calcium 80 MG QPM 05/05 2100 AC PO Ceftriaxone Sodium 1,000 MG DAILY 05/05 0900 AC 05/05 IV 0959 Ceftriaxone Sodium 0 .STK-MED ONE 05/05 0203 DC .ROUTE Ceftriaxone Sodium 1,000 MG ONCE ONE 05/05 0145 DC 05/05 IV 05/05 0146 0221 Dextrose/Sodium 1,000 ML Q13H 05/05 0630 AC 05/05 Chloride IV 0635 Diltiazem HCl 30 MG Q8H 05/05 0717 AC 05/05 PO 0903 Gabapentin 300 MG BID 05/05 0900 AC 05/05 PO 0959 Insulin Detemir 24 UNITS QPM 05/05 2100 AC SC Insulin Human Regular 0 Q6 05/05 0827 CAN SC Insulin Human Regular 0 Q6 05/05 0734 AC 05/05 SC 0935 Lisinopril 20 MG DAILY 05/05 09 AC 05/05 PO 0958 Metoprolol Succinate 200 MG DAILY 05/05 0900 AC 05/05 PO 0958 Nystatin 1 DANNY BID 05/05 0900 AC 05/05 TOP 0959 Omeprazole 20 MG DAILY AC 05/05 0732 AC 05/05 PO 0935 Polyethylene Glycol 17 GM DAILY PRN 05/05 0730 AC PO Zinc Oxide 1 DANNY BID PRN 05/05 0400 AC TOP Assessment/Plan Assessment: 72-year-old male past medical history HTN, DM, CAD with prior stenting, hyperlipidemia, toe amputations, who was brought in by ambulance for lethargy and fever. Noted to have left lateral tongue lesion. His very poor historian and information was obtained from the chart. Patient was transferred to telemetry from general medicine for evaluation and management of rapid A. fib on 05/05/18 Problem list: Change in mental status Coronary artery disease post stenting Hypertension Hyperlipidemia Diabetes Osteomyelitis S/P amputation Plan: Patient transferred to telemetry for evaluation and management of rapid A. fib CBCs shows no leukocytosis; continue to follow white count Patient is remaining n.p.o. awaiting evaluation by ENT; ENT doctor discussed case over the phone today; Awaiting ENT note Continue to treat UTI with ceftriaxone and follow-up urine cultures to make any modifications Gentle rehydration Hold warfarin due to supratherapeutic INR Continue other current outpatient meds DVT prophylaxis: ALPS; chemical prophylaxis withheld due to supratherapeutic INR Patient is DNR/DNI Problem List: 1. Change in mental status 2. Diabetes mellitus 3. Atrial fibrillation 4. Essential hypertension 5. Hyperlipidemia associated with type 2 diabetes mellitus Pain Ratin Pain Location: na Pain Goal: Remain pain free Pain Plan: NA Tomorrow's Labs & Rationales: Refer to telemetry Discharge Plan Stable for Discharge? No Anticipated Discharge (Day): unknown Vincent Yuan 05/05/18 1207: Attending MD Review Statement Attending Statement Attending MD Statement: examined this patient, discuss w/resident/PA/ROTARY PEEL OVEN TENDER, agreed w/resident/PA/ROTARY PEEL OVEN TENDER, discussed with family, reviewed EMR data (avail), discussed with nursing, discussed with case mgmt, reviewed images, amended to note Attending Assessment/Plan: Mr. lundberg is a 72 yo gentleman with PMH significant for HTN, IDDM, CAD s/p PCI, HLD, Right toe amputations for osteomyelitis, diabetic ulcer of rt heel,A. Fib on coumadin, CVA and recent admission at [facility] from 04/03/18 till 04/11/18 for Urosepsis and Hydronephrosis 2/2 nephrolithiasis s/p stent placement, he was discharged home from [facility] yesterday now presents with low grade fever, lethargy and Weakness. During rounds patient went into uncontrolled afib, EKG obtained and given PO meds metoprol and cardizem without releif and transferred to telemetry for rate control. He is supratherapeutic INR. Couamdin hold on admission, Recheck INR and dose coumadin. Cardiology consult. UTI in the setting of indwelling Garcia: c/w iv antibitoics and follow urine cultures. Follow-up blood cultures. Tongue abscess/swelling ENT consulted and pictures sent to him by internet assessor, need to follow ENT recs. Continue Levemir and Novolin sliding scale. Accu-Cheks every 6 hours Patient has an apt with Dr. Thomas on 05/10 for stent removal.
[2018-05-05] MEDS ORDERED: PANTOPRAZOLE SO20 M1 PO (07:32)
[2018-05-05 08:46] VITALS: BP 132/60
[2018-05-05 09:47] LABS: PT 40.1 SEC (9.4-12.5)
[2018-05-05 10:31] LABS: ABSOLUTE BASOPHIL COUNT 0 /CUMM (0.0-0.2); ABSOLUTE EOSINOPHIL COUNT 0.3 /CUMM (0.0-0.7); ABSOLUTE GRANULOCYTE CT 7.8 /CUMM (1.4-6.5); ABSOLUTE LYMPH COUNT 1.6 /CUMM (1.2-3.4); ABSOLUTE MONOCYTE COUNT 0.8 /CUMM (0.10-0.60); BASOPHIL % 0.4 % (0.0-2.0); EOSINOPHIL % 2.7 % (0-5); GRANULOCYTE % 74.5 % (42.2-75.2); HEMATOCRIT 27.6 % (42-52); MEAN CORPUSCULAR HGB 28.1 PG (27.0-31.0); MEAN CORPUSCULAR HGB CONC 32.9 G/DL (33.0-37.0); MEAN CORPUSCULAR VOLUME 85.4 FL (80.0-94.0); MEAN PLATELET VOLUME 7.5 FL (7.4-10.4); PLATELET COUNT 348 /CUMM (130-400); RBC DISTRIBUTION WIDTH 15.4 % (11.5-14.5); RED BLOOD CELL CT 3.23 /CUMM (4.70-6.10); WHITE BLOOD CELL COUNT 10.5 /CUMM (4.8-10.8)
--- NOTE | 2018-05-05 11:32 | Event Note ---
Event Note Event Note: Patient transferred to telemetry from general medicine for evaluation and management of rapid A. fib. Family was updated, spoke to the patient's son Brando on the phone and answered all of his questions.
[2018-05-05 14:00] VITALS: BP 142/72
--- NOTE | 2018-05-05 17:42 | CT SCAN REPORT ---
EXAMINATION: CT HEAD WITHOUT CONTRAST CLINICAL INFORMATION: History of stroke. Rule out subdural bleed. Confusion. Weakness and lethargy. COMPARISON: Head CTs from 04/03/2018 and 01/09/2018. TECHNIQUE: Contiguous axial imaging was performed from the skull base to vertex without intravenous administration of contrast. DLP: 618.8 mGy-cm FINDINGS: There is no evidence of acute intracranial hemorrhage or territorial infarction. No abnormal mass effect or midline shift is seen. No extra-axial fluid collections are identified. Mild to moderate chronic white matter microangiopathy again noted with generalized parenchymal volume loss. There is no evidence of hydrocephalus. Chronic lacunar infarcts in the deep reed matter structures again visible with ex vacuo dilatation of the frontal horn of the right lateral ventricle. The osseous structures are normal. The mastoid air cells are well aerated. There is mild to moderate mucosal thickening in the ethmoid sinus air cells. An ovoid cystic lesion in the right paramedian suboccipital soft tissues with irregular soft tissue thickening peripherally is relatively unchanged measuring 1.8 cm. IMPRESSION: No significant changes. Chronic lacunar infarcts in the deep reed matter structures with mild to moderate chronic white matter microangiopathy and generalized parenchyma volume loss. A focal acute ischemic process cannot be ruled out on the basis of this study.
--- NOTE | 2018-05-05 19:35 | Cons- Ear,Nose&Throat ---
General Information and HPI Consulting Request Date of Consult: 05/05/18 Requested By: Phillip Fuchs MD Reason for Consult: Tongue lesion, left Source of Information: old records Exam Limitations: unable to give history History of Present Illness: This patient is a 72-year-old white male with multiple medical problems including hypertension, insulin-dependent diabetes mellitus, coronary artery disease, hyperlipidemia diabetes and stroke. The patient presented to the ER with chills, weakness and lethargy. He was also noted to have a left lateral tongue swelling. He is a very poor historian and information was obtained from the chart. Apparently, patient's son observed the lesion 2 weeks ago. Allergies/Medications Allergies: Coded Allergies: NO KNOWN ALLERGIES (07/23/15) Home Med List: Aspirin (Aspirin*) 81 MG TAB.CHEW 1 TAB PO DAILY HEART HEALTH (Reported) Atorvastatin Calcium (Lipitor) 80 MG TABLET 1 TAB PO QPM CHOLESTEROL ( Reported) Cephalexin (Keflex) 500 MG CAPSULE 1 CAP PO TID kidney infection Diltiazem HCl (Cardizem) 30 MG TABLET 1 TAB PO Q8 Heart rate Gabapentin (Neurontin) 300 MG CAPSULE 1 CAP PO BID UNKNOWN (Reported) Insulin Aspart (Novolog) 100 UNIT/ML VIAL 5 UNITS SC TIDAC DM (Reported) Insulin Aspart (Novolog) 100 UNIT/ML VIAL DM (Reported) Insulin Glargine,Hum.rec.anlog (Lantus Solostar) 100 UNIT/ML (3 ML) INSULN.PEN 24 UNIT SC QPM DM (Reported) Lisinopril 20 MG TABLET 1 TAB PO DAILY BP (Reported) Metoprolol Succinate 200 MG TAB.ER.24H 1 TAB PO DAILY HEART/BP (Reported) Pantoprazole Sodium 20 MG TABLET.DR 1 TAB PO DAILY gerd (Reported) Polyethylene Glycol 3350 (Miralax) 17 GRAM POWD.PACK 1 PAC PO Q12H PRN GI ( Reported) dissolve in water Warfarin Sodium 3 MG TABLET 1 TAB PO DAILY BLOOD THINNER (Reported) Current Medications: Current Medications Sig/Anna Start time Last Medication Dose Route Stop Time Status Admin Acetaminophen 650 MG Q6PRN PRN 05/05 0300 AC PO Atorvastatin Calcium 80 MG QPM 05/05 2100 AC PO Ceftriaxone Sodium 1,000 MG DAILY 05/05 0900 AC 05/05 IV 0959 Ceftriaxone Sodium 0 .STK-MED ONE 05/05 0203 DC .ROUTE Ceftriaxone Sodium 1,000 MG ONCE ONE 05/05 0145 DC 05/05 IV 05/05 0146 0221 Dextrose/Sodium 1,000 ML Q13H 05/05 0630 05/05 Chloride IV 0635 Diltiazem HCl 30 MG Q8H 05/05 0717 AC 05/05 PO 1724 Gabapentin 300 MG BID 05/05 0900 AC 05/05 PO 0959 Insulin Detemir 24 UNITS QPM 05/05 2100 AC SC Insulin Human Regular 0 Q6 05/05 0827 CAN SC Insulin Human Regular 0 Q6 05/05 0734 AC 05/05 SC 1724 Lisinopril 20 MG DAILY 05/05 09 AC 05/05 PO 0958 Metoprolol Succinate 200 MG DAILY 05/05 900 AC 05/05 PO 0958 Nystatin 1 DANNY BID 05/05 0900 AC 05/05 TOP 0959 Omeprazole 20 MG DAILY AC 05/05 0732 AC 05/05 PO 0935 Polyethylene Glycol 17 GM DAILY PRN 05/05 0730 AC PO Zinc Oxide 1 DANNY BID PRN 05/05 0400 AC TOP Past History Medical History Neurological: CVA, AMS HEMIPLEGIA EENT: NONE Cardiovascular: AFIB, CAD, hypertension, hyperlipidemia, [place] 12YRS AGO [place] 01/16 Respiratory: COPD Gastrointestinal: NONE Hepatic: NONE Musculoskeletal: BACK SURGERY s/p amputation of the right 3rd and 5th toes Psychiatric: NONE Endocrine: diabetes Blood Disorders: NONE Cancer(s): NONE 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 spouse, child Services at Home: None Primary Language: Indonesian Smoking Status: Unknown If Ever Smoked Living Will? unknown Power of Band Maker/HCP? no Functional Ability ADLs Independent: dressing, eating, toileting, bathing. Ambulation: cane, walker IADLs Independent: shopping, housework, finances, food prep, telephone, transportation , medication admin. Review of Systems Review of Systems: Noncontributory Exam & Diagnostic Data Vital Signs and I&O Vital Signs Date Time Temp Pulse Resp B/P B/P Pulse O2 O2 Flow FiO2 Mean Ox Delivery Rate 05/05 1724 98.0 66 18 142/72 05/05 1400 98.0 66 18 142/72 94 Room Air 07/05 0958 128 132/60 07/05 0958 128 132/60 07/05 0903 126 132/60 07/05 0846 98.5 126 16 132/60 94 Room Air /05 0439 Room Air / 0344 97.8 101 18 138/96 95 07/05 0232 95 Room Air / 0120 98.2 93 20 145/97 97 Room Air 05/04 2304 97.9 101 16 144/80 94 Room Air Intake & Output 05/05 1600 05/05 0800 05/05 0000 05/04 1600 05/04 0800 05/04 0000 Intake Total 50 Output Total 450 Balance -400 Intake, IV 50 Number 1 Bowel Movements Output, Urine 450 Patient 230 lb 242 lb Weight Weight Estimated Measurement Method Physical Exam: Well-developed, well-nourished male lying in bed , not communicative , somewhat lethargic, without acute distress Head: normocephalic, atraumatic Ears: Canals- clear; Tympanic Membranes- clear Nose: Septum-deviated to the left ; Turbinates- mild hypertrophy ; Airway- adequate on the right, compromised on the left Oral cavity: Mucosa-dry, caked up secretions; very poor oral and dental hygiene, dental caries Tongue, anterior lateral, left- 2 x 3 cm submucosal lesion, nontender Oropharynx: Posterior wall- oral and mucosa dry, caked up secretions Neck: 1 x 1 cm left level intracutaneous lesion, suggestive of sebaceous gland cyst 1 x 1 cm left level II intracutaneous lesion, suggestive of sebaceous gland cyst No adenopathy, no masses, no tenderness Fiberoptic laryngoscopy: Fiberoptic scope inserted via the right nostril Nasopharynx: Clear Hypopharynx: Piriform sinuses-Clear; posterior wall-dry, thickened secretions; airwaydiffuse mucosal dryness, thickened secretions Larynx: Epiglottis- intact; vocal cords-mobile; posterior commissure-clear ; esophageal inlet-intact CBC WBC 10 Assessment/Plan Assessment/Plan 1. Anterior lateral tongue lesion, left The lesion appears benign, it is mucosally covered In order to obtain diagnosis patient would need at least incisional biopsy I do not believe this the lesion is currently contributing to patient's reason for hospitalization and overall lethargy 2. Very poor oral cavity and dental hygiene 3. Xerostomia 4. Normal larynx/ hypopharynx except for mucosal dryness Recommend oral cavity care with moisturizing sponges as well as dental hygiene Hypopharyngeal and laryngeal exam was obtained to r/o any additional lesions considering the patient is noncommunicative. There are no additional upper airway lesions. Consult Acknowledgment - Thank you for your consult request.
--- NOTE | 2018-05-05 21:00 | Cons- Cardiology ---
General Information and HPI Consulting Request Date of Consult: 05/05/18 Requested By: Phillip Fuchs MD History of Present Illness: Brando is a 72 year old male with history of hypertension, dyslipidemia, diabetes and coronary artery disease status. He has severe RCA disease but has not had PCI due to the patient refusing a cardiac catheterization. 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 A recent hospital admission this past December was remarkable for a new cerebellar infarct in the setting of newly discovered atrial fibrillation and positive troponins consistent with an AR. It should be noted that this patient had documented inferior ischemia a couple years ago but refused a cardaic catheterization and failed to follow up. The patient was again brought to the ER for evaluation of fever, weakness, lethargy and mental status changes. He has a lesion on his tongue that is being evaluated by ENT. The patient denies chest discomfort, shortness of breath, lightheadedness or palpitations. He is in chronic atrial fibrillation but has no awareness of palpitations related to this dysrhythmia. He is noted to be tachycardic at this time. In the past this patient has mentioned a mild and non- radiating chest pressure that is exacerbated by physical activity. He is now essentially inactive. The patient's latest echo shows a decreased EF of 40-45% with inferior akinesis and inferiolateral wall hypokinesis, mild left ventricular hypertrophy and moderate left atrial enlargement. In 2006 the patient underwent and cardiac catheterization showing a 20% ostial left main stenosis, a 40-50% mid LAD stenosis at the takeoff of the first diagonal branch and a 50% distal LAD lesion. A large septal branch has a 50% ostial and 60% mid stenosis. The LCX has a 30% AV groove lesion. The RCA was a dominant vessel with a long proximal dissection with an 80% stenosis at the crux. The posterolateral branch has a 70% ostial stenosis. Allergies/Medications Allergies: Coded Allergies: NO KNOWN ALLERGIES (07/23/15) Home Med List: Aspirin (Aspirin*) 81 MG TAB.CHEW 1 TAB PO DAILY HEART HEALTH (Reported) Atorvastatin Calcium (Lipitor) 80 MG TABLET 1 TAB PO QPM CHOLESTEROL ( Reported) Cephalexin (Keflex) 500 MG CAPSULE 1 CAP PO TID kidney infection Diltiazem HCl (Cardizem) 30 MG TABLET 1 TAB PO Q8 Heart rate Gabapentin (Neurontin) 300 MG CAPSULE 1 CAP PO BID UNKNOWN (Reported) Insulin Aspart (Novolog) 100 UNIT/ML VIAL 5 UNITS SC TIDAC DM (Reported) Insulin Aspart (Novolog) 100 UNIT/ML VIAL DM (Reported) Insulin Glargine,Hum.rec.anlog (Lantus Solostar) 100 UNIT/ML (3 ML) INSULN.PEN 24 UNIT SC QPM DM (Reported) Lisinopril 20 MG TABLET 1 TAB PO DAILY BP (Reported) Metoprolol Succinate 200 MG TAB.ER.24H 1 TAB PO DAILY HEART/BP (Reported) Pantoprazole Sodium 20 MG TABLET.DR 1 TAB PO DAILY gerd (Reported) Polyethylene Glycol 3350 (Miralax) 17 GRAM POWD.PACK 1 PAC PO Q12H PRN GI ( Reported) dissolve in water Warfarin Sodium 3 MG TABLET 1 TAB PO DAILY BLOOD THINNER (Reported) Review of Systems Review of Systems: A review of systems is not obtainable from this patient. 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 spouse, child Services at Home: None Primary Language: French Smoking Status: Unknown If Ever Smoked Living Will? unknown Power of Sales Floor Team Leader/HCP? no Functional Ability ADLs Independent: dressing, eating, toileting, bathing. Ambulation: cane, walker IADLs Independent: shopping, housework, finances, food prep, telephone, transportation , medication admin. Exam & Diagnostic Data Vital Signs and I&O Vital Signs Date Time Temp Pulse Resp B/P B/P Pulse O2 O2 Flow FiO2 Mean Ox Delivery Rate 05/05 1724 98.0 66 18 142/72 05/05 1400 98.0 66 18 142/72 94 Room Air 05/05 0958 128 132/60 05/05 0958 128 132/60 05/05 0903 126 132/60 05/05 0846 98.5 126 16 132/60 94 Room Air / 0439 Room Air 05/05 0344 97.8 101 18 138/96 95 / 0232 95 Room Air / 0120 98.2 93 20 145/97 97 Room Air 05/04 2304 97.9 101 16 144/80 94 Room Air Intake & Output 05/05 1600 07/ 0800 07/05 0000 07/04 1600 / 0800 07/ 0000 Intake Total 300 50 Output Total 1 450 Balance 299 -400 Intake, IV 300 50 Number 1 Bowel Movements Output, Stool 1 Output, Urine 450 Patient 230 lb 242 lb Weight Weight Estimated Measurement Method Physical Exam: General: WD/WN male in NAD; awake and responsive. HEENT:: NC/AT, PERRL, EOMI Neck: no JVD, no carotid bruit Heart: irregularly irregular and tachycardic Lungs: clear bilaterally Abdomen: soft, NT, +ve bowel sounds Extremities: no edema, right toe amputations Assessment/Plan Assessment/Plan * This patient has atrial fibrillation with rapid heart rate. Continue Metoprolol at 200mg daily. Add cardizem 60mg BID. * This patient has an elevated INR and this may increasae in combination with his antibiotics. Hold Coumadin for now. Would recommend a change to Eliquis 5mg BID once his INR comes below 1.8 since this will be more saftely managed in this patient. * This patient has known coronary artery disease. On last visit, in the setting of his rapid heart rate he had ruled in for a type 2 AR. A cardiac catheterization was not pursued at the time and invasive treatment is being refused by the patient at this time. Continue aspirin 81mg daily and Lipitor. Consult Acknowledgment - Thank you for your consult request.
[2018-05-05 23:12] VITALS: BP 110/64
[2018-05-06 06:57] VITALS: BP 102/60
[2018-05-06 08:03] LABS: ABSOLUTE BASOPHIL COUNT 0 /CUMM (0.0-0.2); ABSOLUTE EOSINOPHIL COUNT 0.4 /CUMM (0.0-0.7); ABSOLUTE LYMPH COUNT 1.7 /CUMM (1.2-3.4); ABSOLUTE MONOCYTE COUNT 0.9 /CUMM (0.10-0.60); BASOPHIL % 0.5 % (0.0-2.0); EOSINOPHIL % 4.7 % (0-5); GRANULOCYTE % 66.4 % (42.2-75.2); HEMATOCRIT 27.3 % (42-52); MEAN CORPUSCULAR HGB 28.2 PG (27.0-31.0); MEAN CORPUSCULAR VOLUME 85.5 FL (80.0-94.0); PLATELET COUNT 342 /CUMM (130-400); RBC DISTRIBUTION WIDTH 15.6 % (11.5-14.5); RED BLOOD CELL CT 3.19 /CUMM (4.70-6.10); WHITE BLOOD CELL COUNT 9.1 /CUMM (4.8-10.8)
--- NOTE | 2018-05-06 08:19 | ECHOCARDIOGRAM REPORT ---
JOVAN MACEDO Age: 72 : 1945 Gender: M Exam Date: 05/05/2018 15:26 Exam Location: [facility] Ht (in): 74 Wt (lb): 229 BSA: 2.35 BP: 132 / 60 Ordering Physician: Charley Dill MD Referring Physician: Fei Pickens MD Technologist: Pearl Smith HYACINTH Room Number: 173 Indications: AFIB/FLUTTER Rhythm: Sinus Technical Quality: good FINDINGS Left Ventricle Normal left ventricular size and mild left ventricular hypertrophy. Severely decreased systolic function with severe inferior wall hypokinesis. The ejection fraction is visually estimated at 25%. Right Ventricle The right ventricle is normal in size and function. Right Atrium The right atrium is mildly enlarged. Left Atrium The left atrium is moderately enlarged. The interatrial septum is intact. Mitral Valve The mitral valve is normal in structure and function. There is mild to moderate mitral regurgitation. Aortic Valve Moderately thickened and sclerotic aortic valve without decreased leaflet excursion. Mild to moderate aortic stenosis. There is trace aortic regurgitation. Tricuspid Valve The tricuspid valve is normal in structure and function. There is moderate tricuspid regurgitation. Pulmonary artery systolic pressure is moderately elevated to 45mmHg Pulmonic Valve Structurally normal pulmonic valve. There is moderate pulmonic regurgitation. Pericardium Normal pericardium without effusion. No pleural effusion. Great Vessels Normal aortic root dimension. The aortic arch and great vessels are well seen and are normal. CONCLUSIONS 1. Severely decreased EF of 25% with inferior wall hypokinesis. 2. Mild left ventricular hypertrophy. 3. Mild right atrial and moderate left atrial enlargement. 4. Mild to moderate mitral regurgitation. 5. Moderate tricuspid regurgitation. 6. Moderate pulmonic regurgitation. 7. Mild to moderate aortic stenosis with trace aortic insufficiency. 8. Moderate pulmonary hypertension. Oumar Liriano M.D. (Electronically Signed) Final Date: 06 May 2018 08:19 MEASUREMENTS (Male / Female) Normal Values 2D ECHO LV Diastolic Diameter PLAX 4.2 cm 4.2 - 5.9 / 3.9 - 5.3 cm LV Systolic Diameter PLAX 3.4 cm 2.1 - 4.0 cm LV Fractional Shortening PLAX 19.0 % 25 - 46 % LV Ejection Fraction 2D Teich 39.6 % IVS Diastolic Thickness 1.5 cm LVPW Diastolic Thickness 1.3 cm LV Relative Wall Thickness 0.7 RV Internal Dim ED PLAX 3.4 cm 1.9 - 3.8 cm LVOT Diameter 2.0 cm Aortic Root Diameter 3.5 cm LA Systolic Diameter LX 4.9 cm 3.0 - 4.0 / 2.7 - 3.8 cm Ascending Aorta Diameter 3.9 cm DOPPLER AV Peak Velocity 102.0 cm/s AV Peak Gradient 4.2 mmHg AV Mean Velocity 72.9 cm/s AV Mean Gradient 2.0 mmHg AV Velocity Time Integral 23.1 cm LVOT Peak Velocity 67.7 cm/s LVOT Peak Gradient 1.8 mmHg LVOT Mean Velocity 48.2 cm/s LVOT Mean Gradient 1.0 mmHg LVOT Velocity Time Integral 15.1 cm LVOT Stroke Volume 47.4 cm AV Area Cont Eq vti 2.1 cm AV Area Cont Eq pk 2.1 cm MV Peak Velocity 124.0 cm/s MV Peak Gradient 6.2 mmHg MV Mean Velocity 66.8 cm/s MV Mean Gradient 2.0 mmHg Mitral E Point Velocity 115.5 cm/s MV PHT Velocity 130.0 cm/s MV Deceleration [place] 307.0 cm/s MV Pressure Half Time 127.0 ms MV Area PHT 1.7 cm MV Deceleration Time 185.0 ms TR Peak Velocity 303.0 cm/s TR Peak Gradient 36.7 mmHg Right Atrial Pressure 10.0 mmHg Pulmonary Artery Systolic Pressu 46.7 mmHg Right Ventricular Systolic Press 46.7 mmHg PV Peak Velocity 104.0 cm/s PV Peak Gradient 4.3 mmHg PV Mean Velocity 63.7 cm/s PV Mean Gradient 2.0 mmHg PV Velocity Time Integral 24.1 cm LV E' Lateral Velocity 7.7 cm/s Mitral E to LV E' Lateral Ratio 15.0 LV E' Septal Velocity 7.0 cm/s Mitral E to LV E' Septal Ratio 16.5
[2018-05-06 08:25] LABS: PT 56.7 SEC (9.4-12.5)
--- NOTE | 2018-05-06 08:30 | PN- Housestaff ---
Rodríguez Lagos 05/06/18 0830: Subjective Follow-up For: Weakness, lethargy & fever Subjective: Patient seen resting in the bed, awake and alert. Patient is not as lethargic as yesterday, but still unable to clearly recall the events of the last few days. Denies chest pain, denies SOB, denies abdominal pain, no cough or palpitations. Review of Systems Constitutional: Reports: weakness. Denies: chills, diaphoresis. Cardiovascular: Denies: chest pain, palpitations, syncope. Respiratory: Denies: cough, hemoptysis, short of breath, wheezing. Gastrointestinal: Denies: abdominal pain, diarrhea, vomiting. Objective Last 24 Hrs of Vital Signs/I&O Vital Signs Date Time Temp Pulse Resp B/P B/P Pulse O2 O2 Flow FiO2 Mean Ox Delivery Rate 05/06 1400 98.3 75 20 112/60 95 /06 1036 90 102/60 05/06 0657 98.0 90 20 102/60 95 Room Air 05/05 2312 98.3 64 18 110/64 95 Room Air Intake & Output 05/06 1600 05/06 0800 07/ 0000 Intake Total 650 600 150 Output Total 881 786 4337 Balance 250 150 -1200 Intake, IV 650 600 150 Output, Urine 556 257 1312 Patient 104.355 kg Weight Weight Bed scale Measurement Method Physical Exam General Appearance: Alert, Cooperative, No Acute Distress, Oriented to self and place, unable to provide the year/month Cardiovascular: Normal S1, Normal S2, No Murmurs Lungs: Clear to Auscultation Abdomen: Soft, No Tenderness Assessment/Plan Assessment: Patient is a 72 year old male with history of prior stroke in december 2017, who arrived from home only 1-2 days after being discharged from a custodial facility, with complaints of weakness, lethargy and fever on top of chronic villasenor catheter use and prior complicated urinary tract infections requiring renal stenting secondary to hydronephrosis. The patient was also found to be confused and to have a supratherapeutic INR, in the setting of A fib and tachycardia. 72 year old male with urinary tract infection. 1. Urinary tract infection required currently 2. Bacteremia 3. History of stroke 4. Diabetes mellitus, requiring insulin 5. Supratherapeutic INR 6. Atrial fibrillation 7. Oral lesion Problem List: 1. UTI (urinary tract infection) 2. Atrial fibrillation with rapid ventricular response 3. Diabetes mellitus 4. Bacteremia Pain Ratin Pain Location: left leg, chronic Pain Goal: Pain 4 or less Pain Plan: Tylenol Tomorrow's Labs & Rationales: LASHAY Fuchs MD,[place] 05/06/18 1130: Attending MD Review Statement Attending Statement Attending MD Statement: examined this patient, discuss w/resident/PA/DRY KILN OPERATOR HELPER, agreed w/resident/PA/DRY KILN OPERATOR HELPER, discussed with family, reviewed EMR data (avail), discussed with nursing, discussed with case mgmt, amended to note Attending Assessment/Plan: Patient seen and examined. Lying in bed and not in acute distress. No issues overnight reported by nursing staff. He remains in atrial fibrillation but currently rate controlled. No events on telemetry monitoring. Denies chest pain or palpitations. Denies nausea vomiting. Denies abdominal pain. Remains lethargic compared to yesterday but is able to hold regular conversation. Answers simple questions appropriately. Son is quite upset about the care he received that the last custodial facility. Patient was home only for a day before being returned to the hospital due to weakness and fever reported at home. Problems: 1. Atrial fibrillation with rapid ventricular response; improved 2. Urinary tract infection 3. Bacteremia 4. History of stroke; with markedly diminished mobility 5. Insulin-dependent diabetes mellitus 6. History of coronary artery disease 7. Atrial fibrillation 8. Supratherapeutic INR 9. Pulmonary lesion. Plan: -Patient is currently rate controlled. Continue current regimen. Continue to hold Coumadin. Once INR is less than 1.8 begin patient on and correlation with Eliquis as recommended by the cardiology service more manageable anticoagulation therapy. -Patient ruled in for type II myocardial infarction during the last admission. Echocardiogram during this hospitalization shows significant decrease of his ejection fraction from 40% during the last admission to 25%. He also has new inferior wall hypokinesis. His tricuspid regurgitation is now being read as moderate. His mitral regurgitation is now being read as mild to moderate. His pulmonary regurgitation is also worsened to moderate. Has mild/moderate aortic stenosis. He has moderate pulmonary hypertension. Patient wishes to pursue noninvasive management. -Cardiac enzymes are negative 2 during this hospitalization. Continue aspirin, statin, metoprolol and lisinopril. -The lesion on the tongue is likely benign per evaluation by the ENT service. Follow-up in the outpatient setting. -Patient is growing gram-positive cocci in 1 of 2 sets of cultures. He is afebrile. He has no leukocytosis. He is clinically stable. This may represent a contaminant. Will await complete culture results and sensitivity. -He is growing gram-negative rods in the urine. His history is not entirely reliable. He does have an indwelling Villasenor catheter. This may represent colonization however given his recent sepsis of urologic origin he has been started empirically on ceftriaxone. Obtain renal sonogram to evaluate for evidence of obstructive disease. Recommend ID consultation for duration of antibiotic therapy. -Discontinue IV fluids.
--- NOTE | 2018-05-06 12:12 | PN- Cardiology ---
Subjective Subjective: * Patient feels improved. No specific complaints. * severely decreased EF on echocardiogram Objective Vital Signs and I&Os Vital Signs Date Time Temp Pulse Resp B/P B/P Pulse O2 O2 Flow FiO2 Mean Ox Delivery Rate 05/06 1036 90 102/60 05/06 0657 98.0 90 20 102/60 95 Room Air 05/05 2312 98.3 64 18 110/64 95 Room Air 05/05 1724 98.0 66 18 142/72 05/05 1400 98.0 66 18 142/72 94 Room Air Intake & Output 05/06 1600 05/06 0800 05/06 0000 05/05 1600 05/05 0800 05/05 0000 Intake Total 600 150 300 50 Output Total 450 1350 1 450 Balance 150 -1200 299 -400 Intake, IV 600 150 300 50 Number 1 Bowel Movements Output, Stool 1 Output, Urine 450 1350 450 Patient 230 lb 230 lb 242 lb Weight Weight Bed scale Estimated Measurement Method Physical Exam: General: WD/WN male in NAD; awake and responsive. HEENT:: NC/AT, PERRL, EOMI Neck: no JVD, no carotid bruit Heart: irregularly irregular and tachycardic Lungs: clear bilaterally Abdomen: soft, NT, +ve bowel sounds Extremities: no edema, right toe amputations Assessment/Plan Assessment/Plan * This patient has atrial fibrillation with rapid heart rate. Continue Metoprolol at 200mg daily. His heart rate is now better controlled on cardizem 60mg BID. * This patient has an elevated INR and this may increasae in combination with his antibiotics. Hold Coumadin for now. Would recommend a change to Eliquis 5mg BID once his INR comes below 1.8 since this will be more saftely managed in this patient. * This patient has known coronary artery disease. On last visit, in the setting of his rapid heart rate he had ruled in for a type 2 PA. A cardiac catheterization was not pursued at the time of his last hospital visit due to invasive treatment being refused by the patient. I strongly suspect that his RCA in non-revascularizable. Continue aspirin 81mg daily and Lipitor. Continue telemetry? Yes
[2018-05-06 14:00] VITALS: BP 112/60
--- NOTE | 2018-05-06 16:09 | Cons- Infect Disease ---
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 On admission he was afebrile. Laboratory data revealed a white blood cell count of 10,000, BUN/creatinine 22 and 1.3, with normal liver enzymes, INR 3.43. Urinalysis 5-10 RBC/50-75 WBCs. Chest x-ray was negative. CT of the head was negative for any acute process. He was begun on Ceftriaxone and has remained afebrile since admission. On May 05 blood culture was reported positive for gram-positive cocci in chains and clusters, which have been identified as Enterococcus and coag negative Staph. Presently he feels well and does not offer any complaints. Allergies/Medications Allergies: Coded Allergies: NO KNOWN ALLERGIES (07/23/15) Home Med List: Aspirin (Aspirin*) 81 MG TAB.CHEW 1 TAB PO DAILY HEART HEALTH (Reported) Atorvastatin Calcium (Lipitor) 80 MG TABLET 1 TAB PO QPM CHOLESTEROL ( Reported) Cephalexin (Keflex) 500 MG CAPSULE 1 CAP PO TID kidney infection Diltiazem HCl (Cardizem) 30 MG TABLET 1 TAB PO Q8 Heart rate Gabapentin (Neurontin) 300 MG CAPSULE 1 CAP PO BID UNKNOWN (Reported) Insulin Aspart (Novolog) 100 UNIT/ML VIAL 5 UNITS SC TIDAC DM (Reported) Insulin Aspart (Novolog) 100 UNIT/ML VIAL DM (Reported) Insulin Glargine,Hum.rec.anlog (Lantus Solostar) 100 UNIT/ML (3 ML) INSULN.PEN 24 UNIT SC QPM DM (Reported) Lisinopril 20 MG TABLET 1 TAB PO DAILY BP (Reported) Metoprolol Succinate 200 MG TAB.ER.24H 1 TAB PO DAILY HEART/BP (Reported) Pantoprazole Sodium 20 MG TABLET.DR 1 TAB PO DAILY gerd (Reported) Polyethylene Glycol 3350 (Miralax) 17 GRAM POWD.PACK 1 PAC PO Q12H PRN GI ( Reported) dissolve in water Warfarin Sodium 3 MG TABLET 1 TAB PO DAILY BLOOD THINNER (Reported) Past History Travel History Traveled to [place] past 21 day No Medical History Blood Transfusion Hx: No Neurological: CVA, HEMIPLEGIA EENT: NONE Cardiovascular: AFIB, CAD, hypertension, hyperlipidemia, IN 12YRS AGO IN 01/16 Respiratory: COPD Gastrointestinal: NONE Hepatic: NONE Psychiatric: NONE Endocrine: diabetes Blood Disorders: NONE Cancer(s): NONE CORPORATE ASSOCIATE/Reproductive: NONE History of MRSA: Yes History of VRE: No History of CDIFF: No Isolation History: Contact Surgical History Surgical History: RIGHT FOOT 4th and 5th TOE AMPUTATIONS BACK SURGERY CYST REMOVAL Family History Relations & Conditions If Any: MOTHER Psychosocial History Where Do You Live? Home Who Do You Live With? spouse, child Services at Home: None Primary Language: Mauritian Smoking Status: Unknown If Ever Smoked Living Will? unknown Power of Spring Coverer/HCP? no Functional Ability ADLs Independent: dressing, eating, toileting, bathing. Ambulation: cane, walker IADLs Independent: shopping, housework, finances, food prep, telephone, transportation , medication admin. Review of Systems Review of Systems All Other Systems: Reviewed and Negative Exam & Diagnostic Data Last 24 Hrs of Vital Signs/I&O Vital Signs Date Time Temp Pulse Resp B/P B/P Pulse O2 O2 Flow FiO2 Mean Ox Delivery Rate 05/06 1400 98.3 75 20 112/60 95 07/06 1036 90 102/60 07/06 0657 98.0 90 20 102/60 95 Room Air / 2312 98.3 64 18 110/64 95 Room Air /05 1724 98.0 66 18 142/72 Intake & Output / 1600 07/06 0800 07/06 0000 Intake Total 650 600 150 Output Total 267 309 5551 Balance 250 150 -1200 Intake, IV 650 600 150 Output, Urine 336 414 8658 Patient 230 lb Weight Weight Bed scale Measurement Method Physical Exam Other Physical Findings: He is slightly lethargic but easily arousable and in no acute distress. He is afebrile. Skin reveals no rash. HEENT exam reveals a lesion on the anterior lateral aspect of his tongue. Neck is supple with a hard, nontender left submandibular lymph node. Lungs are clear. Heart irregular rhythm with no murmur. Abdomen is soft, nontender with positive bowel sounds. Back no CVA tenderness. 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 Neuro is without focality. Garcia catheter is in place. Last 24 Hours of Lab Results: Laboratory Tests 05/06 05/05 0626 1744 Chemistry Sodium (137 - 145 mmol/L) 142 Potassium (3.5 - 5.1 mmol/L) 3.9 Chloride (98 - 107 mmol/L) 106 Carbon Dioxide (22 - 30 mmol/L) 26 Anion Gap (5 - 16) 10 BUN (9 - 20 mg/dL) 19 Creatinine (0.7 - 1.2 mg/dL) 1.1 Estimated GFR (>60 ml/min) > 60 BUN/Creatinine Ratio (7 - 25 %) 17.3 Troponin I (<0.11 ng/ml) < 0.01 Coagulation PT (9.4 - 12.5 SEC) 56.7 *H INR (0.90 - 1.17) 5.12 *H Hematology CBC w Diff NO MAN DIFF REQ WBC (4.8 - 10.8 /CUMM) 9.1 RBC (4.70 - 6.10 /CUMM) 3.19 L Hgb (14.0 - 18.0 G/DL) 9.0 L Hct (42 - 52 %) 27.3 L MCV (80.0 - 94.0 FL) 85.5 MCH (27.0 - 31.0 PG) 28.2 MCHC (33.0 - 37.0 G/DL) 33.0 RDW (11.5 - 14.5 %) 15.6 H Plt Count (130 - 400 /CUMM) 342 MPV (7.4 - 10.4 FL) 7.0 L Gran % (42.2 - 75.2 %) 66.4 Lymphocytes % (20.5 - 51.1 %) 18.8 L Monocytes % (1.7 - 9.3 %) 9.6 H Eosinophils % (0 - 5 %) 4.7 Basophils % (0.0 - 2.0 %) 0.5 Absolute Granulocytes (1.4 - 6.5 /CUMM) 6.0 Absolute Lymphocytes (1.2 - 3.4 /CUMM) 1.7 Absolute Monocytes (0.10 - 0.60 /CUMM) 0.9 H Absolute Eosinophils (0.0 - 0.7 /CUMM) 0.4 Absolute Basophils (0.0 - 0.2 /CUMM) 0 Last 24 Hours of Kj Results: Blood cultures May 05 1 bottle positive for Enterococcus and coag negative Staph Urine culture May 05 greater than 100,000 colonies of gram negative rods Blood cultures 2 May 06 pending Diagnostic Data Recent Imaging Findings: Chest x-ray May [address] of the head May 05 negative for any acute process Assessment/Plan Assessment/Plan Impression: This is a 72-year-old man with multiple medical problems, hospitalized 1 month prior to admission with sepsis of urologic origin secondary to Klebsiella, status post cystoscopy and placement of a left ureteral stent for left hydronephrosis secondary to an obstructing stone at the left UPJ, with the Garcia catheter removed on discharge but reinserted at the rehab facility, admitted on May 04 with a painless left sided tongue lesion, lethargy and reported fevers and chills, found to be afebrile with a normal white blood cell count and pyuria and found to have one blood culture positive for Enterococcus and coag negative Staph and a urine culture positive for gram-negative rods. The significance of the positive urine culture is unclear and, with the indwelling Garcia catheter and lack of fever or leukocytosis, suspect that it represents colonization. Imaging of the kidney would be helpful to rule out a recurrent obstruction in the setting of a left ureteral stent, which might then require urologic intervention. Of note an ESWL and stent removal was scheduled for 6 weeks after discharge; therefore urologic follow-up will be necessary at some point. The positive blood culture presumably represents a contaminant, with 2 different organisms isolated, and should not require treatment. His tongue lesion has been evaluated by ENT, with recommendations noted, and it is not felt to be contributing to his admitting symptoms. Suggestion: 1. Renal ultrasound 2. Would remove Garcia catheter and initiate straight cath protocol if necessary 3. Discontinue Ceftriaxone and follow off antibiotics Dr. Lang is covering over the weekend Consult Acknowledgment - Thank you for your consult request.
[2018-05-06] MEDS ORDERED: CARDIZEM60 M1 PO (16:21)
--- NOTE | 2018-05-06 16:37 | Patient Discharge Instructions ---
Discharge Instructions General Discharge Information You were seen/treated for: ATRIAL FIBRILLATION LETHARGY Watch for these problems: In case of nausea, vomiting, chest pain, confusion please go to the nearest emergency room. Special Instructions: Please follow-up with your primary care provider/grants specialist within 1-2 weeks of discharge and let them know about your recent admission at [facility]. Please get a renal unltrasound in 3 weeks, prior to following up with your urologist, Dr. Thomas. Please stagger all your blood pressure medications. You might need biopsy for your tongue lesion. Please follow-up with ENT as outpatient. Diet Continue normal diet: Yes Recommended Diet: Diabetic Activity Full Activity/No Limits: No Activity Self Limited: Yes Acute Coronary Syndrome Inclusion Criteria At DC or during hospital stay patient has or had the following: ACS DIAGNOSIS No Discharge Core Measures Meds if any: Prescribed or Continued at Discharge Meds if any: NOT Prescribed or Continued at Discharge Congestive Heart Failure Inclusion Criteria At DC or during hospital stay patient has or had the following: CHF DIAGNOSIS No Discharge Core Measures Meds if any: Prescribed or Continued at Discharge Meds if any: NOT Prescribed or Continued at Discharge Cerebrovascular accident Inclusion Criteria At DC or during hospital stay patient has or had the following: CVA/TIA Diagnosis No Discharge Core Measures Meds if any: Prescribed or Continued at Discharge Meds if any: NOT Prescribed or Continued at Discharge Venous thromboembolism Inclusion Criteria VTE Diagnosis No VTE Type NONE VTE Confirmed by (Test) NONE Discharge Core Measures - Per Current guidelines, there needs to be overlap - treatment for the first 5 days of Warfarin therapy. - If discharged on Warfarin prior to 5 days of - overlap therapy, the patient will need to be - assessed for post discharge needs including - *Post discharge parental anticoagulation - *Warfarin and/or parental anticoagulation education - *Follow up date to check INR post discharge At least 5 days overlap therapy as Inpatient No Meds if any: Prescribed or Continued at Discharge Note: Overlap Therapy is Warfarin and Anticoagulant Meds if any: NOT Prescribed or Continued at Discharge
--- NOTE | 2018-05-06 21:10 | CT SCAN REPORT ---
EXAMINATION: CT NECK WITHOUT CONTRAST CLINICAL INFORMATION: Reported lesion in anterior left lateral tongue. COMPARISON: None TECHNIQUE: Multidetector helical imaging was performed in the axial plane with generation of reformatted acquisitions. DLP: 524.4 mGy-cm FINDINGS: There is a 2.7 x 1.7 x 1.6 cm fatty mass in the anterior left aspect of the ventral tongue. A 1.7 x 1.5 cm subcutaneous cyst in the left anterior cervical space laterally is nonspecific but may represent a sebaceous cyst. The parotid and submandibular glands appear normal. The thyroid gland appears normal. There is a 2.3 x 1.7 cm subcutaneous cyst underlying the skin surface in the upper left chest wall. The larynx is grossly unremarkable. No contour abnormality is seen within the pharyngeal mucosal space. No bulky cervical adenopathy is seen. There is a 2 x 1.2 cm subcutaneous cyst in the posterior neck on the right side at the C1-C2 level as well. The main pulmonary artery is dilated, measuring up to 3.5 cm in diameter. Subsegmental atelectatic changes are present in the lungs. There are no visible pleural effusions. Moderate multilevel cervical spondylosis noted. The orbits are normal. The imaged portions of the brain demonstrate no acute abnormality. Moderate atherosclerotic wall calcifications noted at the carotid bifurcations. There is a retention cyst in the posterior left ethmoid air cells. Patchy mucosal thickening noted in the left frontal sinus and anterior ethmoid air cells. Extensive dental caries are present. Significant left coronary artery calcification is partially visualized. 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 Scattered sebaceous cysts in the soft tissues. No cervical adenopathy.
--- NOTE | 2018-05-06 22:01 | ULTRASOUND REPORT ---
EXAMINATION: US RETROPERITONEAL COMPLETE (RENAL) CLINICAL INFORMATION: Lethargy. Urinary tract infection. COMPARISON: None TECHNIQUE: Real-time imaging of the kidneys and bladder. Examination is significantly limited due to patient body habitus FINDINGS: RIGHT KIDNEY: 10.3 x 5.1 x 5.5 cm (SAG x AP x TRV). The kidney is normal in size, contour, and echogenicity. Renal cortical thickness is normal. No calculi or focal parenchymal lesions. No hydronephrosis. LEFT KIDNEY: 11.5 x 5.6 x 4.5 cm (SAG x AP x TRV). The kidney is normal in size, contour, and echogenicity. Renal cortical thickness is normal. No calculi or focal parenchymal lesions. No hydronephrosis. BLADDER: Empty with Garcia catheter in place IMPRESSION: Limited examination due to patient body habitus. No hydronephrosis or calculi seen. Bladder is decompressed with Garcia catheter.
[2018-05-06 23:18] VITALS: BP 118/68
[2018-05-07 06:24] VITALS: BP 138/64
--- NOTE | 2018-05-07 08:01 | PN- Housestaff ---
Rodríguez Lagos 05/07/18 0800: Subjective Follow-up For: weakness, lethargy and fever Subjective: Patient seen eating breakfast and reclining comfortably in the bed. Patient denies chest pain, dizziness, fever, cough, shortness of breath. No acute events overnight. Review of Systems Constitutional: Denies: chills, diaphoresis, fever. Cardiovascular: Denies: chest pain, edema, palpitations. Respiratory: Denies: cough, hemoptysis, short of breath. Gastrointestinal: Denies: abdominal pain, constipation, vomiting. Objective Last 24 Hrs of Vital Signs/I&O Vital Signs Date Time Temp Pulse Resp B/P B/P Pulse O2 O2 Flow FiO2 Mean Ox Delivery Rate 05/07 624 98.3 83 20 138/64 93 Room Air 05/06 2318 98.3 77 20 118/68 93 Room Air 05/06 2200 Room Air Room Air 05/06 2019 134/80 05/06 1400 98.3 75 20 112/60 95 05/06 1036 90 102/60 Intake & Output 05/07 1600 05/07 0800 05/07 0000 Intake Total 150 50 Output Total 300 300 Balance -150 -250 Intake, Oral 150 50 Number 1 1 Bowel Movements Output, Urine 300 300 Patient 105.29 kg Weight Weight Bed scale Measurement Method Physical Exam General Appearance: Alert, Oriented X3, Cooperative, No Acute Distress Cardiovascular: Normal S1, Normal S2 Lungs: Clear to Auscultation Abdomen: Soft, No Tenderness Current Medications: Current Medications Sig/Anna Start time Last Medication Dose Route Stop Time Status Admin Acetaminophen 650 MG Q6PRN PRN 05/05 0300 AC PO Aspirin 81 MG DAILY 05/06 900 AC 05/06 PO 1036 Atorvastatin Calcium 80 MG QPM 05/05 2100 AC 05/06 PO 2019 Ceftriaxone Sodium 1,000 MG DAILY 05/05 900 DC 05/06 IV 1041 Dextrose/Sodium 1,000 ML Q13H 05/05 0630 DC 05/06 Chloride IV 1042 Diltiazem HCl 60 MG BID 05/06 900 AC 05/06 PO 2019 Gabapentin 300 MG BID 05/05 900 AC 05/06 PO 2019 Guaifenesin 10 ML Q4P PRN 05/06 2215 AC 05/06 PO 2214 Insulin Aspart 0 TIDAC 05/06 1700 AC 05/06 SC 1749 Insulin Detemir 24 UNITS QPM 05/05 2100 AC 05/06 PA 2146 Insulin Human Regular 2 UNITS .STK-MED ONE 05/06 1237 DC IV 05/06 1238 Insulin Human Regular 0 Q6 05/05 0734 DC 05/06 SC 1249 Lisinopril 20 MG DAILY 05/05 0900 AC 05/06 PO 1036 Metoprolol Succinate 200 MG DAILY 05/05 0900 AC 05/06 PO 1036 Nystatin 1 DANNY BID 05/05 09 AC 05/06 TOP 2019 Omeprazole 20 MG DAILY AC 05/05 0732 AC 05/07 PO 0613 Polyethylene Glycol 17 GM DAILY PRN 05/05 0730 AC PO Zinc Oxide 1 DANNY BID PRN 05/05 0400 AC TOP Last 24 Hrs of Lab/Kj Results Last 24 Hrs of Labs/Mics: Laboratory Tests 05/07/18 0622: PT Pending, INR Pending, CBC w Diff Pending, WBC Pending, RBC Pending, Hgb Pending, Hct Pending, MCV Pending, MCH Pending, MCHC Pending, RDW Pending, Plt Count Pending, MPV Pending Microbiology 05/06 1150 BLOOD: Blood Culture - RECD 05/06 0908 BLOOD: Blood Culture - RECD Assessment/Plan Assessment: Patient is a 72 year old male with history of prior stroke in december 2017, who arrived from home only 1-2 days after being discharged from a care home facility, with complaints of weakness, lethargy and fever on top of chronic villasenor catheter use and prior complicated urinary tract infections requiring renal stenting secondary to hydronephrosis. The patient was also found to be confused and to have a supratherapeutic INR, in the setting of A fib and tachycardia. 72 year old male with urinary tract infection. 1. Urinary tract infection sulbactam, otherwise sensitive (see report) required currently per ID 2. Bacteremia 3. History of stroke at home. Case management to further assess. 4. Diabetes mellitus, requiring insulin 5. Supratherapeutic INR 6. Atrial fibrillation medications that could induce bradycardia 7. Oral lesion lipoma Problem List: 1. Bacteremia 2. Urinary tract infection 3. Supratherapeutic INR 4. Atrial fibrillation with rapid ventricular response 5. Diabetes mellitus Pain Ratin Pain Location: none Pain Goal: Pain 4 or less Pain Plan: tylenol Tomorrow's Labs & Rationales: cbc monitor wbc in setting of uti Phillip Fuchs MD 05/07/18 1241: Attending MD Review Statement Attending Statement Attending MD Statement: examined this patient, discuss w/resident/PA/GLASS CLEANER, agreed w/resident/PA/GLASS CLEANER, reviewed EMR data (avail), discussed with nursing, discussed with case mgmt, amended to note Attending Assessment/Plan: Patient seen and examined. Resting comfortably not in any acute distress. No issues overnight. No new complaints this morning. Followed by the ID service appreciated. Recommend monitoring patient off antibiotic therapy. So far he remains afebrile and hemodynamically stable. He did become bradycardic this morning into the 40s and blood pressure was borderline in the 90s after receiving these cardiac meds this morning. He is asymptomatic. Heart rate is currently improving to 60s. Recommend monitoring on telemetry service for another 48 hours. If heart rate and blood pressure remain stable on this regimen patient may be discharged home. Follow-up with the cardiology service regarding need to titrate his medications.
[2018-05-07 08:31] LABS: ABSOLUTE BASOPHIL COUNT 0 /CUMM (0.0-0.2); ABSOLUTE EOSINOPHIL COUNT 0.5 /CUMM (0.0-0.7); ABSOLUTE GRANULOCYTE CT 5.7 /CUMM (1.4-6.5); ABSOLUTE LYMPH COUNT 1.6 /CUMM (1.2-3.4); ABSOLUTE MONOCYTE COUNT 0.8 /CUMM (0.10-0.60); BASOPHIL % 0.4 % (0.0-2.0); EOSINOPHIL % 5.3 % (0-5); GRANULOCYTE % 66.1 % (42.2-75.2); MEAN CORPUSCULAR VOLUME 84.9 FL (80.0-94.0); MEAN PLATELET VOLUME 7.3 FL (7.4-10.4); PLATELET COUNT 352 /CUMM (130-400); RBC DISTRIBUTION WIDTH 15.3 % (11.5-14.5); WHITE BLOOD CELL COUNT 8.6 /CUMM (4.8-10.8)
[2018-05-07 08:32] LABS: PT 47.2 SEC (9.4-12.5)
[2018-05-07 11:11] VITALS: BP 98/58
[2018-05-07 14:00] VITALS: BP 120/62
--- NOTE | 2018-05-07 14:59 | PN- Cardiology ---
Subjective Subjective: * Patient is resting comfortably without complaints. * Asymptomatic bradycardia noted Objective Vital Signs and I&Os Vital Signs Date Time Temp Pulse Resp B/P B/P Pulse O2 O2 Flow FiO2 Mean Ox Delivery Rate 05/07 1111 98.2 44 16 98/58 Room Air 05/07 0900 98.3 83 20 138/64 05/07 0900 98.3 83 20 138/64 / 0859 98.3 83 20 138/64 /07 0624 98.3 83 20 138/64 93 Room Air 05/06 2318 98.3 77 20 118/68 93 Room Air 05/06 2200 Room Air Room Air 05/06 2019 134/80 Intake & Output 05/07 1600 05/07 0805/07 0000 05/06 1600 05/06 0000 Intake Total 860 150 50 650 600 150 Output Total 300 300 681 245 0267 Balance 860 -150 -250 250 150 -1200 Intake, IV 650 600 150 Intake, Oral 860 150 50 Number 1 1 Bowel Movements Output, Urine 300 300 [phone] Patient 232 lb 230 lb Weight Weight Bed scale Bed scale Measurement Method Physical Exam: General: WD/WN male in NAD; awake and responsive. HEENT:: NC/AT, PERRL, EOMI Neck: no JVD, no carotid bruit Heart: irregularly irregular and tachycardic Lungs: clear bilaterally Abdomen: soft, NT, +ve bowel sounds Extremities: no edema, right toe amputations Assessment/Plan Assessment/Plan * This patient has atrial fibrillation with rapid heart rate. Continue Metoprolol at 200mg daily. His heart rate is now better controlled on cardizem 60mg BID. He does have asymptomatic bradycardia while asleep with no significant pauses. We will reassess this over the next 24 hours and if there is significant bradycardia then we will decrease his Metoprolol to 75mg BID. * This patient has an elevated INR and this is likely due to use of antibiotics. The patient may also have a nutritional deficiency. Would give a dose of vitamin K. Hold Coumadin for now. Would recommend a change to Eliquis 5mg BID once his INR comes below 1.8 since this will be more saftely managed in this patient. * This patient has known coronary artery disease. On last visit, in the setting of his rapid heart rate he had ruled in for a type 2 FL. A cardiac catheterization was not pursued at the time of his last hospital visit due to invasive treatment being refused by the patient. I strongly suspect that his RCA in non-revascularizable. Continue aspirin 81mg daily and Lipitor. Continue telemetry? Yes
[2018-05-07 22:07] VITALS: BP 118/72
[2018-05-08 06:33] VITALS: BP 108/68
[2018-05-08 08:05] LABS: ABSOLUTE BASOPHIL COUNT 0 /CUMM (0.0-0.2); ABSOLUTE EOSINOPHIL COUNT 0.4 /CUMM (0.0-0.7); ABSOLUTE GRANULOCYTE CT 8.2 /CUMM (1.4-6.5); ABSOLUTE LYMPH COUNT 1.5 /CUMM (1.2-3.4); ABSOLUTE MONOCYTE COUNT 0.8 /CUMM (0.10-0.60); BASOPHIL % 0.4 % (0.0-2.0); GRANULOCYTE % 74.7 % (42.2-75.2); HEMATOCRIT 27.2 % (42-52); MEAN CORPUSCULAR HGB 28.2 PG (27.0-31.0); MEAN CORPUSCULAR HGB CONC 33.1 G/DL (33.0-37.0); MEAN CORPUSCULAR VOLUME 85.3 FL (80.0-94.0); MEAN PLATELET VOLUME 7.4 FL (7.4-10.4); PLATELET COUNT 347 /CUMM (130-400); RBC DISTRIBUTION WIDTH 15.2 % (11.5-14.5); RED BLOOD CELL CT 3.19 /CUMM (4.70-6.10); WHITE BLOOD CELL COUNT 10.9 /CUMM (4.8-10.8)
--- NOTE | 2018-05-08 08:09 | PN- Housestaff ---
Fuentes CAMARA,Charley 05/08/18 0809: Subjective Follow-up For: Urinary tract infection Atrial fibrillation Tele-Events Since Last Visit: Vickey linda with a heart rate 82 Subjective: Patient seen and examined at bedside no overnight events. Patient was sitting comfortably and was having his breakfast. He said he is feeling good today. He does not have any complaints. Review of Systems Constitutional: Reports: no symptoms. Objective Last 24 Hrs of Vital Signs/I&O Vital Signs Date Time Temp Pulse Resp B/P B/P Pulse O2 O2 Flow FiO2 Mean Ox Delivery Rate 05/08 0633 98.0 63 20 108/68 94 Room Air 05/07 2357 94 05/07 2207 98.8 63 20 118/72 95 Room Air 05/07 2205 Room Air Room Air 05/07 1400 98.0 58 20 120/62 92 Room Air 05/07 1111 98.2 44 16 98/58 Room Air Intake & Output 05/08 1600 05/08 0800 05/08 0000 Intake Total 250 150 Output Total 300 100 Balance -50 50 Intake, Oral 250 150 Number 1 Bowel Movements Output, Urine 300 100 Patient 232 lb Weight Physical Exam General Appearance: Alert, Oriented X3, Cooperative, No Acute Distress Cardiovascular: Normal S1, Normal S2, No Murmurs, irregular Lungs: Clear to Auscultation Abdomen: Soft, No Tenderness, No Hepatospenomegaly Neurological: Normal Speech, Sensation Intact Extremities: No Edema Current Medications: Current Medications Sig/Anna Start time Last Medication Dose Route Stop Time Status Admin Acetaminophen 650 MG Q6PRN PRN 05/05 0300 AC PO Aspirin 81 MG DAILY 05/06 900 AC 05/08 PO 0824 Atorvastatin Calcium 80 MG QPM 05 2100 AC 05/07 PO 205 Diltiazem HCl 60 MG BID 05/06 09 AC 05/07 PO 2357 Gabapentin 300 MG BID 05/05 09 AC 05/08 PO 0824 Guaifenesin 10 ML Q4P PRN 05/06 2215 AC 05/07 PO 205 Insulin Aspart 0 TIDAC 05/06 1700 AC 05/08 SC 0824 Insulin Detemir 24 UNITS QPM 07/ 2100 AC 05/07 SC 210 Lisinopril 20 MG DAILY 05/05 900 AC 05/07 PO 0900 Metoprolol Succinate 200 MG DAILY 05/05 0900 AC 05/07 PO 0859 Nystatin 1 DANNY BID 05/05 0900 AC 05/08 TOP 0825 Omeprazole 20 MG DAILY AC 05/05 0732 AC 05/08 PO 0600 Phytonadione 5 MG ONCE ONE 05/07 1645 DC 05/07 PO 05/07 1646 1842 Phytonadione 5 MG ONE ONE 05/07 1630 CAN SC 05/07 1631 Polyethylene Glycol 17 GM DAILY PRN 05/05 0730 AC PO Zinc Oxide 1 DANNY BID PRN 05/05 0400 AC TOP Last 24 Hrs of Lab/Kj Results Last 24 Hrs of Labs/Mics: Laboratory Tests 05/08/18 0726: PT 22.2 H, INR 2.02 H, CBC w Diff NO MAN DIFF REQ, RBC 3.19 L, MCV 85.3, MCH 28.2, MCHC 33.1, RDW 15.2 H, MPV 7.4, Gran % 74.7, Lymphocytes % 13.9 L, Monocytes % 7.0, Eosinophils % 4.0, Basophils % 0.4, Absolute Granulocytes 8.2 H, Absolute Lymphocytes 1.5, Absolute Monocytes 0.8 H, Absolute Eosinophils 0.4 , Absolute Basophils 0 Assessment/Plan Assessment: Patient is a 72 year old male with history of prior stroke in december 2017, who arrived from home only 1-2 days after [facility], with complaints of weakness, lethargy and fever on top of chronic villasenor catheter use and prior complicated urinary tract infections requiring renal stenting secondary to hydronephrosis. The patient was also found to be confused and to have a supratherapeutic INR, in the setting of A fib and tachycardia. Assessment and plan 1. Atrial fibrillation * Patient was transferred from to admit for rapid A. fib. Patient is being treated with metoprolol 200, Cardizem 60 twice daily. Yesterday patient had bradycardia in the low stool 40s after taking lisinopril, Cardizem and metoprolol altogether. Instructions was given to the nursing staff to stagger all medications. We will watch him for 24 hours, if no further episodes of bradycardia we can send him home safely with home health services. 2. Left tongue lesion * No active intervention at this point. No active bleeding. Consulted ENT who suggested outpatient biopsy. The family agrees. 3. Supratherapeutic INR * today's INR is 2.02. We will hold Coumadin. * Once INR comes less than 1.8 we will start him on Eliquis 5 mg twice daily. Cardiology is on board. 4. Diabetes mellitus * Accu-Cheks and NovoLog sliding scale insulin. 5. History of stroke * Patient needs home health services and Nasim lift at home. We will continue aspirin and statins. 6. Positive UA * Patient initially treated with ceftriaxone but urine culture was negative. Hence antibiotics was discontinued. DVT prophylaxis-Alps, supratherapeutic INR GI prophylaxis-omeprazole Problem List: 1. Atrial fibrillation Pain Ratin Pain Location: none Pain Goal: Remain pain free Pain Plan: tylenol Tomorrow's Labs & Rationales: cbc,bep Shila CAMARA,Phillip 05/08/18 0921: Attending MD Review Statement Attending Statement Attending Statement: examined this patient, discuss w/resident/PA/ELECTRONIC IMAGING SYSTEM OPERATOR, agreed w/resident/PA/ELECTRONIC IMAGING SYSTEM OPERATOR, reviewed EMR data (avail), discussed with nursing, amended to note Attending Assessment/Plan: Patient seen and examined. Resting comfortably unless in any acute distress. No issues overnight reported by nursing staff. Remains in atrial flutter with episodes of bradycardia or sinus pauses. No new complaints today. General appearance: Well-developed and not in any acute distress. HEENT: Anicteric, no pallor, pupils equal and reactive. Neck: Supple with no jugular venous distention. Heart: S1-S2 irregular Lungs: Adequate and symmetric air entry bilaterally with no added sounds. Abdomen: Nondistended with normal bowel sounds. Soft, nontender with no palpable masses. Extremities: No pedal edema. Power 3/5 bilateral lower extremities. Skin: Intact Problems 1. Paroxysmal atrial fibrillation 2. Bacteremia; likely contaminant 3. Bacteriuria; likely colonization. Antibiotic therapy discontinued per recommendation of the ID service. 4. History of stroke. Patient is a Nasim lift at baseline. 5. Insulin-dependent diabetes mellitus 6. Coronary artery disease. Plan: -Patient is better rate controlled. Continue Cardizem and metoprolol. He has had no further episodes of bradycardia or hypotension. -INR was elevated likely secondary to antibiotic therapy received on admission. Following vitamin K administration yesterday INR has come down to 2.02. Will begin patient on Eliquis 5 mg orally twice daily upon discharge for anticoagulation therapy. -Patient ruled in for type II myocardial infarction in the past. Patient has been made in conjunction with his open hearth stockyard supervisor for conservative management. Continue beta-america, aspirin and statin therapy. -Patient to follow-up with ENT service as an outpatient for biopsy of his tongue lesion. -Anticipate discharge tomorrow if no repeat episodes of bradycardia.
[2018-05-08 08:12] LABS: PT 22.2 SEC (9.4-12.5)
--- NOTE | 2018-05-08 14:42 | PN- Cardiology ---
Subjective Subjective: * No complaints. * atrial fibrillation with controlled heart rate. Objective Vital Signs and I&Os Vital Signs Date Time Temp Pulse Resp B/P B/P Pulse O2 O2 Flow FiO2 Mean Ox Delivery Rate 05/08 1232 98.0 82 16 128/80 05/08 1008 98.0 62 110/72 05/08 0633 98.0 63 20 108/68 94 Room Air 05/07 2357 94 05/07 2207 98.8 63 20 118/72 95 Room Air 05/07 2205 Room Air Room Air Intake & Output 05/08 1600 05/08 0800 05/08 0000 05/07 1600 05/07 0800 05/07 0000 Intake Total 250 150 860 150 50 Output Total 300 100 300 300 Balance -50 50 860 -150 -250 Intake, Oral 250 150 860 150 50 Number 1 1 1 Bowel Movements Output, Urine 300 100 300 300 Patient 232 lb 232 lb Weight Weight Bed scale Measurement Method Physical Exam: General: WD/WN male in NAD; awake and responsive. HEENT:: NC/AT, PERRL, EOMI Neck: no JVD, no carotid bruit Heart: irregularly irregular c Lungs: clear bilaterally Abdomen: soft, NT, +ve bowel sounds Extremities: no edema, right toe amputations Assessment/Plan Assessment/Plan * This patient had atrial fibrillation with rapid heart rate but his heart rate is better controlled on his current drug regimen including Metoprolol 200mg BID and Cardizem 60mg BID. He does have asymptomatic bradycardia while asleep with no significant pauses. We will reassess this over the next 24 hours and if there is significant bradycardia then we will decrease his Metoprolol to 75mg BID. * This patient had a supratherapeutic INR likely due to concurrent use of antibiotics and a nutritional deficiency. He has improved after being given some vitamin K. Would now change to Eliquis 5mg BID beginning tomorrow. * This patient has known coronary artery disease. On last visit, in the setting of his rapid heart rate he had ruled in for a type 2 MN. A cardiac catheterization was not pursued at the time of his last hospital visit due to invasive treatment being refused by the patient. I strongly suspect that his RCA in non-revascularizable. Continue aspirin 81mg daily and Lipitor. Continue telemetry? Yes
[2018-05-08 14:53] VITALS: BP 100/60
[2018-05-08 22:59] VITALS: BP 122/62
[2018-05-09 06:47] VITALS: BP 126/80
--- NOTE | 2018-05-09 07:04 | PN- Housestaff ---
Rodríguez Lagos 05/09/18 0704: Subjective Follow-up For: Atrial fibrillation, UTI (ruled-out), fever, lethargy Tele-Events Since Last Visit: Patient in atrial flutter overnight, rate 60-61 Subjective: Patient seen resting comfortably in the bed. Overnight no acute events, the patient is currently complaining only of a cough that is nonproductive. Patient denies chest pain, shortness of breath, palpitations, dizziness, fever or chills. Review of Systems Constitutional: Denies: chills, fever. Cardiovascular: Denies: chest pain, palpitations. Respiratory: Reports: cough. Denies: short of breath. Gastrointestinal: Denies: abdominal pain, nausea, vomiting. Objective Last 24 Hrs of Vital Signs/I&O Vital Signs Date Time Temp Pulse Resp B/P B/P Pulse O2 O2 Flow FiO2 Mean Ox Delivery Rate 05/09 0647 98.5 63 18 126/80 95 Nasal Cannula 05/08 2259 98.4 62 18 122/62 95 Nasal Cannula 05/08 2141 Room Air 05/08 2120 62 122/62 05/08 1502 98.6 82 18 118/98 05/08 1453 97.5 63 20 100/60 96 Nasal 2.0L Cannula 05/08 1232 98.0 82 16 128/80 07/08 1008 98.0 62 110/72 05/08 0800 97 Room Air Intake & Output 05/09 0800 07/ 0000 05/08 1600 Intake Total 1360 Output Total Balance 1360 Intake, Oral 1360 Number 1 1 2 Bowel Movements Patient 105.375 kg Weight Physical Exam General Appearance: Alert, Cooperative, No Acute Distress, Patient oriented to place and person Neck: Supple, No JVD, No thryomegaly Cardiovascular: Regular Rate, Normal S1, Normal S2, No Murmurs Lungs: Clear to Auscultation Extremities: No Clubbing, No Cyanosis Current Medications: Current Medications Sig/Anna Start time Last Medication Dose Route Stop Time Status Admin Acetaminophen 650 MG Q6PRN PRN 05/05 0300 AC PO Aspirin 81 MG DAILY 05/06 900 AC 05/08 PO 0824 Atorvastatin Calcium 80 MG QPM 05/05 2100 AC 05/08 PO 2120 Diltiazem HCl 60 MG BID 05/06 900 AC 05/08 PO 2120 Gabapentin 300 MG BID 05/05 900 AC 05/08 PO 2120 Guaifenesin 10 ML Q4P PRN 05/06 2215 AC 05/07 PO 2058 Insulin Aspart 0 TIDAC 05/06 1700 AC 05/08 SC 1728 Insulin Detemir 24 UNITS QPM 05/05 2100 AC 05/08 SC 2120 Lisinopril 20 MG DAILY 05/05 09 AC 05/08 PO 1008 Metoprolol Succinate 200 MG DAILY 05/05 09 AC 05/08 PO 1502 Nystatin 1 DANNY BID 05/05 09 AC 05/08 TOP 2121 Omeprazole 20 MG DAILY AC 05/05 0732 AC 05/09 PO 0510 Polyethylene Glycol 17 GM DAILY PRN 05/05 0730 AC PO Zinc Oxide 1 DANNY BID PRN 05/05 0400 TOP Last 24 Hrs of Lab/Kj Results Last 24 Hrs of Labs/Mics: Laboratory Tests 05/08/18725: PT 22.2 H, INR 2.02 H, CBC w Diff NO MAN DIFF REQ, RBC 3.19 L, MCV 85.3, MCH 28.2, MCHC 33.1, RDW 15.2 H, MPV 7.4, Gran % 74.7, Lymphocytes % 13.9 L, Monocytes % 7.0, Eosinophils % 4.0, Basophils % 0.4, Absolute Granulocytes 8.2 H, Absolute Lymphocytes 1.5, Absolute Monocytes 0.8 H, Absolute Eosinophils 0.4 , Absolute Basophils 0 Assessment/Plan Assessment: Patient is a 72 year old male with history of prior stroke in december 2017, who arrived from home only 1-2 days after being discharged from a nursing home facility, with complaints of weakness, lethargy and fever on top of chronic villasenor catheter use and prior complicated urinary tract infections requiring renal stenting secondary to hydronephrosis. The patient was also found to be confused and to have a supratherapeutic INR, in the setting of A fib and tachycardia. 72 year old male with urinary tract colonization secondary to chronic villasenor catheter. 1. Urinary tract colonization (UTI ruled out) count 2. Bacteremia 3. History of stroke at home. Case management to further assess the patient's discharge needs 4. Diabetes mellitus, requiring insulin 5. Supratherapeutic INR 6. Atrial fibrillation 7. Oral lesion lipoma Problem List: 1. Urinary tract infection 2. Atrial fibrillation with rapid ventricular response 3. Pseudomonas aeruginosa colonization Pain Ratin Pain Location: none Pain Goal: Pain 4 or less Pain Plan: Tylenol Tomorrow's Labs & Rationales: CBC Shila CAMARA,Phillip 05/09/18 1333: Attending MD Review Statement Attending Statement Attending MD Statement: examined this patient, discuss w/resident/PA/METAL CEILING BUILDER, agreed w/resident/PA/METAL CEILING BUILDER, reviewed EMR data (avail), discussed with nursing, discussed with case mgmt, amended to note Attending Assessment/Plan: Patient seen and examined. Resting comfortably not in any acute distress. No issues overnight reported by nursing staff. Lying comfortably in bed. Remains in atrial fibrillation with controlled ventricular response. No further episodes of bradycardia or hypotension. Villasenor catheter has been discontinued. Patient was bladder scan earlier. Only 40 cc of urine was noted. He is medically stable to be discharged today. Problems: 1. Bacteremia; likely due to contamination 2. Bacteriuria; likely due to colonization 3. Atrial fibrillation with rapid ventricular response 4. Insulin-dependent diabetes mellitus 5. Supratherapeutic INR 6. History of stroke Plan: -Patient was initially treated for presumed UTI. He was evaluated by the ID service. Urinary tract infection has been ruled out. Sepsis has been ruled out. He is doing well off antibiotic therapy. -He is noted to have a mild rise in his white blood cell count today. He is however afebrile. He is hemodynamically stable. This was discussed with the ID service. Recommendations are to continue to follow patient off antibiotic therapy. He is to repeat his CBCs as an outpatient with his primary care provider. -Heart rate is now better controlled. He has been discharged on diltiazem and metoprolol for rate control. -INR has trended down to normal after holding Coumadin and administer vitamin K. He has been started on Eliquis for anticoagulant therapy. -Due to his stroke he requires significant assistance for mobility. He is a Nasim lift now at baseline. pig farm manager's written ultrasound to ensure that sonogram care of for the patient at home. Apparently had spent 21 day home from the rehab center before being admitted to the hospital. If the son has adequate resources to take care of the patient at home he will be discharged home today.
[2018-05-09 08:16] LABS: PT 13.1 SEC (9.4-12.5)
--- NOTE | 2018-05-09 10:59 | PN- Infect Dx ---
Subjective Subjective: Afebrile without complaints Objective Last 24 Hrs of Vital Signs/I&O Vital Signs Date Time Temp Pulse Resp B/P B/P Pulse O2 O2 Flow FiO2 Mean Ox Delivery Rate 05/09 0801 63 126/80 05/09 0759 63 126/80 05/09 0647 98.5 63 18 126/80 95 Nasal Cannula 05/08 2259 98.4 62 18 122/62 95 Nasal Cannula 05/08 2141 Room Air 05/08 2120 62 122/62 05/08 1502 98.6 82 18 118/98 05/08 1453 97.5 63 20 100/60 96 Nasal 2.0L Cannula 05/08 1232 98.0 82 16 128/80 Intake & Output 05/09 1600 05/09 0800 05/09 0000 Intake Total Output Total Balance Number 1 1 Bowel Movements Patient 232 lb Weight Physical Exam Other Physical Findings: He is awake and alert in no acute distress Lungs bibasilar crackles Heart irregular rhythm with a 1/6 systolic ejection murmur Abdomen is soft, nontender with positive bowel sounds Back no CVA tenderness Results Last 24 Hours of Lab Results: Laboratory Tests 05/09 700 Coagulation PT (9.4 - 12.5 SEC) 13.1 H INR (0.90 - 1.17) 1.20 H Last 24 Hours of Kj Results: Blood cultures 2 May 06 negative Urine culture May 05 greater than 100,000 colonies of Pseudomonas and possible VRE Recent Imaging Studies: Renal ultrasound May 06 no hydronephrosis or calculi Assessment/Plan ID Impression: Stable, with temperatures remaining normal, off antibiotics with his urine culture positive for Pseudomonas and possible VRE, most likely representing colonization secondary to the recent Garcia catheter. One blood culture was positive for Enterococcus and coag negative Staph, but suspect this also represents contamination. Of note it does not appear that he has been bladder scanned since removal of the Garcia catheter, though he does not have any evidence for urinary retention, with his creatinine remaining normal. His white blood cell count is slightly increased today, of unclear significance, and it will need follow-up. Suggestion: 1. Bladder scan to rule out urinary retention and initiate straight cath protocol if necessary 2. Follow-up final urine culture 3. Close monitoring of his white blood cell count 4. Continue to follow off antibiotics pending above
[2018-05-09] MEDS ORDERED: ELIQUIS5 M1 PO ×3 (11:48→13:58)
[2018-05-09] MEDS ORDERED: METOPROLOL TART75 MG PO ×3 (11:48→13:58)
[2018-05-09] MEDS ORDERED: CARDIZEM60 M1 PO ×2 (13:53→13:58)
[2018-05-09 14:27] VITALS: BP 118/72
[2018-05-09 23:35] VITALS: BP 148/66
[2018-05-10 07:00] VITALS: BP 158/82
--- NOTE | 2018-05-10 07:05 | PN- Housestaff ---
Rodríguez Lagos 05/10/18 0704: Subjective Follow-up For: Atrial fibrillation, urinary tract colonization, uti (resolved) Subjective: Patient in the OR for renal stent removal. 2PM, patient seen and examined, still tired from anesthesia post-operatively, but no acute complaints. Review of Systems Constitutional: Denies: no symptoms (Unable to assess). Objective Last 24 Hrs of Vital Signs/I&O Vital Signs Date Time Temp Pulse Resp B/P B/P Pulse O2 O2 Flow FiO2 Mean Ox Delivery Rate 05/095 99.0 114 22 148/66 95 05/09 2025 Room Air 05/09 2020 98 128/82 05/09 1427 97.9 67 18 118/72 92 Room Air 05/09 0900 Room Air 05/09 0801 63 126/80 05/09 0759 63 126/80 Intake & Output 05/10 0805/10 0000 05/09 1600 Intake Total 600 Output Total Balance 600 Intake, Oral 600 Patient 105.432 kg Weight Physical Exam General Appearance: Alert, Cooperative, No Acute Distress, Oriented to person and place Cardiovascular: Regular Rate, Normal S1, Normal S2, Irregular rhythm Lungs: Clear to Auscultation Abdomen: Soft Current Medications: Current Medications Sig/Anna Start time Last Medication Dose Route Stop Time Status Admin Acetaminophen 650 MG Q6PRN PRN 05/05 0300 AC PO Apixaban 5 MG BID 05/09 921 AC 05/09 PO 2017 Aspirin 81 MG DAILY 05/06 900 AC 05/09 PO 075 Atorvastatin Calcium 80 MG QPM 05/05 2100 AC 05/09 PO 2018 Diltiazem HCl 60 MG BID 05/06 900 AC 05/09 PO 2020 Gabapentin 300 MG BID 05/05 900 AC 05/09 PO 2018 Guaifenesin 10 ML Q4P PRN 05/06 2215 AC 05/07 PO 205 Insulin Aspart 0 TIDAC 05/06 1700 AC 05/09 SC 1724 Insulin Detemir 24 UNITS QPM 05/05 2100 AC 05/09 SC 2154 Lisinopril 20 MG DAILY 05/05 900 AC 05/09 PO 0759 Metoprolol Succinate 200 MG DAILY 05/05 900 DC 05/08 PO 1502 Metoprolol Tartrate 75 MG BID 05/09 900 AC 05/09 PO 2155 Nystatin 1 DANNY BID 05/05 900 DC 05/08 TOP 2121 Omeprazole 20 MG DAILY AC 05/05 0732 AC 05/09 PO 0510 Patient Medication 1 ED ONE ONE 05/09 1230 TX Teaching ED 05/09 1231 Polyethylene Glycol 17 GM DAILY PRN 05/05 0730 AC PO Zinc Oxide 1 DANNY BID PRN 05/05 0400 AC TOP Last 24 Hrs of Lab/Kj Results Last 24 Hrs of Labs/Mics: Laboratory Tests 05/10/18 0634: CBC w Diff Pending, WBC Pending, RBC Pending, Hgb Pending, Hct Pending, MCV Pending, MCH Pending, MCHC Pending, RDW Pending, Plt Count Pending, MPV Pending Assessment/Plan Assessment: Patient is a 72 year old male with history of prior stroke in december 2017, who arrived from home only 1-2 days after being [facility], with complaints of weakness, lethargy and fever on top of chronic villasenor catheter use and prior complicated urinary tract infections requiring renal stenting secondary to hydronephrosis. The patient was also found to be confused and to have a supratherapeutic INR, in the setting of A fib and tachycardia. 72 year old male with urinary tract colonization secondary to chronic villasenor catheter. 1. Urinary tract colonization (UTI ruled out) 2. History of stroke at home. Case management to further assess the patient's discharge needs 3. Diabetes mellitus, requiring insulin 4. Atrial fibrillation 5. Oral lesion as lipoma 6. Bacteremia 7. Supratherapeutic INR Problem List: 1. Pseudomonas aeruginosa colonization 2. Atrial fibrillation with rapid ventricular response Pain Ratin Pain Location: None Pain Goal: Pain 4 or less Pain Plan: Call md Tomorrow's Labs & Rationales: Phillip Polanco MD 05/10/18 1253: Attending MD Review Statement Attending Statement Attending MD Statement: examined this patient, discuss w/resident/PA/WRAPPER SORTER, agreed w/resident/PA/WRAPPER SORTER, reviewed EMR data (avail), discussed with nursing, discussed with case mgmt, amended to note Attending Assessment/Plan: Patient seen and examined. Resting comfortably not in any acute distress. No issues overnight. No new complaints from the patient. He was taken to the operating room by his urologist Dr. Thomas and underwent endoscopic shockwave lithotripsy with left stent removal. Patient tolerated the procedure well. Preprocedure patient has been afebrile hemodynamically stable however his white cell count continues to trend upwards. Case was discussed with the ID service. Urine is growing multiple organisms likely representing collateralization however given his instrumentation to the it will be prudent to monitor the patient for 24 hours to assure that he does not develop fever which will be a signal that he has now become bacteremic. We will continue to monitor him off antibiotic therapy or monitoring overnight. If he remains afebrile he will be discharged home tomorrow.
[2018-05-10 08:28] LABS: ABSOLUTE BASOPHIL COUNT 0.1 /CUMM (0.0-0.2); ABSOLUTE EOSINOPHIL COUNT 0.3 /CUMM (0.0-0.7); ABSOLUTE GRANULOCYTE CT 8.8 /CUMM (1.4-6.5); ABSOLUTE LYMPH COUNT 1.9 /CUMM (1.2-3.4); ABSOLUTE MONOCYTE COUNT 0.9 /CUMM (0.10-0.60); BASOPHIL % 0.5 % (0.0-2.0); EOSINOPHIL % 2.9 % (0-5); GRANULOCYTE % 73.4 % (42.2-75.2); HEMATOCRIT 26.3 % (42-52); MEAN CORPUSCULAR HGB 28.5 PG (27.0-31.0); MEAN CORPUSCULAR HGB CONC 33.6 G/DL (33.0-37.0); MEAN CORPUSCULAR VOLUME 84.7 FL (80.0-94.0); MEAN PLATELET VOLUME 7.5 FL (7.4-10.4); PLATELET COUNT 362 /CUMM (130-400); RBC DISTRIBUTION WIDTH 15.7 % (11.5-14.5)
[2018-05-10 10:39] VITALS: BP 158/82
--- NOTE | 2018-05-10 14:47 | PN- Infect Dx ---
Subjective Subjective: Afebrile without complaints Objective Last 24 Hrs of Vital Signs/I&O Vital Signs Date Time Temp Pulse Resp B/P B/P Pulse O2 O2 Flow FiO2 Mean Ox Delivery Rate 05/10 1039 60 158/82 05/10 1038 60 158/82 05/10 0700 98.2 60 20 158/82 94 Room Air 05/09 2335 99.0 114 22 148/66 95 05/09 2025 Room Air 05/09 2020 98 128/82 Intake & Output 05/10 1600 05/10 0800 05/10 0000 Intake Total 480 Output Total Balance 480 Intake, Oral 480 Number 1 Bowel Movements Patient 232 lb 232 lb Weight Physical Exam Other Physical Findings: He appears comfortable in no acute distress Lungs decreased breath sounds at both bases Heart irregular rhythm with no murmur Abdomen is obese, soft, nontender with positive bowel sounds Back no CVA tenderness Extremities no cyanosis, clubbing or edema Results Last 24 Hours of Lab Results: Laboratory Tests 05/10 0634 Hematology CBC w Diff NO MAN DIFF REQ WBC (4.8 - 10.8 /CUMM) 12.0 H RBC (4.70 - 6.10 /CUMM) 3.10 L Hgb (14.0 - 18.0 G/DL) 8.8 L Hct (42 - 52 %) 26.3 L MCV (80.0 - 94.0 FL) 84.7 MCH (27.0 - 31.0 PG) 28.5 MCHC (33.0 - 37.0 G/DL) 33.6 RDW (11.5 - 14.5 %) 15.7 H Plt Count (130 - 400 /CUMM) 362 MPV (7.4 - 10.4 FL) 7.5 Gran % (42.2 - 75.2 %) 73.4 Lymphocytes % (20.5 - 51.1 %) 16.0 L Monocytes % (1.7 - 9.3 %) 7.2 Eosinophils % (0 - 5 %) 2.9 Basophils % (0.0 - 2.0 %) 0.5 Absolute Granulocytes (1.4 - 6.5 /CUMM) 8.8 H Absolute Lymphocytes (1.2 - 3.4 /CUMM) 1.9 Absolute Monocytes (0.10 - 0.60 /CUMM) 0.9 H Absolute Eosinophils (0.0 - 0.7 /CUMM) 0.3 Absolute Basophils (0.0 - 0.2 /CUMM) 0.1 Last 24 Hours of Kj Results: Urine culture May 05 greater than 100,000 colonies of Pseudomonas sensitive to all antibiotics tested and VRE Blood cultures 2 May 06 remain negative Assessment/Plan ID Impression: Stable, with temperatures remaining normal, status post cystoscopy with removal of the left ureteral stent and ESWL of the left UVJ stone earlier today. He remains off antibiotics, with no prophylaxis apparently given prior to his recent urologic procedure; therefore he will need to be followed closely for signs of sepsis related to this procedure. His positive urine culture for Pseudomonas and VRE most likely represens colonization secondary to the recent Garcia catheter and do not feel this requires treatment. The positive blood culture for Enterococcus and coag negative Staph, likewise, most likely represents contamination. His white blood cell count is further increased today , but remains of unclear significance, as he is otherwise stable. Of note he was bladder scanned yesterday, revealing a postvoid residual of 48 cc. Suggestion: 1. Continue to follow temperatures and white blood cell count off antibiotics
--- NOTE | 2018-05-12 08:53 | Operative Report ---
Operative/Inv Procedure Report Surgery Date: 05/10/18 Name of Procedure: left ureter ESWL, fluoroscopy/cysto-left stent removal Pre-Operative Diagnosis: left ureter stone and stent Post-Operative Diagnosis: same Estimated Blood Loss: scant Surgeon/Pl Sql Developer: MD William, [place] Anesthesia: laryngeal mask airway Drains: 18fr villasenor Specimens: left stent Complications: none Operative/Procedure Note Note: The patient was taken to the operating room and placed on the ESWL table in supine position. With the patient awake, timeout was performed in order to confirm the patient's identity, laterality, procedure, anesthesia, and other pertinent perioperative information. The patient's left flank was positioned over the ESWL table cut-out, overlying the dome of the shockwave generator. C- arm fluroscopy, as well as renal US was used to locate the stone, and evaluate the left kidney. The stone was visible on fluroscopy at the level of the proximal ureter alongside the stent. Renal US confimred resolution of hydronephrosis, with and additional stone seen in the kidney. The left ureter stone was approximate 6 mm in size, and it's position was optimized with fluoroscopy with AP and Oblique views. After adequate anesthesia and antibiotics, the left renal E.S.W.L. was initiated at low power levels x200 shocks. After noting the patient's tolerance to the shockwaves, the shockwave power level was quickly maximumized. Toward the end of the procedure, the composition of the stone had changed significantly indicating the pulverization of the ureter stone. A total of 3000 shockwaves were delivered to the stone in order to achieve complete pulverization of the stone. The patient was then frog legged, draped and prepped in the usual surgical fashion. A 22 [place] cystoscope sheath with a 30 angle lens was inserted into the urethra and into the bladder without difficulty. Upon entering the bladder the bladder was noted to be free of tumor free of stone both orifices in orthotopic position. The left orifice had a stent protruding from it, which was grasped with an alligator grasper. The cystoscope, along with entire left stent was removed without difficulty. All sponge, needle, and instrument count were correct at the end of the case. The patient tolerated both procedures well, was awakened, and taken to recovery in satisfactory condition via stretcher. The pt. will eventually be dischared to home with pain meds, diet orders, and intructions to catch fragments with straining the urine. The patient is to have follow-up renal ultrasound and KUB in 2 weeks, prior to follow-up visit in my office. Discharge Disposition: PACU CC: Wellington Thomas MD
== END 2018-05-10 16:25 | disposition home health service (06) | DRG 987 ==
LOC: DELPENDDIS → ERH 22:58 → ERHI 05-05 01:58 → ENRESERV 05-05 02:40 → 2NB 05-05 03:15 → 1NO 05-05 09:52 → ENPENDDIS 05-09 13:29 → 1NO 05-09 21:05 → ENPENDDIS 05-10 15:34 → 1NO 05-10 16:25
PROVIDERS: Internal Medicine; Pediatrics; Student in an Organized Health Care Education/Training Program
PROC: 0CJS8ZZ Inspection of Larynx, Via Natural or Artificial Opening Endoscopic (ICD-10-PCS; 2018-05-05)
PROC: 0TC78ZZ Extirpation of Matter from Left Ureter, Via Natural or Artificial Opening Endoscopic (ICD-10-PCS; principal; 2018-05-10)
PROC: 0TP98DZ Removal of Intraluminal Device from Ureter, Via Natural or Artificial Opening Endoscopic (ICD-10-PCS; principal; 2018-05-10)
DX: I48.0 Paroxysmal atrial fibrillation (principal); I21.A1 Myocardial infarction type 2; N13.2 Hydronephrosis with renal and ureteral calculous obstruction; I27.20 Pulmonary hypertension, unspecified; I25.10 Atherosclerotic heart disease of native coronary artery without angina pectoris; E78.5 Hyperlipidemia, unspecified; N28.9 Disorder of kidney and ureter, unspecified; I25.2 Old myocardial infarction; E11.9 Type 2 diabetes mellitus without complications; R00.0 Tachycardia, unspecified; K14.0 Glossitis; R00.1 Bradycardia, unspecified; Z79.4 Long term (current) use of insulin; Z89.421 Acquired absence of other right toe(s); Z87.891 Personal history of nicotine dependence; Z95.5 Presence of coronary angioplasty implant and graft; Z79.01 Long term (current) use of anticoagulants
CPT/HCPCS: 1NP; 36415; 36592; 71045; 76775; 81001; 82436; 87040; 87086; 87147; 93005; 93010; 93306; 97110-GO; 97161-GP; J0461; J0696; J1815; J3490; J7042; J7508